=== PATIENT | female | born 1950 | race Caucasian/White ===

== ENCOUNTER → 2017-04-16 | Outpatient (REF) | payer MEDICARE, BC ==
[~2017-04-16] MED LIST: /GLYB5TA; /INSULEV; /INSULEV SC; /ONDA4TA PO; ACET-654 PO; ACET65TA OR; ALBU17IN2 INH; ALPH0.156; AMLO10TA; AMLO5TAB2 PO; ASPI1TAB PO; ASPI325T; ASPI81TA45 PO; ATOR1TAB18 PO; CALC0.5C PO; CALCPOW2 PO; CARV12.5 PO; CATA0.2T PO; CATA0.3D; CELE10TA; CELE10TA OR; CETI10TA PO; CINA30TA PO; CITA20TA4 PO; CLEO150C PO; CLON-412 PO; CLOP75TA2 PO; COLA100C2; COLA100C3 PO; CORE25TA PO; COSOPT OU; DEXILANT PO; DIOV160T5 OR; DIOV320T; DORZOLAMIDE-TIMOLOL; ERGO500014 PO; FERR325T PO; FLON0.054; FLON1SPR; GLYB5TA PO; HYDR-4267 PO; HYDR50TA7 PO; IRON28TA; KION15SU PO; LASI80TA; LEVE1INJ5 SC; LEVO175T19 PO; LEVO200T6; LEVO200T6 PO; LEVO300T OR; LIPI80TA; LOPR50TA; LORTAB PO; LOSA100T36 PO; LOSA25TA8 PO; METO5TAB2; MIRA3350 PO; NIFE20CA PO; NITR4TASL SL; OMEP40CA2 PO; PREDFORTE OU; PREDNISOLINE; PRIL20CA; PROCRIT3000 MG/ML IJ; PROCRIT3000 MG/ML SQ; PROT1TAB2 PO; RENA800T; RENATAB5 PO; RENV2TAB PO; SENSIPAR; TRAVATAN Z EYE GTTS; TUMS500C OR; VITAMIN D50000 UNT; ZEMPLAR; ZETI10TA
== END ==
LOC: M SFHCPLAZ 16:45
PROVIDERS: ATTEND Dermatology
DX: L02.91 Cutaneous abscess, unspecified (principal)

== ENCOUNTER 2017-06-06 13:03 | Emergency (ER) | payer MEDICARE, BC ==
[~2017-06-06] VITALS: Ht 165.1 cm; Wt 97.7 kg
[~2017-06-06 13:03] MED LIST changes: -ACET-654 PO; +ACET1TAB17 PO; -ATOR1TAB18 PO; +ATOR80TA59 PO; -COLA100C3 PO; +COLA100C5 PO; +HYDR-3911 PO; -HYDR-4267 PO
[2017-06-06 13:14] VITALS: BP 163/69
[2017-06-06] MEDS ORDERED: HYDR-3910 PO (13:21)
[2017-06-06] MEDS ORDERED: ADACEL/BOOSTRIX VACCINE (DIPHTH/PERTUSS/ACELL/TETANUS)0.5ML SYR (90715) IM ONE (13:45)
--- NOTE | 2017-06-06 14:06 | REP ---
LEFT FOOT, FOUR VIEWS: HISTORY: Lateral pain. There is no acute fracture or dislocation. The joint spaces are normal in appearance. Vascular calcification is present. IMPRESSION: There is no acute fracture or dislocation. Signed by Rusty Reardon MD 06/06/2017 02:11 P
== END 2017-06-06 14:10 | disposition home or self-care (01) ==
LOC: M ED 13:03
DX: S93.602A Unspecified sprain of left foot, initial encounter (principal); E11.9 Type 2 diabetes mellitus without complications; I10 Essential (primary) hypertension; I25.2 Old myocardial infarction; Z99.81 Dependence on supplemental oxygen; Z79.02 Long term (current) use of antithrombotics/antiplatelets; W19.XXXA Unspecified fall, initial encounter; Y92.89 Other specified places as the place of occurrence of the external cause; Y93.89 Activity, other specified; Y99.9 Unspecified external cause status

== ENCOUNTER → 2017-09-01 | Outpatient (REF) | payer MEDICARE, BC ==
[~2017-09-01] MED LIST changes: +HYDR-3910 PO
== END ==
LOC: M SFHCPLAZ 16:44
PROVIDERS: ATTEND Dermatology
DX: L02.93 Carbuncle, unspecified (principal); L30.8 Other specified dermatitis
CPT/HCPCS: 87070; 87077; 87186; G0463

== ENCOUNTER → 2017-11-03 | Outpatient (CLI) | payer MEDICARE, BC ==
--- NOTE | 2017-11-03 14:21 | REPMRS ---
Patient History The patient states she has not had a clinical breast exam in over a year. Patient is postmenopausal and is nulliparous. No known family history of cancer. Digital Mammo Screening Bilat: November 03, 2017 - Exam #: [id number] Bilateral CC and MLO view(s) were taken. Technologist: Judy Rosales, Technologist Prior study comparison: October 14, 2014, bilateral digital mammo screening bilat performed at [facility]. February 14, 2014, left breast digital mammo diagnostic unilateral performed at [facility]. FINDINGS: There are scattered fibroglandular densities. There has been no change in the appearance of the mammogram from the prior studies. There is a mild amount of residual fibroglandular tissue which is fairly symmetric. There is no interval development of dominant mass, architectural distortion, or clustered microcalcification suggestive of malignancy. ASSESSMENT: BI-RADS/ACR category 1 mammogram. Negative. Recommendation Routine screening mammogram in 1 year (for women over age 40). This mammogram was interpreted with the aid of an FDA-approved computer-aided dectection system. Electronically Signed By: Berlin Ornelas MD 11/03/17 [id number]
== END ==
LOC: M RAD 13:12
PROVIDERS: ATTEND Internal Medicine Nephrology
DX: Z12.31 Encounter for screening mammogram for malignant neoplasm of breast (principal); Z78.0 Asymptomatic menopausal state

== ENCOUNTER 2017-12-22 08:12 | Day surgery (SDC) | payer MEDICARE, BC ==
[2017-12-22 09:30] LABS: BEDSIDE GLUCOSE 167 MG/DL (80-115)
[2017-12-22] MEDS ORDERED: PROPOFOL 500 MG/50 ML VIAL As Ordered (09:48)
[2017-12-22] MEDS ORDERED: LIDOCAINE 2% INJ 100 MG/5 ML SDV (FOR ANES.) As Ordered (09:48)
[2017-12-22] MEDS ORDERED: hydrALAZINE INJ 20 MG/ML VIAL As Ordered (09:48)
[2017-12-22] MEDS: NS 1,000 ML IV (10:00)
== END 2017-12-22 10:45 | disposition home or self-care (01) ==
LOC: M OPP 08:12
DX: Z12.11 Encounter for screening for malignant neoplasm of colon (principal); D12.3 Benign neoplasm of transverse colon; K57.30 Diverticulosis of large intestine without perforation or abscess without bleeding; I25.10 Atherosclerotic heart disease of native coronary artery without angina pectoris; I10 Essential (primary) hypertension; E78.5 Hyperlipidemia, unspecified; I25.2 Old myocardial infarction; Z95.1 Presence of aortocoronary bypass graft; E10.9 Type 1 diabetes mellitus without complications; E03.9 Hypothyroidism, unspecified; R12 Heartburn; K21.9 Gastro-esophageal reflux disease without esophagitis; F32.9 Major depressive disorder, single episode, unspecified; I63.9 Cerebral infarction, unspecified; Z78.0 Asymptomatic menopausal state; R06.02 Shortness of breath; Z99.2 Dependence on renal dialysis; Z79.82 Long term (current) use of aspirin; Z79.899 Other long term (current) drug therapy; Z88.8 Allergy status to other drugs, medicaments and biological substances
CPT/HCPCS: 45385

== ENCOUNTER 2018-01-08 15:39 | Inpatient (IN) | payer MEDICARE, BC ==
[2018-01-08] MEDS: [UNRECOGNIZED DRUG - REMARK] XX (16:00)
[2018-01-08 16:29] LABS: BASO % 0.6 % (0.0-1.0); EOS % 0.6 % (0.0-3.0); HEMATOCRIT 32.5 % (36.0-47.0); HEMOGLOBIN 10.3 g/dl (12.0-16.0); IMMATURE GRANULOCYTE % 0.6 % (0-3.0); LYMPH % 4.6 % (24.0-44.0); MEAN CORPUSCULAR HEMOGLOBIN 31.2 pg (27.0-33.0); MEAN CORPUSCULAR HGB CONC 31.7 g/dl (32.0-36.5); MEAN CORPUSCULAR VOLUME 98.5 fl (80.0-96.0); MONO # 0.7 10^3/uL (0.0-0.8); MONO % 10.1 % (0.0-5.0); NEUTROPHILS # 5.8 10^3/uL (1.8-7.7); NEUTROPHILS % 83.5 % (36.0-66.0); PLATELET COUNT, AUTOMATED 171 10^3/uL (150-450); RED CELL DISTRIBUTION WIDTH 17.1 % (11.5-14.5)
[2018-01-08 16:38] LABS: LACTIC ACID SEPSIS PROTOCOL 1.4 MMOL/L (0.4-2.0)
[2018-01-08 16:41] LABS: ALBUMIN 3.6 GM/DL (3.2-5.2); ALBUMIN/GLOBULIN RATIO 0.77 (1.00-1.93); ALKALINE PHOSPHATASE 167 U/L (45-117); ALT/SGPT 17 U/L (12-78); ANION GAP 11 MEQ/L (8-16); AST/SGOT 21 U/L (7-37); BILIRUBIN,DIRECT < 0.1 MG/DL (0.0-0.2); BILIRUBIN,TOTAL 0.4 MG/DL (0.2-1.0); BLOOD UREA NITROGEN 56 MG/DL (7-18); CALCIUM LEVEL 8.8 MG/DL (8.8-10.2); CARBON DIOXIDE LEVEL 30 MEQ/L (21-32); CHLORIDE LEVEL 93 MEQ/L (98-107); CPK CREATINE PHOSPHOKINASE 285 U/L (26-192); GLOMERULAR FILTRATION RATE 4.3 (>45); GLUCOSE, FASTING 197 MG/DL (70-100); POTASSIUM SERUM 4.1 MEQ/L (3.5-5.1); SODIUM LEVEL 134 MEQ/L (136-145); TOTAL PROTEIN 8.3 GM/DL (6.4-8.2); TROPONIN I 0.06 NG/ML (< 0.10)
[2018-01-08 16:43] LABS: PROTHROMBIN TIME 14.4 SECONDS (12.4-14.5)
[2018-01-08 16:44] LABS: LYMPH # 0.3 10^3/uL (1.5-4.5)
[2018-01-08 16:46] LABS: NT-PRO BNP 5000 PG/ML (<125); THYROID STIMULATING HORMONE 0.107 uIU/ML (0.358-3.740)
[2018-01-08 16:47] LABS: CREATININE FOR GFR 9.68 MG/DL (0.55-1.30)
[2018-01-08 16:55] LABS: VENOUS HCO3 23.7 MEQ/L (23.0-27.0); VENOUS O2 SATURATION 92.3 % (60.0-80.0); VENOUS PARTIAL PRESSURE CO2 44.5 mmHg (38.0-50.0); VENOUS PARTIAL PRESSURE O2 67.2 mmHg (30.0-50.0); VENOUS PH 7.344 UNITS (7.330-7.430); VENOUS STANDARD HCO3 22.7 MEQ/L; VENOUS TOTAL CO2 25.1 MEQ/L (24.0-28.0)
[2018-01-08] MEDS ORDERED: GLUCAGON FOR INJ 1 MG VIAL (J1610) SC (19:15)
[2018-01-08] MEDS ORDERED: DEXTROSE 50% 50 ML SYRINGE IV (19:15)
[2018-01-08] MEDS ORDERED: GLUCOSE 4 GM CHEW TABLET PO (19:15)
[2018-01-08] MEDS ORDERED: hydrALAZINE INJ 20 MG/ML VIAL IV (19:15)
[2018-01-08] MEDS ORDERED: IPRATROPIUM 0.5MG/ALBUTEROL 2.5MG INH SOL UD 3ML (DUONEB)(J7620) NEB (19:15)
[2018-01-08] MEDS ORDERED: ACETAMINOPHEN TAB 650MG DOSE (2X325MG) PO (19:45)
[2018-01-08] MEDS: OSELTAMIVIR PHOSPHATE 30MG CAPSULE PO (20:00)
[2018-01-08 20:04] LABS: FREE THYROXINE INDEX 4.4 % (1.3-4.8); T UPTAKE 32 % (30-39); THYROXINE (T4) 13.6 UG/DL (4.5-12.0)
[2018-01-08] MEDS: hydrALAZINE INJ 20 MG/ML VIAL IV (20:21)
[2018-01-08] MEDS: NITROGLYCERIN 2% OINT 1 GM *U/D* PKT TOP (20:21)
[2018-01-08] MEDS: IPRATROPIUM 0.5MG/ALBUTEROL 2.5MG INH SOL UD 3ML (DUONEB)(J7620) NEB (20:49)
[2018-01-08] MEDS: CALCIUM CARBONATE 500 MG CHEW U/D PO (21:00)
[2018-01-08] MEDS: HumaLOG INSULIN (NovoLOG) PER UNIT SC (22:00)
[2018-01-08] MEDS: **hydrALAZINE HCL** 25 MG TAB PO (22:18)
[2018-01-08] MEDS: CitaloPRAM (CeleXA) 20 MG TAB PO (22:18)
[2018-01-08] MEDS: DOCUSATE SODIUM 100 MG CAP PO (22:19)
[2018-01-08] MEDS: LOSARTAN 50 MG TAB PO (22:20)
[2018-01-08] MEDS: SENOKOT S TAB PO (22:20)
[2018-01-08] MEDS: ATORVASTATIN 20 MG TAB PO (22:20)
[2018-01-08] MEDS: cloNIDine 0.2 MG TAB PO (22:21)
[2018-01-08] MEDS: guaiFENesin ER 600 MG TAB PO (22:21)
[2018-01-08 22:56] LABS: CK-MB VALUE MASS 1.6 NG/ML (0.0-3.6); CPK CREATINE PHOSPHOKINASE 336 U/L (26-192); MB/CK RELATIVE INDEX 0.47 (< OR =4); TROPONIN I 0.08 NG/ML (< 0.10)
[2018-01-08] MEDS: CETIRIZINE (ZyrTEC) 10 MG TAB PO (23:00)
[2018-01-08] MEDS: MIRALAX *UNIT DOSE* 17GM PACKET PO (23:00)
[2018-01-08] MEDS: BENZONATATE 100 MG CAP PO (23:00)
[2018-01-08] MEDS: CARVedilol 12.5 MG TAB PO (23:21)
[2018-01-08] MEDS: HEPARIN SOD (PORCINE) 5000 UNITS/ML VIAL SC (23:23)
[2018-01-09] MEDS: IPRATROPIUM 0.5MG/ALBUTEROL 2.5MG INH SOL UD 3ML (DUONEB)(J7620) NEB ×4 (02:00→19:38)
[2018-01-09] MEDS: LEVOTHYROXINE 100MCG TABLET (0.1MG) PO (06:00)
[2018-01-09] MEDS: HEPARIN SOD (PORCINE) 5000 UNITS/ML VIAL SC ×3 (06:00→21:35)
[2018-01-09] MEDS: LEVOTHYROXINE 75MCG TABLET (0.075MG) PO (06:00)
[2018-01-09] MEDS: HumaLOG INSULIN (NovoLOG) PER UNIT SC ×4 (07:30→21:00)
[2018-01-09 07:45] LABS: HEMATOCRIT 30.1 % (36.0-47.0); HEMOGLOBIN 9.6 g/dl (12.0-16.0); MEAN CORPUSCULAR HEMOGLOBIN 30.9 pg (27.0-33.0); MEAN CORPUSCULAR HGB CONC 31.9 g/dl (32.0-36.5); MEAN CORPUSCULAR VOLUME 96.8 fl (80.0-96.0); PLATELET COUNT, AUTOMATED 145 10^3/uL (150-450); RED BLOOD COUNT 3.11 10^6/uL (4.00-5.40); RED CELL DISTRIBUTION WIDTH 16.9 % (11.5-14.5); WHITE BLOOD COUNT 5.9 10^3/uL (4.0-10.0)
[2018-01-09 07:59] LABS: ALBUMIN 3.2 GM/DL (3.2-5.2); ALBUMIN/GLOBULIN RATIO 0.94 (1.00-1.93); ALKALINE PHOSPHATASE 137 U/L (45-117); ALT/SGPT 15 U/L (12-78); ANION GAP 12 MEQ/L (8-16); AST/SGOT 25 U/L (7-37); BILIRUBIN,TOTAL 0.4 MG/DL (0.2-1.0); BLOOD UREA NITROGEN 70 MG/DL (7-18); CALCIUM LEVEL 8.5 MG/DL (8.8-10.2); CARBON DIOXIDE LEVEL 28 MEQ/L (21-32); CHLORIDE LEVEL 95 MEQ/L (98-107); GLOMERULAR FILTRATION RATE 3.6 (>45); GLUCOSE, FASTING 154 MG/DL (70-100); MAGNESIUM LEVEL 2.2 MG/DL (1.8-2.4); POTASSIUM SERUM 4.4 MEQ/L (3.5-5.1); SODIUM LEVEL 135 MEQ/L (136-145); TOTAL PROTEIN 6.6 GM/DL (6.4-8.2)
[2018-01-09] MEDS: CALCIUM ACETATE 667 MG GELCAP PO ×3 (08:00→17:59)
[2018-01-09 08:12] LABS: BEDSIDE GLUCOSE 156 MG/DL (80-115)
[2018-01-09] MEDS: CARVedilol 12.5 MG TAB PO ×2 (09:00→20:51)
[2018-01-09] MEDS: HEPARIN 1,000 UNITS/ML 10ML VIAL (FOR RADIOLOGY& DIALYSIS ONLY) IV (14:44)
[2018-01-09] MEDS: guaiFENesin ER 600 MG TAB PO ×2 (14:45→20:50)
[2018-01-09] MEDS: DOCUSATE SODIUM 100 MG CAP PO ×2 (14:46→20:50)
[2018-01-09] MEDS: BENZONATATE 100 MG CAP PO ×3 (14:47→20:50)
[2018-01-09] MEDS: SENOKOT S TAB PO ×2 (14:47→20:50)
[2018-01-09] MEDS: CALCIUM CARBONATE 500 MG CHEW U/D PO ×3 (14:48→20:50)
[2018-01-09] MEDS: CLOPIDOGREL 75 MG TAB PO (15:13)
[2018-01-09] MEDS: ASPIRIN 81 MG ENTERIC TAB PO (15:13)
[2018-01-09] MEDS: PANTOPRAZOLE 40MG TAB (PROTONIX) PO (15:13)
[2018-01-09] MEDS: CINACALCET 30 MG TAB (SENSIPAR) PO (15:13)
[2018-01-09] MEDS: cloNIDine 0.2 MG TAB PO ×2 (15:14→20:52)
[2018-01-09] MEDS: **hydrALAZINE HCL** 25 MG TAB PO ×2 (15:14→20:52)
[2018-01-09] MEDS: [UNRECOGNIZED DRUG - REMARK] XX (16:00)
[2018-01-09] MEDS: OSELTAMIVIR PHOSPHATE 30MG CAPSULE PO (17:59)
[2018-01-09] MEDS: LEVEMIR (INSULIN DETEMIR) 1 UNITS/0.01ML SQ (17:59)
[2018-01-09] MEDS: CETIRIZINE (ZyrTEC) 10 MG TAB PO (20:50)
[2018-01-09] MEDS: CitaloPRAM (CeleXA) 20 MG TAB PO (20:50)
[2018-01-09] MEDS: ATORVASTATIN 20 MG TAB PO (20:50)
[2018-01-09] MEDS: LOSARTAN 50 MG TAB PO (20:51)
[2018-01-09] MEDS: MIRALAX *UNIT DOSE* 17GM PACKET PO (20:57)
[2018-01-09 22:20] LABS: BEDSIDE GLUCOSE 121 MG/DL (80-115)
[2018-01-10] MEDS: IPRATROPIUM 0.5MG/ALBUTEROL 2.5MG INH SOL UD 3ML (DUONEB)(J7620) NEB ×4 (01:31→20:00)
[2018-01-10] MEDS: ASPIRIN 81 MG ENTERIC TAB PO (06:28)
[2018-01-10] MEDS: LEVOTHYROXINE 100MCG TABLET (0.1MG) PO (06:28)
[2018-01-10] MEDS: LEVOTHYROXINE 75MCG TABLET (0.075MG) PO (06:28)
[2018-01-10] MEDS: HEPARIN SOD (PORCINE) 5000 UNITS/ML VIAL SC ×3 (06:28→22:01)
[2018-01-10] MEDS: CALCIUM ACETATE 667 MG GELCAP PO ×3 (06:29→17:56)
[2018-01-10] MEDS: PANTOPRAZOLE 40MG TAB (PROTONIX) PO (06:29)
[2018-01-10] MEDS: CLOPIDOGREL 75 MG TAB PO (06:29)
[2018-01-10] MEDS: guaiFENesin ER 600 MG TAB PO ×2 (06:29→21:59)
[2018-01-10] MEDS: SENOKOT S TAB PO ×2 (06:29→21:59)
[2018-01-10] MEDS: CALCIUM CARBONATE 500 MG CHEW U/D PO ×3 (06:29→21:59)
[2018-01-10] MEDS: BENZONATATE 100 MG CAP PO ×3 (06:29→21:59)
[2018-01-10] MEDS: DOCUSATE SODIUM 100 MG CAP PO ×2 (06:29→21:59)
[2018-01-10 06:30] LABS: HEMATOCRIT 31.9 % (36.0-47.0); HEMOGLOBIN 9.9 g/dl (12.0-16.0); MEAN CORPUSCULAR HEMOGLOBIN 30.7 pg (27.0-33.0); MEAN CORPUSCULAR VOLUME 98.8 fl (80.0-96.0); PLATELET COUNT, AUTOMATED 127 10^3/uL (150-450); RED BLOOD COUNT 3.23 10^6/uL (4.00-5.40); RED CELL DISTRIBUTION WIDTH 16.7 % (11.5-14.5); WHITE BLOOD COUNT 5.3 10^3/uL (4.0-10.0)
[2018-01-10] MEDS: CARVedilol 12.5 MG TAB PO ×2 (06:30→22:00)
[2018-01-10] MEDS: **hydrALAZINE HCL** 25 MG TAB PO ×4 (06:30→22:06)
[2018-01-10] MEDS: cloNIDine 0.2 MG TAB PO ×3 (06:37→22:00)
[2018-01-10 06:49] LABS: ALKALINE PHOSPHATASE 120 U/L (45-117); ALT/SGPT 22 U/L (12-78); ANION GAP 10 MEQ/L (8-16); AST/SGOT 45 U/L (7-37); BILIRUBIN,TOTAL 0.3 MG/DL (0.2-1.0); BLOOD UREA NITROGEN 41 MG/DL (7-18); CARBON DIOXIDE LEVEL 31 MEQ/L (21-32); CHLORIDE LEVEL 97 MEQ/L (98-107); CREATININE FOR GFR 7.25 MG/DL (0.55-1.30); GLUCOSE, FASTING 65 MG/DL (70-100); MAGNESIUM LEVEL 2.4 MG/DL (1.8-2.4); POTASSIUM SERUM 4.6 MEQ/L (3.5-5.1); SODIUM LEVEL 138 MEQ/L (136-145); TOTAL PROTEIN 7.3 GM/DL (6.4-8.2)
[2018-01-10 06:57] LABS: BEDSIDE GLUCOSE 65 MG/DL (80-115)
[2018-01-10] MEDS: HumaLOG INSULIN (NovoLOG) PER UNIT SC ×4 (07:11→21:00)
[2018-01-10] MEDS: LEVEMIR (INSULIN DETEMIR) 1 UNITS/0.01ML SQ (08:57)
[2018-01-10] MEDS: HEPARIN 1,000 UNITS/ML 10ML VIAL (FOR RADIOLOGY& DIALYSIS ONLY) IV (13:00)
[2018-01-10 13:20] LABS: BEDSIDE GLUCOSE 103 MG/DL (80-115)
[2018-01-10 15:35] LABS: BEDSIDE GLUCOSE 176 MG/DL (80-115)
[2018-01-10] MEDS: [UNRECOGNIZED DRUG - REMARK] XX (16:00)
[2018-01-10] MEDS: OSELTAMIVIR PHOSPHATE 30MG CAPSULE PO (17:56)
[2018-01-10] MEDS: MIRALAX *UNIT DOSE* 17GM PACKET PO (21:00)
[2018-01-10] MEDS: CETIRIZINE (ZyrTEC) 10 MG TAB PO (21:59)
[2018-01-10] MEDS: ATORVASTATIN 20 MG TAB PO (21:59)
[2018-01-10] MEDS: CitaloPRAM (CeleXA) 20 MG TAB PO (21:59)
[2018-01-10] MEDS: LOSARTAN 50 MG TAB PO (22:01)
[2018-01-11] MEDS: IPRATROPIUM 0.5MG/ALBUTEROL 2.5MG INH SOL UD 3ML (DUONEB)(J7620) NEB ×4 (01:57→20:13)
[2018-01-11] MEDS: LEVOTHYROXINE 100MCG TABLET (0.1MG) PO (05:34)
[2018-01-11] MEDS: LEVOTHYROXINE 75MCG TABLET (0.075MG) PO (05:34)
[2018-01-11] MEDS: HEPARIN SOD (PORCINE) 5000 UNITS/ML VIAL SC ×3 (05:36→21:02)
[2018-01-11] MEDS: FLUTICASONE PROP 0.05% NASAL SPRAY 16 GM (FLONASE) (05:37)
[2018-01-11 06:38] LABS: HEMATOCRIT 35.9 % (36.0-47.0); HEMOGLOBIN 11.3 g/dl (12.0-16.0); MEAN CORPUSCULAR HEMOGLOBIN 30.5 pg (27.0-33.0); MEAN CORPUSCULAR HGB CONC 31.5 g/dl (32.0-36.5); PLATELET COUNT, AUTOMATED 164 10^3/uL (150-450); RED CELL DISTRIBUTION WIDTH 16.8 % (11.5-14.5); WHITE BLOOD COUNT 5.1 10^3/uL (4.0-10.0)
[2018-01-11 06:58] LABS: ALBUMIN 3.3 GM/DL (3.2-5.2); ALBUMIN/GLOBULIN RATIO 0.69 (1.00-1.93); ALKALINE PHOSPHATASE 115 U/L (45-117); ALT/SGPT 26 U/L (12-78); ANION GAP 9 MEQ/L (8-16); AST/SGOT 44 U/L (7-37); BILIRUBIN,TOTAL 0.5 MG/DL (0.2-1.0); BLOOD UREA NITROGEN 29 MG/DL (7-18); CALCIUM LEVEL 8.8 MG/DL (8.8-10.2); CARBON DIOXIDE LEVEL 33 MEQ/L (21-32); CHLORIDE LEVEL 97 MEQ/L (98-107); CREATININE FOR GFR 5.47 MG/DL (0.55-1.30); GLOMERULAR FILTRATION RATE 8.3 (>45); GLUCOSE, FASTING 115 MG/DL (70-100); MAGNESIUM LEVEL 2.2 MG/DL (1.8-2.4); POTASSIUM SERUM 3.6 MEQ/L (3.5-5.1); SODIUM LEVEL 139 MEQ/L (136-145); TOTAL PROTEIN 8.1 GM/DL (6.4-8.2)
[2018-01-11] MEDS: HumaLOG INSULIN (NovoLOG) PER UNIT SC ×4 (07:30→20:20)
[2018-01-11] MEDS: cloNIDine 0.2 MG TAB PO ×3 (09:00→20:20)
[2018-01-11] MEDS: **hydrALAZINE HCL** 25 MG TAB PO ×3 (09:00→20:20)
[2018-01-11] MEDS: CLOPIDOGREL 75 MG TAB PO (09:18)
[2018-01-11] MEDS: CALCIUM CARBONATE 500 MG CHEW U/D PO ×3 (09:19→20:45)
[2018-01-11] MEDS: PANTOPRAZOLE 40MG TAB (PROTONIX) PO (09:19)
[2018-01-11] MEDS: CALCIUM ACETATE 667 MG GELCAP PO ×3 (09:20→17:06)
[2018-01-11] MEDS: CARVedilol 12.5 MG TAB PO ×2 (09:20→20:46)
[2018-01-11] MEDS: guaiFENesin ER 600 MG TAB PO ×2 (09:20→20:45)
[2018-01-11] MEDS: BENZONATATE 100 MG CAP PO ×3 (09:20→20:45)
[2018-01-11] MEDS: SENOKOT S TAB PO ×2 (09:20→20:22)
[2018-01-11] MEDS: ASPIRIN 81 MG ENTERIC TAB PO (09:20)
[2018-01-11] MEDS: DOCUSATE SODIUM 100 MG CAP PO ×2 (09:20→20:21)
[2018-01-11] MEDS: LEVEMIR (INSULIN DETEMIR) 1 UNITS/0.01ML SQ (09:21)
[2018-01-11] MEDS: [UNRECOGNIZED DRUG - REMARK] XX (13:58)
[2018-01-11] MEDS: MIRALAX *UNIT DOSE* 17GM PACKET PO (20:21)
[2018-01-11] MEDS: ATORVASTATIN 20 MG TAB PO (20:45)
[2018-01-11] MEDS: CETIRIZINE (ZyrTEC) 10 MG TAB PO (20:45)
[2018-01-11] MEDS: CitaloPRAM (CeleXA) 20 MG TAB PO (20:45)
[2018-01-11] MEDS: LOSARTAN 50 MG TAB PO (20:46)
[2018-01-12] MEDS: IPRATROPIUM 0.5MG/ALBUTEROL 2.5MG INH SOL UD 3ML (DUONEB)(J7620) NEB ×4 (02:09→19:57)
[2018-01-12] MEDS: LEVOTHYROXINE 100MCG TABLET (0.1MG) PO (05:30)
[2018-01-12] MEDS: HEPARIN SOD (PORCINE) 5000 UNITS/ML VIAL SC ×3 (05:30→21:57)
[2018-01-12] MEDS: LEVOTHYROXINE 75MCG TABLET (0.075MG) PO (05:30)
[2018-01-12 06:31] LABS: HEMATOCRIT 33.4 % (36.0-47.0); HEMOGLOBIN 10.5 g/dl (12.0-16.0); MEAN CORPUSCULAR HEMOGLOBIN 30.5 pg (27.0-33.0); MEAN CORPUSCULAR HGB CONC 31.4 g/dl (32.0-36.5); MEAN CORPUSCULAR VOLUME 97.1 fl (80.0-96.0); PLATELET COUNT, AUTOMATED 168 10^3/uL (150-450); RED BLOOD COUNT 3.44 10^6/uL (4.00-5.40); RED CELL DISTRIBUTION WIDTH 16.7 % (11.5-14.5); WHITE BLOOD COUNT 6.3 10^3/uL (4.0-10.0)
[2018-01-12 07:00] LABS: ALBUMIN 3.1 GM/DL (3.2-5.2); ALKALINE PHOSPHATASE 110 U/L (45-117); ALT/SGPT 23 U/L (12-78); ANION GAP 7 MEQ/L (8-16); AST/SGOT 38 U/L (7-37); BILIRUBIN,TOTAL 0.7 MG/DL (0.2-1.0); BLOOD UREA NITROGEN 51 MG/DL (7-18); CALCIUM LEVEL 8.7 MG/DL (8.8-10.2); CARBON DIOXIDE LEVEL 32 MEQ/L (21-32); CHLORIDE LEVEL 97 MEQ/L (98-107); GLOMERULAR FILTRATION RATE 5.4 (>45); GLUCOSE, FASTING 158 MG/DL (70-100); MAGNESIUM LEVEL 2.2 MG/DL (1.8-2.4); SODIUM LEVEL 136 MEQ/L (136-145); TOTAL PROTEIN 7.5 GM/DL (6.4-8.2)
[2018-01-12 07:01] LABS: CREATININE FOR GFR 8.02 MG/DL (0.55-1.30)
[2018-01-12] MEDS: HumaLOG INSULIN (NovoLOG) PER UNIT SC ×4 (08:42→21:00)
[2018-01-12] MEDS: PANTOPRAZOLE 40MG TAB (PROTONIX) PO (08:43)
[2018-01-12] MEDS: ASPIRIN 81 MG ENTERIC TAB PO (08:43)
[2018-01-12] MEDS: guaiFENesin ER 600 MG TAB PO (08:43)
[2018-01-12] MEDS: CALCIUM CARBONATE 500 MG CHEW U/D PO ×3 (08:43→21:55)
[2018-01-12] MEDS: cloNIDine 0.2 MG TAB PO ×3 (08:43→21:00)
[2018-01-12] MEDS: LEVEMIR (INSULIN DETEMIR) 1 UNITS/0.01ML SQ (08:43)
[2018-01-12] MEDS: CINACALCET 30 MG TAB (SENSIPAR) PO (08:43)
[2018-01-12] MEDS: **hydrALAZINE HCL** 25 MG TAB PO ×3 (08:44→21:56)
[2018-01-12] MEDS: CARVedilol 12.5 MG TAB PO ×2 (08:44→21:54)
[2018-01-12] MEDS: CALCIUM ACETATE 667 MG GELCAP PO ×3 (08:44→17:27)
[2018-01-12] MEDS: DOCUSATE SODIUM 100 MG CAP PO ×2 (08:45→21:54)
[2018-01-12] MEDS: CLOPIDOGREL 75 MG TAB PO (08:45)
[2018-01-12] MEDS: BENZONATATE 100 MG CAP PO ×3 (08:45→21:55)
[2018-01-12] MEDS: SENOKOT S TAB PO ×2 (08:45→21:54)
[2018-01-12] MEDS ORDERED: DEXTROMETHORPHAN 60MG/10ML SUSP 90ML BTL(DELSYM) PO (12:15)
[2018-01-12 14:28] LABS: BEDSIDE GLUCOSE 188 MG/DL (80-115)
[2018-01-12 14:28] LABS: BEDSIDE GLUCOSE 156 MG/DL (80-115)
[2018-01-12 15:55] LABS: BEDSIDE GLUCOSE 156 MG/DL (80-115)
[2018-01-12 15:55] LABS: BEDSIDE GLUCOSE 173 MG/DL (80-115)
[2018-01-12 15:55] LABS: BEDSIDE GLUCOSE 265 MG/DL (80-115)
[2018-01-12 15:55] LABS: BEDSIDE GLUCOSE 196 MG/DL (80-115)
[2018-01-12 15:56] LABS: BEDSIDE GLUCOSE 81 MG/DL (80-115)
[2018-01-12] MEDS: [UNRECOGNIZED DRUG - REMARK] XX (16:00)
[2018-01-12] MEDS: MIRALAX *UNIT DOSE* 17GM PACKET PO (21:00)
[2018-01-12] MEDS: ATORVASTATIN 20 MG TAB PO (21:55)
[2018-01-12] MEDS: CETIRIZINE (ZyrTEC) 10 MG TAB PO (21:55)
[2018-01-12] MEDS: LOSARTAN 50 MG TAB PO (21:55)
[2018-01-12] MEDS: CitaloPRAM (CeleXA) 20 MG TAB PO (21:58)
[2018-01-13] MEDS: IPRATROPIUM 0.5MG/ALBUTEROL 2.5MG INH SOL UD 3ML (DUONEB)(J7620) NEB ×4 (02:04→20:00)
[2018-01-13] MEDS: LEVOTHYROXINE 100MCG TABLET (0.1MG) PO (06:07)
[2018-01-13] MEDS: LEVOTHYROXINE 75MCG TABLET (0.075MG) PO (06:07)
[2018-01-13] MEDS: **hydrALAZINE** 50 MG TAB PO ×3 (06:08→18:03)
[2018-01-13] MEDS: HEPARIN SOD (PORCINE) 5000 UNITS/ML VIAL SC ×3 (06:08→21:13)
[2018-01-13] MEDS: cloNIDine 0.2 MG TAB PO ×3 (06:09→18:02)
[2018-01-13] MEDS: BENZONATATE 100 MG CAP PO ×3 (06:44→21:13)
[2018-01-13] MEDS: CALCIUM CARBONATE 500 MG CHEW U/D PO ×3 (06:44→21:12)
[2018-01-13] MEDS: PANTOPRAZOLE 40MG TAB (PROTONIX) PO (06:44)
[2018-01-13] MEDS: CALCIUM ACETATE 667 MG GELCAP PO ×3 (06:44→18:03)
[2018-01-13] MEDS: DOCUSATE SODIUM 100 MG CAP PO ×2 (06:44→21:13)
[2018-01-13] MEDS: SENOKOT S TAB PO ×2 (06:45→21:13)
[2018-01-13] MEDS: CLOPIDOGREL 75 MG TAB PO (06:45)
[2018-01-13] MEDS: ASPIRIN 81 MG ENTERIC TAB PO (06:45)
[2018-01-13 06:47] LABS: HEMATOCRIT 31.7 % (36.0-47.0); HEMOGLOBIN 10.2 g/dl (12.0-16.0); MEAN CORPUSCULAR HEMOGLOBIN 30.9 pg (27.0-33.0); MEAN CORPUSCULAR HGB CONC 32.2 g/dl (32.0-36.5); MEAN CORPUSCULAR VOLUME 96.1 fl (80.0-96.0); PLATELET COUNT, AUTOMATED 179 10^3/uL (150-450); RED CELL DISTRIBUTION WIDTH 16.5 % (11.5-14.5); WHITE BLOOD COUNT 5.9 10^3/uL (4.0-10.0)
[2018-01-13 07:03] LABS: ALBUMIN 3.3 GM/DL (3.2-5.2); ALBUMIN/GLOBULIN RATIO 0.72 (1.00-1.93); ALKALINE PHOSPHATASE 103 U/L (45-117); ALT/SGPT 21 U/L (12-78); ANION GAP 11 MEQ/L (8-16); AST/SGOT 32 U/L (7-37); BILIRUBIN,TOTAL 0.8 MG/DL (0.2-1.0); BLOOD UREA NITROGEN 68 MG/DL (7-18); CALCIUM LEVEL 8.6 MG/DL (8.8-10.2); CARBON DIOXIDE LEVEL 30 MEQ/L (21-32); CHLORIDE LEVEL 93 MEQ/L (98-107); GLOMERULAR FILTRATION RATE 4.2 (>45); GLUCOSE, FASTING 159 MG/DL (70-100); MAGNESIUM LEVEL 2.2 MG/DL (1.8-2.4); POTASSIUM SERUM 4.1 MEQ/L (3.5-5.1); SODIUM LEVEL 134 MEQ/L (136-145); TOTAL PROTEIN 7.9 GM/DL (6.4-8.2)
[2018-01-13 07:07] LABS: CREATININE FOR GFR 9.82 MG/DL (0.55-1.30)
[2018-01-13] MEDS: CARVedilol 12.5 MG TAB PO ×2 (07:46→21:20)
[2018-01-13] MEDS: LEVEMIR (INSULIN DETEMIR) 1 UNITS/0.01ML SQ (07:47)
[2018-01-13] MEDS: HumaLOG INSULIN (NovoLOG) PER UNIT SC ×4 (07:47→20:40)
[2018-01-13 09:13] LABS: BEDSIDE GLUCOSE 110 MG/DL (80-115)
[2018-01-13 09:40] LABS: BEDSIDE GLUCOSE 206 MG/DL (80-115)
[2018-01-13] MEDS: HEPARIN 1,000 UNITS/ML 10ML VIAL (FOR RADIOLOGY& DIALYSIS ONLY) IV (13:07)
[2018-01-13 18:02] LABS: BEDSIDE GLUCOSE 169 MG/DL (80-115)
[2018-01-13] MEDS: MIRALAX *UNIT DOSE* 17GM PACKET PO (21:00)
[2018-01-13] MEDS: ATORVASTATIN 20 MG TAB PO (21:12)
[2018-01-13] MEDS: CETIRIZINE (ZyrTEC) 10 MG TAB PO (21:13)
[2018-01-13] MEDS: CitaloPRAM (CeleXA) 20 MG TAB PO (21:13)
[2018-01-13] MEDS: LOSARTAN 50 MG TAB PO (21:20)
[2018-01-14] MEDS: **hydrALAZINE** 50 MG TAB PO ×3 (00:22→12:25)
[2018-01-14] MEDS: cloNIDine 0.2 MG TAB PO ×3 (00:22→12:25)
[2018-01-14] MEDS: IPRATROPIUM 0.5MG/ALBUTEROL 2.5MG INH SOL UD 3ML (DUONEB)(J7620) NEB ×2 (00:36→08:00)
[2018-01-14] MEDS: HEPARIN SOD (PORCINE) 5000 UNITS/ML VIAL SC (06:05)
[2018-01-14] MEDS: LEVOTHYROXINE 100MCG TABLET (0.1MG) PO (06:05)
[2018-01-14] MEDS: LEVOTHYROXINE 75MCG TABLET (0.075MG) PO (06:05)
[2018-01-14 06:40] LABS: HEMATOCRIT 28.9 % (36.0-47.0); HEMOGLOBIN 9.1 g/dl (12.0-16.0); MEAN CORPUSCULAR HEMOGLOBIN 30.6 pg (27.0-33.0); MEAN CORPUSCULAR HGB CONC 31.5 g/dl (32.0-36.5); MEAN CORPUSCULAR VOLUME 97.3 fl (80.0-96.0); PLATELET COUNT, AUTOMATED 168 10^3/uL (150-450); RED BLOOD COUNT 2.97 10^6/uL (4.00-5.40); RED CELL DISTRIBUTION WIDTH 16.8 % (11.5-14.5)
[2018-01-14 06:57] LABS: ALBUMIN 2.8 GM/DL (3.2-5.2); ALBUMIN/GLOBULIN RATIO 0.72 (1.00-1.93); ALKALINE PHOSPHATASE 94 U/L (45-117); ALT/SGPT 22 U/L (12-78); ANION GAP 7 MEQ/L (8-16); AST/SGOT 29 U/L (7-37); BILIRUBIN,TOTAL 0.5 MG/DL (0.2-1.0); BLOOD UREA NITROGEN 44 MG/DL (7-18); CALCIUM LEVEL 8.8 MG/DL (8.8-10.2); CARBON DIOXIDE LEVEL 33 MEQ/L (21-32); CHLORIDE LEVEL 97 MEQ/L (98-107); CREATININE FOR GFR 7.27 MG/DL (0.55-1.30); GLUCOSE, FASTING 203 MG/DL (70-100); MAGNESIUM LEVEL 2.1 MG/DL (1.8-2.4); POTASSIUM SERUM 4.3 MEQ/L (3.5-5.1); SODIUM LEVEL 137 MEQ/L (136-145); TOTAL PROTEIN 6.7 GM/DL (6.4-8.2)
[2018-01-14] MEDS: CALCIUM ACETATE 667 MG GELCAP PO ×2 (08:09→12:14)
[2018-01-14] MEDS: DOCUSATE SODIUM 100 MG CAP PO (08:09)
[2018-01-14] MEDS: CALCIUM CARBONATE 500 MG CHEW U/D PO (08:09)
[2018-01-14] MEDS: SENOKOT S TAB PO (08:09)
[2018-01-14] MEDS: BENZONATATE 100 MG CAP PO (08:09)
[2018-01-14] MEDS: PANTOPRAZOLE 40MG TAB (PROTONIX) PO (08:09)
[2018-01-14] MEDS: ASPIRIN 81 MG ENTERIC TAB PO (08:09)
[2018-01-14] MEDS: LEVEMIR (INSULIN DETEMIR) 1 UNITS/0.01ML SQ (08:10)
[2018-01-14] MEDS: CINACALCET 30 MG TAB (SENSIPAR) PO (08:10)
[2018-01-14] MEDS: CLOPIDOGREL 75 MG TAB PO (08:10)
[2018-01-14] MEDS: HumaLOG INSULIN (NovoLOG) PER UNIT SC ×2 (08:11→12:13)
[2018-01-14] MEDS: CARVedilol 12.5 MG TAB PO (08:38)
[2018-01-14 09:38] LABS: BEDSIDE GLUCOSE 231 MG/DL (80-115)
[2018-01-14 09:38] LABS: BEDSIDE GLUCOSE 188 MG/DL (80-115)
[2018-01-14 12:04] LABS: BEDSIDE GLUCOSE 233 MG/DL (80-115)
== END 2018-01-14 12:40 | disposition home or self-care (01) | DRG 193 ==
LOC: M MSPAV 01-09 16:50 → M ED 15:39 → M ED INP 19:13
PROC: 5A1D70Z Performance of Urinary Filtration, Intermittent, Less than 6 Hours Per Day (ICD-10-PCS; principal; 2018-01-09)
DX: J10.1 Influenza due to other identified influenza virus with other respiratory manifestations (principal); N18.6 End stage renal disease; J96.11 Chronic respiratory failure with hypoxia; I69.351 Hemiplegia and hemiparesis following cerebral infarction affecting right dominant side; N25.81 Secondary hyperparathyroidism of renal origin; I12.0 Hypertensive chronic kidney disease with stage 5 chronic kidney disease or end stage renal disease; E87.1 Hypo-osmolality and hyponatremia; I25.2 Old myocardial infarction; I25.10 Atherosclerotic heart disease of native coronary artery without angina pectoris; E03.9 Hypothyroidism, unspecified; I16.0 Hypertensive urgency; E11.9 Type 2 diabetes mellitus without complications; Z99.81 Dependence on supplemental oxygen; Z95.5 Presence of coronary angioplasty implant and graft; Z98.41 Cataract extraction status, right eye; Z98.42 Cataract extraction status, left eye; Z95.828 Presence of other vascular implants and grafts; Z79.82 Long term (current) use of aspirin; Z79.4 Long term (current) use of insulin; Z79.02 Long term (current) use of antithrombotics/antiplatelets; Z79.899 Other long term (current) drug therapy; Z99.2 Dependence on renal dialysis

== ENCOUNTER 2018-05-29 00:53 | Emergency (ER) | payer MEDICARE, BC ==
[2018-05-29] MEDS: ASPIRIN 81 MG CHEW TABLET PO (02:58)
[2018-05-29] MEDS: NS 500 ML IV (02:58)
[2018-05-29 03:08] LABS: BASO # 0.1 10^3/uL (0.0-0.2); BASO % 0.6 % (0.0-1.0); EOS # 0.2 10^3/uL (0.0-0.50); HEMOGLOBIN 12.1 g/dl (12.0-15.5); IMMATURE GRANULOCYTE % 0.4 % (0-3.0); LYMPH # 0.9 10^3/uL (1.5-4.5); LYMPH % 11.1 % (24.0-44.0); MEAN CORPUSCULAR HGB CONC 31.8 g/dl (32.0-36.5); MEAN CORPUSCULAR VOLUME 94.1 fl (80.0-96.0); MONO % 11.3 % (0.0-5.0); NEUTROPHILS # 6.4 10^3/uL (1.8-7.7); NEUTROPHILS % 74.6 % (36.0-66.0); PLATELET COUNT, AUTOMATED 172 10^3/uL (150-450); RED BLOOD COUNT 4.04 10^6/uL (4.00-5.40); RED CELL DISTRIBUTION WIDTH 18.4 % (11.5-14.5); WHITE BLOOD COUNT 8.5 10^3/uL (4.0-10.0)
[2018-05-29 03:35] LABS: ANION GAP 11 MEQ/L (8-16); BLOOD UREA NITROGEN 37 MG/DL (7-18); CALCIUM LEVEL 8.9 MG/DL (8.8-10.2); CARBON DIOXIDE LEVEL 31 MEQ/L (21-32); CHLORIDE LEVEL 94 MEQ/L (98-107); CPK CREATINE PHOSPHOKINASE 83 U/L (26-192); CREATININE FOR GFR 5.24 MG/DL (0.55-1.30); GLOMERULAR FILTRATION RATE 8.8 (>45); GLUCOSE, FASTING 164 MG/DL (70-100); MAGNESIUM LEVEL 1.9 MG/DL (1.8-2.4); POTASSIUM SERUM 3.8 MEQ/L (3.5-5.1); SODIUM LEVEL 136 MEQ/L (136-145); TROPONIN I 0.02 NG/ML (< 0.10)
== END 2018-05-29 06:57 | disposition home or self-care (01) ==
LOC: M ED 00:53
DX: R00.2 Palpitations (principal); I45.10 Unspecified right bundle-branch block; R00.1 Bradycardia, unspecified; Z79.899 Other long term (current) drug therapy; Z79.02 Long term (current) use of antithrombotics/antiplatelets; Z79.82 Long term (current) use of aspirin
CPT/HCPCS: 93005

== ENCOUNTER → 2018-10-02 | Outpatient (CLI) | payer MEDICARE, BC, OTHER | LOC: M WUC 14:22 | DX: M16.11 Unilateral primary osteoarthritis, right hip (principal); M25.551 Pain in right hip | CPT/HCPCS: 72170 ==

== ENCOUNTER → 2018-11-02 | Outpatient (CLI) | payer MEDICARE, BC, OTHER | LOC: M WUC 12:12 | DX: J98.11 Atelectasis (principal); R05 Cough; Z95.828 Presence of other vascular implants and grafts | CPT/HCPCS: 71046 ==

== ENCOUNTER 2019-03-16 01:35 | Emergency (ER) | payer MEDICARE, BC ==
[~2019-03-16] VITALS: Ht 165.1 cm; Wt 101.2 kg
[~2019-03-16 01:35] MED LIST changes: -/GLYB5TA; -/INSULEV; -/INSULEV SC; -/ONDA4TA PO; -ACET1TAB17 PO; +ACET1TAB55 PO; -AMLO5TAB2 PO; +AMLO5TAB6 PO; -ASPI1TAB PO; +ASPI81TA26 PO; +BENZ-18 PO; -CALC0.5C PO; +CALC0.5C14 PO; +CALC1CAP PO; -CINA30TA PO; +CINA30TA4 PO; -CITA20TA4 PO; +CITA20TA6 PO; -ERGO500014 PO; +GLIM4TAB PO; +GLYB-147 PO; +GLYB1TAB29; +HYDR25TA PO; +LANTINJ4 SQ; +LEVE0.01; +LEVE0.01 SC; -LOSA100T36 PO; +LOSA100T50 PO; +LOSA25TA14 PO; -LOSA25TA8 PO; +MUCI600T37 PO; +ONDA-1 PO; +OSEL30CA PO; +TUMS500C PO; +VITA500045 PO
[2019-03-16 02:30] LABS: BASO # 0.1 10^3/uL (0.0-0.2); BASO % 0.9 % (0.0-1.0); EOS # 0.2 10^3/uL (0.0-0.50); EOS % 3.8 % (0.0-3.0); HEMATOCRIT 34.9 % (36.0-47.0); HEMOGLOBIN 10.9 g/dl (12.0-15.5); LYMPH # 1.7 10^3/uL (1.5-4.5); LYMPH % 28.4 % (24.0-44.0); MEAN CORPUSCULAR HEMOGLOBIN 32.3 pg (27.0-33.0); MEAN CORPUSCULAR HGB CONC 31.2 g/dl (32.0-36.5); MEAN CORPUSCULAR VOLUME 103.6 fl (80.0-96.0); MONO # 0.8 10^3/uL (0.0-0.8); MONO % 12.8 % (0.0-5.0); NEUTROPHILS # 3.1 10^3/uL (1.8-7.7); NEUTROPHILS % 53.8 % (36.0-66.0); PLATELET COUNT, AUTOMATED 172 10^3/uL (150-450); RED BLOOD COUNT 3.37 10^6/uL (4.00-5.40); WHITE BLOOD COUNT 5.8 10^3/uL (4.0-10.0)
[2019-03-16 02:48] LABS: CALCIUM LEVEL 8.6 MG/DL (8.8-10.2); CREATININE FOR GFR 8.58 MG/DL (0.55-1.30); GLOMERULAR FILTRATION RATE 4.9 (>45); MB/CK RELATIVE INDEX 2.72 (< OR =4); POTASSIUM SERUM 4.9 MEQ/L (3.5-5.1); TROPONIN I 0.03 NG/ML (< 0.10)
[2019-03-16 06:08] LABS: MB/CK RELATIVE INDEX 3.22 (< OR =4); TROPONIN I 0.02 NG/ML (< 0.10)
[2019-03-16 06:30] VITALS: BP 174/78
--- NOTE | 2019-03-16 08:15 | REP ---
PORTABLE CHEST X-RAY: SINGLE VIEW. HISTORY: Dyspnea and cough. COMPARISON CHEST X-RAY: November 02, 2018 FINDINGS: There is linear fibrosis versus atelectasis right base above the elevated right hemidiaphragm, unchanged. Prior sternotomy wires are seen. There is a vascular stent in the distribution of the right subclavian vein or artery. This is unchanged. EKG electrodes are seen. Cardiac enlargement is observed. Pulmonary vascular cephalization is seen. No new infiltrate. IMPRESSION: Cardiomegaly, prior sternotomy. Right subclavian vascular stent. Linear fibrosis versus platelike atelectasis right base. Vascular cephalization. Electronically Signed by uDncan Phan MD 03/16/2019 09:00 A
--- NOTE | 2019-03-16 23:11 | ECGEPIP ---
Stationary ECG Study [facility] - ED Test Date: 2019-03-16 Pat Name: JERARDO CORONA Department: Room: - Gender: F Vault Keeper: fide : 1950 Requested By: Landon Rain Order Number: [id number] Reading MD: Landon Hung Measurements Intervals [place] Rate: 53 P: 21 TX: 238 QRS: -50 QRSD: 138 T: 18 QT: 464 QTc: 436 Interpretive Statements SINUS BRADYCARDIA WITH FIRST DEGREE AV BLOCK LEFT AXIS DEVIATION RIGHT BUNDLE BRANCH BLOCK LEFT ANTERIOR FASCICULAR BLOCK MINIMAL VOLTAGE CRITERIA FOR LVH, CONSIDER NORMAL VARIANT INFERIOR MYOCARDIAL INFARCTION, PROBABLY OLD SIMILAR TO 05/29/18 Electronically Signed On 03-16-2019 23:10:52 EDT by Landon Hung
--- NOTE | 2019-03-16 23:13 | ECGEPIP ---
Stationary ECG Study [facility] - ED Test Date: 2019-03-16 Pat Name: JERARDO CORONA Department: Room: - Gender: F Visitor Use Assistant: luly : 1950 Requested By: Landon Rain Order Number: [id number] Reading MD: Landon Hung Measurements Intervals [place] Rate: 52 P: 18 NE: 260 QRS: -49 QRSD: 129 T: 7 QT: 459 QTc: 427 Interpretive Statements SINUS BRADYCARDIA WITH FIRST DEGREE AV BLOCK LEFT AXIS DEVIATION RIGHT BUNDLE BRANCH BLOCK MINIMAL VOLTAGE CRITERIA FOR LVH, CONSIDER NORMAL VARIANT INFERIOR MYOCARDIAL INFARCTION, PROBABLY OLD SIMILAR TO PRIOR ON SAME DATE Electronically Signed On 03-16-2019 23:13:10 EDT by Landon Hung
== END 2019-03-16 07:20 | disposition home or self-care (01) ==
LOC: M ED 01:35
DX: J18.9 Pneumonia, unspecified organism (principal); N18.6 End stage renal disease; Z99.2 Dependence on renal dialysis; E11.9 Type 2 diabetes mellitus without complications; I12.0 Hypertensive chronic kidney disease with stage 5 chronic kidney disease or end stage renal disease; H40.9 Unspecified glaucoma; I25.2 Old myocardial infarction; I69.351 Hemiplegia and hemiparesis following cerebral infarction affecting right dominant side; Z79.899 Other long term (current) drug therapy; Z79.82 Long term (current) use of aspirin

== ENCOUNTER → 2019-04-14 | Outpatient (CLI) | payer MEDICARE, BC ==
--- NOTE | 2019-04-14 13:57 | REPMRS ---
Patient History The patient states she has not had a clinical breast exam in over a year. Patient is postmenopausal and is nulliparous. Family history of unknown cancer at age 89 in mother. Taking unspecified hormones for 10 years. Patient had a benign left breast lumpectomy 6 years ago 3D TOMOSYNTHESIS WAS PERFORMED. Digital Mammo Screening Bilat: April 14, 2019 - Exam #: [id number] Bilateral CC and MLO view(s) were taken. Technologist: Gladys Florence Technologist Prior study comparison: November 03, 2017, bilateral digital mammo screening bilat performed at [facility]. October 14, 2014, bilateral digital mammo screening bilat performed at [facility]. FINDINGS: The breast tissue is heterogeneously dense. This may lower the sensitivity of mammography. There has been no change in the appearance of the mammogram from the prior studies. There is a moderate amount of residual fibroglandular tissue which is fairly symmetric. There is no interval development of dominant mass, areas of architectural distortion, or clustered microcalcification typical of malignancy. Assessment: BI-RADS/ACR category 1 mammogram. Negative Mammogram. Recommendation Routine screening mammogram in 1 year (for women over age 40). This mammogram was interpreted with the aid of an FDA-approved computer-aided dectection system. Electronically Signed By: Berlin Ornelas MD 04/14/19 [id number]
== END ==
LOC: M RAD 12:44
PROVIDERS: ATTEND Internal Medicine Nephrology
DX: Z12.31 Encounter for screening mammogram for malignant neoplasm of breast (principal); Z78.0 Asymptomatic menopausal state; Z80.9 Family history of malignant neoplasm, unspecified; Z79.3 Long term (current) use of hormonal contraceptives; Z86.018 Personal history of other benign neoplasm

== ENCOUNTER 2020-07-04 00:08 | Emergency (ER) | payer MEDICARE, BC ==
[~2020-07-04 00:08] MED LIST changes: +AMLO1TAB24 PO; -AMLO5TAB6 PO; -GLIM4TAB PO; +GLIM4TAB5 PO; +LANTINJ4 SC; -LANTINJ4 SQ; -OMEP40CA2 PO; +OMEP40CA97 PO
== END 2020-07-04 01:23 | disposition left against medical advice (07) ==
LOC: M ED 00:08
DX: Z53.21 Procedure and treatment not carried out due to patient leaving prior to being seen by health care provider (principal)

== ENCOUNTER 2020-09-15 09:17 | Inpatient (IN) | payer MEDICARE, BC ==
[~2020-09-15] VITALS: Ht 165.1 cm; Wt 101.5 kg
--- NOTE | 2020-09-15 10:21 | REP ---
INDICATION: diarrhea COMPARISON: None TECHNIQUE: Axial noncontrast images from the lung bases to the pubic symphysis with coronal and sagittal reformations. This CT examination was performed using the following dose reduction techniques: Automated exposure control, adjustment of mA and/or kv according to the patient's size, and use of iterative reconstruction technique. FINDINGS: Lung bases are essentially clear. Liver, spleen, pancreas, gallbladder, bilateral adrenal glands are normal. Kidneys demonstrate atrophic changes with bilateral rounded hypo and isodense lesions suggesting simple and complex cysts. No associated perinephric stranding or hydronephrosis. Incidental bilateral renal vascular calcifications are also appreciated. Mucosal thickening involving the descending colon with pericolonic inflammatory stranding and few scattered diverticula noted. Findings suggest infectious/inflammatory colitis versus diverticulitis. No associated bowel obstruction, ascites/drainable collection/abscess, or free air to suggest perforation. Remainder of the small and large bowel is grossly unremarkable. Pelvis demonstrates collapsed bladder and age-appropriate uterus/adnexa. No pelvic fluid or ascites. No free air. No adenopathy. Extensive atherosclerotic changes to the aorta and vasculature noted without aneurysm. Musculoskeletal structures demonstrate age-related degenerative changes. IMPRESSION: 1. Mucosal thickening of the descending colon with pericolonic stranding. Few scattered diverticula are also identified throughout the colon and findings likely represent infectious/inflammatory colitis versus diverticulitis. No associated bowel obstruction, perforation, or drainable collection/abscess. 2. Chronic nonacute findings as described above. <Electronically signed by Theron Vargas > 09/15/20 1707
[2020-09-15 10:38] LABS: BASO # 0.1 10^3/uL (0.0-0.2); BASO % 0.7 % (0.0-1.0); EOS # 0.1 10^3/uL (0.0-0.5); EOS % 1.3 % (0.0-3.0); HEMATOCRIT 31.9 % (36.0-47.0); HEMOGLOBIN 9.5 g/dl (12.0-15.5); LYMPH # 1.7 10^3/uL (1.5-5.0); LYMPH % 18.1 % (24.0-44.0); MEAN CORPUSCULAR HEMOGLOBIN 30.7 pg (27.0-33.0); MEAN CORPUSCULAR HGB CONC 29.8 g/dl (32.0-36.5); MEAN CORPUSCULAR VOLUME 103.2 fl (80.0-96.0); MONO # 1.2 10^3/uL (0.0-0.8); MONO % 12.4 % (0.0-5.0); NEUTROPHILS # 6.4 10^3/uL (1.5-8.5); NEUTROPHILS % 67.2 % (36.0-66.0); PLATELET COUNT, AUTOMATED 214 10^3/uL (150-450); RED BLOOD COUNT 3.09 10^6/uL (4.00-5.40); WHITE BLOOD COUNT 9.6 10^3/uL (4.0-10.0)
[2020-09-15 10:56] LABS: INR 1.02; PROTHROMBIN TIME 13.6 SECONDS (12.5-14.3)
[2020-09-15 10:57] LABS: PARTIAL THROMBOPLASTIN TIME 27.8 SECONDS (24.2-38.5)
[2020-09-15 11:06] LABS: CREATININE FOR GFR 5.44 MG/DL (0.55-1.30); GLOMERULAR FILTRATION RATE 8.3 (>45)
[2020-09-15 11:07] LABS: ALBUMIN 3.2 GM/DL (3.2-5.2); BILIRUBIN,DIRECT 0.1 MG/DL (0.0-0.2); BILIRUBIN,TOTAL 0.3 MG/DL (0.2-1.0); CALCIUM LEVEL 8.2 MG/DL (8.8-10.2); TOTAL PROTEIN 6.9 GM/DL (6.4-8.2)
[2020-09-15] MEDS ORDERED: PANTOPRAZOLE 40MG VIAL (C9113 PER 1) IV ONE (11:45)
[2020-09-15] MEDS ORDERED: VELP5CHW PO (12:27)
[2020-09-15] MEDS ORDERED: HYDR50TA PO (12:27)
[2020-09-15] MEDS ORDERED: VITA50005 PO (12:27)
--- NOTE | 2020-09-15 12:32 | HPEPDOC ---
[facility] Medical History & Physical Date of Admission Sep 15, 2020 Date of Service: Sep 15, 2020 Attending Physician: Delphine Zamorano MD History and Physical CHIEF COMPLAINT: Rectal bleeding HISTORY OF PRESENT ILLNESS: Patient is a 69-year-old female with past medical history of end-stage renal disease on HD TThSat, coronary artery disease status post CABG, hypertension, diabetes mellitus type 2, history of depression, history of CVA with right-sided weakness who presented to [facility] emergency room with the chief complaint of having increased rectal bleeding over the evening. The patient is blind and relied on her home health aide to piece together her story. According to the patient she normally struggles with constipation. She took her normal MiraLAX dose in the evening several nights ago but this did not help immediately. By Friday she began having bowel movements and last evening at a proximally 10:30 the patient began experiencing increased nausea and up to 8 bowel movements. She is blind and was unable to view her stools. Her district home economics agent came in this morning and stated that her toilet was "full of blood". She complained of associated nausea with occasional shortness of breath with exertion. She states she has shortness of breath with exertion at baseline. She denied chest pain, vomiting, abdominal pain, history of GI bleed, lightheadedness, dizziness, fevers or chills. She takes daily Plavix and aspirin for her other chronic comorbidities. She denies changing her medication regimen or doubling up on her antiplatelet medication. The patient was taken to the emergency room for further evaluation [facility] ER H&H was 9.5/31.9. Baseline hemoglobin 1012. The patient was hemodynamically stable. Creatinine was 5.44 last hemodialysis session was on . Patient lives alone with home health aides there [address] abd/pelvis: Mucosal thickening of the descending colon with pericolonic stranding, few scattered diverticula are also identified throughout the colon and findings likely represent infectious/inflammatory colitis versus diverticulitis. The patient was admitted for further close monitoring and if needed treatment of GI bleed. Surgery and nephrology were consult to see while inpatient. She was admitted as acute inpatient for GI bleed, r/o diverticulitis vs. colitis as cause. ROS: Neg except mentioned above PAST MEDICAL HISTORY: End-stage renal disease, CVA in 2010 with right-sided weakness, [place] in 2003 with CABG, hypertension, diabetes type 2, chronic constipation, history of depression. PAST SURGICAL HISTORY: Bilateral cataracts, peritoneal dialysis catheter placement in 2006, [id number]-[id number]-Byzs in 2006, CABG in 2003, parathyroid gland removal in 2009, right arm dialysis fistula in 2008, revision in 2010, also breast lumpectomy, benign, left side, and basal cell skin cancer removal. SOCIAL HISTORY: Eyes smoking, alcohol use or illicit drug use. She lives alone at home. Home health aides are present throughout the day. She follows with Dr. Rubin for nephrology and primary care. Dr. Rockwell is her marking stitcher, she follows with vascular surgery in [facility]. Dr. Garza is her neurologist FAMILY HISTORY: Mother- HTN, HLD, DM type II, melanoma. at 89 y/o Father- CAD. at 85 y/o ALLERGIES: Please see below. HOME MEDICATIONS: Please see below. PHYSICAL EXAMINATION: VS: Please see below CONSTITUTIONAL: No acute distress, resting comfortably, AAO x 3 EYES: PERRLA, EOM intact, growth of left eye. Legally blind in both eyes. HENT, MOUTH: Normocephalic, atraumatic, moist mucous membranes NECK: SUPPLE, no JVD, no lymphadenopathy, no carotid bruit CV: Regular rate and rhythm, S1S2 normal, no murmurs/rubs/gallops RESPIRATORY: Clear to auscultation bilaterally, no rales/rhonchi/wheezes GI: obese abd, BS positive in 4 quadrants, soft, nontender, nondistended, no rebound or guarding, no organomegaly : Deferred MUSCULOSKELETAL: right upper ext fistula, Normal ROM. No cyanosis, clubbing, swelling, joint deformity, extremity edema, brace on left lower ext INTEGUMENTARY: Intact, no rashes, no lesions, no erythema NEUROLOGIC: Cranial Nerves II-XII are intact, no focal deficits PSYCHIATRIC: Mood and affect are normal LABORATORY DATA: Please see below IMAGING: CT abd/pelvis: IMPRESSION: 1. Mucosal thickening of the descending colon with pericolonic stranding. Few scattered diverticula are also identified throughout the colon and findings likely represent infectious/inflammatory colitis versus diverticulitis. No associated bowel obstruction, perforation, or drainable collection/abscess. ASSESSMENT: 69-year-old female with past medical history of end-stage renal disease on HD TThSat, coronary artery disease status post CABG, hypertension, diabetes mellitus type 2, history of depression, history of CVA with right-sided weakness admitted as acute inpatient for GI bleed, r/o diverticulitis vs. colitis as cause. PLAN: 1. GI bleed, r/o diverticulitis vs. colitis as cause. Also has been on ASA, plavix (held currently) -H/H 9.5/31.9, baseline Hgb 10-12 -VS stable -Type and screen -CBC Q8hrs, tele, surgery consulted. Goal >8 Hgb -Diet: CLD -Ciprofloxacin, flagyl IV 2. ESRD on HD TuesThSat -C/w current schedule -Dr. Acosta 3. CAD s/p [place], CABG 2013 -Denies incr chest pain, sob, n/v -Holding ASA, plavix. Holding parameters on BB 4. HTN. -Stable. -Holding parameters on many meds 5. DM type II -BS 288. -Decreased levemir to 10 U QAM, ISS Q6hrs, FS Q6hrs -On CLD, watch for hypoglycemic episodes. 6. 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 7. GI px -PPI BID 8. DVT px. -Teds, SCDs DISPOSITION: Admitted to acute inpatient status. Nephrology, general surgery con sulted. Vital Signs Vital Signs Date Time Temp Pulse Resp B/P (MAP) Pulse Ox O2 Delivery O2 Flow Rate FiO2 09/15/20 12:15 73 18 124/60 (81) 100 Nasal Cannula 2.0 09/15/20 09:24 98.2 Laboratory Data Labs 24H Laboratory Tests 2 09/15/20 10:24: Immature Granulocyte % (Auto) 0.3, Neutrophils (%) (Auto) 67.2H, Lymphocytes (%) (Auto) 18.1L, Monocytes (%) (Auto) 12.4H, Eosinophils (%) (Auto) 1.3, Basophils (%) (Auto) 0.7, Neutrophils # (Auto) 6.4, Lymphocytes # (Auto) 1.7, Monocytes # (Auto) 1.2H, Eosinophils # (Auto) 0.1, Basophils # (Auto) 0.1, Nucleated Red Blood Cells % (auto) 0.0, Prothrombin Time 13.6, Prothromb Time International Ratio 1.02, Activated Partial Thromboplast Time 27.8, Anion Gap 11, Glomerular Filtration Rate 8.3L, Calcium Level 8.2L, Total Bilirubin 0.3, Direct Bilirubin 0.1, Aspartate Amino Transf (AST/SGOT) 18, Alanine Aminotransferase (ALT/SGPT) 13, Alkaline Phosphatase 326H, Total Protein 6.9, Albumin 3.2, Albumin/Globulin Ratio 0.9L, Lipase 149 CBC/BMP Laboratory Tests 09/15/20 10:24 Home Medications Scheduled Aspirin (Aspirin EC) 81 Mg Tab, 81 MG PO DAILY Atorvastatin Calcium (Atorvastatin Calcium) 80 Mg Tab, 80 MG PO QHS Carvedilol (Carvedilol) 12.5 Mg Tab, 12.5 MG PO DAILY Cetirizine HCl (Cetirizine HCl) 10 Mg Tab, 10 MG PO QHS Cinacalcet (Sensipar) 30 Mg Tab, 30 MG PO 3XW TUE/TH/SAT Citalopram Hydrobromide (Citalopram HBr) 20 Mg Tab, 20 MG PO QHS Clonidine HCl (Catapres) 0.2 Mg Tab, 0.2 MG PO BID Clopidogrel Bisulfate (Clopidogrel) 75 Mg Tab, 75 MG PO DAILY Docusate Sodium (Colace) 100 Mg Cap, 100 MG PO BID Ergocalciferol (Vitamin D2) (Vitamin D2) 50,000 Units Cap, 50,000 UNITS PO QMONTH TAKES 1ST OF EACH MONTH Glimepiride (Glimepiride) 4 Mg Tab, 4 MG PO DAILY Hydralazine HCl (Hydralazine HCl) 50 Mg Tablet, 50 MG PO TID Insulin Glargine,Hum.rec.anlog (Lantus Solostar) 100 Unit/Ml Inj, 18 UNITS SC DAILY Levothyroxine Sodium (Levoxyl) 175 Mcg Tab, 175 MCG PO QAM Pantoprazole Sodium (Protonix) 40 Mg Tab, 40 MG PO DAILY Polyethylene Glycol 3350 (Miralax) 1 Pow Pow, 17 GM PO QPM Sucroferric Oxyhydroxide (Velphoro) 500 Mg Tab.chew, 1,000 MG PO WM Scheduled PRN Acetaminophen (Acetaminophen) 325 Mg Tab, 650 MG PO QID PRN for PAIN Fluticasone Propionate (Flonase Allergy Relief) 50 Mcg/Act Spr, 1 SPRAY NA BID PRN for CONGESTION Nitroglycerin (Nitrostat) 0.4 Mg Subl, 0.4 MG SL NITRO PRN for CHEST PAIN Allergies Coded Allergies: No Known Drug Allergies (Verified Allergy, Unknown, 09/15/20) A-FIB/CHADSVASC A-FIB History Current/History of A-Fib/PAF?: No Current PO Anticoag Therapy: No Age/Risk Factor Scoring CHADSVASC: CHADSVASC Response (Comments) Value Age Risk Factor Age 65-74 years old 1 Gender Risk Factor Female 1 Hx of CHF No 0 Hx of HTN Yes 1 Hx of Stroke/TIA/or VTE Yes 2 Hx of Diabetes Yes 1 Hx of Vascular Disease Yes 1 Total 7 Treatment Treatment ordered: Other Other anticoagulant ordered: Delphine Chavez MD Sep 15, 2020 12:32
[2020-09-15] MEDS ORDERED: DEXTROSE 50% 50 ML SYRINGE IV PRN (13:30)
[2020-09-15] MEDS ORDERED: GLUCAGON INJ 1MG VIAL SC PRN (13:30)
[2020-09-15] MEDS ORDERED: ACETAMINOPHEN TAB 650MG DOSE (2X325MG) PO PRN (13:30)
[2020-09-15] MEDS ORDERED: FLUTICASONE PROP 0.05% NASAL SPRAY 16 GM (FLONASE) PRN (13:30)
[2020-09-15] MEDS ORDERED: GLUCOSE 4GM CHEW TABLET PO PRN (13:30)
[2020-09-15 13:37] LABS: HEMATOCRIT 31.9 % (36.0-47.0); HEMOGLOBIN 9.6 g/dl (12.0-15.5); MEAN CORPUSCULAR HEMOGLOBIN 30.7 pg (27.0-33.0); MEAN CORPUSCULAR HGB CONC 30.1 g/dl (32.0-36.5); MEAN CORPUSCULAR VOLUME 101.9 fl (80.0-96.0); PLATELET COUNT, AUTOMATED 182 10^3/uL (150-450); RED BLOOD COUNT 3.13 10^6/uL (4.00-5.40)
[2020-09-15 14:55] VITALS: BP 122/65
[2020-09-15] MEDS: DOCUSATE SODIUM 100 MG CAP PO SCH ×2 (14:57→21:00)
[2020-09-15] MEDS: cloNIDine 0.2 MG TAB PO SCH ×2 (15:00→22:05)
[2020-09-15] MEDS: LEVEMIR (INSULIN DETEMIR) 1 UNITS/0.01ML SC SCH (15:06)
[2020-09-15] MEDS: LEVOTHYROXINE 25MCG TABLET (0.025MG) PO SCH (15:43)
[2020-09-15] MEDS: LEVOTHYROXINE 150MCG TABLET (0.15MG) PO SCH (15:43)
[2020-09-15] MEDS: **hydrALAZINE** 50 MG TAB PO SCH ×2 (15:44→22:04)
[2020-09-15] MEDS: metroNIDAZOLE 500 MG in IV 1 EA IV SCH ×2 (15:44→22:08)
[2020-09-15] MEDS: CARVedilol 12.5 MG TAB PO SCH (15:55)
[2020-09-15 16:00] VITALS: BP 115/78
[2020-09-15] MEDS ORDERED: SLF 3 ML SYR IV PRN (17:00)
[2020-09-15] MEDS: CIPROFLOXACIN 400 MG in IV 1 EA IV SCH (17:33)
[2020-09-15] MEDS: HumaLOG INSULIN (NovoLOG) PER UNIT SC SCH (17:37)
[2020-09-15 20:00] VITALS: BP 121/53
[2020-09-15 20:35] LABS: MEAN CORPUSCULAR HEMOGLOBIN 30.4 pg (27.0-33.0); MEAN CORPUSCULAR VOLUME 101.3 fl (80.0-96.0); PLATELET COUNT, AUTOMATED 160 10^3/uL (150-450); RED BLOOD COUNT 2.37 10^6/uL (4.00-5.40); WHITE BLOOD COUNT 6.4 10^3/uL (4.0-10.0)
[2020-09-15 20:41] LABS: HEMOGLOBIN 7.2 g/dl (12.0-15.5)
[2020-09-15] MEDS ORDERED: DOCUSATE SODIUM 100 MG CAP PO SCH (21:00)
[2020-09-15] MEDS ORDERED: cloNIDine 0.2 MG TAB PO SCH (21:00)
[2020-09-15] MEDS: ATORVASTATIN 20 MG TAB PO SCH (22:03)
[2020-09-15] MEDS: CETIRIZINE (ZyrTEC) 10 MG TAB PO SCH (22:03)
[2020-09-15] MEDS: CitaloPRAM (CeleXA) 20 MG TAB PO SCH (22:04)
[2020-09-15] MEDS: PANTOPRAZOLE 40MG TAB (PROTONIX) PO SCH (22:09)
[2020-09-15] MEDS: SLF 3 ML SYR IV SCH (22:09)
[2020-09-16] VITALS (13 sets, daily range): BP systolic 100–172; BP diastolic 53–74
[2020-09-16 05:15] LABS: HEMATOCRIT 23.3 % (36.0-47.0); HEMOGLOBIN 7.2 g/dl (12.0-15.5); MEAN CORPUSCULAR HEMOGLOBIN 31.2 pg (27.0-33.0); MEAN CORPUSCULAR HGB CONC 30.9 g/dl (32.0-36.5); MEAN CORPUSCULAR VOLUME 100.9 fl (80.0-96.0); PLATELET COUNT, AUTOMATED 157 10^3/uL (150-450); RED BLOOD COUNT 2.31 10^6/uL (4.00-5.40)
[2020-09-16 05:43] LABS: ALBUMIN 2.5 GM/DL (3.2-5.2); BILIRUBIN,TOTAL 0.3 MG/DL (0.2-1.0); CALCIUM LEVEL 7.6 MG/DL (8.8-10.2); CREATININE FOR GFR 6.75 MG/DL (0.55-1.30); GLOMERULAR FILTRATION RATE 6.5 (>45); POTASSIUM SERUM 4.3 MEQ/L (3.5-5.1); TOTAL PROTEIN 5.8 GM/DL (6.4-8.2)
[2020-09-16] MEDS: HumaLOG INSULIN (NovoLOG) PER UNIT SC SCH ×5 (06:00→20:39)
[2020-09-16] MEDS: LEVOTHYROXINE 25MCG TABLET (0.025MG) PO SCH (06:35)
[2020-09-16] MEDS: metroNIDAZOLE 500 MG in IV 1 EA IV SCH ×3 (06:35→20:48)
[2020-09-16] MEDS: LEVOTHYROXINE 150MCG TABLET (0.15MG) PO SCH (06:35)
[2020-09-16] MEDS: SLF 3 ML SYR IV SCH ×3 (06:38→20:51)
[2020-09-16] MEDS: LEVEMIR (INSULIN DETEMIR) 1 UNITS/0.01ML SC SCH (07:57)
[2020-09-16] MEDS: DOCUSATE SODIUM 100 MG CAP PO SCH ×3 (07:58→20:50)
[2020-09-16] MEDS: PANTOPRAZOLE 40MG TAB (PROTONIX) PO SCH ×2 (07:58→20:49)
[2020-09-16] MEDS: **hydrALAZINE** 50 MG TAB PO SCH ×3 (07:59→20:50)
[2020-09-16] MEDS: CARVedilol 12.5 MG TAB PO SCH (07:59)
[2020-09-16] MEDS: cloNIDine 0.2 MG TAB PO SCH ×2 (09:00→20:49)
[2020-09-16 14:23] LABS: HEMATOCRIT 32.9 % (36.0-47.0); MEAN CORPUSCULAR HEMOGLOBIN 29.2 pg (27.0-33.0); MEAN CORPUSCULAR HGB CONC 30.7 g/dl (32.0-36.5); MEAN CORPUSCULAR VOLUME 95.1 fl (80.0-96.0); PLATELET COUNT, AUTOMATED 165 10^3/uL (150-450); RED BLOOD COUNT 3.46 10^6/uL (4.00-5.40)
[2020-09-16 14:25] LABS: HEMOGLOBIN 10.1 g/dl (12.0-15.5)
[2020-09-16] MEDS ORDERED: MIRALAX *UNIT DOSE* 17GM PACKET PO PRN (16:45)
--- NOTE | 2020-09-16 16:58 | IPNPDOC ---
Date Seen The patient was seen on 09/16/20. Progress Note SUBJECTIVE: No bloody BM overnight. 2 units PRBC transfused for Hgb 7, f/u CBC showed Hgb 10.1. Asymptomatic. Advancing diet today. Denies chest pain,n/v/d, fevers or chills. OBJECTIVE: PHYSICAL EXAMINATION: VS: Please see below CONSTITUTIONAL: No acute distress, resting comfortably, AAO x 3 EYES: PERRLA, EOM intact, growth of left eye. Legally blind in both eyes. HENT, MOUTH: Normocephalic, atraumatic, moist mucous membranes NECK: SUPPLE, no JVD, no lymphadenopathy, no carotid bruit CV: Regular rate and rhythm, S1S2 normal, no murmurs/rubs/gallops RESPIRATORY: Clear to auscultation bilaterally, no rales/rhonchi/wheezes GI: obese abd, BS positive in 4 quadrants, soft, nontender, nondistended, no rebound or guarding, no organomegaly : Deferred MUSCULOSKELETAL: right upper ext fistula, Normal ROM. No cyanosis, clubbing, swelling, joint deformity, extremity edema, brace on left lower ext INTEGUMENTARY: Intact, no rashes, no lesions, no erythema NEUROLOGIC: Cranial Nerves II-XII are intact, no focal deficits PSYCHIATRIC: Mood and affect are normal LABORATORY DATA: Please see below IMAGING: CT abd/pelvis: IMPRESSION: 1. Mucosal thickening of the descending colon with pericolonic stranding. Few scattered diverticula are also identified throughout the colon and findings likely represent infectious/inflammatory colitis versus diverticulitis. No associated bowel obstruction, perforation, or drainable collection/abscess. ASSESSMENT: 69-year-old female with past medical history of end-stage renal disease on HD TThSat, coronary artery disease status post CABG, hypertension, diabetes mellitus type 2, history of depression, history of CVA with right-sided weakness admitted as acute inpatient for GI bleed, r/o diverticulitis vs. colitis as cause. PLAN: 1. GI bleed, r/o diverticulitis vs. colitis vs. internal hemorrhoids as cause. Also has been on ASA, plavix (held currently) -Transfused 2 U PRBC today, improved Hgb to 10 from 7 -VS stable -Per surgery, would not scope if suspecting diverticulitis or colitis as risk of perforation high. -C/w CBC Q8hrs, tele. Goal >8 Hgb, Ciprofloxacin, flagyl IV -Diet: renal, consistent carb 2. ESRD on HD -HD done today -Dr. Acosta 3. CAD s/p [place], CABG 2013 -Denies incr chest pain, sob, n/v -Holding ASA, plavix. Holding parameters on BB 4. HTN. -Slightly elevated s/p 2 units PRBC -Holding parameters on many meds 5. DM type II -Changing to consistent carb diet -levemir QAM, ISS AC/HS 6. 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 7. GI px -PPI BID 8. DVT px. -Teds, SCDs DISPOSITION: Admitted to acute inpatient status. if no bloody bowel movements overnight and tolerating diet well, will consider d/c tomorrow with f/u with both PCP and Dr. Barron for repeat colonoscopy in 4-6 weeks. VS, I&O, 24H, Fishbone Vital Signs/I&O Vital Signs Date Time Temp Pulse Resp B/P (MAP) Pulse Ox O2 Delivery O2 Flow Rate FiO2 09/16/20 16:00 97.3 69 20 172/74 (106) 100 Nasal Cannula 2.0 I&O- Last 24 Hours up to 6 AM 09/16/20 06:00 Intake Total 240 ml Output Total 0 ml Balance 240 ml Laboratory Data 24H LABS Laboratory Tests 2 09/15/20 20:11: Nucleated Red Blood Cells % (auto) 0.0 09/16/20 00:38: Bedside Glucose (Misc Panel) 123H 09/16/20 04:49: Nucleated Red Blood Cells % (auto) 0.0, Anion Gap 6L, Glomerular Filtration Rate 6.5L, Calcium Level 7.6L, Total Bilirubin 0.3, Aspartate Amino Transf (AST/SGOT) 11, Alanine Aminotransferase (ALT/SGPT) 9L, Alkaline Phosphatase 243H, Total Protein 5.8L, Albumin 2.5#L, Albumin/Globulin Ratio 0.8L 09/16/20 06:45: Bedside Glucose (Misc Panel) 107 09/16/20 14:06: Nucleated Red Blood Cells % (auto) 0.0 09/16/20 14:08: Bedside Glucose ([facility] Panel) 157H CBC/BMP Laboratory Tests 09/15/20 20:11 09/15/20 23:50 09/16/20 04:49 09/16/20 14:06 Current Medications Current Medications Medications (Trade) Dose Ordered Sig/Emile Route PRN Reason Start Time Stop Time Status Last Admin Dose Admin Acetaminophen (Tylenol Tab) 650 mg QID PRN PO PAIN 09/15/20 13:30 09/16/20 01:02 Atorvastatin Calcium (Lipitor) 80 mg QHS PO 09/15/20 21:00 09/15/20 22:03 Carvedilol (COReg) 12.5 mg DAILY PO 09/15/20 09:00 09/16/20 07:59 Cetirizine HCl (ZyrTEC) 10 mg QHS PO 09/15/20 21:00 09/15/20 22:03 Ciprofloxacin 400 mg/IV Miscellaneous Supplies 200 ml @ 200 mls/hr Q24H IV 09/15/20 17:00 09/15/20 17:33 Citalopram Hydrobromide (CeleXA) 20 mg QHS PO 09/15/20 21:00 09/15/20 22:04 Clonidine HCl (Catapres) 0.2 mg BID PO 09/15/20 09:00 09/15/20 22:05 Clonidine HCl (Catapres) 0.2 mg BID PO 09/15/20 21:00 09/15/20 13:46 DC Dextrose (Dextrose 50%) 25 ml ASDIRECTED PRN IV SEE LABEL COMMENTS 09/15/20 13:30 Docusate Sodium (Colace) 100 mg BID PO 09/15/20 09:00 Docusate Sodium (Colace) 100 mg BID PO 09/15/20 21:00 09/15/20 13:46 DC Fluticasone Propionate (Flonase 0.05% Nasal [place]) 1 spray BID PRN NA CONGESTION 09/15/20 13:30 Glucagon (Glucagon) 1 mg ASDIRECTED PRN SC SEE LABEL COMMENTS 09/15/20 13:30 Glucose (Glucose) 16 GM ASDIRECTED PRN PO SEE LABEL COMMENTS 09/15/20 13:30 Home Med (Med Rec Complete!) ASDIRECTED XX 09/15/20 12:30 09/15/20 12:29 DC Hydralazine HCl (Apresoline) 50 mg TID PO 09/15/20 16:00 09/16/20 15:26 Insulin Detemir (Levemir Insulin) 10 units DAILY SC 09/15/20 09:00 09/16/20 07:57 Insulin Human Lispro (HumaLOG INSULIN) SEE PROTOCOL TABLE Q6H SC 09/15/20 18:00 09/16/20 14:15 Levothyroxine Sodium (Synthroid) 25 mcg DAILY@06 PO 09/15/20 06:00 09/16/20 06:35 Levothyroxine Sodium (Synthroid) 150 mcg DAILY@06 PO 09/15/20 06:00 09/16/20 06:35 Metronidazole 500 mg/IV Miscellaneous Supplies 100 ml @ 100 mls/hr Q8H IV 09/15/20 14:00 09/16/20 14:14 Pantoprazole Sodium (Protonix) 40 mg BID PO 09/15/20 21:00 09/16/20 07:58 Sodium Chloride (Saline Lock Flush) 2 ml ASDIRECTED PRN IV SEE LABEL COMMENTS 09/15/20 17:00 Sodium Chloride (Saline Lock Flush) 2 ml SLF IV 09/15/20 22:00 09/16/20 14:01 Allergies Coded Allergies: No Known Drug Allergies (Verified Allergy, Unknown, 09/15/20) Delphine Zamorano MD Sep 16, 2020 16:58
[2020-09-16] MEDS: CIPROFLOXACIN 400 MG in IV 1 EA IV SCH (17:28)
[2020-09-16 20:40] LABS: HEMATOCRIT 32.6 % (36.0-47.0); HEMOGLOBIN 10.3 g/dl (12.0-15.5); MEAN CORPUSCULAR HEMOGLOBIN 29.9 pg (27.0-33.0); MEAN CORPUSCULAR HGB CONC 31.6 g/dl (32.0-36.5); MEAN CORPUSCULAR VOLUME 94.5 fl (80.0-96.0); PLATELET COUNT, AUTOMATED 174 10^3/uL (150-450); RED BLOOD COUNT 3.45 10^6/uL (4.00-5.40)
[2020-09-16] MEDS: CitaloPRAM (CeleXA) 20 MG TAB PO SCH (20:49)
[2020-09-16] MEDS: ATORVASTATIN 20 MG TAB PO SCH (20:49)
[2020-09-16] MEDS: CETIRIZINE (ZyrTEC) 10 MG TAB PO SCH (20:50)
[2020-09-17] VITALS: BP 138/74
[2020-09-17 04:00] VITALS: BP 162/78
[2020-09-17 04:56] LABS: HEMATOCRIT 30.7 % (36.0-47.0); HEMOGLOBIN 9.4 g/dl (12.0-15.5); MEAN CORPUSCULAR HEMOGLOBIN 29.2 pg (27.0-33.0); MEAN CORPUSCULAR HGB CONC 30.6 g/dl (32.0-36.5); MEAN CORPUSCULAR VOLUME 95.3 fl (80.0-96.0); PLATELET COUNT, AUTOMATED 156 10^3/uL (150-450); RED BLOOD COUNT 3.22 10^6/uL (4.00-5.40); WHITE BLOOD COUNT 5.7 10^3/uL (4.0-10.0)
[2020-09-17 05:19] LABS: ALBUMIN 2.7 GM/DL (3.2-5.2); BILIRUBIN,TOTAL 0.4 MG/DL (0.2-1.0); CALCIUM LEVEL 7.9 MG/DL (8.8-10.2); CREATININE FOR GFR 4.93 MG/DL (0.55-1.30); GLOMERULAR FILTRATION RATE 9.3 (>45); MAGNESIUM LEVEL 1.9 MG/DL (1.8-2.4); POTASSIUM SERUM 5.2 MEQ/L (3.5-5.1); TOTAL PROTEIN 6.3 GM/DL (6.4-8.2)
[2020-09-17] MEDS: metroNIDAZOLE 500 MG in IV 1 EA IV SCH ×3 (06:13→21:22)
[2020-09-17] MEDS: SLF 3 ML SYR IV SCH ×3 (06:13→22:00)
[2020-09-17] MEDS: LEVOTHYROXINE 25MCG TABLET (0.025MG) PO SCH (06:13)
[2020-09-17] MEDS: LEVOTHYROXINE 150MCG TABLET (0.15MG) PO SCH (06:13)
[2020-09-17 08:00] VITALS: BP 171/76
[2020-09-17] MEDS: HumaLOG INSULIN (NovoLOG) PER UNIT SC SCH ×4 (08:02→21:00)
[2020-09-17] MEDS: LEVEMIR (INSULIN DETEMIR) 1 UNITS/0.01ML SC SCH (08:03)
[2020-09-17] MEDS: PANTOPRAZOLE 40MG TAB (PROTONIX) PO SCH ×2 (08:03→21:03)
[2020-09-17] MEDS: CARVedilol 12.5 MG TAB PO SCH (08:04)
[2020-09-17] MEDS: cloNIDine 0.2 MG TAB PO SCH ×2 (08:04→21:04)
[2020-09-17] MEDS: **hydrALAZINE** 50 MG TAB PO SCH ×3 (08:05→21:11)
[2020-09-17] MEDS: DOCUSATE SODIUM 100 MG CAP PO SCH ×2 (08:05→21:03)
[2020-09-17 12:00] VITALS: BP 148/65
--- NOTE | 2020-09-17 12:44 | IPNPDOC ---
Date Seen The patient was seen on 09/17/20. Progress Note SUBJECTIVE: Large bloody BM later in evening on 09/16/20, Hgb dropped from 10.3 --> 9.4. HD stable. Tolerating diet well. Asymptomatic. Advancing diet today. Denies chest pain,n/v/d, fevers or chills. OBJECTIVE: PHYSICAL EXAMINATION: VS: Please see below CONSTITUTIONAL: No acute distress, resting comfortably, AAO x 3 EYES: PERRLA, EOM intact, growth of left eye. Legally blind in both eyes. HENT, MOUTH: Normocephalic, atraumatic, moist mucous membranes NECK: SUPPLE, no JVD, no lymphadenopathy, no carotid bruit CV: Regular rate and rhythm, S1S2 normal, no murmurs/rubs/gallops RESPIRATORY: Clear to auscultation bilaterally, no rales/rhonchi/wheezes GI: obese abd, BS positive in 4 quadrants, soft, nontender, nondistended, no rebound or guarding, no organomegaly : Deferred MUSCULOSKELETAL: right upper ext fistula, Normal ROM. No cyanosis, clubbing, swelling, joint deformity, extremity edema, brace on left lower ext INTEGUMENTARY: Intact, no rashes, no lesions, no erythema NEUROLOGIC: Cranial Nerves II-XII are intact, no focal deficits PSYCHIATRIC: Mood and affect are normal LABORATORY DATA: Please see below IMAGING: CT abd/pelvis: 1. Mucosal thickening of the descending colon with pericolonic stranding. Few scattered diverticula are also identified throughout the colon and findings likely represent infectious/inflammatory colitis versus diverticulitis. No associated bowel obstruction, perforation, or drainable collection/abscess. ASSESSMENT: 69-year-old female with past medical history of end-stage renal disease on HD TThSat, coronary artery disease status post CABG, hypertension, diabetes mellitus type 2, history of depression, history of CVA with right-sided weakness admitted as acute inpatient for GI bleed, r/o diverticulitis vs. colitis as cause. PLAN: 1. GI bleed, r/o diverticulitis vs. colitis vs. internal hemorrhoids as cause. Also has been on ASA, plavix (held currently) -Transfused 2 U PRBC today, large bloody BM late 09/16/20, Hgb 10.3--> 9.4 -Per surgery, would not scope if suspecting diverticulitis or colitis as risk of perforation high. -C/w CBC Q8hrs, tele. Goal >8 Hgb, Ciprofloxacin, flagyl IV -Diet: renal, consistent carb 2. ESRD on HD -HD done today -Dr. Acosta 3. CAD s/p [place], CABG 2013 -Denies incr chest pain, sob, n/v -Holding ASA, plavix. Holding parameters on BB 4. HTN -Slightly elevated s/p 2 units PRBC -Holding parameters on many meds 5. DM type II -Consistent carb diet -levemir QAM, ISS AC/HS 6. 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 7. GI px -PPI BID 8. DVT px. -Teds, SCDs DISPOSITION: Admitted to acute inpatient status. If no bloody bowel movements overnight and tolerating diet well, will consider d/c tomorrow with f/u with both PCP and Dr. Barron for repeat colonoscopy in 4-6 weeks. Cleared to return previous living situation at discharge by PT. VS, I&O, 24H, [facility] Vital Signs/I&O Vital Signs Date Time Temp Pulse Resp B/P (MAP) Pulse Ox O2 Delivery O2 Flow Rate FiO2 09/17/20 12:00 97.7 62 18 148/65 (92) 100 Nasal Cannula 2.0 I&O- Last 24 Hours up to 6 AM 09/17/20 06:00 Intake Total 2000 ml Output Total 2500 ml Balance -500 ml Laboratory Data 24H LABS Laboratory Tests 2 09/16/20 14:06: Nucleated Red Blood Cells % (auto) 0.0 09/16/20 14:08: Bedside Glucose (Misc Panel) 157H 09/16/20 17:26: Bedside Glucose (Misc Panel) 130H 09/16/20 20:26: Nucleated Red Blood Cells % (auto) 0.0 09/16/20 20:35: Bedside Glucose (Misc Panel) 161H 09/17/20 04:38: Nucleated Red Blood Cells % (auto) 0.0, Anion Gap 5L, Glomerular Filtration Rate 9.3L, Calcium Level 7.9L, Magnesium Level 1.9, Total Bilirubin 0.4, Aspartate Amino Transf (AST/SGOT) 23, Alanine Aminotransferase (ALT/SGPT) 13, Alkaline Phosphatase 271H, Total Protein 6.3L, Albumin 2.7L, Albumin/Globulin Ratio 0.8L 09/17/20 07:51: Bedside Glucose (Misc Panel) 126H 09/17/20 12:11: Bedside Glucose (Misc Panel) 249H CBC/BMP Laboratory Tests 09/16/20 14:06 09/16/20 20:26 09/17/20 04:38 Current Medications Current Medications Medications (Trade) Dose Ordered Sig/Emile Route PRN Reason Start Time Stop Time Status Last Admin Dose Admin Acetaminophen (Tylenol Tab) 650 mg QID PRN PO PAIN 09/15/20 13:30 09/16/20 01:02 Atorvastatin Calcium (Lipitor) 80 mg QHS PO 09/15/20 21:00 09/16/20 20:49 Carvedilol (COReg) 12.5 mg DAILY PO 09/15/20 09:00 09/17/20 08:04 Cetirizine HCl (ZyrTEC) 10 mg QHS PO 09/15/20 21:00 09/16/20 20:50 Ciprofloxacin 400 mg/IV Miscellaneous Supplies 200 ml @ 200 mls/hr Q24H IV 09/15/20 17:00 09/16/20 17:28 Citalopram Hydrobromide (CeleXA) 20 mg QHS PO 09/15/20 21:00 09/16/20 20:49 Clonidine HCl (Catapres) 0.2 mg BID PO 09/15/20 09:00 09/17/20 08:04 Clonidine HCl (Catapres) 0.2 mg BID PO 09/15/20 21:00 09/15/20 13:46 DC Dextrose (Dextrose 50%) 25 ml ASDIRECTED PRN IV SEE LABEL COMMENTS 09/15/20 13:30 Docusate Sodium (Colace) 100 mg BID PO 09/15/20 09:00 09/16/20 20:50 Docusate Sodium (Colace) 100 mg BID PO 09/15/20 21:00 09/15/20 13:46 DC Fluticasone Propionate (Flonase 0.05% Nasal [place]) 1 spray BID PRN NA CONGESTION 09/15/20 13:30 Glucagon (Glucagon) 1 mg ASDIRECTED PRN SC SEE LABEL COMMENTS 09/15/20 13:30 Glucose (Glucose) 16 GM ASDIRECTED PRN PO SEE LABEL COMMENTS 09/15/20 13:30 Home Med (Med Rec Complete!) ASDIRECTED XX 09/15/20 12:30 09/15/20 12:29 DC Hydralazine HCl (Apresoline) 50 mg TID PO 09/15/20 16:00 09/17/20 08:05 Insulin Detemir (Levemir Insulin) 10 units DAILY SC 09/15/20 09:00 09/17/20 08:03 Insulin Human Lispro (HumaLOG INSULIN) SEE PROTOCOL TABLE AC SC 09/16/20 17:30 09/17/20 12:16 Insulin Human Lispro (HumaLOG INSULIN) SEE PROTOCOL TABLE Q6H SC 09/15/20 18:00 09/16/20 16:53 DC 09/16/20 14:15 Insulin Human Lispro (HumaLOG INSULIN) SEE PROTOCOL TABLE QHS SC 09/16/20 21:00 Levothyroxine Sodium (Synthroid) 25 mcg DAILY@06 PO 09/15/20 06:00 09/17/20 06:13 Levothyroxine Sodium (Synthroid) 150 mcg DAILY@06 PO 09/15/20 06:00 09/17/20 06:13 Metronidazole 500 mg/IV Miscellaneous Supplies 100 ml @ 100 mls/hr Q8H IV 09/15/20 14:00 09/17/20 06:13 Pantoprazole Sodium (Protonix) 40 mg BID PO 09/15/20 21:00 09/17/20 08:03 Polyethylene Glycol (Miralax) 1 pkt DAILYPRN PRN PO CONSTIPATION 09/16/20 16:45 Sodium Chloride (Saline Lock Flush) 2 ml ASDIRECTED PRN IV SEE LABEL COMMENTS 09/15/20 17:00 Sodium Chloride (Saline Lock Flush) 2 ml SLF IV 09/15/20 22:00 09/17/20 06:13 Allergies Coded Allergies: No Known Drug Allergies (Verified Allergy, Unknown, 09/15/20) Delphine Zamorano MD Sep 17, 2020 12:44
[2020-09-17 16:00] VITALS: BP 170/74
[2020-09-17 16:10] LABS: HEMOGLOBIN 9.3 g/dl (12.0-15.5); MEAN CORPUSCULAR HEMOGLOBIN 28.8 pg (27.0-33.0); PLATELET COUNT, AUTOMATED 173 10^3/uL (150-450); RED BLOOD COUNT 3.23 10^6/uL (4.00-5.40); WHITE BLOOD COUNT 5.5 10^3/uL (4.0-10.0)
[2020-09-17] MEDS: CIPROFLOXACIN 400 MG in IV 1 EA IV SCH (17:01)
[2020-09-17 20:00] VITALS: BP_SYST 183; BP_DIAS 70; BP_DIAS 77
[2020-09-17 20:42] LABS: HEMATOCRIT 29.2 % (36.0-47.0); HEMOGLOBIN 8.9 g/dl (12.0-15.5); MEAN CORPUSCULAR HEMOGLOBIN 29.2 pg (27.0-33.0); MEAN CORPUSCULAR HGB CONC 30.5 g/dl (32.0-36.5); MEAN CORPUSCULAR VOLUME 95.7 fl (80.0-96.0); PLATELET COUNT, AUTOMATED 175 10^3/uL (150-450); RED BLOOD COUNT 3.05 10^6/uL (4.00-5.40); WHITE BLOOD COUNT 5.8 10^3/uL (4.0-10.0)
[2020-09-17] MEDS: ATORVASTATIN 20 MG TAB PO SCH (21:03)
[2020-09-17] MEDS: CETIRIZINE (ZyrTEC) 10 MG TAB PO SCH (21:03)
[2020-09-17] MEDS: CitaloPRAM (CeleXA) 20 MG TAB PO SCH (21:09)
[2020-09-18] VITALS: BP 184/79
[2020-09-18 04:00] VITALS: BP 139/67
[2020-09-18] MEDS: LEVOTHYROXINE 25MCG TABLET (0.025MG) PO SCH (06:10)
[2020-09-18] MEDS: LEVOTHYROXINE 150MCG TABLET (0.15MG) PO SCH (06:10)
[2020-09-18] MEDS: SLF 3 ML SYR IV SCH ×3 (06:10→21:41)
[2020-09-18] MEDS: metroNIDAZOLE 500 MG in IV 1 EA IV SCH ×3 (06:10→21:40)
[2020-09-18 06:16] LABS: ALBUMIN 2.9 GM/DL (3.2-5.2); BILIRUBIN,TOTAL 0.3 MG/DL (0.2-1.0); CALCIUM LEVEL 7.7 MG/DL (8.8-10.2); CREATININE FOR GFR 6.84 MG/DL (0.55-1.30); GLOMERULAR FILTRATION RATE 6.4 (>45); POTASSIUM SERUM 5.2 MEQ/L (3.5-5.1)
--- NOTE | 2020-09-18 07:50 | CR ---
REQUESTING PHYSICIAN: REASON FOR CONSULTATION: Management of end-stage renal disease and hemodialysis. CHIEF COMPLAINT: Patient presented to the hospital yesterday with blood per rectum. HISTORY OF PRESENT ILLNESS: Jamilah Copeland is a 69-year-old female with a past medical history of end-stage renal disease on hemodialysis every Friday, , Friday, history of coronary artery disease; status post CABG, history of CVA in the past on anti-platelets including aspirin and Plavix, and multiple other comorbidities as mentioned below. Patient reports that initially she was constipated and after a few days of constipation, she started having diarrhea. She is blind in her left eye and she has a home health aid, who helps her. She did not realize that there was blood in the stool, but when the home health aid arrived, she saw that there was a lot of blood in her stools. She also had nausea, some shortness of breath, so she was brought into the Emergency Room. In the Emergency Room, she was found to have a hemoglobin of 9.5. She was admitted under the hospitalist service with lower GI bleed. Anti-platelets were held. Nephrology service was called for further help in the management of this patient. I saw and evaluated the patient today morning at the bedside during hemodialysis. I had already arranged her hemodialysis to be done. She was also getting blood transfusion with dialysis and she was tolerating the hemodialysis procedure. PAST MEDICAL HISTORY: End-stage renal disease on hemodialysis every Friday, , Friday, history of CVA in the past in 2010 with right-sided weakness, history of SC in 2003; status post coronary artery bypass grafting, hypertension, diabetes mellitus type 2, chronic constipation, history of depression, and history of left eye blindness. PAST SURGICAL HISTORY: Status post cataract surgery, history of PD catheter placement in 2006, CABG in 2003, parathyroidectomy in 2009, right arm AV fistula for dialysis in 2008 and revision in 2010, basal cell skin cancer removal in the past. ALLERGIES: No known drug allergies. FAMILY HISTORY: Her mother had diabetes and hypertension. Her father had coronary artery disease. SOCIAL HISTORY: She denies any smoking, alcohol abuse or illicit drug abuse. She lives at home and she has a home health aid who helps her. REVIEW OF SYSTEMS: CONSTITUTIONAL: She denies any fevers or chills. EYES: She reports left eye blindness. ENT: She denies any dysphagia or odynophagia. CARDIOVASCULAR: She denies any chest pain or palpitations. RESPIRATORY: She denies any shortness of breath. GASTROINTESTINAL: She reports blood per rectum. GENITOURINARY: She reports decreased urine output. MUSCULOSKELETAL: She denies any muscle aches and pain. SKIN: She denies any rashes or ulcers. PSYCHIATRIC: She reports history of depression. CENTRAL NERVOUS SYSTEM: She reports left eye blindness. HEMATOLOGY/ONCOLOGY: She reports bright red blood per rectum. All other review of systems is negative. OBJECTIVE: VITAL SIGNS: Temperature 97.8 degrees Fahrenheit, blood pressure 160/71, pulse 60, respiratory rate 16, saturating 100% on nasal cannula at 2 liters. INTAKE AND OUTPUT: There is no urine output recorded. Weight in the bed scale is 98.4 kg. PHYSICAL EXAMINATION: GENERAL: Patient is awake, alert, oriented x3, lying in bed getting hemodialysis done. HEAD/NECK: She has blindness in the left eye. Mucous membranes are moist. Neck supple. There is no JVD. CARDIOVASCULAR: S1, S2, regular rate. No edema of the bilateral lower extremities. RESPIRATORY: Chest is clear to auscultation bilaterally. Bilateral equal air entry. No rales or rhonchi. ABDOMEN: Soft, obese. Positive bowel sounds. Nontender. No organomegaly. MUSCULOSKELETAL: No clubbing or cyanosis. She has a right arm AV fistula, which is being used for dialysis. CENTRAL NERVOUS SYSTEM: She has left eye blindness. Otherwise no significant deficit. LABORATORY REVIEW: CBC before transfusion showed WBC 6, hemoglobin 7.2, platelets 157,000. CBC after transfusion has hemoglobin 10.3. BMP done today morning showed sodium 135, potassium 4.3, chloride 100, bicarb 29, BUN 45, creatinine 6.7. Albumin 2.5. IMAGING DATA: A CAT scan of the abdomen and pelvis was done on arrival yesterday, which showed multifocal thickening of the descending colon with pericolonic stranding, a few scattered diverticula through the colon, finding likely represents infection or inflammatory colitis versus diverticulitis. No bowel obstruction or perforation was noted. CURRENT INPATIENT MEDICATIONS: Patient's medications were all reviewed by myself. She is on Cipro and Flagyl at this time. Tylenol, Lipitor 80 mg q.h.s., Coreg 12.5 mg p.o. twice a day, Zyrtec, Citalopram 20 mg q.h.s., Clonidine 0.2 mg p.o. twice a day, Colace 100 mg p.o. twice a day, Hydralazine 50 mg p.o. three times a day, Levemir 10 units subcutaneously daily, Insulin Lispro, Levothyroxine 150 mcg p.o. daily along with 25 mcg, Protonix 40 mg b.i.d., MiraLax daily p.r.n. constipation. ASSESSMENT AND PLAN: 1. Acute lower GI bleed: Patient is getting 2 units of PRBCs with transfusion. She is getting Cipro and Flagyl for acute colitis versus diverticulitis. Anti-platelets are on hold. 2. End-stage renal disease on hemodialysis: Patient is being dialyzed according to her regular schedule today. Ultrafiltration goal is 2.5 liters as tolerated by blood pressure. 3. History of coronary artery disease; status post CABG: Because of GI bleed, aspirin and Plavix is on hold. Continue the beta-rosana and statins. 4. Hypertension: Blood pressure is controlled with current dose of Carvedilol, Clonidine and Hydralazine. 5. Diabetes mellitus type 2: Continue current dose of insulin Levemir and sliding scale. 6. Hypothyroidism: Continue current dose of Levothyroxine 175 mcg p.o. daily. Thank you for involving me in the care of this patient. I shall be happy to follow the patient along with you tomorrow morning. [facility]
[2020-09-18] MEDS ORDERED: CIPR500T3 PO (07:51)
[2020-09-18] MEDS ORDERED: FLAG500T PO (07:52)
[2020-09-18 07:58] LABS: HEMATOCRIT 27.7 % (36.0-47.0); HEMOGLOBIN 8.6 g/dl (12.0-15.5); MEAN CORPUSCULAR HEMOGLOBIN 29.8 pg (27.0-33.0); MEAN CORPUSCULAR VOLUME 95.8 fl (80.0-96.0); PLATELET COUNT, AUTOMATED 201 10^3/uL (150-450); RED BLOOD COUNT 2.89 10^6/uL (4.00-5.40)
[2020-09-18 08:00] VITALS: BP 160/71
[2020-09-18] MEDS ORDERED: MIRALAX *UNIT DOSE* 17GM PACKET PO ONE (09:00)
[2020-09-18] MEDS: CARVedilol 12.5 MG TAB PO SCH (09:04)
[2020-09-18] MEDS: DOCUSATE SODIUM 100 MG CAP PO SCH ×2 (09:04→21:41)
[2020-09-18] MEDS: PANTOPRAZOLE 40MG TAB (PROTONIX) PO SCH ×2 (09:04→21:41)
[2020-09-18] MEDS: cloNIDine 0.2 MG TAB PO SCH ×2 (09:05→21:41)
[2020-09-18] MEDS: **hydrALAZINE** 50 MG TAB PO SCH ×3 (09:05→21:40)
[2020-09-18] MEDS: HumaLOG INSULIN (NovoLOG) PER UNIT SC SCH ×4 (09:06→21:00)
[2020-09-18] MEDS: LEVEMIR (INSULIN DETEMIR) 1 UNITS/0.01ML SC SCH (09:06)
--- NOTE | 2020-09-18 11:20 | IPNPDOC ---
Date Seen The patient was seen on 09/18/20. Progress Note SUBJECTIVE: Large dark BM today but no porfirio blood. H/H dropped further to 8.6/27.7. HD stable. Tolerating diet well. Asymptomatic. Discussed with Dr. Tan Rubin today, would like patient to stay today, get HD tomorrow and be transfused 1 unit PRBC during that time. Denies chest pain,n/v/d, fevers or chills. OBJECTIVE: PHYSICAL EXAMINATION: VS: Please see below CONSTITUTIONAL: No acute distress, resting comfortably, AAO x 3 EYES: PERRLA, EOM intact, growth of left eye. Legally blind in both eyes. HENT, MOUTH: Normocephalic, atraumatic, moist mucous membranes NECK: SUPPLE, no JVD, no lymphadenopathy, no carotid bruit CV: Regular rate and rhythm, S1S2 normal, no murmurs/rubs/gallops RESPIRATORY: Clear to auscultation bilaterally, no rales/rhonchi/wheezes GI: obese abd, BS positive in 4 quadrants, soft, nontender, nondistended, no rebound or guarding, no organomegaly : Deferred MUSCULOSKELETAL: right upper ext fistula, Normal ROM. No cyanosis, clubbing, swelling, joint deformity, extremity edema, brace on left lower ext INTEGUMENTARY: Intact, no rashes, no lesions, no erythema NEUROLOGIC: Cranial Nerves II-XII are intact, no focal deficits PSYCHIATRIC: Mood and affect are normal LABORATORY DATA: Please see below IMAGING: CT abd/pelvis: 1. Mucosal thickening of the descending colon with pericolonic stranding. Few scattered diverticula are also identified throughout the colon and findings likely represent infectious/inflammatory colitis versus diverticulitis. No associated bowel obstruction, perforation, or drainable collection/abscess. ASSESSMENT: 69-year-old female with past medical history of end-stage renal disease on HD TThSat, coronary artery disease status post CABG, hypertension, diabetes mellitus type 2, history of depression, history of CVA with right-sided weakness admitted as acute inpatient for GI bleed, r/o diverticulitis vs. coli tis as cause. PLAN: 1. GI bleed, r/o diverticulitis vs. colitis vs. internal hemorrhoids as cause. Also has been on ASA, plavix (held currently) -Transfused 2 U PRBC since admission, dark BM today with decreasing H/H. -Per surgery, would not scope if suspecting diverticulitis or colitis as risk of perforation high. -Per nephrology (patient's PCP), transfuse 1 unit PRBC with hemodialysis. -Will touch base with Dr. Barron to (patient's GI) to see if they would like me to set up appointment with them prior to discharge if she is not going to be scoped this admission. -C/w CBC Qdaily, tele. Goal >8 Hgb, Ciprofloxacin, flagyl IV -Diet: renal, consistent carb 2. ESRD on HD -HD tomorrow -Dr. Tan Rubin 3. CAD s/p [place], CABG 2013 -Denies incr chest pain, sob, n/v -Holding ASA, plavix. Holding parameters on BB 4. HTN -Slightly elevated -Holding parameters on many meds 5. DM type II -Consistent carb diet -levemir QAM, ISS AC/HS 6. 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 7. GI px -PPI BID 8. DVT px. -Teds, SCDs DISPOSITION: Admitted to acute inpatient status. TB with Dr. Barron's office to see when patient should be back to see them with current issues. Nephrology following. Possible d/c tomorrow after HD. Cleared to return previous living situation at discharge by PT. VS, I&O, 24H, [facility] Vital Signs/I&O Vital Signs Date Time Temp Pulse Resp B/P (MAP) Pulse Ox O2 Delivery O2 Flow Rate FiO2 09/18/20 09:05 160/71 09/18/20 09:04 80 09/18/20 08:00 97.6 20 100 Nasal Cannula 2.0 I&O- Last 24 Hours up to 6 AM 09/18/20 06:00 Intake Total 660 ml Output Total 0 ml Balance 660 ml Laboratory Data 24H LABS Laboratory Tests 2 09/17/20 12:11: Bedside Glucose (Misc Panel) 249H 09/17/20 12:45: Nucleated Red Blood Cells % (auto) 0.0 09/17/20 17:38: Bedside Glucose (Misc Panel) 293H 09/17/20 20:37: Nucleated Red Blood Cells % (auto) 0.0 09/17/20 20:56: Bedside Glucose (Misc Panel) 124H 09/18/20 04:46: Nucleated Red Blood Cells % (auto) 0.0, Anion Gap 8, Glomerular Filtration Rate 6.4L, Calcium Level 7.7L, Total Bilirubin 0.3, Aspartate Amino Transf (AST/SGOT) 18, Alanine Aminotransferase (ALT/SGPT) 12, Alkaline Phosphatase 278H, Total Protein 6.0L, Albumin 2.9L, Albumin/Globulin Ratio 0.9L CBC/BMP Laboratory Tests 09/17/20 12:45 09/17/20 20:37 09/18/20 04:46 Microbiology Microbiology 09/18/20 Stool Occult Blood (CARMITA), Received Pending Current Medications Current Medications Medications (Trade) Dose Ordered Sig/Emile Route PRN Reason Start Time Stop Time Status Last Admin Dose Admin Acetaminophen (Tylenol Tab) 650 mg QID PRN PO PAIN 09/15/20 13:30 09/16/20 01:02 Atorvastatin Calcium (Lipitor) 80 mg QHS PO 09/15/20 21:00 09/17/20 21:03 Carvedilol (COReg) 12.5 mg DAILY PO 09/15/20 09:00 09/18/20 09:04 Cetirizine HCl (ZyrTEC) 10 mg QHS PO 09/15/20 21:00 09/17/20 21:03 Ciprofloxacin 400 mg/IV Miscellaneous Supplies 200 ml @ 200 mls/hr Q24H IV 09/15/20 17:00 09/17/20 17:01 Citalopram Hydrobromide (CeleXA) 20 mg QHS PO 09/15/20 21:00 09/17/20 21:09 Clonidine HCl (Catapres) 0.2 mg BID PO 09/15/20 09:00 09/18/20 09:05 Clonidine HCl (Catapres) 0.2 mg BID PO 09/15/20 21:00 09/15/20 13:46 DC Dextrose (Dextrose 50%) 25 ml ASDIRECTED PRN IV SEE LABEL COMMENTS 09/15/20 13:30 Docusate Sodium (Colace) 100 mg BID PO 09/15/20 09:00 09/18/20 09:04 Docusate Sodium (Colace) 100 mg BID PO 09/15/20 21:00 09/15/20 13:46 DC Fluticasone Propionate (Flonase 0.05% Nasal [place]) 1 spray BID PRN NA CONGESTION 09/15/20 13:30 Glucagon (Glucagon) 1 mg ASDIRECTED PRN SC SEE LABEL COMMENTS 09/15/20 13:30 Glucose (Glucose) 16 GM ASDIRECTED PRN PO SEE LABEL COMMENTS 09/15/20 13:30 Home Med (Med Rec Complete!) ASDIRECTED XX 09/15/20 12:30 09/15/20 12:29 DC Hydralazine HCl (Apresoline) 50 mg TID PO 09/15/20 16:00 09/18/20 09:05 Insulin Detemir (Levemir Insulin) 10 units DAILY SC 09/15/20 09:00 09/18/20 09:06 Insulin Human Lispro (HumaLOG INSULIN) SEE PROTOCOL TABLE AC SC 09/16/20 17:30 09/18/20 09:06 Insulin Human Lispro (HumaLOG INSULIN) SEE PROTOCOL TABLE Q6H SC 09/15/20 18:00 09/16/20 16:53 DC 09/16/20 14:15 Insulin Human Lispro (HumaLOG INSULIN) SEE PROTOCOL TABLE QHS SC 09/16/20 21:00 Levothyroxine Sodium (Synthroid) 25 mcg DAILY@06 PO 09/15/20 06:00 09/18/20 06:10 Levothyroxine Sodium (Synthroid) 150 mcg DAILY@06 PO 09/15/20 06:00 09/18/20 06:10 Metronidazole 500 mg/IV Miscellaneous Supplies 100 ml @ 100 mls/hr Q8H IV 09/15/20 14:00 09/18/20 06:10 Pantoprazole Sodium (Protonix) 40 mg BID PO 09/15/20 21:00 09/18/20 09:04 Polyethylene Glycol (Miralax) 1 pkt DAILYPRN PRN PO CONSTIPATION 09/16/20 16:45 09/18/20 01:10 Sodium Chloride (Saline Lock Flush) 2 ml ASDIRECTED PRN IV SEE LABEL COMMENTS 09/15/20 17:00 Sodium Chloride (Saline Lock Flush) 2 ml SLF IV 09/15/20 22:00 09/18/20 06:10 Allergies Coded Allergies: No Known Drug Allergies (Verified Allergy, Unknown, 09/15/20) Delphine Zamorano MD Sep 18, 2020 11:20
--- NOTE | 2020-09-18 11:33 | IPN ---
DATE: 09/17/2020 SUBJECTIVE: The patient was seen and examined at the bed today morning. She is afebrile, hemodynamically stable. She denies any active complaints. She reports that her blood per rectum is improving now. She was dialyzed yesterday and she tolerated the hemodialysis procedure well. Hemoglobin level is staying stable now. OBJECTIVE: VITAL SIGNS: Temperature is 97.7 degrees Fahrenheit, blood pressure 148/65, pulse is 62, respiratory rate of 18, saturating 100% on nasal cannula at 2 liters. Intake and Output there is no urine output recorded. Ultrafiltration with dialysis was 2.5 liters yesterday. Weight on the bed scale is 97.1 kg. PHYSICAL EXAMINATION: GENERAL APPEARANCE: The patient is awake, alert, oriented x3, laying in bed in no apparent distress. HEAD AND NECK: Extraocular muscles intact. Pupils are equally round and reactive to light. Mucous membranes are moist. Neck is supple. There is no jugular venous distention. She has left eye blindness. CARDIOVASCULAR: S1, S2, regular rate. EXTREMITIES: No edema of the bilateral lower extremities. RESPIRATORY: Chest is clear to auscultation bilaterally. Bilaterally currently no rales or rhonchi. ABDOMEN: Soft, obese, positive bowel sounds, nontender, no organomegaly. MUSCULOSKELETAL: She has a brace on the right foot. Otherwise no clubbing, no cyanosis. C&S: The patient has a right foot brace and slight weakness in the right arm as compared with the left. Left eye blindness. LAB REVIEW: CBC showed a WBC of 5.7, hemoglobin 9.4, platelets of 156. BMP showed sodium 135, potassium 5.2, chloride 101, bicarbonate 29, BUN 25, creatinine is 4.9, albumin 2.7. CURRENT INPATIENT MEDICATIONS: The patient's medications were all reviewed by myself. She continues to be on IV Cipro and Flagyl. No other significant change in the medications today as compared with yesterday. ASSESSMENT AND PLAN: 1. End-stage renal disease - The patient was dialyzed yesterday. She tolerated the hemodialysis procedure well. Volume status is optimal. No urgent need of hemodialysis at this time. 2. Acute blood loss anemia - The patient is status post 2 units of PRBC transfusion. Hemoglobin level is serially being monitored. Transfuse p.r.n. for hemoglobin less than 8. 3. Acute lower GI bleed with colitis versus diverticulitis - The patient is on Cipro and Flagyl. She reports that her symptoms are getting better. 4. Hypertension - continue current dose of Coreg and Clonidine along with Hydralazine. MTDD
[2020-09-18 12:00] VITALS: BP 139/67
--- NOTE | 2020-09-18 13:38 | CR ---
REASON FOR CONSULTATION: Rectal bleeding. HISTORY OF PRESENT ILLNESS: The patient is a 69-year-old female who presents to the hospital with end-stage renal disease. She is blind and she was found to have a couple large bloody bowel movements from her home health aide. Therefore she was brought into the Emergency Room on the due to the significant bleeding. She was admitted by the Hospitalist. I was called to be on board just in case she did require some sort of urgent colonoscopy. Her CT on admission was concerning for diverticulitis versus colitis as the cause of her bleeding. She does also have a history of end-stage renal disease, on dialysis, CABG, hypertension, diabetes and CVA. She takes aspirin and Plavix at home for those. SUBJECTIVE: This morning she denies any abdominal pains. No nausea, vomiting, no fevers or chills. She has not had a bowel movement in over 12 hours and has no complaints of any lightheadedness or dizziness. PAST MEDICAL HISTORY: The patient's past medical history is significant, again for * End-stage renal disease. * CVA with right sided weakness. * M.I. with a CABG. * Hypertension. * Diabetes. * Chronic constipation. * Depression. PASR SURGICAL HISTORY: The patient's past surgical history is significant for: * Bilateral cataracts. * Peritoneal dialysis catheter placement. * Infusaport. * CABG. * Parathyroid gland removal. * Right arm fistula and revision. * Breast lumpectomy. SOCIAL HISTORY: Denies drug, alcohol or tobacco abuse. FAMILY HISTORY: Noncontributory. ALLERGIES: Please see Med Rec. MEDICATIONS: Please see Med Rec. REVIEW OF SYSTEMS: Pertinent positives and negatives as stated in the HPI. PHYSICAL EXAMINATION: GENERAL APPEARANCE: The patient is awake, alert and oriented x3. VITAL SIGNS: Temperature 97.7, pulse 62, respirations 18, blood pressure 148/65, pulse ox 100% on 2 liters nasal cannula. HEENT: Pupils are equal, round and reactive to light and accommodation. HEART: S1, S2, regular rate and rhythm. LUNGS: Clear to auscultation bilaterally. ABDOMEN: Soft, tender to palpation mildly. No rebound, guarding or rigidity. No ventral hernias. EXTREMITIES: Bilateral lower extremity pitting edema. LABORATORY DATA: White count 5.8, hemoglobin 8.9, platelets 175. Sodium 135, potassium 5.2, creatinine 4.93. IMAGING DATA: CT abdomen and pelvis show mucosal thickening of the descending colon with pericolonic stranding, few scattered diverticula identified throughout the colon. This is likely representing infectious versus inflammatory colitis versus diverticulitis. No signs of any bowel obstruction, perforation or drainable collections. ASSESSMENT AND PLAN: The patient is a 69-year-old female with lower GI bleed, likely secondary to colitis, infectious versus inflammatory. * My recommendation at this time is to postpone any type of colonoscopy due to high risk of perforation. * Recommending continue with IV fluids, antibiotics. * She can continue with a regular diet for now and monitor her labs. * As long as this colitis improves, and the bleeding resolves on its own, she will not require any endoscopy. * If she continues to have signs of bleeding then we will consider colonoscopy in the next 24-48 hours. GEOVANI
[2020-09-18 16:00] VITALS: BP 159/68
[2020-09-18] MEDS: CIPROFLOXACIN 400 MG in IV 1 EA IV SCH (17:26)
[2020-09-18 20:00] VITALS: BP 150/82
[2020-09-18] MEDS: ATORVASTATIN 20 MG TAB PO SCH (21:40)
[2020-09-18] MEDS: CitaloPRAM (CeleXA) 20 MG TAB PO SCH (21:40)
[2020-09-18] MEDS: CETIRIZINE (ZyrTEC) 10 MG TAB PO SCH (21:41)
[2020-09-19] VITALS (9 sets, daily range): BP systolic 132–176; BP diastolic 68–98
[2020-09-19] MEDS: SLF 3 ML SYR IV SCH ×2 (05:09→13:41)
[2020-09-19] MEDS: LEVOTHYROXINE 25MCG TABLET (0.025MG) PO SCH (05:09)
[2020-09-19] MEDS: metroNIDAZOLE 500 MG in IV 1 EA IV SCH ×2 (05:09→13:41)
[2020-09-19] MEDS: LEVOTHYROXINE 150MCG TABLET (0.15MG) PO SCH (05:09)
[2020-09-19 06:17] LABS: HEMATOCRIT 27.1 % (36.0-47.0); HEMOGLOBIN 8.2 g/dl (12.0-15.5); MEAN CORPUSCULAR HEMOGLOBIN 29.2 pg (27.0-33.0); MEAN CORPUSCULAR HGB CONC 30.3 g/dl (32.0-36.5); MEAN CORPUSCULAR VOLUME 96.4 fl (80.0-96.0); PLATELET COUNT, AUTOMATED 216 10^3/uL (150-450); RED BLOOD COUNT 2.81 10^6/uL (4.00-5.40); WHITE BLOOD COUNT 7.2 10^3/uL (4.0-10.0)
[2020-09-19 06:46] LABS: ALBUMIN 3.1 GM/DL (3.2-5.2); BILIRUBIN,TOTAL 0.4 MG/DL (0.2-1.0); CALCIUM LEVEL 7.9 MG/DL (8.8-10.2); CREATININE FOR GFR 8.03 MG/DL (0.55-1.30); GLOMERULAR FILTRATION RATE 5.3 (>45); POTASSIUM SERUM 5.8 MEQ/L (3.5-5.1); TOTAL PROTEIN 5.9 GM/DL (6.4-8.2)
--- NOTE | 2020-09-19 07:45 | IPN ---
DATE: 09/18/2020 SUBJECTIVE: Jamilah is seen and examined this morning at the bedside, sitting out of bed to the chair. We discussed her discharge planning. She is amenable to stay overnight with the plan for dialysis tomorrow with one unit packed red blood cell transfusion and she is pending repeat fecal occult blood testing. Hemoglobin has slowly downtrended. PHYSICAL EXAMINATION: VITAL SIGNS: Temperature 97.6, pulse 67, respiratory rate 20, blood pressure 160/71, saturating 100% on 2 liters nasal cannula. Intake yesterday was 540. Weight on the bed scale today is 99.4 kg. GENERAL APPEARANCE: The patient is seen sitting out of bed to the chair, elderly female in no apparent distress, legally blind. HEENT: Tongue is moist. NECK: Supple. Jugular veins are not elevated. HEART: Regular, S1, S2. EXTREMITIES: Negative for edema in the left lower extremity. The right lower extremity is in a brace. LUNGS: Clear to auscultation. No crackles or rales. ABDOMEN: Soft, obese and nontender. MUSCULOSKELETAL: There is no edema in the left lower extremity. There is a brace on the right foot. There is no cyanosis. SKIN: There is some pallor. There is normal temperature and turgor. PSYCHIATRIC: Appropriate mood and affect. Fistula is patent LABORATORY STUDIES: Sodium 134, potassium 5.2, albumin 2.9, hemoglobin 8.6 from 8.9 yesterday and 9.3 the day before. Fecal occult blood from September 18 remains positive. INPATIENT MEDICATIONS: The patient's medications were reviewed by myself and I note no change as compared to prior. She continues on IV Ciprofloxacin and Flagyl with the remainder of medications unchanged. PROBLEMS: 1. End-stage renal disease on hemodialysis on a Friday, , Friday schedule. She is minimally hyperkalemic. Potassium of 5.2. That is acceptable and she will be dialyzed on Friday as per her usual schedule, and I plan to give her one unit of packed red blood cells with her treatment, possibly more depending on her hemoglobin tomorrow morning. Her volume status is acceptable. Her fistula is in good use. 2. Acute blood loss anemia secondary to GI bleed she received 2 units of packed red blood cells over this admission. Her fecal occult blood test is positive. She will need to f/u with GI as outpatient for endoscopy. She is on PPI. H&H checked weekly through HD unit. I will transfuse 1 unit prbc w/ HD tomorrow. She is on cipro / flagyl per primary team for diverticulitis. 3. HTN - no change made to current regimen. MTDD
[2020-09-19] MEDS: HumaLOG INSULIN (NovoLOG) PER UNIT SC SCH ×3 (07:54→13:52)
[2020-09-19] MEDS: LEVEMIR (INSULIN DETEMIR) 1 UNITS/0.01ML SC SCH (08:02)
[2020-09-19] MEDS: cloNIDine 0.2 MG TAB PO SCH (13:40)
[2020-09-19] MEDS: CARVedilol 12.5 MG TAB PO SCH (13:40)
[2020-09-19] MEDS: PANTOPRAZOLE 40MG TAB (PROTONIX) PO SCH (13:41)
[2020-09-19] MEDS: DOCUSATE SODIUM 100 MG CAP PO SCH (13:41)
[2020-09-19] MEDS: **hydrALAZINE** 50 MG TAB PO SCH (13:41)
--- NOTE | 2020-09-19 15:18 | IPN ---
DATE: 09/19/2020 SUBJECTIVE: Jamilah is seen and examined this morning at the bedside in the hemodialysis unit, receiving 1 unit packed red blood cells with her dialysis treatment. I discussed with her that the hospitalist has spoken with her relief manager regarding the colonoscopy setup as an outpatient and that we will continue to check her hemoglobin once weekly in the outpatient dialysis unit. She offers no complaints, and her dialysis treatment is uneventful. Temperature 96.8, pulse 60, respiratory rate 16, blood pressure 161/70, saturating 98% on room air. Intake yesterday was 840. Weight in the bed scale today is 101.5 kg. GENERAL: Patient is seen in the hemodialysis unit receiving her treatment, awake, alert, oriented, comfortable in no apparent distress. Legally blind. Facial mask in place. Seen on room air. Jugular veins are not elevated. HEART: Sounds are regular, S1, S2. There is no edema in the left lower extremity. She has a brace on the right foot. Fistula is in use and is patent. SKIN: Normal temperature and turgor. PSYCHIATRIC: Appropriate mood and affect. NEUROLOGIC: Legally blind. At baseline mentation. Interactive and conversational. LABORATORY DATA: White count 7.2, hemoglobin 8.2, platelets 216. Sodium 133, potassium 5.8, BUN 60. INPATIENT MEDICATIONS: She continues on intravenous (IV) ciprofloxacin and IV Flagyl. Remainder of medications is unchanged from prior. PROBLEMS: 1. End-stage renal disease, on hemodialysis on Friday, , Friday schedule. Potassium is high today, 5.8. She was dialyzed with a 2.0 and 1.0 mEq potassium bath. Volume status is acceptable. Fistula is in good use. Potassium will improve with dialysis treatment. 2. Acute blood loss anemia secondary to gastrointestinal (GI) bleed. She received another unit packed red blood cells with dialysis today. Her focal occult blood test is positive. She is on Protonix. She is going to need colonoscopy in the outpatient setting and will followup with Dr. Barron. She will have a hemoglobin checked once weekly in the dialysis unit as an outpatient, which is protocol. She is being treated with ciprofloxacin and Flagyl for diverticulitis, and her aspirin has been held. Managed as per primary service. 3. Hypertension. Blood pressures are acceptable on the current regimen of carvedilol, clonidine, hydralazine, and no change is being made. 4. Hyperkalemia. Potassium of 5.8 today, and it will improve with dialysis. We are using 1.0 mEq potassium bath for the last hour of her treatment. IFEOMAD
--- NOTE | 2020-09-19 16:16 | DS.PDOC ---
Discharge Summary General Date of Admission Sep 15, 2020 at 12:33 Date of Discharge 09/19/20 Discharge Summary PROCEDURES PERFORMED DURING STAY: [None]. 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 HISTORY OF PRESENT ILLNESS: 69-year-old female with past medical history of end- stage renal disease on HD TThSat, coronary artery disease status post CABG, hypertension, diabetes mellitus type 2, history of depression, history of CVA with right-sided weakness admitted as acute inpatient for GI bleed, r/o diverticulitis vs. colitis as cause. HOSPITAL COURSE: During hospital stay following issue addressed 1. GI bleed, r/o diverticulitis vs. colitis vs. internal hemorrhoids as cause. Also has been on ASA, plavix (held currently) -Transfused 2 U PRBC since admission -Per surgery, would not scope if suspecting diverticulitis or colitis as risk of perforation high. -W Dr. Barron to (patient's GI) will do colonoscopy in 2 weeks 2. ESRD on HD TuesThSat 3. CAD s/p [place], CABG 2013 -Denies incr chest pain, sob, n/v -Holding ASA, plavix. Holding parameters on BB 4. HTN -Slightly elevated -Holding parameters on many meds 5. DM type II -Consistent carb diet -levemir QAM, ISS AC/HS 6. 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 7. GI px -PPI BID DISCHARGE MEDICATIONS: Please see below. ALLERGIES: Please see below. PHYSICAL EXAMINATION ON DISCHARGE: VITAL SIGNS: Please see below. CONSTITUTIONAL: No acute distress, resting comfortably, AAO x 3 EYES: PERRLA, EOM intact, growth of left eye. Legally blind in both eyes. HENT, MOUTH: Normocephalic, atraumatic, moist mucous membranes NECK: SUPPLE, no JVD, no lymphadenopathy, no carotid bruit CV: Regular rate and rhythm, S1S2 normal, no murmurs/rubs/gallops RESPIRATORY: Clear to auscultation bilaterally, no rales/rhonchi/wheezes GI: obese abd, BS positive in 4 quadrants, soft, nontender, nondistended, no rebound or guarding, no organomegaly : Deferred MUSCULOSKELETAL: right upper ext fistula, Normal ROM. No cyanosis, clubbing, swelling, joint deformity, extremity edema, brace on left lower ext INTEGUMENTARY: Intact, no rashes, no lesions, no erythema NEUROLOGIC: Cranial Nerves II-XII are intact, no focal deficits LABORATORY DATA: Please see below. IMAGING: CT abd/pelvis: 1. Mucosal thickening of the descending colon with pericolonic stranding. Few scattered diverticula are also identified throughout the colon and findings likely represent infectious/inflammatory colitis versus diverticulitis. No associated bowel obstruction, perforation, or drainable collection/abscess. PROGNOSIS: Fair ACTIVITY: [As tolerated]. DIET: Cardiac DISPOSITION: 01 Home, Self-Care. ITEMS TO FOLLOWUP ON ON OUTPATIENT: Follow-up with GI team in 2 weeks DISCHARGE CONDITION: [Stable]. TIME SPENT ON DISCHARGE: Greater than 30 minutes. Vital Signs/I&Os Vital Signs Date Time Temp Pulse Resp B/P (MAP) Pulse Ox O2 Delivery O2 Flow Rate FiO2 09/19/20 13:41 141/98 09/19/20 13:40 88 09/19/20 13:29 97.7 20 99 Nasal Cannula 2.0 I&O- Last 24 Hours up to 6 AM 09/19/20 06:00 Intake Total 720 ml Output Total 0 ml Balance 720 ml Laboratory Data Labs 24H Laboratory Tests 2 09/18/20 17:22: Bedside Glucose (Misc Panel) 153H 09/18/20 20:57: Bedside Glucose (Misc Panel) 194H 09/19/20 05:30: Nucleated Red Blood Cells % (auto) 0.0, Anion Gap 8, Glomerular Filtration Rate 5.3L, Calcium Level 7.9L, Total Bilirubin 0.4, Aspartate Amino Transf (AST/SGOT) 18, Alanine Aminotransferase (ALT/SGPT) 11L, Alkaline Phosphatase 300H, Total Protein 5.9L, Albumin 3.1L, Albumin/Globulin Ratio 1.1L 09/19/20 13:46: Bedside Glucose (Misc Panel) 112 CBC/BMP Laboratory Tests 09/19/20 05:30 FSBS Laboratory Tests Test 09/18/20 17:22 09/18/20 20:57 09/19/20 13:46 Range/Units Bedside Glucose (Misc Panel) 153 194 112 80-115 MG/DL Microbiology Microbiology 09/18/20 Stool Occult Blood (CARMITA) - Final, Complete Discharge Medications Scheduled Atorvastatin Calcium (Atorvastatin Calcium) 80 Mg Tab, 80 MG PO QHS, (Reported) Carvedilol (Carvedilol) 12.5 Mg Tab, 12.5 MG PO DAILY, (Reported) Cetirizine HCl (Cetirizine HCl) 10 Mg Tab, 10 MG PO QHS, (Reported) Cinacalcet (Sensipar) 30 Mg Tab, 30 MG PO 3XW, (Reported) TUE/URS/SAT Ciprofloxacin HCl (Ciprofloxacin HCl) 500 Mg Tablet, 500 MG PO BID Citalopram Hydrobromide (Citalopram HBr) 20 Mg Tab, 20 MG PO QHS, (Reported) Clonidine HCl (Catapres) 0.2 Mg Tab, 0.2 MG PO BID, (Reported) Docusate Sodium (Colace) 100 Mg Cap, 100 MG PO BID, (Reported) Ergocalciferol (Vitamin D2) (Vitamin D2) 50,000 Units Cap, 50,000 UNITS PO QMONTH, (Reported) TAKES 1ST OF EACH MONTH Glimepiride (Glimepiride) 4 Mg Tab, 4 MG PO DAILY, (Reported) Hydralazine HCl (Hydralazine HCl) 50 Mg Tablet, 50 MG PO TID, (Reported) Insulin Glargine,Hum.rec.anlog (Lantus Solostar) 100 Unit/Ml Inj, 18 UNITS SC DAILY, (Reported) Levothyroxine Sodium (Levoxyl) 175 Mcg Tab, 175 MCG PO QAM, (Reported) Metronidazole (Flagyl) 500 Mg Tablet, 500 MG PO BID Pantoprazole Sodium (Protonix) 40 Mg Tab, 40 MG PO DAILY, (Reported) Polyethylene Glycol 3350 (Miralax) 1 Pow Pow, 17 GM PO QPM, (Reported) Sucroferric Oxyhydroxide (Velphoro) 500 Mg Tab.chew, 1,000 MG PO WM, (Reported) Scheduled PRN Acetaminophen (Acetaminophen) 325 Mg Tab, 650 MG PO QID PRN for PAIN, (Reported) Fluticasone Propionate (Flonase Allergy Relief) 50 Mcg/Act Spr, 1 SPRAY NA BID P RN for CONGESTION, (Reported) Nitroglycerin (Nitrostat) 0.4 Mg Subl, 0.4 MG SL NITRO PRN for CHEST PAIN, (Reported) Allergies Coded Allergies: No Known Drug Allergies (Verified Allergy, Unknown, 09/15/20) LINDA REYES DO Sep 19, 2020 16:16
== END 2020-09-19 15:58 | disposition home health service (06) | DRG 377 ==
LOC: EDBD 09:17 → M ED 09:17 → M ED INP 12:33 → ENRESERV 13:35 → M PCU 15:32
PROVIDERS: ADMIT Internal Medicine; ATTEND Internal Medicine
PROC: 30233N1 Transfusion of Nonautologous Red Blood Cells into Peripheral Vein, Percutaneous Approach (ICD-10-PCS; 2020-09-15)
PROC: 5A1D70Z Performance of Urinary Filtration, Intermittent, Less than 6 Hours Per Day (ICD-10-PCS; principal; 2020-09-19)
DX: K57.33 Diverticulitis of large intestine without perforation or abscess with bleeding (principal); N18.6 End stage renal disease; I12.0 Hypertensive chronic kidney disease with stage 5 chronic kidney disease or end stage renal disease; I69.351 Hemiplegia and hemiparesis following cerebral infarction affecting right dominant side; D62 Acute posthemorrhagic anemia; I25.10 Atherosclerotic heart disease of native coronary artery without angina pectoris; E11.22 Type 2 diabetes mellitus with diabetic chronic kidney disease; F32.9 Major depressive disorder, single episode, unspecified; K52.9 Noninfective gastroenteritis and colitis, unspecified; K64.8 Other hemorrhoids; H54.8 Legal blindness, as defined in USA; I25.2 Old myocardial infarction; K59.09 Other constipation; Z98.41 Cataract extraction status, right eye; Z98.42 Cataract extraction status, left eye; Z99.2 Dependence on renal dialysis; Z85.828 Personal history of other malignant neoplasm of skin; M21.371 Foot drop, right foot; Z79.82 Long term (current) use of aspirin; Z79.4 Long term (current) use of insulin; Z79.899 Other long term (current) drug therapy; Z79.02 Long term (current) use of antithrombotics/antiplatelets

== ENCOUNTER → 2020-12-13 | Outpatient (CLI) | payer MEDICARE, BC ==
[~2020-12-13] MED LIST changes: +CIPR500T3 PO; +FLAG500T PO; -GLYB5TA PO; +GLYB5TAB6 PO; +HYDR50TA PO; +VELP5CHW PO; +VITA50005 PO
== END ==
LOC: M LABSMTC 10:04
PROVIDERS: ATTEND Anesthesiology
DX: Z01.812 Encounter for preprocedural laboratory examination (principal); Z20.822 Contact with and (suspected) exposure to COVID-19

== ENCOUNTER 2021-03-07 09:53 | Inpatient (IN) | payer MEDICARE, BC ==
[~2021-03-07] VITALS: Ht 165.1 cm; Wt 99.2 kg
[~2021-03-07 09:53] MED LIST changes: +CINACALCET 30 MG TAB (SENSIPAR) PO SCH; +PATIROMER SORBITEX CALCIUM 8.4 GM POWDER PACKET (VELTASSA) PO SCH
[2021-03-07 10:39] LABS: BASO # 0.1 10^3/uL (0.0-0.2); BASO % 0.7 % (0.0-1.0); EOS # 0.4 10^3/uL (0.0-0.5); EOS % 4.2 % (0.0-3.0); HEMATOCRIT 39.2 % (36.0-47.0); LYMPH # 1.2 10^3/uL (1.5-5.0); LYMPH % 14.9 % (24.0-44.0); MEAN CORPUSCULAR HEMOGLOBIN 30.9 pg (27.0-33.0); MEAN CORPUSCULAR HGB CONC 30.6 g/dl (32.0-36.5); MONO # 0.9 10^3/uL (0.0-0.8); MONO % 10.8 % (2.0-8.0); NEUTROPHILS # 5.7 10^3/uL (1.5-8.5); NEUTROPHILS % 68.9 % (36.0-66.0); PLATELET COUNT, AUTOMATED 232 10^3/uL (150-450); RED BLOOD COUNT 3.88 10^6/uL (4.00-5.40); VENOUS BASE EXCESS 0.5 (-2.0-2.0); VENOUS HCO3 27.2 MEQ/L (23.0-27.0); VENOUS O2 SATURATION 65.1 % (60.0-80.0); VENOUS PARTIAL PRESSURE CO2 52.5 mmHg (38.0-50.0); VENOUS PARTIAL PRESSURE O2 34.7 mmHg (30.0-50.0); VENOUS PH 7.332 UNITS (7.330-7.430); VENOUS STANDARD HCO3 24.3 MEQ/L; VENOUS TOTAL CO2 28.8 MEQ/L (24.0-28.0); WHITE BLOOD COUNT 8.3 10^3/uL (4.0-10.0)
[2021-03-07 10:49] LABS: INR 0.99; PROTHROMBIN TIME 13.3 SECONDS (12.5-14.3)
--- NOTE | 2021-03-07 10:57 | REP ---
INDICATION: DYSPNEA/COUGH. COMPARISON: 07/07/2020. TECHNIQUE: SINGLE PORTABLE AP VIEW OF THE CHEST WAS PERFORMED. FINDINGS: Subsegmental atelectasis is seen in the both lung bases. Cardiac silhouette is mildly prominent. There is calcification of the thoracic aorta. Multiple sternal wires are present. There is mild elevation of the right hemidiaphragm which is chronic. Right subclavian stent is again noted. IMPRESSION: Subsegmental atelectasis in both lung bases. <Electronically signed by Berlin Ornelas > 03/07/21 [id number]
[2021-03-07 11:10] LABS: ALBUMIN 3.5 GM/DL (3.2-5.2); BILIRUBIN,DIRECT 0.2 MG/DL (0.0-0.2); BILIRUBIN,TOTAL 0.5 MG/DL (0.2-1.0); MB/CK RELATIVE INDEX 3.37 (< OR =4); THYROID STIMULATING HORMONE 1.94 uIU/ML (0.358-3.740); TOTAL PROTEIN 7.9 GM/DL (6.4-8.2); TROPONIN I 0.06 NG/ML (< 0.10)
[2021-03-07] MEDS ORDERED: **hydrALAZINE** 50 MG TAB PO ONE (11:40)
[2021-03-07] MEDS ORDERED: cloNIDine 0.2 MG TAB PO ONE (11:40)
[2021-03-07] MEDS ORDERED: VELP5CHW PO (11:50)
[2021-03-07] MEDS ORDERED: SODI15SS PO (11:50)
[2021-03-07] MEDS ORDERED: COLA100C5 PO (11:50)
[2021-03-07] MEDS ORDERED: ASPI81TA26 PO (11:50)
[2021-03-07] MEDS ORDERED: CLOP75TA2 PO (11:50)
[2021-03-07] MEDS ORDERED: TESS100C PO (11:50)
[2021-03-07] MEDS ORDERED: VELT1POW PO (11:50)
[2021-03-07] MEDS ORDERED: CLON0.2T PO (11:50)
[2021-03-07] MEDS ORDERED: ACET650T15 PO (11:50)
[2021-03-07] MEDS ORDERED: ISOVUE-370 76% 100ML VIAL As Ordered ONE (12:18)
--- NOTE | 2021-03-07 13:07 | REP ---
INDICATION: sob. COMPARISON: 08/02/2015 the latest prior TECHNIQUE: A CT angiography after the intravenous administration of 100 cc Isovue 370. FINDINGS: There is excellent visualization of the pulmonary arterial vasculature. No focal filling defects are present that would be considered consistent with acute pulmonary emboli. There is no mediastinal or hilar adenopathy. There are no pleural or pericardial effusions. There is no change in appearance of the thoracic aorta. There is no significant change in appearance of the imaged osseous structures or imaged upper abdomen. Evaluation of the lung banuelos shows scattered asymmetric, curvilinear, and patchy opacities seen in conjunction with scattered bibasilar ground-glass opacities. These for the most part represent a change compared to the prior exam. IMPRESSION: 1. There is no evidence of a pulmonary embolus. 2. Scattered lung field opacities as described above and likely secondary to subsegmental atelectatic changes. Since they represent a change compared to the prior examination of 08/02/2015 a follow-up CT examination of the chest should be considered to ensure improvement if not complete resolution of the opacities. <Electronically signed by Americo Beasley > 03/07/21 [id number]
--- NOTE | 2021-03-07 15:49 | HPEPDOC ---
[facility] Medical History & Physical Date of Admission Mar 07, 2021 Date of Service: Mar 07, 2021 History and Physical CHIEF COMPLAINT: shortness of breath HISTORY OF PRESENT ILLNESS: 70 yo F with a PMHx of ESRD on HD (TThSat), CVA (w/ residual R sided deficitis), DM2, CAD s/p CABG and stenting, HTN, GI bleeding, diabetic retinopathy, depression, presented to the ER complaining of shortness of breath since her last HD session on 03/06/21. Dyspnea is worse with exertion, and is associated with orthopnea and PND. She follows with Dr. Rockwell's cardiology group, was last seen 2-3 weeks ago, and is currently undergoing damir p for occasional palpitations. She is planned for a holter monitor in the near future. At this time, she does not believe that the dyspnea is related to brief episodes of palpitations. She does not complain of chest pain, headache, nausea, vomiting, fevers or chills, and she denies worsening swelling of her legs. She denies recent falls. PAST MEDICAL HISTORY: End-stage renal disease, CVA in 2010 with right-sided weakness, UT in 2003 with CABG, hypertension, diabetes type 2, chronic constipation, history of depression. PAST SURGICAL HISTORY: Bilateral cataracts, peritoneal dialysis catheter placement in 2006, [id number] in 2006, CABG in 2003, parathyroid gland removal in 2009, right arm dialysis fistula in 2008, revision in 2010, also breast lumpectomy, benign, left side, and basal cell skin cancer removal. SOCIAL HISTORY: Eyes smoking, alcohol use or illicit drug use. She lives alone at home. Home health aides are present throughout the day. She follows with Dr. Rubin for nephrology and primary care. Dr. Rockwell is her qa auditor, she follows with vascular surgery in [facility]. Dr. Garza is her neurologist FAMILY HISTORY: Mother- HTN, HLD, DM type II, melanoma. at 89 y/o Father- CAD. at 85 y/o ALLERGIES: Please see below. REVIEW OF SYSTEMS: 10 point ROS completed, relevant findings are noted in the HPI HOME MEDICATIONS: Please see below. PHYSICAL EXAMINATION: VITAL SIGNS: please see below General: NAD, comfortable HEENT: PERRLA, EOMI, sclerae clear Neck: supple, normal ROM, no JVD Respiratory: lungs CTAB, no wheeze, no rales, no crackles CVS: RRR, normal S1, S2, no murmurs Abdo: soft, no masses, no hepatosplenomegaly, BS+, no rebound tenderness Extremities: no edema, pulses 2+ MSK: no joint deformities, normal ROM Neuro: no focal neuro deficits, moving all 4 extremities, CN2-12 intact. Strength 5/5 in all 4 extremities. No nystagmus. Psych: calm, cooperative, AAO x 3 LABORATORY DATA: See below. IMAGIN03/07/21: IMPRESSION: 1. There is no evidence of a pulmonary embolus. 2. Scattered lung field opacities as described above and likely secondary to subsegmental atelectatic changes. Since they represent a change compared to the prior examination of 08/02/2015 a follow-up CT examination of the chest should be considered to ensure improvement if not complete resolution of the opacities. CXR (03/07/21): FINDINGS: Subsegmental atelectasis is seen in the both lung bases. Cardiac silhouette is mildly prominent. There is calcification of the thoracic aorta. Multiple sternal wires are present. There is mild elevation of the right hemidiaphragm which is chronic. Right subclavian stent is again noted. IMPRESSION: Subsegmental atelectasis in both lung bases MICROBIOLOGY: Please see below. ASSESSMENT: 10 yo F with a PMHx of ESRD on HD (TThSat), CVA (w/ residual R sided deficitis), DM2, CAD s/p CABG and stenting, HTN, GI bleeding, diabetic ret inopathy, depression, presented to the ER complaining of shortness of breath since her last HD session on 03/06/21. Patient is admitted for workup of dyspnea. . PLAN: 1. Shortness of breath possible 2/2 fluid overload vs arrhythmia vs CHF - associated with orthopnea, PND - CXR and CT chest do not indicate extensive pulmonary edema, nor meaningful pleural effusions. No evidence for pulmonary embolism on CT angiogram chest. - resume HD on 03/07/21 - 48 hr telemetry - repeat CXR in am - continues pulse ox 2. ESRD on HD Tu -C/w current schedule -Dr. Layla Rubin consulted from ER - plan for HD on 03/07/21 3. CAD s/p UT, CABG 2013 - Denies chest pain - continue withASA, plavix. - continue with BB 4. HTN. -BP elevated in ER -resume home meds - s/p IV hydralazine in ER, appropriate response. 5. DM type II -FSBS AC and HS - CC diet - hypoglycemic precautions 6. 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 - brace on R leg. - PT/OT 7. GI px -PPI 8. DVT px. -Teds, SCDs - heparin 5000 units q8h SC Dispo: admission expect to last > 2 midnights Vital Signs Vital Signs Date Time Temp Pulse Resp B/P (MAP) Pulse Ox O2 Delivery O2 Flow Rate FiO2 03/07/21 15:35 222/78 (126) 03/07/21 15:32 63 20 97 Room Air 03/07/21 12:49 2.0 03/07/21 10:23 99.1 Laboratory Data Labs 24H Laboratory Tests 2 03/07/21 10:15: Immature Granulocyte % (Auto) 0.5, Neutrophils (%) (Auto) 68.9H, Lymphocytes (%) (Auto) 14.9L, Monocytes (%) (Auto) 10.8H, Eosinophils (%) (Auto) 4.2H, Basophils (%) (Auto) 0.7, Neutrophils # (Auto) 5.7, Lymphocytes # (Auto) 1.2L, Monocytes # (Auto) 0.9H, Eosinophils # (Auto) 0.4, Basophils # (Auto) 0.1, Nucleated Red Blood Cells % (auto) 0.0, Prothrombin Time 13.3, Prothromb Time International Ratio 0.99, Blood Gas Bicarbonate Standard 24.3, Venous Blood pH 7.332, Venous Blood Partial Pressure CO2 52.5H, Venous Blood Partial Pressure O2 34.7, Venous Blood Total Carbon Dioxide 28.8H, Venous Blood HCO3 27.2H, Venous Blood Oxygen Saturation 65.1, Venous Blood Base Excess 0.5, Lactic Acid Level 1.4, Total Bilirubin 0.5, Direct Bilirubin 0.2, Aspartate Amino Transf (AST/SGOT) 18, Alanine Aminotransferase (ALT/SGPT) 13, Alkaline Phosphatase 225H, Total Creatine Kinase 89, Creatine Kinase MB 3.0, Creatine Kinase MB Relative Index 3.37, Troponin I 0.06, [id number] Natriuretic Peptide 34313R, Total Protein 7.9, Albumin 3.5, Albumin/Globulin Ratio 0.8L, Thyroid Stimulating Hormone (TSH) 1.940 03/07/21 10:16: POC Glucose (Misc Panel) 168H, POC Sodium (Misc Panel) 139, POC Potassium (Misc Panel) 4.2, POC Chloride (Misc Panel) 95L, POC Total CO2 (Misc Panel) 34.0H, POC Blood Urea Nitrogen (Misc Panel 37H, POC Ionized Calcium (Misc Panel) 4.4L, POC Creatinine (Misc Panel) 5.5H, POC Hematocrit (Misc Panel) 39.0 03/07/21 10:20: POC Troponin I (Misc) 0.06 CBC/BMP Laboratory Tests 03/07/21 10:15 Microbiology Microbiology 03/07/21 Blood Culture, Received Pending 03/07/21 Blood Culture, Received Pending 03/07/21 Respiratory Virus Panel (PCR) (CARMITA) - Final, Complete Home Medications Scheduled Aspirin (Aspirin EC) 81 Mg Tablet.dr, 81 MG PO DAILY Atorvastatin Calcium (Atorvastatin Calcium) 80 Mg Tab, 80 MG PO QHS Carvedilol (Carvedilol) 12.5 Mg Tab, 12.5 MG PO DAILY Cetirizine HCl (Cetirizine HCl) 10 Mg Tab, 10 MG PO QHS Cinacalcet (Sensipar) 30 Mg Tab, 30 MG PO 3XW .,SAT ON DIALYSIS DAYS Citalopram Hydrobromide (Citalopram HBr) 20 Mg Tab, 20 MG PO QHS Clonidine HCl (Clonidine HCl) 0.2 Mg Tablet, 0.2 MG PO TID Clopidogrel Bisulfate (Clopidogrel) 75 Mg Tablet, 75 MG PO DAILY Docusate Sodium (Colace) 100 Mg Capsule, 100 MG PO BID Ergocalciferol (Vitamin D2) (Vitamin D2) 50,000 Units Cap, 50,000 UNITS PO QMONTH TAKES 1ST OF EACH MONTH Glimepiride (Glimepiride) 4 Mg Tab, 4 MG PO DAILY Hydralazine HCl (Hydralazine HCl) 50 Mg Tablet, 50 MG PO TID Insulin Glargine,Hum.rec.anlog (Lantus Solostar) 100 Unit/Ml Inj, 18 UNITS SC D AILY Levothyroxine Sodium (Levoxyl) 175 Mcg Tab, 175 MCG PO QAM Pantoprazole Sodium (Protonix) 40 Mg Tab, 40 MG PO DAILY Patiromer Calcium Sorbitex (Veltassa) 8.4 Gm Powd.pack, 8.4 GM PO 2XW FRIDAY/FRIDAY Sucroferric Oxyhydroxide (Velphoro) 500 Mg Tab.chew, 1,000 MG PO WM Scheduled PRN Acetaminophen (Acetaminophen ER) 650 Mg Tablet.er, 1,300 MG PO BID PRN for PAIN Benzonatate (Tessalon Perle) 100 Mg Capsule, 100 MG PO Q12H PRN for COUGH Nitroglycerin (Nitrostat) 0.4 Mg Subl, 0.4 MG SL NITRO PRN for CHEST PAIN Polyethylene Glycol 3350 (Miralax) 1 Pow Pow, 17 GM PO DAILY PRN for CONSTIPATION Sodium Polystyrene Sulfonate (Sps 15 gm/60 ml Suspension) 15 Gm/60 Ml Oral.susp, 15 GM PO ASDIRECTED PRN for BY DIALYSIS Allergies Coded Allergies: No Known Drug Allergies (Verified Allergy, Unknown, 12/11/20) PRISCA DEL VALLE MD Mar 07, 2021 15:49
[2021-03-07] MEDS ORDERED: MOM 30ML SUSPENSION UDC PO PRN (15:50)
[2021-03-07] MEDS ORDERED: MAALOX 30 ML SUSP *UDC PO PRN (15:50)
[2021-03-07] MEDS ORDERED: ACETAMINOPHEN TAB 650MG DOSE (2X325MG) PO PRN (15:50)
[2021-03-07] MEDS ORDERED: NITROGLYCERIN 0.4 MG SUBL TABLET SL PRN (15:50)
[2021-03-07] MEDS ORDERED: BENZONATATE 100 MG CAP PO PRN (15:50)
[2021-03-07] MEDS ORDERED: hydrALAZINE 20MG/ML 1ML VIAL (J0360 PER 20MG) IV STA (16:00)
[2021-03-07] MEDS: cloNIDine 0.2 MG TAB PO SCH ×2 (17:02→22:13)
[2021-03-07] MEDS: ASPIRIN 81MG ENTERIC TABLET PO SCH (17:02)
[2021-03-07] MEDS: CLOPIDOGREL 75 MG TAB PO SCH (17:03)
[2021-03-07] MEDS: **hydrALAZINE** 50 MG TAB PO SCH ×2 (17:03→22:13)
[2021-03-07] MEDS: PANTOPRAZOLE 40MG TAB (PROTONIX) PO SCH (17:03)
[2021-03-07] MEDS: CARVedilol 12.5 MG TAB PO SCH (17:04)
[2021-03-07 20:50] VITALS: BP 178/63
[2021-03-07] MEDS: SUCROFERRIC OXYHYDROXIDE 500MG CHEW TAB (VELPHORO) PO SCH (21:29)
[2021-03-07] MEDS: CETIRIZINE (ZyrTEC) 10 MG TAB PO SCH (22:08)
[2021-03-07] MEDS: HEPARIN SOD (PORCINE) 5000UNITS/ML 1ML VIAL/SYRINGE SC SCH (22:08)
[2021-03-07] MEDS: CitaloPRAM (CeleXA) 20 MG TAB PO SCH (22:09)
[2021-03-07] MEDS: DOCUSATE SODIUM 100MG CAPSULE PO SCH (22:09)
[2021-03-07] MEDS: ATORVASTATIN 20 MG TAB PO SCH (22:09)
[2021-03-08 06:00] VITALS: BP 168/74
[2021-03-08 06:22] LABS: BASO # 0.1 10^3/uL (0.0-0.2); EOS # 0.4 10^3/uL (0.0-0.5); EOS % 4.6 % (0.0-3.0); HEMATOCRIT 35.4 % (36.0-47.0); HEMOGLOBIN 10.7 g/dl (12.0-15.5); LYMPH # 1.6 10^3/uL (1.5-5.0); LYMPH % 20.2 % (24.0-44.0); MEAN CORPUSCULAR HEMOGLOBIN 30.8 pg (27.0-33.0); MEAN CORPUSCULAR HGB CONC 30.2 g/dl (32.0-36.5); MONO % 13.1 % (2.0-8.0); NEUTROPHILS # 4.8 10^3/uL (1.5-8.5); NEUTROPHILS % 60.7 % (36.0-66.0); PLATELET COUNT, AUTOMATED 206 10^3/uL (150-450); RED BLOOD COUNT 3.47 10^6/uL (4.00-5.40); WHITE BLOOD COUNT 7.9 10^3/uL (4.0-10.0)
[2021-03-08] MEDS: LEVOTHYROXINE 75MCG TABLET (0.075MG) PO SCH (06:27)
[2021-03-08] MEDS: LEVOTHYROXINE 100MCG TABLET (0.1MG) PO SCH (06:27)
[2021-03-08] MEDS: PANTOPRAZOLE 40MG TAB (PROTONIX) PO SCH (06:28)
[2021-03-08] MEDS: HEPARIN SOD (PORCINE) 5000UNITS/ML 1ML VIAL/SYRINGE SC SCH ×3 (06:28→21:21)
[2021-03-08] MEDS: DOCUSATE SODIUM 100MG CAPSULE PO SCH ×2 (06:29→21:19)
[2021-03-08] MEDS: cloNIDine 0.2 MG TAB PO SCH ×3 (06:29→21:20)
[2021-03-08] MEDS: **hydrALAZINE** 50 MG TAB PO SCH ×3 (06:29→21:20)
[2021-03-08] MEDS: CARVedilol 12.5 MG TAB PO SCH (06:29)
[2021-03-08] MEDS: CLOPIDOGREL 75 MG TAB PO SCH (06:30)
[2021-03-08] MEDS: ASPIRIN 81MG ENTERIC TABLET PO SCH (06:30)
[2021-03-08 07:00] LABS: ALBUMIN 3.2 GM/DL (3.2-5.2); BILIRUBIN,TOTAL 0.4 MG/DL (0.2-1.0); CALCIUM LEVEL 9.8 MG/DL (8.8-10.2); CREATININE FOR GFR 6.78 MG/DL (0.55-1.30); GLOMERULAR FILTRATION RATE 6.4 (>45); MAGNESIUM LEVEL 2.2 MG/DL (1.8-2.4); POTASSIUM SERUM 4.3 MEQ/L (3.5-5.1); TOTAL PROTEIN 7.6 GM/DL (6.4-8.2)
--- NOTE | 2021-03-08 07:50 | CR ---
CONSULTATION DATE: 03/07/2021 REQUESTING PHYSICIAN: Indiana Vasques MD CONSULTING PHYSICIAN: Leonard Rubin DO REASON FOR CONSULTATION: Management of end-stage renal disease on hemodialysis. HISTORY OF PRESENT ILLNESS: Ms. Jamilah Copeland is well known to me. She is a 70-year-old female with a past medical history of end-stage renal disease on hemodialysis on Friday, , Friday schedule, cerebrovascular accident (CVA) with right-sided weakness, legally blind, type 2 diabetes mellitus, coronary artery disease (CAD), status post coronary artery bypass grafting (CABG) and stenting, hypertension, history of gastrointestinal bleed and other comorbid conditions mentioned below. The patient presented to the emergency room with the chief complaint of shortness of breath that has been present for the past few days. She states that her shortness of breath did not improve with dialysis and fluid removal. She denies any worsening swelling of her legs. She has been reaching her dry weight on her outpatient hemodialysis treatments and is a compliant patient. In the emergency room, she was found to be severely hypertensive and the patient admitted to missing all of her antihypertensive agents today. CT angiogram was done in the emergency room for concern of possible pulmonary embolus (PE) and it was negative. The patient was subsequently admitted for further workup of her shortness of breath and nephrology evaluation was requested for hemodialysis management. PAST MEDICAL HISTORY: 1. End-stage renal disease on hemodialysis Friday, , Friday. 2. History of cerebrovascular accident (CVA) in 2010 with right-sided weakness. 3. History of myocardial infarction in 2003, status post coronary artery bypass grafting. 4. Chronic hypertension. 5. Type 2 diabetes mellitus. 6. History of chronic constipation. 7. Depression. 8. History of left eye blindness. 9. Secondary hyperparathyroidism of renal origin. 10.History of calciphylaxis. 11.Anemia of chronic renal failure. PAST SURGICAL HISTORY: Cataract surgeries, PD catheter placement and removal, coronary artery bypass grafting, parathyroidectomy, AV fistula, AV fistula revision, basal cell skin cancer removal, [id number], breast lumpectomy. SOCIAL HISTORY: Denies drug, alcohol or tobacco. She lives at home and has a home health aide who assist her. FAMILY HISTORY: Her mother had diabetes and hypertension. Father had coronary artery disease. HOME MEDICATIONS: Reviewed. REVIEW OF SYSTEMS: Constitutional: Denies fevers or chills. Eyes: Reports left eye blindness and overall weak vision. ENT: Denies any dysphagia or odynophagia. Cardiovascular: Denies any chest pains or palpitations. Has a history of coronary artery bypass grafting. Respiratory: Reports shortness of breath. Denies sputum production. Gastrointestinal: Has a history of gastrointestinal bleed. Denies nausea or vomiting. Genitourinary: Reports oliguria. Endocrine: Reports diabetes and secondary hyperparathyroidism of renal origin. Musculoskeletal: She denies any leg swelling or acute arthralgias or myalgias. Psychiatric: She reports history of depression. Skin: She reports history of basal cell skin cancer. Neurologic: She reports left eye blindness. She denies seizures or syncope. Hematologic: She reports anemia of chronic renal failure. All other review of systems is negative or as per history of present illness. PHYSICAL EXAMINATION: Vital signs: Temperature 99.1, pulse 64, respiratory rate 18, blood pressure 178/63, saturating 96% on 2 liters nasal cannula. General: The patient is seen in the emergency room, awake, alert, oriented and in no apparent distress. She is legally blind in the left eye. Tongue is moist. Neck is supple. Jugular veins are not elevated. Heart sounds are regular rate, S1, S2. There is no leg edema. Respiratory: Chest is clear to auscultation bilaterally and I do not appreciate crackles nor rales. Abdomen is soft and obese and nontender. Extremities show no leg edema. There is a fistula in the right arm which is patent and has dilated veins associated with it. Skin: There is a rash on the right arm. Neurologic: She is awake, alert and oriented times 3, cooperative with physical examination, legally blind in one eye. Psychiatric: Calm and cooperative. LABORATORY DATA: Today's laboratory study shows white count 8.3, hemoglobin 12, platelets 232. Lactic acid 1.4. BNP 12,000. INR 0.9. Blood culture pending. Respiratory viral panel negative INPATIENT MEDICATIONS: Tylenol as needed, Mylanta as needed, aspirin 81 mg by mouth daily, atorvastatin 80 mg by mouth every night at bedtime, carvedilol 12.5 mg by mouth daily, Zyrtec by mouth every night at bedtime, cinacalcet 30 mg by mouth Friday, , Friday, citalopram 20 mg by mouth every night at bedtime, clonidine 0.2 mg by mouth times 1, clonidine 0.2 mg three times a day, Plavix 75 mg by mouth daily, docusate 100 mg by mouth twice a day, heparin 5000 units subcutaneous q 8 hours, hydralazine 50 mg by mouth three times a day, insulin, levothyroxine 75 mcg by mouth daily, Protonix 40 mg by mouth daily, Veltassa 8.4 gm by mouth Friday and Friday, Velphoro 1000 mg by mouth with meals. PROBLEMS: 1. End-stage renal disease on hemodialysis on a Friday, , Friday schedule. I would dialyze the patient tomorrow and would plan to remove around 3 liters as tolerated by hemodynamics. CT of the chest is reviewed and there are no signs of pulmonary vascular congestion nor pleural effusions and the patient clinically appears fairly compensated from a volume point of view. 2. Hypertension. Blood pressures were significantly elevated in the emergency room. The patient had missed all of her morning medications. She is now given a dose of clonidine along with IV hydralazine and restarted on her home medications and blood pressure is improving. 3. Shortness of breath. The patient had a CT angiogram that was negative for pulmonary embolus. There was no significant fluid overload seen on her CT chest. She reports her dyspnea did not improve with dialysis and fluid removal. She also reports she is getting workup for arrhythmia with cardiology. Continue supplemental oxygen. 4. Diastolic congestive heart failure, most recent echocardiogram in 2016 noted left ventricular ejection fraction of 75% and impairment of left ventricular diastolic function. The patient's volume status appears fairly compensated at present. She has not missed dialysis. She will be next dialyzed on March 08 with goal of around 3 kg as tolerated by her hemodynamics and she continues on oral fluid restriction 1.8 liters.
[2021-03-08] MEDS: SUCROFERRIC OXYHYDROXIDE 500MG CHEW TAB (VELPHORO) PO SCH ×3 (08:00→18:25)
[2021-03-08] MEDS: CINACALCET 30 MG TAB (SENSIPAR) PO SCH (08:26)
[2021-03-08] MEDS: LEVEMIR (INSULIN DETEMIR) 1 UNITS/0.01ML SC SCH (08:29)
[2021-03-08] MEDS ORDERED: LIDOCAINE 1% SDV 5ML VIAL SC PRN (08:35)
[2021-03-08] MEDS ORDERED: SODIUM CHLORIDE 0.9% 1000ML IV PRN (08:35)
--- NOTE | 2021-03-08 10:08 | ECGEPIP ---
[facility] - ED Test Date: 2021-03-07 Pat Name: JERARDO CORONA Department: Room: - Gender: Female Stationary Steam Engineer: jane : 1950 Requested By: Indiana Cordon Order Number: [id number] Reading MD: Indiana Cordon Measurements Intervals [place] Rate: 64 P: 30 TX: 230 QRS: -53 QRSD: 128 T: 70 QT: 440 QTc: 453 Interpretive Statements Sinus rhythm with 1st degree AV block with premature supraventricular complexes Left axis deviation Right bundle branch block Minimal voltage criteria for LVH, may be normal variant ( R in aVL ) Inferior infarct , age undetermined Anterior infarct , age undetermined increased rate 03/16/19 Electronically Signed on 03-08-2021 10:08:20 EDT by Indiana Cordon
[2021-03-08 14:00] VITALS: BP 180/70
--- NOTE | 2021-03-08 17:43 | IPN ---
PROGRESS NOTE DATE: 03/08/2021 SUBJECTIVE: Jamilah is seen and examined this morning in the hemodialysis unit receiving her treatment. She tells me her shortness of breath is feeling much better. She denies any complaints except for swelling of the right hand, which is associated with her AV fistula. OBJECTIVE: VITAL SIGNS: Temperature 98.3, pulse 54, respiratory rate 16, blood pressure 168/74, saturating 98% on 2 liters nasal cannula. Dialysis today removed 2 liters. GENERAL: The patient is seen awake, alert, and comfortable receiving her treatment in no distress. HEENT: The left eye is legally blind. The tongue is moist. Neck is supple. Jugular veins are not elevated. HEART: Sounds are regular. S1, S2. There is no peripheral edema. RESPIRATORY: Chest is clear to auscultation bilaterally. She is comfortable on 2 liters nasal cannula. I do not appreciate crackle nor rale. ABDOMEN: Soft, nontender, and obese. EXTREMITIES: Show no leg edema. The right leg is in a brace that comes up to the knee and there is a fistula in the right arm, which is patent and has dilated veins associated with it, and the right hand is somewhat swollen. SKIN: There is a rash on the right arm. NEUROLOGIC: She is awake, alert, oriented x3, and cooperative with physical exam and legally blind in the left eye. LABORATORY DATA: Today's studies show white count 7.9, hemoglobin 10.7, platelets 206,000. Sodium 135, potassium 4.3, bicarbonate 30, BUN 51, glucose 117, magnesium 2.2, albumin 3.2. Blood cultures no growth for 24 hours x2 sets. IMAGING DATA: CT angiogram done yesterday shows no evidence of pulmonary embolus and there are scattered lung field opacities. INPATIENT MEDICATIONS: Reviewed by myself. Insulin was adjusted by the primary service. Remainder of medications are unchanged. PROBLEMS: 1. End-stage renal disease on hemodialysis on a Friday, , Friday schedule. The patient is dialyzed per her maintenance schedule. Two liters of fluid was removed. Her electrolytes and volume status are acceptable. Her fistula is in good use. 2. Mild swelling of the right arm. It is likely related to her fistula. I see she has some dilated veins and she reports she already has a follow-up appointment with her vascular surgeon in [place] and she likely needs a fistulogram and fistuloplasty. 3. Hypertension. Blood pressures still remain above goal and she is back on her home antihypertensive regimen, 2 liters of fluid were removed today, and we will see if blood pressure improves further with that. 4. Diastolic congestive heart failure. The patient appears compensated on exam. She is compliant with fluid restriction and she is also compliant with her outpatient treatments. Next dialysis will be on Friday.
[2021-03-08] MEDS: ATORVASTATIN 20 MG TAB PO SCH (21:19)
[2021-03-08] MEDS: CitaloPRAM (CeleXA) 20 MG TAB PO SCH (21:20)
[2021-03-08] MEDS: CETIRIZINE (ZyrTEC) 10 MG TAB PO SCH (21:20)
[2021-03-08 22:00] VITALS: BP 186/69
--- NOTE | 2021-03-08 22:01 | IPNPDOC ---
Date Seen The patient was seen on 03/08/21. Progress Note SUBJECTIVE: patient seen and examined at bedside after her HD session. Doing well. No acute events overnight. States that her shortness of breath is much improved. Tele specialist noted 2 sec pause on monitor, with 1st deg block. Asymptomatic, denies palpitaitons, lightheadednes, dizziness. OBJECTIVE PHYSICAL EXAMINATION: VITAL SIGNS: Please see below. General: NAD, comfortable HEENT: PERRLA, EOMI, sclerae clear Neck: supple, normal ROM, no JVD Respiratory: lungs CTAB, no wheeze, no rales, no crackles CVS: RRR, normal S1, S2, no murmurs Abdo: soft, no masses, no hepatosplenomegaly, BS+, no rebound tenderness Extremities: no edema, pulses 2+ MSK: no joint deformities, normal ROM Neuro: no focal neuro deficits, moving all 4 extremities, CN2-12 intact. Strength 5/5 in all 4 extremities. No nystagmus. Psych: calm, cooperative, AAO x 3 LABORATORY DATA, IMAGING STUDIES, MICROBIOLOGY: Please see below. DVT prophylaxis ordered?: ASSESSMENT AND PLAN: 70 yo F with a PMHx of ESRD on HD (TThSat), CVA (w/ residual R sided deficitis), DM2, CAD s/p CABG and stenting, HTN, GI bleeding, diabetic retinopathy, depression, presented to the ER complaining of shortness of breath since her last HD session on 03/06/21. Patient is admitted for workup of dyspnea. . PLAN: 1. Shortness of breath possible 2/2 fluid overload vs arrhythmia vs CHF - associated with orthopnea, PND - CXR and CT chest do not indicate extensive pulmonary edema, nor meaningful pleural effusions. No evidence for pulmonary embolism on CT angiogram chest. - resume HD on 03/07/21 - 48 hr telemetry - repeat CXR in am - continues pulse ox 2. ESRD on HD LeighFri -C/w current schedule -Dr. Layla Rubin consulted from ER - s/p HD on 03/07/21, 2L fluid removed - next session on 03/10/21 Swelling of R arm - dilated veins - likely 2/2 AV fistula - will check venous duplex - follows with her vascular surgery in [place] - need fistulogram and fistuloplasty per nephrology 1st degree AV block - 2 sec pause noted on tele - will hold carvedilol 3. CAD s/p [place], CABG 2013 - Denies chest pain - continue withASA, plavix. - continue with BB 4. HTN. -BP elevated in ER -resume home meds - s/p IV hydralazine in ER, appropriate response. 5. DM type II -FSBS AC and HS - CC diet - hypoglycemic precautions 6. 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 - brace on R leg. - PT/OT 7. GI px -PPI 8. DVT px. -Teds, SCDs - heparin 5000 units q8h SC Dispo: admission expect to last > 2 midnights VS, I&O, 24H, [facility] Vital Signs/I&O Vital Signs Date Time Temp Pulse Resp B/P (MAP) Pulse Ox O2 Delivery O2 Flow Rate FiO2 03/08/21 21:20 186/69 03/08/21 14:00 98.3 54 16 98 Nasal Cannula 2.0 I&O- Last 24 Hours up to 6 AM 03/08/21 06:00 Intake Total 200 ml Output Total 0 ml Balance 200 ml Laboratory Data 24H LABS Laboratory Tests 2 03/08/21 05:46: Immature Granulocyte % (Auto) 0.4, Neutrophils (%) (Auto) 60.7, Lymphocytes (%) (Auto) 20.2L, Monocytes (%) (Auto) 13.1H, Eosinophils (%) (Auto) 4.6H, Basophils (%) (Auto) 1.0, Neutrophils # (Auto) 4.8, Lymphocytes # (Auto) 1.6, Monocytes # (Auto) 1.0H, Eosinophils # (Auto) 0.4, Basophils # (Auto) 0.1, Nucleated Red Blood Cells % (auto) 0.0, Anion Gap 6L, Glomerular Filtration Rate 6.4L, Calcium Level 9.8, Magnesium Level 2.2, Total Bilirubin 0.4, Aspartate Amino Transf (AST/SGOT) 12, Alanine Aminotransferase (ALT/SGPT) 9L, Alkaline Phosphatase 194H, Total Protein 7.6, Albumin 3.2, Albumin/Globulin Ratio 0.7L CBC/BMP Laboratory Tests 03/08/21 05:46 Microbiology Microbiology 03/07/21 Blood Culture - Preliminary, Resulted No growth after 24 hours . All specim... 03/07/21 Blood Culture - Preliminary, Resulted No growth after 24 hours . All specim... 03/07/21 Respiratory Virus Panel (PCR) (CARMITA) - Final, Complete PRISCA DEL VALLE MD Mar 08, 2021 22:00
[2021-03-09] MEDS: LEVOTHYROXINE 75MCG TABLET (0.075MG) PO SCH (05:46)
[2021-03-09] MEDS: LEVOTHYROXINE 100MCG TABLET (0.1MG) PO SCH (05:46)
[2021-03-09] MEDS: HEPARIN SOD (PORCINE) 5000UNITS/ML 1ML VIAL/SYRINGE SC SCH ×3 (05:47→21:53)
[2021-03-09 06:00] VITALS: BP 166/70
--- NOTE | 2021-03-09 08:05 | REP ---
INDICATION: r/o DVT. COMPARISON: None. TECHNIQUE: Right upper extremity duplex venous sonography. FINDINGS: The internal jugular, axillary, brachial, basilic, and cephalic veins are anechoic and compressible in the right upper extremity. Color flow imaging is homogeneous. Spectral Doppler interrogation is unremarkable. There is no evidence of upper extremity venous thrombosis. The right upper extremity veins are somewhat dilated with irregular Doppler waveforms related to the patient's fistula. IMPRESSION: Negative right upper extremity duplex venous ultrasound. No evidence of venous thrombosis. <Electronically signed by Flaco Phan > 03/09/21 0836
[2021-03-09] MEDS: SUCROFERRIC OXYHYDROXIDE 500MG CHEW TAB (VELPHORO) PO SCH ×3 (08:56→18:44)
[2021-03-09] MEDS: DOCUSATE SODIUM 100MG CAPSULE PO SCH ×2 (08:56→21:52)
[2021-03-09] MEDS: PANTOPRAZOLE 40MG TAB (PROTONIX) PO SCH (08:57)
[2021-03-09] MEDS: ASPIRIN 81MG ENTERIC TABLET PO SCH (08:57)
[2021-03-09] MEDS: CLOPIDOGREL 75 MG TAB PO SCH (08:57)
[2021-03-09] MEDS: LEVEMIR (INSULIN DETEMIR) 1 UNITS/0.01ML SC SCH (09:00)
[2021-03-09] MEDS: cloNIDine 0.2 MG TAB PO SCH ×3 (09:37→21:53)
[2021-03-09] MEDS: **hydrALAZINE** 50 MG TAB PO SCH ×3 (09:37→21:53)
[2021-03-09 10:10] LABS: ALBUMIN 3.4 GM/DL (3.2-5.2); BILIRUBIN,TOTAL 0.4 MG/DL (0.2-1.0); CALCIUM LEVEL 9.2 MG/DL (8.8-10.2); CREATININE FOR GFR 4.76 MG/DL (0.55-1.30); GLOMERULAR FILTRATION RATE 9.7 (>45); MAGNESIUM LEVEL 2.1 MG/DL (1.8-2.4); POTASSIUM SERUM 4.9 MEQ/L (3.5-5.1); TOTAL PROTEIN 7.7 GM/DL (6.4-8.2)
[2021-03-09 11:05] LABS: BASO # 0.1 10^3/uL (0.0-0.2); BASO % 0.9 % (0.0-1.0); EOS # 0.4 10^3/uL (0.0-0.5); EOS % 5.2 % (0.0-3.0); HEMATOCRIT 37.9 % (36.0-47.0); HEMOGLOBIN 11.6 g/dl (12.0-15.5); LYMPH # 1.4 10^3/uL (1.5-5.0); LYMPH % 17.8 % (24.0-44.0); MEAN CORPUSCULAR HEMOGLOBIN 30.8 pg (27.0-33.0); MEAN CORPUSCULAR HGB CONC 30.6 g/dl (32.0-36.5); MEAN CORPUSCULAR VOLUME 100.5 fl (80.0-96.0); MONO # 0.8 10^3/uL (0.0-0.8); MONO % 10.9 % (2.0-8.0); NEUTROPHILS # 4.9 10^3/uL (1.5-8.5); NEUTROPHILS % 64.7 % (36.0-66.0); PLATELET COUNT, AUTOMATED 211 10^3/uL (150-450); RED BLOOD COUNT 3.77 10^6/uL (4.00-5.40); WHITE BLOOD COUNT 7.6 10^3/uL (4.0-10.0)
[2021-03-09] MEDS ORDERED: amLODIPine 5 MG TAB PO ONE (11:25)
[2021-03-09] MEDS ORDERED: COZA50TA PO (11:42)
--- NOTE | 2021-03-09 12:06 | DS.PDOC ---
Discharge Summary General Date of Admission Mar 07, 2021 at 15:49 Date of Discharge 03/09/21 Discharge Summary PROCEDURES PERFORMED DURING STAY: [None]. ADMITTING DIAGNOSES: shortness of breath 2/2 fluid overload ESRD on HD CAD HTN DM2 Hx of CVA s/p R sided weakness 1st degree AV block legally blind DISCHARGE DIAGNOSES: shortness of breath 2/2 fluid overload ESRD on HD CAD HTN DM2 Hx of CVA s/p R sided weakness 1st degree AV block legally blind COMPLICATIONS/CHIEF COMPLAINT: Shortness Of Breath. HISTORY OF PRESENT ILLNESS: : 70 yo F with a PMHx of ESRD on HD (TThSat), CVA (w/ residual R sided deficitis), DM2, CAD s/p CABG and stenting, HTN, GI bleeding, diabetic retinopathy, depression, presented to the ER complaining of shortness of breath since her last HD session on 03/06/21. Dyspnea is worse with exertion, and is associated with orthopnea and PND. She follows with Dr. Rockwell's cardiology group, was last seen 2-3 weeks ago, and is currently undergoing workup for occasional palpitations. She is planned for a holter monitor in the near future. At this time, she does not believe that the dyspnea is related to brief episodes of palpitations. She does not complain of chest pain, headache, nausea, vomiting, fevers or chills, and she denies worsening swelling of her legs. She denies recent falls. Found to be in hypertensive urgency, and admits to missing her blood pressure medications the day of admission. HOSPITAL COURSE: # Shortness of breath possible 2/2 fluid overload vs arrhythmia vs CHF - associated with orthopnea, [place] [address] - mild crackles hear at lung bases - CXR and CT chest do not indicate extensive pulmonary edema, nor meaningful pleural effusions. No evidence for pulmonary embolism on CT angiogram chest. - fluid status was managed with hemodialyses # ESRD on HD [facility] - [facility]/w current schedule - Dr. Layla Rubin consulted from ER - s/p HD on 03/07/21, 2L fluid removed - SOB improved after HD - resume regular HD schedule on 03/10/21 # Swelling of R arm - dilated veins - likely 2/2 AV fistula - will check venous duplex - negative for DVT on 03/09/21 study - follows with her vascular surgery in [place] - need fistulogram and fistuloplasty per nephrology # 1st degree AV block - 2 sec pause noted on tele. WV interval 230 ms - will hold carvedilol - d/w Dr. Lees, 1st deg AV block and pause likely a result of drug effect from carvedilol and clonidine - he agrees with holding carvedilol and continuing clonidine - no indication for cardiac intervention ie pacemaker at this time - to follow up with Dr. Rockwell in clinic in 1-2 weeks # CAD s/p ID, CABG 2013 - Denies chest pain - continue withASA, plavix. - continue with BB # HTN. -BP elevated in ER -resume home meds - s/p IV hydralazine in ER, appropriate response. - stopped carvedilol - losartan added by Dr. 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 - brace on R leg. - PT/OT # GI px -PPI # DVT px. -Teds, SCDs - heparin 5000 units q8h SC DISCHARGE MEDICATIONS: Please see below. ALLERGIES: Please see below. PHYSICAL EXAMINATION ON DISCHARGE: VITAL SIGNS: Please see below. General: NAD, comfortable HEENT: PERRLA, EOMI, sclerae clear Neck: supple, normal ROM, no JVD Respiratory: lungs CTAB, no wheeze, no rales, no crackles CVS: RRR, normal S1, S2, no murmurs Abdo: soft, no masses, no hepatosplenomegaly, BS+, no rebound tenderness Extremities: no edema, pulses 2+ MSK: no joint deformities, normal ROM Neuro: RLE weakness s/p CVA, leg brace in place 4+/5 strength. Moving all 4 extremities Psych: calm, cooperative, AAO x 3 LABORATORY DATA: Please see below. IMAGING: R arm venous duplex (03/09/21): Negative right upper extremity duplex venous ultrasound. No evidence of venous thrombosis. CT Angiogram chest (03/07/21): IMPRESSION: 1. There is no evidence of a pulmonary embolus. 2. Scattered lung field opacities as described above and likely secondary to subsegmental atelectatic changes. Since they represent a change compared to the prior examination of 08/02/2015 a follow-up CT examination of the chest should be considered to ensure improvement if not complete resolution of the opacities. CXR (03/07/21): FINDINGS: Subsegmental atelectasis is seen in the both lung bases. Cardiac silhouette is mildly prominent. There is calcification of the thoracic aorta. Multiple sternal wires are present. There is mild elevation of the right hemidiaphragm which is chronic. Right subclavian stent is again noted. PROGNOSIS: fair ACTIVITY: [As tolerated]. DIET: renal diet DISCHARGE PLAN: DC home with services. PCP, cardiology and nephrology follow up as below. Resume regular hemodialysis schedule on 03/10/21 DISPOSITION: . DISCHARGE INSTRUCTIONS: . Please follow-up with your primary care doctor within 3-5 days . Please follow-up with cardiology Dr. Rockwell within 1-2 weeks . Please follow-up with nephrology within 1-2 weeks . Please taking medications as prescribed. . If you develop bleeding, chest pain, shortness of breath, seizures, nausea, fevers, or otherwise worsening of your symptoms, please call 911 or return to the nearest emergency room ITEMS TO FOLLOWUP ON ON OUTPATIENT: Follow up CT to evaluate scattered lung filed opacities. DISCHARGE CONDITION: [Stable]. TIME SPENT ON DISCHARGE: Greater than minutes. Vital Signs/I&Os Vital Signs Date Time Temp Pulse Resp B/P (MAP) Pulse Ox O2 Delivery O2 Flow Rate FiO2 03/09/21 09:37 205/72 03/09/21 06:00 97.0 60 16 100 Nasal Cannula 2.0 I&O- Last 24 Hours up to 6 AM 03/09/21 06:00 Intake Total 860 ml Output Total 2000 ml Balance -1140 ml Laboratory Data Labs 24H Laboratory Tests 2 03/09/21 08:59: Bedside Glucose (Misc Panel) 151H 03/09/21 09:09: Anion Gap 10, Glomerular Filtration Rate 9.7L, Calcium Level 9.2, Magnesium Level 2.1, Total Bilirubin 0.4, Aspartate Amino Transf (AST/SGOT) 23, Alanine Aminotransferase (ALT/SGPT) 13, Alkaline Phosphatase 214H, Total Protein 7.7, Albumin 3.4, Albumin/Globulin Ratio 0.8L 03/09/21 10:20: Immature Granulocyte % (Auto) 0.5, Neutrophils (%) (Auto) 64.7, Lymphocytes (%) (Auto) 17.8L, Monocytes (%) (Auto) 10.9H, Eosinophils (%) (Auto) 5.2H, Basophils (%) (Auto) 0.9, Neutrophils # (Auto) 4.9, Lymphocytes # (Auto) 1.4L, Monocytes # (Auto) 0.8, Eosinophils # (Auto) 0.4, Basophils # (Auto) 0.1, Nucleated Red Blood Cells % (auto) 0.0 CBC/BMP Laboratory Tests 03/09/21 09:09 03/09/21 10:20 FSBS Laboratory Tests Test 03/09/21 08:59 Range/Units Bedside Glucose (Misc Panel) 151 80-115 MG/DL Microbiology Microbiology 03/07/21 Blood Culture - Preliminary, Resulted No Growth after 48 hours. All Specime... 03/07/21 Blood Culture - Preliminary, Resulted No Growth after 48 hours. All Specime... 03/07/21 Respiratory Virus Panel (PCR) ([facility]) - Final, Complete Discharge Medications Scheduled Aspirin (Aspirin EC) 81 Mg Tablet.dr, 81 MG PO DAILY, (Reported) Atorvastatin Calcium (Atorvastatin Calcium) 80 Mg Tab, 80 MG PO QHS, (Reported) Cetirizine HCl (Cetirizine HCl) 10 Mg Tab, 10 MG PO QHS, (Reported) Cinacalcet (Sensipar) 30 Mg Tab, 30 MG PO 3XW, (Reported) ,SAT ON DIALYSIS DAYS Citalopram Hydrobromide (Citalopram HBr) 20 Mg Tab, 20 MG PO QHS, (Reported) Clonidine HCl (Clonidine HCl) 0.2 Mg Tablet, 0.2 MG PO TID, (Reported) Clopidogrel Bisulfate (Clopidogrel) 75 Mg Tablet, 75 MG PO DAILY, (Reported) Docusate Sodium (Colace) 100 Mg Capsule, 100 MG PO BID, (Reported) Ergocalciferol (Vitamin D2) (Vitamin D2) 50,000 Units Cap, 50,000 UNITS PO QMONTH, (Reported) TAKES 1ST OF EACH MONTH Glimepiride (Glimepiride) 4 Mg Tab, 4 MG PO DAILY, (Reported) Hydralazine HCl (Hydralazine HCl) 50 Mg Tablet, 50 MG PO TID, (Reported) Insulin Glargine,Hum.rec.anlog (Lantus Solostar) 100 Unit/Ml Inj, 18 UNITS SC DAILY, (Reported) Levothyroxine Sodium (Levoxyl) 175 Mcg Tab, 175 MCG PO QAM, (Reported) Losartan Potassium (Cozaar) 50 Mg Tablet, 50 MG PO DAILY Pantoprazole Sodium (Protonix) 40 Mg Tab, 40 MG PO DAILY, (Reported) Patiromer Calcium Sorbitex (Veltassa) 8.4 Gm Powd.pack, 8.4 GM PO 2XW, (Reported) FRIDAY/FRIDAY Sucroferric Oxyhydroxide (Velphoro) 500 Mg Tab.chew, 1,000 MG PO WM, (Reported) Scheduled PRN Acetaminophen (Acetaminophen ER) 650 Mg Tablet.er, 1,300 MG PO BID PRN for PAIN, (Reported) Benzonatate (Tessalon Perle) 100 Mg Capsule, 100 MG PO Q12H PRN for COUGH, (Reported) Nitroglycerin (Nitrostat) 0.4 Mg Subl, 0.4 MG SL NITRO PRN for CHEST PAIN, (Reported) Polyethylene Glycol 3350 (Miralax) 1 Pow Pow, 17 GM PO DAILY PRN for CONSTIPATION, (Reported) Sodium Polystyrene Sulfonate (Sps 15 gm/60 ml Suspension) 15 Gm/60 Ml Oral.susp, 15 GM PO ASDIRECTED PRN for BY DIALYSIS, (Reported) Allergies Coded Allergies: No Known Drug Allergies (Verified Allergy, Unknown, 12/11/20) PRISCA DEL VALLE MD Mar 09, 2021 12:06
[2021-03-09] MEDS: LOSARTAN 50MG TABLET PO SCH (12:46)
[2021-03-09 14:00] VITALS: BP 200/72
[2021-03-09 14:20] LABS: TROPONIN I 0.03 NG/ML (< 0.10)
--- NOTE | 2021-03-09 15:38 | IPN ---
PROGRESS NOTE DATE: 03/09/2021 SUBJECTIVE: Patient seen and examined this morning at the bedside. She is tearful. She is anxious. She is very concerned and agitated about her high blood pressure, which is probably not helping the matter. She denies any issues with her dialysis yesterday. Reports that she walked around with physical therapy and had no drop in her oxygen saturation with activity but reports she still feels unsettled and that "my stomach is going up and down." Temperature 97.0, pulse 60, respiratory rate 16, blood pressure 166/70, saturating 100% on 2 liters nasal cannula. Dialysis yesterday removed 2 liters. Weight in the bed scale today is not recorded. GENERAL: Patient is seen awake, alert, sitting out of bed to the chair, highly anxious appearing but in no distress. Left eye is equally blind. Tongue is moist. NECK: Supple. Jugular veins were not elevated while she was sitting upright. HEART: Sounds are irregular and bradycardia, S1, S2. There is no peripheral edema. The right lower extremity is in a brace. The right fistula in the arm is patent and has dilated veins associated with it, and the right hand is somewhat swollen. RESPIRATORY: Shows chest is clear to auscultation. She is comfortable on 2 liters nasal cannula. There is no accessory muscles use, no tachypnea, no crackle, no rale. ABDOMEN: Soft, obese, and nontender. EXTREMITIES: Right leg is in a brace, and the right arm fistula is described previously, and the left leg has no edema. NEUROLOGIC: She is oriented times three at baseline mentation and legally blind in the left eye. Today's laboratory studies show sodium 133, potassium 4.9, bicarbonate 24, BUN 31. Hemoglobin 11.6. Vascular duplex of the right arm was negative for deep venous thrombosis (DVT). INPATIENT MEDICATIONS: I started her on losartan 50 mg by mouth daily. Primary team also gave a dose of amlodipine 5 mg. Remainder of medications is unchanged as compared to yesterday. PROBLEMS: 1. End-stage renal disease, on hemodialysis on a Friday, , Friday schedule. The patient is dialyzed per her maintenance schedule. Her electrolytes and volume status are acceptable. She is saturating 100% on her usual 2 liters of nasal cannula, and her next dialysis treatment will be on Friday. 2. Complaint of shortness of breath. Patient had a negative CT angiogram. There was also no significant sign of pulmonary vascular congestion nor pleural effusion. She is saturating very well on her usual 2 liters nasal cannula and reports her oxygen saturations stayed adequate with ambulation while working with physical therapy. Her blood pressures are, however, markedly uncontrolled, and I wonder if that may be causing some shortness of breath. 3. Uncontrolled blood pressures. Systolic is above 200s today. I have added losartan 50 mg, and primary team has added amlodipine 5 mg. She also is on clonidine and hydralazine. Her beta rosana was recently stopped, but I am not sure why. 4. Mild swelling of the right arm. It is related to her fistula. She has some dilated veins as well, and she reports she already has a scheduled followup appointment with her vascular surgeon in [place], and she likely needs fistulogram and fistuloplasty. She did have a venous duplex of the right arm that was negative for deep venous thrombosis (DVT).
[2021-03-09] MEDS: CitaloPRAM (CeleXA) 20 MG TAB PO SCH (21:52)
[2021-03-09] MEDS: ATORVASTATIN 20 MG TAB PO SCH (21:53)
[2021-03-09] MEDS: CETIRIZINE (ZyrTEC) 10 MG TAB PO SCH (21:53)
[2021-03-09 22:00] VITALS: BP 178/68
[2021-03-10] MEDS: HEPARIN SOD (PORCINE) 5000UNITS/ML 1ML VIAL/SYRINGE SC SCH ×2 (05:43→15:59)
[2021-03-10] MEDS: ASPIRIN 81MG ENTERIC TABLET PO SCH (05:43)
[2021-03-10] MEDS: LEVOTHYROXINE 100MCG TABLET (0.1MG) PO SCH (05:44)
[2021-03-10] MEDS: DOCUSATE SODIUM 100MG CAPSULE PO SCH (05:44)
[2021-03-10] MEDS: CLOPIDOGREL 75 MG TAB PO SCH (05:44)
[2021-03-10] MEDS: cloNIDine 0.2 MG TAB PO SCH ×2 (05:44→16:58)
[2021-03-10] MEDS: LOSARTAN 50MG TABLET PO SCH (05:45)
[2021-03-10] MEDS: PANTOPRAZOLE 40MG TAB (PROTONIX) PO SCH (05:45)
[2021-03-10] MEDS: **hydrALAZINE** 50 MG TAB PO SCH ×2 (05:48→16:58)
[2021-03-10] MEDS: LEVOTHYROXINE 75MCG TABLET (0.075MG) PO SCH (05:48)
[2021-03-10] MEDS: CINACALCET 30 MG TAB (SENSIPAR) PO SCH (05:57)
[2021-03-10 06:00] VITALS: BP 178/66
[2021-03-10 07:28] LABS: BASO # 0.1 10^3/uL (0.0-0.2); BASO % 0.6 % (0.0-1.0); EOS # 0.4 10^3/uL (0.0-0.5); EOS % 4.7 % (0.0-3.0); HEMATOCRIT 36.2 % (36.0-47.0); HEMOGLOBIN 11.2 g/dl (12.0-15.5); LYMPH # 1.7 10^3/uL (1.5-5.0); LYMPH % 21.5 % (24.0-44.0); MEAN CORPUSCULAR HEMOGLOBIN 30.9 pg (27.0-33.0); MEAN CORPUSCULAR HGB CONC 30.9 g/dl (32.0-36.5); MEAN CORPUSCULAR VOLUME 99.7 fl (80.0-96.0); MONO # 0.9 10^3/uL (0.0-0.8); MONO % 10.9 % (2.0-8.0); NEUTROPHILS # 4.9 10^3/uL (1.5-8.5); NEUTROPHILS % 61.8 % (36.0-66.0); PLATELET COUNT, AUTOMATED 194 10^3/uL (150-450); RED BLOOD COUNT 3.63 10^6/uL (4.00-5.40); WHITE BLOOD COUNT 7.9 10^3/uL (4.0-10.0)
[2021-03-10 07:40] LABS: ALBUMIN 3.1 GM/DL (3.2-5.2); BILIRUBIN,TOTAL 0.3 MG/DL (0.2-1.0); CALCIUM LEVEL 9.1 MG/DL (8.8-10.2); CREATININE FOR GFR 6.14 MG/DL (0.55-1.30); GLOMERULAR FILTRATION RATE 7.2 (>45); MAGNESIUM LEVEL 2.1 MG/DL (1.8-2.4); POTASSIUM SERUM 4.5 MEQ/L (3.5-5.1); TOTAL PROTEIN 7.1 GM/DL (6.4-8.2)
[2021-03-10] MEDS: SUCROFERRIC OXYHYDROXIDE 500MG CHEW TAB (VELPHORO) PO SCH ×2 (08:41→15:58)
[2021-03-10] MEDS: LEVEMIR (INSULIN DETEMIR) 1 UNITS/0.01ML SC SCH (08:42)
[2021-03-10] MEDS ORDERED: COZA50TA PO (16:21)
--- NOTE | 2021-03-10 16:23 | IPNPDOC ---
Date Seen The patient was seen on 03/10/21. Progress Note SUBJECTIVE: Patient is a -year-old [RACE] [GENDER] with OBJECTIVE PHYSICAL EXAMINATION: VITAL SIGNS: Please see below. GENERAL: HEENT: CARDIOVASCULAR: . RESPIRATORY: . ABDOMINAL: EXTREMITIES: NEUROLOGICAL: PSYCHOLOGICAL: LABORATORY DATA, IMAGING STUDIES, MICROBIOLOGY: Please see below. Echocardiogram: . DVT prophylaxis ordered?: ASSESSMENT AND PLAN: This is a -year-old [RACE] [GENDER] with . PROBLEMS: 1. : . 2. : . 3. : . DISPOSITION: . VS, I&O, 24H, [facility] Vital Signs/I&O Vital Signs Date Time Temp Pulse Resp B/P (MAP) Pulse Ox O2 Delivery O2 Flow Rate FiO2 03/10/21 09:45 2.0 03/10/21 06:00 98.5 53 20 178/66 (103) 99 Nasal Cannula I&O- Last 24 Hours up to 6 AM 03/10/21 06:00 Intake Total 1980 ml Output Total 2 ml Balance 1978 ml Laboratory Data 24H LABS Laboratory Tests 2 03/10/21 06:31: Immature Granulocyte % (Auto) 0.5, Neutrophils (%) (Auto) 61.8, Lymphocytes (%) (Auto) 21.5L, Monocytes (%) (Auto) 10.9H, Eosinophils (%) (Auto) 4.7H, Basophils (%) (Auto) 0.6, Neutrophils # (Auto) 4.9, Lymphocytes # (Auto) 1.7, Monocytes # (Auto) 0.9H, Eosinophils # (Auto) 0.4, Basophils # (Auto) 0.1, Nucleated Red Blood Cells % (auto) 0.0, Anion Gap 9, Glomerular Filtration Rate 7.2L, Calcium Level 9.1, Magnesium Level 2.1, Total Bilirubin 0.3, Gamma Glutamyl Transferase 16, Aspartate Amino Transf (AST/SGOT) 15, Alanine Aminotransferase (ALT/SGPT) 12, Alkaline Phosphatase 190H, Total Protein 7.1, Albumin 3.1L, Albumin/Globulin Ratio 0.8L CBC/BMP Laboratory Tests 03/10/21 06:31 Microbiology Microbiology 03/07/21 Blood Culture - Preliminary, Resulted No Growth after 72 hours. All specime... 03/07/21 Blood Culture - Preliminary, Resulted No Growth after 72 hours. All specime... 03/07/21 Respiratory Virus Panel (PCR) ([facility]) - Final, Complete PRISCA DEL VALLE MD Mar 10, 2021 16:23
[2021-03-10 16:58] VITALS: BP 148/70
--- NOTE | 2021-03-10 17:31 | IPN ---
PROGRESS NOTE DATE: 03/10/2021 SUBJECTIVE: Mrs. Copeland was seen this morning on her bedside. Her blood pressure remains elevated, however, her dyspnea has improved. She denies any headache, fever or chills. She did not want to go home due to uncontrolled hypertension and not feeling well yesterday. She is due for hemodialysis today and initially we had planned to discharge her for outpatient dialysis, however, patient declined as she did not feel well. PHYSICAL EXAMINATION: VITALS: Temperature 98.5 degrees Fahrenheit, heart rate 53 per minute, respiratory rate 20 per minute, blood pressure 178/66 mmHg, oxygen saturation 99% on 2 liters oxygen. HEENT: He has mild facial edema. Neck veins are difficult to be assessed sitting upright in the chair. LUNGS: Slightly diminished breath sounds at bases. HEART: Sounds are regular. ABDOMEN: Soft and nontender. Bowel sounds are normal. EXTREMITIES: Without any cyanosis or clubbing. She has significant swelling of her right hand. Her right upper arm AV fistula is patent. She is wearing ankle braces and no edema on lower extremities noticed. LAB DATA: Today's labs show WBC 7.9, hemoglobin 11.2, hematocrit 36. Sodium 134, potassium 4.5, CO2 28, BUN 48, creatinine 6.14, glucose 122 and calcium 9.1. PROBLEMS: 1. Uncontrolled hypertension: Blood pressure control improved since admission, however, still high. I feel this is partly related to hypervolemia and will try to remove 2.5 liters of fluid dialysis today and see how she does. I anticipate improvement in blood pressure with fluid removal. 2. End-stage renal disease: Patient is due for dialysis today. She did not feel comfortable going home and going for outpatient dialysis due to uncontrolled hypertension. She will be dialyzed here this afternoon and then probably she can be discharged if her blood pressure improves. 3. Anemia: Her anemia has been stable and does not need any urgent intervention. DISPOSITION: Patient is likely to improve with fluid removal after dialysis today and then she can be discharged to home and follow-up in the outpatient clinic.
--- NOTE | 2021-03-10 20:38 | ECGEPIP ---
[facility] Test Date: 2021-03-08 Pat Name: JERARDO CORONA Department: Room: [place] [address] Gender: Female Cadd Technician: harinder : [id number] Requested By: PRISCA DEL VALLE Order Number: [id number] Reading MD: Jaswinder Zelaya Measurements Intervals [place] Rate: 57 P: 26 VA: 252 QRS: -64 QRSD: 130 T: 112 QT: 460 QTc: 447 Interpretive Statements Sinus bradycardia with 1st degree AV block Left axis deviation Right bundle branch block Left ventricular hypertrophy with repolarization abnormality ( R in aVL ) Inferior infarct , age undetermined Compared to prior tracings in the system, no remarkable changes Electronically Signed on 03-10-2021 20:38:33 EDT by Jaswinder Zelaya
[2021-03-10] MEDS ORDERED: LOSARTAN 50MG TABLET PO SCH (21:00)
[2021-03-11] MEDS ORDERED: LOSA50TA88 PO (17:56)
== END 2021-03-10 17:11 | disposition home health service (06) | DRG 640 ==
LOC: M ED 09:53 → EDBD 09:53 → M ED INP 15:49 → ENRESERV 17:59 → M MSPAV 21:00
PROVIDERS: ADMIT Family Medicine; ATTEND Family Medicine
PROC: 5A1D70Z Performance of Urinary Filtration, Intermittent, Less than 6 Hours Per Day (ICD-10-PCS; principal; 2021-03-08)
DX: E87.70 Fluid overload, unspecified (principal); N18.6 End stage renal disease; I69.351 Hemiplegia and hemiparesis following cerebral infarction affecting right dominant side; N25.81 Secondary hyperparathyroidism of renal origin; I50.32 Chronic diastolic (congestive) heart failure; I13.2 Hypertensive heart and chronic kidney disease with heart failure and with stage 5 chronic kidney disease, or end stage renal disease; E11.22 Type 2 diabetes mellitus with diabetic chronic kidney disease; I25.10 Atherosclerotic heart disease of native coronary artery without angina pectoris; F32.9 Major depressive disorder, single episode, unspecified; E11.319 Type 2 diabetes mellitus with unspecified diabetic retinopathy without macular edema; I25.2 Old myocardial infarction; M21.371 Foot drop, right foot; D63.1 Anemia in chronic kidney disease; R00.2 Palpitations; I44.0 Atrioventricular block, first degree; M79.89 Other specified soft tissue disorders; H54.8 Legal blindness, as defined in USA; K59.09 Other constipation; Z99.2 Dependence on renal dialysis; Z98.41 Cataract extraction status, right eye; Z98.42 Cataract extraction status, left eye; Z85.828 Personal history of other malignant neoplasm of skin; Z95.5 Presence of coronary angioplasty implant and graft; Z79.82 Long term (current) use of aspirin; Z79.4 Long term (current) use of insulin; Z79.02 Long term (current) use of antithrombotics/antiplatelets; Z79.899 Other long term (current) drug therapy

== ENCOUNTER 2021-03-11 10:37 | Inpatient (IN) | payer MEDICARE, BC ==
[~2021-03-11] VITALS: Ht 165.1 cm; Wt 95.8 kg
[~2021-03-11 10:37] MED LIST changes: +ACET650T15 PO; -CINACALCET 30 MG TAB (SENSIPAR) PO SCH; +CLON0.2T PO; +COZA50TA PO; -PATIROMER SORBITEX CALCIUM 8.4 GM POWDER PACKET (VELTASSA) PO SCH; +SODI15SS PO; +TESS100C PO; +VELT1POW PO
[2021-03-11 11:18] LABS: BASO # 0.1 10^3/uL (0.0-0.2); BASO % 0.5 % (0.0-1.0); EOS # 0.2 10^3/uL (0.0-0.5); EOS % 1.4 % (0.0-3.0); HEMATOCRIT 36.9 % (36.0-47.0); HEMOGLOBIN 11.4 g/dl (12.0-15.5); LYMPH # 0.6 10^3/uL (1.5-5.0); MEAN CORPUSCULAR HGB CONC 30.9 g/dl (32.0-36.5); MEAN CORPUSCULAR VOLUME 100.3 fl (80.0-96.0); MONO # 0.9 10^3/uL (0.0-0.8); MONO % 6.2 % (2.0-8.0); NEUTROPHILS # 12.8 10^3/uL (1.5-8.5); NEUTROPHILS % 87.5 % (36.0-66.0); PLATELET COUNT, AUTOMATED 205 10^3/uL (150-450); RED BLOOD COUNT 3.68 10^6/uL (4.00-5.40); WHITE BLOOD COUNT 14.6 10^3/uL (4.0-10.0)
[2021-03-11 11:39] LABS: CREATININE FOR GFR 4.95 MG/DL (0.55-1.30); GLOMERULAR FILTRATION RATE 9.3 (>45); POTASSIUM SERUM 4.3 MEQ/L (3.5-5.1)
--- NOTE | 2021-03-11 11:41 | REP ---
INDICATION: Dyspnea/Cough. COMPARISON: Comparison chest x-ray March 07, 2021. TECHNIQUE: Two views.. FINDINGS: Patient is status post median sternotomy. Oxygen delivery tubing and EKG electrodes are seen. Exam quality is inhibited by patient body habitus. There is a vascular stent along the course of the subclavian artery or vein on the right unchanged. There is linear fibrosis in the right perihilar region. There is increased density in the left lung base and I cannot exclude a small amount of left pleural fluid. IMPRESSION: Cardiomegaly. Exam quality inhibited by patient body habitus. Right perihilar platelike atelectasis. Increased density left base, question small amount of left pleural fluid.. <Electronically signed by Flaco Phan > 03/11/21 [id number]
[2021-03-11] MEDS ORDERED: **hydrALAZINE** 50 MG TAB PO ONE (13:30)
[2021-03-11] MEDS ORDERED: LOSARTAN 50MG TABLET PO ONE (13:30)
[2021-03-11] MEDS ORDERED: cloNIDine 0.2 MG TAB PO ONE (13:30)
--- NOTE | 2021-03-11 15:59 | REP ---
INDICATION: SOB; further evaluate for pneumonia. COMPARISON: Comparison study March 07, 2021.. TECHNIQUE: Helical scanning is acquired. 3 mm axial images are generated. Coronal and sagittal MPR and coronal MIP images are generated. FINDINGS: Preliminary digital human resources recruiter radiograph demonstrates that the patient is apparently unable to raise the right arm out of the scanned field. Median sternotomy wires are seen. There is a vascular stent in the right subclavian vein. There is multifocal coarse bilateral linear platelike atelectasis. Ground-glass opacities associated with this seen on the prior study from 03/07/2021 have improved. There is still coarse platelike atelectasis bilaterally in the lower lobes and right middle lobe and lingula. No new infiltrate is seen. There is no evidence of pleural effusion. No hilar or mediastinal mass or adenopathy is seen. Left coronary artery vascular calcification is seen. There are granulomatous calcifications in the spleen. Opaque material is layering in the dependent portion the gallbladder possible small stones. There is marked diffuse cortical atrophy of the kidneys. IMPRESSION: Previously noted infiltrates have improved. Coarse multifocal by lateral platelike atelectatic changes persist. Possible gallstones. Marked renal cortical atrophy. Vascular calcification. Right subclavian vein stent. <Electronically signed by Flaco Phan > 03/11/21 [id number]
[2021-03-11] MEDS ORDERED: hydrALAZINE 20MG/ML 1ML VIAL (J0360 PER 20MG) IV STA (16:15)
[2021-03-11] MEDS ORDERED: LOSA50TA88 PO (17:56)
--- NOTE | 2021-03-11 18:16 | HPEPDOC ---
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 Left eye enucleation. Legally blind, presents to emergency room complaining of shortness of breath that lasted about 1 hour. This morning patient had a lot of postnasal drip felt weak and short of breath and was coughing for about 45 minutes to an hour causing shortness of breath. At that time she checked her blood pressure at home and it was 237/71. She has not taken any medication. She felt a little nauseous but denied any headache, changes in vision, chest pain. She complained of difficulty taking a deep breath and presented to the ER for further evaluation. Patient says that she has at her normal dry weight of 96 kg and has been compliant with 2 g salt diet,and does not eat any frozen or processed foods. Patient is compliant with fluid restriction. . She denies any paroxysmal nocturnal dyspnea, orthopnea, dyspnea on exertion or lower extremity edema. She also denies increasing abdominal girth, dizziness or lightheadedness. In the emergency room, patient's blood pressure was 222/78, heart rate of 63. She was given hydralazine and clonidine. CT chest showed Previously noted infiltrates have improved. Coarse multifocal by lateral platelike atelectatic changes persist. Possible gallstones. Marked renal cortical atrophy.Vascular calcification. Right subclavian vein stent. Hospitalist was called to admit the patient for hypertensive urgency. PAST MEDICAL HISTORY: End-stage renal disease on maintenance dialysis Friday, , Friday, CAD, [place] 2004, CABG, diabetes, hypertension, CVA 2010. Chronic constipation, depression. 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 History of calciphylaxis. Anemia of chronic renal failure, left ventricular diastolic dysfunction with pulmonary artery pressure in the upper limits of normal and echo read by Dr. Rockwell August 2016 PAST SURGICAL HISTORY: [id number] breast lumpectomy perching of dialysis catheter placement and removal, bilateral cataract surgery, CABG parathyroidectomy if he fistula, AV fistula revision. Basal cell skin cancer resection [id number] 2006. Basal cell skin cancer resection , right subclavian stent SOCIAL HISTORY: lives alone, has home care. Patient is a full code. Denies drug alcohol tobacco use FAMILY HISTORY: Mother age 89, diabetes, melanoma, hypertension, hyperlipidemia. Father age 85. CAD ALLERGIES: Please see below. REVIEW OF SYSTEMS: 10 point review of system negative effect from positive findings in HPI HOME MEDICATIONS: Please see below. PHYSICAL EXAMINATION: VITAL SIGNS: See below GENERAL APPEARANCE: No distress HEENT: Left eye enucleated. Legally blind. , No JVD, no thyromegaly. Moist mucous membranes. Extraocular muscles intact CARDIOVASCULAR: S1, S2. No S3. Regular rate and rhythm. No carotid bruit. Nondisplaced point of maximal impulse LUNGS: Clear to auscultation. No wheezing, rales or rhonchi. Air entry is equal ABDOMEN: Positive bowel sounds. Obese, soft, nontender, nondistended EXTREMITIES: No pitting edema, cyanosis or clubbing EKG: Sinus rhythm, ventricular rate of 70 AV block, left axis deviation, right bundle branch block, LVH, CT interval 236, QRS 142, QT 426, QTC 460 LABORATORY DATA: See below. IMAGING: CT chest:reviously noted infiltrates have improved. Coarse multifocal by lateral platelike atelectatic changes persist. Possible gallstones. Marked renal cortical atrophy.Vascular calcification. Right subclavian vein stent. MICROBIOLOGY: Please see below. 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 Left eye enucleation. Legally blind, presents to emergency room complaining of shortness of breath that lasted about 1 hour. This morning patient had a lot of postnasal drip felt weak and short of breath and was coughing for about 45 minutes to an hour causing shortness of breath. At that time she checked her blood pressure at home and it was 237/71. She has not taken any medication. She felt a little nauseous but denied any headache, changes in vision, chest pain. She complained of difficulty taking a deep breath and presented to the ER for further evaluation. Patient says that she has at her normal dry weight of 96 kg and has been com pliant with 2 g salt diet,and does not eat any frozen or processed foods. Patient is compliant with fluid restriction. . She denies any paroxysmal nocturnal dyspnea, orthopnea, dyspnea on exertion or lower extremity edema. She also denies increasing abdominal girth, dizziness or lightheadedness. In the emergency room, patient's blood pressure was 222/78, heart rate of 63. She was given hydralazine and clonidine. CT chest showed Previously noted infiltrates have improved. Coarse multifocal by lateral platelike atelectatic changes persist. Possible gallstones. Marked renal cortical atrophy.Vascular calcification. Right subclavian vein stent. Hospitalist was called to admit the patient for observation for hypertensive urgency. Hypertensive urgency End-stage renal disease on maintenance dialysis History of CAD, [place], CABG Type 2 diabetes CVA with chronic right-sided weakness Legally blind left eye Chronic constipation depression secondary hyperparathyroidism of renal origin. History of calciphylaxis. Anemia of chronic renal failure left ventricular diastolic dysfunction with pulmonary artery pressure in the upper limits of normal and echo read by Dr. Rockwell August 2016 Allergic rhinitis with postnasal drip Plan: patient may be resumed back to her normal home dose of losartan and clonidine 3 times a day for more immediate control. Nitroglycerin Q4 hourly and titrate Losartan for better hypertensive control. If needed, may give vasodilators such as hydralazine and minoxidil. Resume on all other home medications. Monitor renal function . Strict I's and O's, daily weights. Home safety eval in the morning Vital Signs Vital Signs Date Time Temp Pulse Resp B/P (MAP) Pulse Ox O2 Delivery O2 Flow Rate FiO2 03/11/21 17:16 70 189/95 (126) 99 Nasal Cannula 03/11/21 14:45 2.0 03/11/21 10:56 99.0 23 Laboratory Data Labs 24H Laboratory Tests 2 03/11/21 10:50: Immature Granulocyte % (Auto) 0.4, Neutrophils (%) (Auto) 87.5H, Lymphocytes (%) (Auto) 4.0L, Monocytes (%) (Auto) 6.2, Eosinophils (%) (Auto) 1.4, Basophils (%) (Auto) 0.5, Neutrophils # (Auto) 12.8H, Lymphocytes # (Auto) 0.6L, Monocytes # (Auto) 0.9H, Eosinophils # (Auto) 0.2, Basophils # (Auto) 0.1, Nucleated Red Blood Cells % (auto) 0.0, Anion Gap 10, Glomerular Filtration Rate 9.3L, Calcium Level 9.0 03/11/21 17:46: CBC/BMP Laboratory Tests 03/11/21 10:50 Microbiology Microbiology 03/11/21 Respiratory Virus Panel (PCR) (CARMITA) - Final, Complete 03/11/21 Blood Culture, Received Pending Home Medications Scheduled Aspirin (Aspirin EC) 81 Mg Tablet.dr, 81 MG PO DAILY Atorvastatin Calcium (Atorvastatin Calcium) 80 Mg Tab, 80 MG PO QHS Cetirizine HCl (Cetirizine HCl) 10 Mg Tab, 10 MG PO QHS Cinacalcet (Sensipar) 30 Mg Tab, 30 MG PO 3XW .,SAT ON DIALYSIS DAYS Citalopram Hydrobromide (Citalopram HBr) 20 Mg Tab, 20 MG PO QHS Clonidine HCl (Clonidine HCl) 0.2 Mg Tablet, 0.2 MG PO TID Clopidogrel Bisulfate (Clopidogrel) 75 Mg Tablet, 75 MG PO DAILY Docusate Sodium (Colace) 100 Mg Capsule, 100 MG PO BID Ergocalciferol (Vitamin D2) (Vitamin D2) 50,000 Units Cap, 50,000 UNITS PO QMONTH TAKES 1ST OF EACH MONTH Glimepiride (Glimepiride) 4 Mg Tab, 4 MG PO DAILY Hydralazine HCl (Hydralazine HCl) 50 Mg Tablet, 50 MG PO TID Insulin Glargine,Hum.rec.anlog (Lantus Solostar) 100 Unit/Ml Inj, 18 UNITS SC D AILY Levothyroxine Sodium (Levoxyl) 175 Mcg Tab, 175 MCG PO QAM Losartan Potassium (Losartan Potassium) 50 Mg Tablet, 50 MG PO BID Pantoprazole Sodium (Protonix) 40 Mg Tab, 40 MG PO DAILY Patiromer Calcium Sorbitex (Veltassa) 8.4 Gm Powd.pack, 8.4 GM PO 2XW FRIDAY/FRIDAY Sucroferric Oxyhydroxide (Velphoro) 500 Mg Tab.chew, 1,000 MG PO WM Scheduled PRN Acetaminophen (Acetaminophen ER) 650 Mg Tablet.er, 1,300 MG PO BID PRN for PAIN Benzonatate (Tessalon Perle) 100 Mg Capsule, 100 MG PO Q12H PRN for COUGH Nitroglycerin (Nitrostat) 0.4 Mg Subl, 0.4 MG SL NITRO PRN for CHEST PAIN Polyethylene Glycol 3350 (Miralax) 1 Pow Pow, 17 GM PO DAILY PRN for CONSTIPATION Sodium Polystyrene Sulfonate (Sps 15 gm/60 ml Suspension) 15 Gm/60 Ml Oral.susp, 15 GM PO ASDIRECTED PRN for BY DIALYSIS Allergies Coded Allergies: No Known Drug Allergies (Verified Allergy, Unknown, 12/11/20) A-FIB/CHADSVASC A-FIB History Current/History of A-Fib/PAF?: No Current PO Anticoag Therapy: No Age/Risk Factor Scoring CHADSVASC: CHADSVASC Response (Comments) Value Age Risk Factor Age 65-74 years old 1 Gender Risk Factor Female 1 Hx of CHF No 0 Hx of HTN Yes 1 Hx of Stroke/TIA/or VTE Yes 2 Hx of Diabetes Yes 1 Hx of Vascular Disease Yes 1 Total 7 Treatment Treatment ordered: NONE RASHEL FONTANEZ MD Mar 11, 2021 18:16
[2021-03-11 18:24] LABS: HEMOGLOBIN A1c 6.4 %
[2021-03-11 18:28] LABS: CK-MB VALUE MASS 2.5 NG/ML (<3.6); MB/CK RELATIVE INDEX 3.38 (< OR =4); TROPONIN I 0.07 NG/ML (< 0.10)
[2021-03-11] MEDS: NITROGLYCERIN 2% OINT 1 GM *U/D* PKT TOP SCH ×2 (18:31→20:42)
[2021-03-11] MEDS: cloNIDine 0.1MG TABLET PO SCH ×2 (18:31→20:10)
[2021-03-11 19:07] VITALS: BP 162/68
[2021-03-11 20:00] VITALS: BP 159/69
[2021-03-11 20:15] VITALS: BP 174/68
[2021-03-11] MEDS: **hydrALAZINE** 10 MG TAB PO SCH (20:40)
[2021-03-11] MEDS ORDERED: cloNIDine 0.2 MG TAB PO SCH (21:00)
[2021-03-12] VITALS (8 sets, daily range): BP systolic 134–191; BP diastolic 58–70
[2021-03-12 00:40] LABS: CK-MB VALUE MASS 2.2 NG/ML (<3.6); MB/CK RELATIVE INDEX 3.49 (< OR =4); TROPONIN I 0.08 NG/ML (< 0.10)
[2021-03-12] MEDS: **hydrALAZINE** 10 MG TAB PO SCH (01:14)
[2021-03-12] MEDS: NITROGLYCERIN 2% OINT 1 GM *U/D* PKT TOP SCH ×2 (01:15→05:00)
[2021-03-12 05:58] LABS: BASO # 0.1 10^3/uL (0.0-0.2); BASO % 1.1 % (0.0-1.0); EOS # 0.3 10^3/uL (0.0-0.5); EOS % 3.1 % (0.0-3.0); HEMATOCRIT 34.6 % (36.0-47.0); HEMOGLOBIN 10.6 g/dl (12.0-15.5); LYMPH # 1.4 10^3/uL (1.5-5.0); LYMPH % 16.9 % (24.0-44.0); MEAN CORPUSCULAR HEMOGLOBIN 30.7 pg (27.0-33.0); MEAN CORPUSCULAR HGB CONC 30.6 g/dl (32.0-36.5); MEAN CORPUSCULAR VOLUME 100.3 fl (80.0-96.0); MONO # 0.9 10^3/uL (0.0-0.8); NEUTROPHILS # 5.7 10^3/uL (1.5-8.5); NEUTROPHILS % 67.3 % (36.0-66.0); PLATELET COUNT, AUTOMATED 207 10^3/uL (150-450); RED BLOOD COUNT 3.45 10^6/uL (4.00-5.40); WHITE BLOOD COUNT 8.4 10^3/uL (4.0-10.0)
[2021-03-12] MEDS ORDERED: NITROGLYCERIN 0.4 MG SUBL TABLET SL PRN (06:15)
[2021-03-12] MEDS ORDERED: SOD POLYSTYRENE SULFONATE SUSP 15 GM/60 ML UD PO PRN (06:15)
[2021-03-12] MEDS ORDERED: MIRALAX *UNIT DOSE* 17GM PACKET PO PRN (06:15)
[2021-03-12] MEDS ORDERED: BENZONATATE 100 MG CAP PO PRN (06:15)
[2021-03-12] MEDS ORDERED: ACETAMINOPHEN 650MG ER TAB (TYLENOL ARTHRITIS) PO PRN (06:15)
[2021-03-12] MEDS ORDERED: COZA50TA PO (06:18)
[2021-03-12] MEDS ORDERED: AMLO1TAB25 PO (06:18)
[2021-03-12] MEDS ORDERED: HYDR50TA PO (06:18)
[2021-03-12] MEDS ORDERED: CLON0.2T PO (06:18)
[2021-03-12 06:27] LABS: BILIRUBIN,TOTAL 0.7 MG/DL (0.2-1.0); CALCIUM LEVEL 9.4 MG/DL (8.8-10.2); CHOLESTEROL RISK RATIO 2.615 (<5); CREATININE FOR GFR 6.66 MG/DL (0.55-1.30); GLOMERULAR FILTRATION RATE 6.6 (>45); POTASSIUM SERUM 4.8 MEQ/L (3.5-5.1); THYROID STIMULATING HORMONE 3.32 uIU/ML (0.358-3.740)
[2021-03-12] MEDS ORDERED: **hydrALAZINE** 10 MG TAB PO SCH (09:00)
[2021-03-12] MEDS ORDERED: CINACALCET 30 MG TAB (SENSIPAR) PO SCH (09:00)
[2021-03-12] MEDS ORDERED: LOSARTAN 50MG TABLET PO SCH (09:00)
--- NOTE | 2021-03-12 09:24 | ECGEPIP ---
[facility] - ED Test Date: 2021-03-11 Pat Name: JERARDO CORONA Department: Room: [facility] Gender: Female Quantitative Developer: DMITRY : 1950 Requested By: JASSON MARION Order Number: [id number] Reading MD: Jasson Rae Measurements Intervals [place] Rate: 70 P: 2 SD: 236 QRS: -60 QRSD: 142 T: 68 QT: 426 QTc: 460 Interpretive Statements Sinus rhythm with 1st degree AV block Left axis deviation Right bundle branch block Left ventricular hypertrophy with repolarization abnormality ( R in aVL ) Inferior infarct , age undetermined Rate increased from tracing done 03-08-21 Electronically Signed on 03-12-2021 9:24:52 EDT by Jasson Rae
[2021-03-12] MEDS: CLOPIDOGREL 75 MG TAB PO SCH (09:34)
[2021-03-12] MEDS: SUCROFERRIC OXYHYDROXIDE 500MG CHEW TAB (VELPHORO) PO SCH ×3 (09:34→17:12)
[2021-03-12] MEDS: **hydrALAZINE** 50 MG TAB PO SCH ×4 (09:35→20:40)
[2021-03-12] MEDS: cloNIDine 0.2 MG TAB PO SCH ×3 (09:35→20:40)
[2021-03-12] MEDS: PANTOPRAZOLE 40MG TAB (PROTONIX) PO SCH (09:36)
[2021-03-12] MEDS: DOCUSATE SODIUM 100MG CAPSULE PO SCH ×2 (09:36→20:40)
[2021-03-12] MEDS: LOSARTAN 50MG TABLET PO SCH (09:37)
[2021-03-12] MEDS: ASPIRIN 81MG ENTERIC TABLET PO SCH (09:37)
[2021-03-12] MEDS: GLIMEPIRIDE 2 MG TAB PO SCH (09:37)
[2021-03-12] MEDS: LEVEMIR (INSULIN DETEMIR) 1 UNITS/0.01ML SC SCH (09:38)
--- NOTE | 2021-03-12 09:49 | IPNPDOC ---
Date Seen The patient was seen on 03/12/21. Progress Note S: denies cp, pressure, tightness, sob. sbp 237 improved overnight to 134mmhg this am after losartan, nitro q4h clonidine and hydralazine O: PHYSICAL EXAMINATION: VITAL SIGNS: See below GENERAL APPEARANCE: No distress. No pallor, awake, alert, oriented, no conversational dyspnea HEENT: Left eye enucleated. Legally blind. , No JVD, no thyromegaly. Moist mucous membranes. Extraocular muscles intact CARDIOVASCULAR: S1, S2. No S3. Regular rate and rhythm. No carotid bruit. Nondisplaced point of maximal impulse LUNGS: Clear to auscultation. No wheezing, rales or rhonchi. Air entry is equal ABDOMEN: Positive bowel sounds. Obese, soft, nontender, nondistended EXTREMITIES: No pitting edema, cyanosis or clubbing EKG: Sinus rhythm, ventricular rate of 70 AV block, left axis deviation, right b undle branch block, LVH, RI interval 236, QRS 142, QT 426, QTC 460 LABORATORY DATA: See below. IMAGING: CT chest:reviously noted infiltrates have improved. Coarse multifocal by lateral platelike atelectatic changes persist. Possible gallstones. Marked renal cortical atrophy.Vascular calcification. Right subclavian vein stent. MICROBIOLOGY: Please see below. 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 Left eye enucleation. Legally blind, presents to emergency room complaining of shortness of breath t hat lasted about 1 hour. This morning patient had a lot of postnasal drip felt weak and short of breath and was coughing for about 45 minutes to an hour causing shortness of breath. At that time she checked her blood pressure at home and it was 237/71. She has not taken any medication. She felt a little nauseous but denied any headache, changes in vision, chest pain. She complained of difficulty taking a deep breath and presented to the ER for further evaluation. Patient says that she has at her normal dry weight of 96 kg and has been compliant with 2 g salt diet,and does not eat any frozen or processed foods. Patient is compliant with fluid restriction. . She denies any paroxysmal nocturnal dyspnea, orthopnea, dyspnea on exertion or lower extremity edema. She also denies increasing abdominal girth, dizziness or lightheadedness. In the emergency room, patient's blood pressure was 222/78, heart rate of 63. She was given hydralazine and clonidine. CT chest showed Previously noted infil trates have improved. Coarse multifocal by lateral platelike atelectatic changes persist. Possible gallstones. Marked renal cortical atrophy.Vascular calcification. Right subclavian vein stent. Hospitalist was called to admit the patient for observation for hypertensive urgency. Hypertensive urgency, resolved -Patient's losartan was increased to 100 mg daily, hydralazine changed to 4 times a day, clonidine0.2mg times a day, Norvasc daily at bedtime -Patient was instructed to check her blood pressure prior to taking her medications at home. Homecare referral at discharge. -Cardiac markers unremarkable. End-stage renal disease on maintenance dialysis -On Friday, , Friday. -Has not cleared physical therapy today and therefore will need to consult nephrology for dialysis tomorrow History of CAD, [place], CABG -No ischemic symptoms. Cardiac markers unremarkable Type 2 diabetes -Resumed on consistent carbohydrate diet, sliding scale, fingersticks before every meal [facility] with [facility] insulin coverage CVA with chronic right-sided weakness -PT, OT. Resumed on home medications Legally blind left eye -Contributing to gait instability Chronic constipation -Bowel regimen depression -Chronic. . No active suicidal or homicidal ideation secondary hyperparathyroidism of renal origin. -Chronic History of calciphylaxis. left ventricular diastolic dysfunction with pulmonary artery pressure in the upper limits of normal and echo read by Dr. Rockwell August 2016 -No acute decompensation -Appears to be euvolemic Allergic rhinitis with postnasal drip -Antihistamine as needed Disposition discharge in a.m. once cleared by physical therapy VS, I&O, 24H, Dontaebonduran Vital Signs/I&O Vital Signs Date Time Temp Pulse Resp B/P (MAP) Pulse Ox O2 Delivery O2 Flow Rate FiO2 03/12/21 07:44 98.1 60 18 152/67 (95) 96 Nasal Cannula 2.0 I&O- Last 24 Hours up to 6 AM 03/12/21 05:59 Intake Total 0 ml Balance 0 ml Laboratory Data 24H LABS Laboratory Tests 2 03/11/21 10:50: Immature Granulocyte % (Auto) 0.4, Neutrophils (%) (Auto) 87.5H, Lymphocytes (%) (Auto) 4.0L, Monocytes (%) (Auto) 6.2, Eosinophils (%) (Auto) 1.4, Basophils (%) (Auto) 0.5, Neutrophils # (Auto) 12.8H, Lymphocytes # (Auto) 0.6L, Monocytes # (Auto) 0.9H, Eosinophils # (Auto) 0.2, Basophils # (Auto) 0.1, Nucleated Red Blood Cells % (auto) 0.0, Anion Gap 10, Glomerular Filtration Rate 9.3L, Calcium Level 9.0 03/11/21 17:46: Estimated Mean Plasma Glucose 137H, Hemoglobin A1c 6.4, Total Creatine Kinase 74, Creatine Kinase MB 2.5, Creatine Kinase MB Relative Index 3.38, Troponin I 0.07 03/11/21 23:52: Total Creatine Kinase 63, Creatine Kinase MB 2.2, Creatine Kinase MB Relative Index 3.49, Troponin I 0.08 03/12/21 05:05: Immature Granulocyte % (Auto) 0.6, Neutrophils (%) (Auto) 67.3H, Lymphocytes (%) (Auto) 16.9L, Monocytes (%) (Auto) 11.0H, Eosinophils (%) (Auto) 3.1H, Basophils (%) (Auto) 1.1H, Neutrophils # (Auto) 5.7, Lymphocytes # (Auto) 1.4L, Monocytes # (Auto) 0.9H, Eosinophils # (Auto) 0.3, Basophils # (Auto) 0.1, Nucleated Red Blood Cells % (auto) 0.0, Anion Gap 9, Glomerular Filtration Rate 6.6L, Calcium Level 9.4, Total Bilirubin 0.7#, Aspartate Amino Transf (AST/SGOT) 27, Alanine Aminotransferase (ALT/SGPT) 18, Alkaline Phosphatase 178H, Total Protein 7.0, Albumin 3.0L, Albumin/Globulin Ratio 0.8L, Triglycerides Level 132, Total Cholesterol 136, LDL Cholesterol 58, Non-HDL Cholesterol (LDL + VLDL) 84, Total HDL Cholesterol 52, Cholesterol/HDL Ratio 2.615, Thyroid Stimulating Hormone (TSH) 3.320 CBC/BMP Laboratory Tests 03/11/21 10:50 4/19/21 05:05 Microbiology Microbiology 03/11/21 Respiratory Virus Panel (PCR) ([facility]) - Final, Complete 03/11/21 Blood Culture, Received Pending RASHEL FONTANEZ MD Mar 12, 2021 09:27
[2021-03-12] MEDS ORDERED: ATORVASTATIN 20 MG TAB PO SCH (21:00)
[2021-03-12] MEDS ORDERED: CitaloPRAM (CeleXA) 20 MG TAB PO SCH (21:00)
[2021-03-12] MEDS ORDERED: CETIRIZINE (ZyrTEC) 10 MG TAB PO SCH (21:00)
[2021-03-13 06:00] VITALS: BP 148/64
[2021-03-13] MEDS: cloNIDine 0.2 MG TAB PO SCH ×2 (07:16→17:10)
[2021-03-13] MEDS: CLOPIDOGREL 75 MG TAB PO SCH (07:16)
[2021-03-13] MEDS: GLIMEPIRIDE 2 MG TAB PO SCH (07:16)
[2021-03-13] MEDS: LOSARTAN 50MG TABLET PO SCH (07:17)
[2021-03-13] MEDS: **hydrALAZINE** 50 MG TAB PO SCH ×3 (07:17→17:10)
[2021-03-13] MEDS: PANTOPRAZOLE 40MG TAB (PROTONIX) PO SCH (07:17)
[2021-03-13] MEDS: DOCUSATE SODIUM 100MG CAPSULE PO SCH (07:17)
[2021-03-13] MEDS: ASPIRIN 81MG ENTERIC TABLET PO SCH (07:17)
[2021-03-13] MEDS ORDERED: GLUCOSE 4GM CHEW TABLET PO PRN (07:45)
[2021-03-13] MEDS ORDERED: GLUCAGON INJ 1MG VIAL SC PRN (07:45)
[2021-03-13] MEDS ORDERED: DEXTROSE 50% 50 ML SYRINGE IV PRN (07:45)
[2021-03-13] MEDS: SUCROFERRIC OXYHYDROXIDE 500MG CHEW TAB (VELPHORO) PO SCH ×3 (08:08→17:07)
[2021-03-13] MEDS: HumaLOG INSULIN (NovoLOG) PER UNIT SC SCH ×3 (08:10→17:09)
[2021-03-13] MEDS: LEVEMIR (INSULIN DETEMIR) 1 UNITS/0.01ML SC SCH (08:10)
[2021-03-13] MEDS ORDERED: CINACALCET 30 MG TAB (SENSIPAR) PO SCH (09:00)
--- NOTE | 2021-03-13 12:35 | CR ---
NEPHROLOGY CONSULTATION DATE: 03/13/2021 REQUESTING CLINICIAN: Marychuy Hare MD. REASONS FOR CONSULTATION: Assist in the management of end-stage renal disease. HISTORY OF PRESENT ILLNESS: Ms. Copeland is a 70-year-old female with known history of diabetes complicated with diabetic retinopathy, end-stage renal disease and neuropathy. She is legally blind from both eyes. She has a recent admission with hypertensive urgency and was discharged from the hospital a day prior to this admission. Her blood pressure had improved in the hospital; however, she had some issues with her breathing and persistent cough at home and her blood pressure was quite high once again due to which she came back to the Emergency Room and got admitted. A nephrology consultation was requested last evening and patient is seen this morning. She is due for dialysis today. PAST MEDICAL HISTORY: Significant for: 1. Long standing insulin requiring diabetes. 2. Hypertension. 3. Prior stroke in 2010. 4. Diabetic retinopathy/legally blind. 5. History of end-stage renal disease requiring hemodialysis. 6. Depression. 7. History of anemia of chronic kidney disease. 8. History of diastolic congestive heart failure. 9. History of pulmonary hypertension. 10. History of glaucoma. PAST SURGICAL HISTORY: Significant for: 1. Breast lumpectomy. 2. Permacath placement and removal. 3. Peritoneal dialysis catheter placement and removal. 4. Bilateral cataract surgery. 5. Coronary artery bypass surgery. 6. Parathyroidectomy. 7. AV fistula revision. 8. Basal cell skin cancer resection. FAMILY HISTORY: Mother at age 89 with diabetes and melanoma. Father at age 85 with coronary artery disease. PERSONAL AND SOCIAL HISTORY: Patient lives alone with home care. She does not smoke or drink. ALLERGIES: She has no known drug allergies. MEDICATIONS: Home medications include: 1. Aspirin 81 mg daily. 2. Atorvastatin 80 mg daily. 3. Cetirizine 10 mg at bedtime. 4. Sensipar 30 mg 3 times a week. 5. Citalopram 20 mg daily. 6. Clonidine 0.2 mg three times a day. 7. Plavix 75 mg daily. 8. Colace 100 mg twice a day. 9. Vitamin D 50,000 units once a month. 10. Glimepiride 4 mg daily. 11. Hydralazine 50 mg three times a day. 12. Lantus insulin 80 units daily. 13. Levothyroxine 175 mcg daily. 14. Losartan 50 mg twice a day. 15. Pantoprazole 40 mg daily. 16. Veltassa 8.4 grams twice a week. 17. Velphoro 500 mg, 2 tablets with meals. She also takes: 18. Tylenol as needed. 19. Nitroglycerin as needed. REVIEW OF SYSTEMS: Patient denies any fever or chills. She has no headache. Eyes: She is blind in both eyes, completely from the left eye which is sunken and legally blind from the right eye with minimal ability to see. Nose and throat: Unremarkable. Cardiovascular system: Significant for recent admission for hypertensive urgency and diastolic congestive heart failure. GI system: Negative for vomiting or diarrhea. system: Negative for dysuria or hematuria. Musculoskeletal system: Significant for a foot drop on her left lower extremity and chronic degenerative arthritis. Hematological system: Significant for anemia of chronic kidney disease. She denies any excessive bleeding. Neurological system: Significant for prior stroke in 2010 with minimal residual weakness, but she does have a foot drop. Skin: Negative for rash or ulcers. Psychosocial system: Significant for depression. PHYSICAL EXAMINATION: Temperature 98 degrees Fahrenheit, heart rate 56 per minute and respiratory rate 18 per minute. Blood pressure 148/64 mmHg and oxygen saturation 96% on 2 liters oxygen. Head: Atraumatic. Her left eye is sunken. She is blind in the right eye also. Neck: Supple and JVD not abnormally elevated while sitting upright. Heart: Sounds are regular. Lungs: Sounds are clear to auscultation. Abdomen: Obese, soft and nontender, bowel sounds are normal. Extremities: Without any cyanosis or clubbing. AV fistula in her right upper extremity is patent. Neurologically: She is at her baseline mentation without any focal deficit. LABORATORY DATA: On admission her WBC count was 14.6 and hemoglobin 11.4; today WBC count 8.4, hemoglobin 10.6, hematocrit 34.6. Sodium 134, potassium 4.8, CO2 25, BUN 48 and creatinine 6.66. Glucose 192 and calcium 9.4. Total protein 7 and albumin 3. PROBLEMS AND PLAN: 1. End-stage renal disease: Patient is due for hemodialysis today and we will go ahead and arrange for dialysis this morning. 2. Hypertension: She did have uncontrolled hypertension on admission; however, blood pressure seems to be much better today. We will try to remove about 2.5 liters of fluid today with dialysis which is likely to help with her blood pressure control also. I would recommend to continue with chronic home medications as her meds were just recently adjusted prior to discharge from the hospital. 3. Anemia: Her anemia is chronic and stable, related to end-stage renal disease. No intervention is needed at present. 4. Generalized weakness: Patient did fail home safety evaluation and will probably require some more physical therapy. 5. Hypothyroidism: Her home medications should be continue at this point. Thank you for involving me in the care of Ms. Copeland. We will follow her along with you.
[2021-03-13 14:00] VITALS: BP 136/58
--- NOTE | 2021-03-13 15:27 | DS.PDOC ---
Discharge Summary General Date of Admission Mar 11, 2021 at 09:45 Date of Discharge 03/13/21 Discharge Summary ADMITTING/DISCHARGE DIAGNOSES: COMPLICATIONS/CHIEF COMPLAINT: Hypertensive Urgency. 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 Left eye enucleation. Legally blind, presents to emergency room complaining of shortness of breath that lasted about 1 hour. This morning patient had a lot of postnasal drip felt weak and short of breath and was coughing for about 45 minutes to an hour causing shortness of breath. At that time she checked her blood pressure at home and it was 237/71. She has not taken any medication. She felt a little nauseous but denied any headache, changes in vision, chest pain. She complained of difficulty taking a deep breath and presented to the ER for further evaluation. Patient says that she has at her normal dry weight of 96 kg and has been compliant with 2 g salt diet,and does not eat any frozen or processed foods. Patient is compliant with fluid restriction. She denies any paroxysmal nocturnal dyspnea, orthopnea, dyspnea on exertion or lower extremity edema. She also denies increasing abdominal girth, dizziness or lightheadedness. She was admitted for hypertensive urgency. Hypertensive urgency resolved with addition of losartan 100 daily, hydralazine 4 times a day. And clonidine 0.2 mg. Norvasc daily at bedtime. Patient was instructed to check her blood pressure prior to taking her medications at home. Homecare referral at discharge. Patient's presenting symptoms resolved with improvement of her blood pressure. DISCHARGE MEDICATIONS: Please see below. ALLERGIES: Please see below. PHYSICAL EXAMINATION ON DISCHARGE: VITAL SIGNS: Please see below. Constitutional: Awake and alert, in no apparent distress, obese ENT: Left eye enucleated. Legally blind. Respiratory: Lungs CTA bilaterally. No respiratory distress. Cardiovascular: RRR S1 and S2 are normal, faint systolic murmur Gastrointestinal: Abdomen is soft, non distended, non tender, BS present. Musculoskeletal: No edema. Mental Status: A&O x3, normal affect LABORATORY DATA: Please see below. IMAGING: See chart PROGNOSIS: Fair ACTIVITY: [As tolerated]. DIET: Carbohydrate consistent diet DISPOSITION: Home with home health services DISCHARGE INSTRUCTIONS: Please follow up with your primary care physician within 1 week from discharge. If you do not have one, please follow up with us to schedule an appointment. Please keep all of your follow up appointments. Please call central to book your appointments with hospital specialists. Please take all your medications as prescribed. Please call/come to Clinic or go to the Emergency Department if - Temp >101, intractable Nausea/Vomiting, Diarrhea, Mouth sores, Headaches, Altered mental status, Seizures, sudden onset of swelling, bleeding, shortness of breath or chest pain. ITEMS TO FOLLOWUP ON ON OUTPATIENT: Follow-up with primary care physician within 5 days of discharge DISCHARGE CONDITION: [Stable]. TIME SPENT ON DISCHARGE: 35 minutes. Vital Signs/I&Os Vital Signs Date Time Temp Pulse Resp B/P (MAP) Pulse Ox O2 Delivery O2 Flow Rate FiO2 03/13/21 14:00 97.4 54 18 136/58 (84) 97 Nasal Cannula 2.0 I&O- Last 24 Hours up to 6 AM 03/13/21 06:00 Intake Total 700 ml Output Total 0 ml Balance 700 ml Laboratory Data Labs 24H Laboratory Tests 2 03/13/21 07:39: Bedside Glucose (Misc Panel) 129H 03/13/21 12:50: Bedside Glucose (Misc Panel) 82 FSBS Laboratory Tests Test 03/13/21 07:39 03/13/21 12:50 Range/Units Bedside Glucose (Misc Panel) 129 82 80-115 MG/DL Microbiology Microbiology 03/11/21 Respiratory Virus Panel (PCR) ([facility]) - Final, Complete 03/11/21 Blood Culture - Preliminary, Resulted No Growth after 48 hours. All Specime... Discharge Medications Scheduled Amlodipine Besylate (Amlodipine Besylate) 10 Mg Tablet, 10 MG PO QHS Aspirin (Aspirin EC) 81 Mg Tablet.dr, 81 MG PO DAILY, (Reported) Atorvastatin Calcium (Atorvastatin Calcium) 80 Mg Tab, 80 MG PO QHS, (Reported) Cetirizine HCl (Cetirizine HCl) 10 Mg Tab, 10 MG PO QHS, (Reported) Cinacalcet (Sensipar) 30 Mg Tab, 30 MG PO 3XW, (Reported) TU.,SAT ON DIALYSIS DAYS Citalopram Hydrobromide (Citalopram HBr) 20 Mg Tab, 20 MG PO QHS, (Reported) Clonidine HCl (Clonidine HCl) 0.2 Mg Tablet, 0.2 MG PO TID, (Reported) Clonidine HCl (Clonidine HCl) 0.2 Mg Tablet, 0.2 MG PO TID Clopidogrel Bisulfate (Clopidogrel) 75 Mg Tablet, 75 MG PO DAILY, (Reported) Docusate Sodium (Colace) 100 Mg Capsule, 100 MG PO BID, (Reported) Ergocalciferol (Vitamin D2) (Vitamin D2) 50,000 Units Cap, 50,000 UNITS PO QMONTH, (Reported) TAKES 1ST OF EACH MONTH Glimepiride (Glimepiride) 4 Mg Tab, 4 MG PO DAILY, (Reported) Hydralazine HCl (Hydralazine HCl) 50 Mg Tablet, 50 MG PO QID Insulin Glargine,Hum.rec.anlog (Lantus Solostar) 100 Unit/Ml Inj, 18 UNITS SC DAILY, (Reported) Levothyroxine Sodium (Levoxyl) 175 Mcg Tab, 175 MCG PO QAM, (Reported) Losartan Potassium (Cozaar) 50 Mg Tablet, 100 MG PO DAILY Pantoprazole Sodium (Protonix) 40 Mg Tab, 40 MG PO DAILY, (Reported) Patiromer Calcium Sorbitex (Veltassa) 8.4 Gm Powd.pack, 8.4 GM PO 2XW, (Reported) FRIDAY/FRIDAY Sucroferric Oxyhydroxide (Velphoro) 500 Mg Tab.chew, 1,000 MG PO WM, (Reported) Scheduled PRN Acetaminophen (Acetaminophen ER) 650 Mg Tablet.er, 1,300 MG PO BID PRN for PAIN, (Reported) Benzonatate (Tessalon Perle) 100 Mg Capsule, 100 MG PO Q12H PRN for COUGH, (Reported) Nitroglycerin (Nitrostat) 0.4 Mg Subl, 0.4 MG SL NITRO PRN for CHEST PAIN, (Reported) Polyethylene Glycol 3350 (Miralax) 1 Pow Pow, 17 GM PO DAILY PRN for CONSTIPATION, (Reported) Sodium Polystyrene Sulfonate (Sps 15 gm/60 ml Suspension) 15 Gm/60 Ml Oral.susp, 15 GM PO ASDIRECTED PRN for BY DIALYSIS, (Reported) Allergies Coded Allergies: No Known Drug Allergies (Verified Allergy, Unknown, 12/11/20) JACQUELINE CALLE MD Mar 13, 2021 15:27
[2021-03-13 17:10] VITALS: BP 141/63
[2021-03-13] MEDS ORDERED: HumaLOG INSULIN (NovoLOG) PER UNIT SC SCH (21:00)
[2021-03-14] MEDS ORDERED: PATIROMER SORBITEX CALCIUM 8.4 GM POWDER PACKET (VELTASSA) PO SCH (09:00)
[2021-03-24] MEDS ORDERED: VITAMIN D 50,000 UNITS CAPSULE (ERGOCALCIFEROL 1.25MG) PO SCH (09:00)
== END 2021-03-13 18:01 | disposition home health service (06) | DRG 304 ==
LOC: M ED 10:37 → EDBD 10:37 → M ED INP 10:38 → ENRESERV 18:18 → M PCU 18:56 → OBSVTOIN 03-12 09:45 → M MSPAV 03-12 12:10
PROVIDERS: ADMIT General Practice; ATTEND Family Medicine
DX: I16.0 Hypertensive urgency (principal); N18.6 End stage renal disease; I69.351 Hemiplegia and hemiparesis following cerebral infarction affecting right dominant side; N25.81 Secondary hyperparathyroidism of renal origin; I50.32 Chronic diastolic (congestive) heart failure; Z99.2 Dependence on renal dialysis; I25.10 Atherosclerotic heart disease of native coronary artery without angina pectoris; I25.2 Old myocardial infarction; J30.9 Allergic rhinitis, unspecified; I13.2 Hypertensive heart and chronic kidney disease with heart failure and with stage 5 chronic kidney disease, or end stage renal disease; E11.22 Type 2 diabetes mellitus with diabetic chronic kidney disease; H54.8 Legal blindness, as defined in USA; E11.319 Type 2 diabetes mellitus with unspecified diabetic retinopathy without macular edema; E11.40 Type 2 diabetes mellitus with diabetic neuropathy, unspecified; K59.09 Other constipation; D63.1 Anemia in chronic kidney disease; F32.9 Major depressive disorder, single episode, unspecified; Z95.1 Presence of aortocoronary bypass graft; Z79.82 Long term (current) use of aspirin; Z98.41 Cataract extraction status, right eye; Z98.42 Cataract extraction status, left eye; Z85.828 Personal history of other malignant neoplasm of skin; Z79.02 Long term (current) use of antithrombotics/antiplatelets; Z79.4 Long term (current) use of insulin; Z79.899 Other long term (current) drug therapy

== ENCOUNTER 2022-02-12 10:41 | Inpatient (IN) | payer MEDICARE, BC ==
[~2022-02-12] VITALS: Ht 165.1 cm; Wt 97.2 kg
[~2022-02-12 10:41] MED LIST changes: +AMLO1TAB25 PO; +ERGO500029 PO; +LOSA100T45 PO; -LOSA100T50 PO; +LOSA25TA13 PO; -LOSA25TA14 PO; +LOSA50TA28 PO; +OMEP40CA4 PO; -OMEP40CA97 PO; -VITA50005 PO
[2022-02-12 11:22] LABS: BASO # 0.1 10^3/uL (0.0-0.2); BASO % 0.6 % (0.0-1.0); EOS # 0.2 10^3/uL (0.0-0.5); EOS % 2.2 % (0.0-3.0); HEMATOCRIT 33.6 % (36.0-47.0); HEMOGLOBIN 10.7 g/dl (12.0-15.5); LYMPH # 1.1 10^3/uL (1.5-5.0); LYMPH % 12.4 % (24.0-44.0); MEAN CORPUSCULAR HEMOGLOBIN 31.9 pg (27.0-33.0); MEAN CORPUSCULAR HGB CONC 31.8 g/dl (32.0-36.5); MEAN CORPUSCULAR VOLUME 100.3 fl (80.0-96.0); MONO # 0.8 10^3/uL (0.0-0.8); MONO % 9.1 % (2.0-8.0); NEUTROPHILS # 6.8 10^3/uL (1.5-8.5); NEUTROPHILS % 75.3 % (36.0-66.0); PLATELET COUNT, AUTOMATED 175 10^3/uL (150-450); RED BLOOD COUNT 3.35 10^6/uL (4.00-5.40); WHITE BLOOD COUNT 9.1 10^3/uL (4.0-10.0)
[2022-02-12 12:00] LABS: CREATININE FOR GFR 8.24 MG/DL (0.55-1.30)
[2022-02-12 12:01] LABS: CALCIUM LEVEL 8.9 MG/DL (8.8-10.2); GLOMERULAR FILTRATION RATE 5.1 (>45); POTASSIUM SERUM 4.9 MEQ/L (3.5-5.1)
[2022-02-12 12:02] LABS: CK-MB VALUE MASS 2.8 NG/ML (<3.6); MB/CK RELATIVE INDEX 3.59 (< OR =4)
[2022-02-12 13:00] LABS: CK-MB VALUE MASS 2.9 NG/ML (<3.6); MB/CK RELATIVE INDEX 4.03 (< OR =4)
[2022-02-12] MEDS ORDERED: MORPHINE 2 MG/ML 1ML VIAL (J2270) IV PRN (13:20)
[2022-02-12] MEDS ORDERED: ISOVUE-370 76% 100ML VIAL As Ordered ONE ×2 (13:26→17:21)
[2022-02-12] MEDS ORDERED: cefTRIAXone SOD 2 GM in D5W MINI-BAG PLUS 50 ML IV ONE (14:50)
[2022-02-12] MEDS ORDERED: SODIUM CHLORIDE 0.9% 1000ML IV PRN (15:00)
[2022-02-12] MEDS ORDERED: LIDOCAINE 1% SDV 5ML VIAL SC PRN (15:00)
[2022-02-12] MEDS ORDERED: GLUCAGON INJ 1MG VIAL SC PRN (17:35)
[2022-02-12] MEDS ORDERED: DEXTROSE 50% 50 ML SYRINGE IV PRN (17:35)
[2022-02-12] MEDS ORDERED: GLUCOSE 4GM CHEW TABLET PO PRN (17:35)
[2022-02-12] MEDS: HumaLOG INSULIN (NovoLOG) PER UNIT SC SCH ×2 (20:08→21:00)
[2022-02-12] MEDS ORDERED: AMLO1TAB25 PO (20:35)
[2022-02-12] MEDS ORDERED: HYDR-3911 PO (20:35)
[2022-02-12] MEDS ORDERED: FLON1SPR NARES (20:35)
[2022-02-12] MEDS ORDERED: LOSA100T45 PO (20:35)
[2022-02-12] MEDS ORDERED: MELA5TAB47 PO (20:35)
[2022-02-12] MEDS ORDERED: LANTINJ4 SC (20:35)
[2022-02-12] MEDS ORDERED: CLON0.2T PO ×2 (20:35)
[2022-02-12] MEDS ORDERED: MUPI2OI TOP (20:35)
[2022-02-12] MEDS ORDERED: HYDR25TA PO (20:35)
[2022-02-12] MEDS ORDERED: HOME MED LIST COMPLETE! XX SCH (20:40)
[2022-02-12 20:46] LABS: RSV AMPLIFICATION NEGATIVE (NEGATIVE)
[2022-02-12] MEDS ORDERED: NITROGLYCERIN 0.4 MG SUBL TABLET SL PRN (21:35)
[2022-02-12] MEDS: cloNIDine 0.2 MG TAB PO SCH (22:10)
[2022-02-12] MEDS: ATORVASTATIN 20 MG TAB PO SCH (22:11)
[2022-02-12] MEDS: CitaloPRAM (CeleXA) 20 MG TAB PO SCH (22:11)
[2022-02-12] MEDS: **hydrALAZINE HCL** 25 MG TAB PO SCH (22:51)
[2022-02-12 22:52] VITALS: BP 170/74
[2022-02-13 04:00] VITALS: BP 165/67
[2022-02-13] MEDS: **hydrALAZINE HCL** 25 MG TAB PO SCH ×3 (05:43→21:02)
[2022-02-13 05:53] LABS: BASO # 0.1 10^3/uL (0.0-0.2); BASO % 0.7 % (0.0-1.0); EOS # 0.2 10^3/uL (0.0-0.5); EOS % 2.1 % (0.0-3.0); HEMOGLOBIN 10.4 g/dl (12.0-15.5); LYMPH # 1.2 10^3/uL (1.5-5.0); LYMPH % 17.5 % (24.0-44.0); MEAN CORPUSCULAR HEMOGLOBIN 31.4 pg (27.0-33.0); MEAN CORPUSCULAR HGB CONC 31.5 g/dl (32.0-36.5); MEAN CORPUSCULAR VOLUME 99.7 fl (80.0-96.0); MONO # 0.9 10^3/uL (0.0-0.8); MONO % 13.3 % (2.0-8.0); NEUTROPHILS # 4.7 10^3/uL (1.5-8.5); PLATELET COUNT, AUTOMATED 183 10^3/uL (150-450); RED BLOOD COUNT 3.31 10^6/uL (4.00-5.40); WHITE BLOOD COUNT 7.1 10^3/uL (4.0-10.0)
[2022-02-13 06:11] LABS: CALCIUM LEVEL 8.8 MG/DL (8.8-10.2); CREATININE FOR GFR 5.43 MG/DL (0.55-1.30); GLOMERULAR FILTRATION RATE 8.3 (>45); PHOSPHORUS LEVEL 3.8 MG/DL (2.5-4.9); POTASSIUM SERUM 4.6 MEQ/L (3.5-5.1)
[2022-02-13 08:01] VITALS: BP 170/72
[2022-02-13] MEDS: SUCROFERRIC OXYHYDROXIDE 500MG CHEW TAB (VELPHORO) PO SCH ×3 (08:03→17:16)
[2022-02-13] MEDS: HumaLOG INSULIN (NovoLOG) PER UNIT SC SCH ×4 (08:03→20:04)
[2022-02-13] MEDS: cloNIDine 0.2 MG TAB PO SCH ×2 (08:04→20:04)
[2022-02-13] MEDS: CLOPIDOGREL 75 MG TAB PO SCH (08:06)
[2022-02-13] MEDS: LOSARTAN 50MG TABLET PO SCH (08:06)
[2022-02-13] MEDS: LEVEMIR (INSULIN DETEMIR) 1 UNITS/0.01ML SC SCH (08:07)
[2022-02-13] MEDS: PANTOPRAZOLE 40MG TAB (PROTONIX) PO SCH (08:07)
[2022-02-13] MEDS ORDERED: ONDANSETRON 4MG/2ML VIAL IV PRN (08:20)
[2022-02-13] MEDS ORDERED: ONDANSETRON 4MG/2ML VIAL IV ONE (08:40)
[2022-02-13] MEDS ORDERED: PATIROMER SORBITEX CALCIUM 8.4 GM POWDER PACKET (VELTASSA) PO SCH (09:00)
[2022-02-13] MEDS ORDERED: LEVEMIR (INSULIN DETEMIR) 1 UNITS/0.01ML SC SCH (09:00)
[2022-02-13] MEDS: LEVOTHYROXINE 150MCG TABLET (0.15MG) PO SCH (09:06)
[2022-02-13] MEDS: LEVOTHYROXINE 25MCG TABLET (0.025MG) PO SCH (09:06)
[2022-02-13] MEDS: ALBUTEROL SULFATE 2.5 MG/0.5 ML INH NEB SOLN NEB SCH ×3 (10:55→19:48)
[2022-02-13 12:10] VITALS: BP 142/65
[2022-02-13] MEDS: HEPARIN SOD (PORCINE) 5000UNITS/ML 1ML VIAL/SYRINGE SQ SCH ×2 (14:43→21:01)
[2022-02-13 16:42] VITALS: BP 151/65
[2022-02-13] MEDS: ATORVASTATIN 20 MG TAB PO SCH (20:04)
[2022-02-13] MEDS: CitaloPRAM (CeleXA) 20 MG TAB PO SCH (20:04)
[2022-02-13 21:00] VITALS: BP 140/63
[2022-02-14] VITALS (7 sets, daily range): BP systolic 133–144; BP diastolic 60–68
[2022-02-14] MEDS: ALBUTEROL SULFATE 2.5 MG/0.5 ML INH NEB SOLN NEB SCH ×3 (02:00→13:29)
[2022-02-14] MEDS: LEVOTHYROXINE 25MCG TABLET (0.025MG) PO SCH (05:14)
[2022-02-14] MEDS: LEVOTHYROXINE 150MCG TABLET (0.15MG) PO SCH (05:14)
[2022-02-14] MEDS: HEPARIN SOD (PORCINE) 5000UNITS/ML 1ML VIAL/SYRINGE SQ SCH ×3 (05:15→21:19)
[2022-02-14] MEDS: **hydrALAZINE HCL** 25 MG TAB PO SCH ×3 (05:15→21:19)
[2022-02-14] MEDS ORDERED: SODIUM CHLORIDE 0.9% 1000ML IV PRN (06:00)
[2022-02-14 06:32] LABS: HEMATOCRIT 31.6 % (36.0-47.0); MEAN CORPUSCULAR HEMOGLOBIN 32.1 pg (27.0-33.0); MEAN CORPUSCULAR HGB CONC 31.6 g/dl (32.0-36.5); MEAN CORPUSCULAR VOLUME 101.3 fl (80.0-96.0); PLATELET COUNT, AUTOMATED 185 10^3/uL (150-450); RED BLOOD COUNT 3.12 10^6/uL (4.00-5.40); WHITE BLOOD COUNT 6.5 10^3/uL (4.0-10.0)
[2022-02-14 07:02] LABS: CALCIUM LEVEL 8.6 MG/DL (8.8-10.2); CREATININE FOR GFR 7.49 MG/DL (0.55-1.30); GLOMERULAR FILTRATION RATE 5.7 (>45); PHOSPHORUS LEVEL 4.6 MG/DL (2.5-4.9); POTASSIUM SERUM 4.9 MEQ/L (3.5-5.1)
[2022-02-14] MEDS: HumaLOG INSULIN (NovoLOG) PER UNIT SC SCH ×4 (07:44→19:54)
[2022-02-14] MEDS: SUCROFERRIC OXYHYDROXIDE 500MG CHEW TAB (VELPHORO) PO SCH ×3 (08:00→18:18)
[2022-02-14] MEDS: cloNIDine 0.2 MG TAB PO SCH ×2 (08:32→19:48)
[2022-02-14] MEDS: LOSARTAN 50MG TABLET PO SCH (08:32)
[2022-02-14] MEDS: PANTOPRAZOLE 40MG TAB (PROTONIX) PO SCH (08:33)
[2022-02-14] MEDS: CLOPIDOGREL 75 MG TAB PO SCH (08:33)
[2022-02-14] MEDS ORDERED: oxyCODONE 5MG TAB PO ONE (11:30)
[2022-02-14] MEDS: predniSONE 20 MG TAB PO SCH (12:19)
[2022-02-14] MEDS: LEVEMIR (INSULIN DETEMIR) 1 UNITS/0.01ML SC SCH (12:20)
[2022-02-14] MEDS: AZITHROMYCIN 250MG TABLET PO SCH (12:20)
[2022-02-14] MEDS: SYMBICORT 160/4.5MCG INHALER 6GM INH SCH ×2 (14:18→20:59)
[2022-02-14] MEDS: IPRATROPIUM 0.02% SOLN 0.5MG 2.5ML NEB INH SCH ×3 (15:22→23:14)
[2022-02-14] MEDS: CitaloPRAM (CeleXA) 20 MG TAB PO SCH (19:48)
[2022-02-14] MEDS: ATORVASTATIN 20 MG TAB PO SCH (19:49)
[2022-02-15] VITALS: BP 139/66
[2022-02-15] MEDS: IPRATROPIUM 0.02% SOLN 0.5MG 2.5ML NEB INH SCH ×4 (03:35→15:13)
[2022-02-15 04:00] VITALS: BP 169/76
[2022-02-15] MEDS: LEVOTHYROXINE 150MCG TABLET (0.15MG) PO SCH (06:01)
[2022-02-15] MEDS: LEVOTHYROXINE 25MCG TABLET (0.025MG) PO SCH (06:01)
[2022-02-15] MEDS: **hydrALAZINE HCL** 25 MG TAB PO SCH ×2 (06:01→14:29)
[2022-02-15] MEDS: HEPARIN SOD (PORCINE) 5000UNITS/ML 1ML VIAL/SYRINGE SQ SCH ×2 (06:02→14:29)
[2022-02-15] MEDS: SYMBICORT 160/4.5MCG INHALER 6GM INH SCH (07:29)
[2022-02-15 07:51] LABS: HEMATOCRIT 33.8 % (36.0-47.0); HEMOGLOBIN 10.7 g/dl (12.0-15.5); MEAN CORPUSCULAR HEMOGLOBIN 31.7 pg (27.0-33.0); MEAN CORPUSCULAR HGB CONC 31.7 g/dl (32.0-36.5); PLATELET COUNT, AUTOMATED 192 10^3/uL (150-450); RED BLOOD COUNT 3.38 10^6/uL (4.00-5.40)
[2022-02-15 08:18] LABS: CALCIUM LEVEL 9.4 MG/DL (8.8-10.2); CREATININE FOR GFR 6.26 MG/DL (0.55-1.30); MAGNESIUM LEVEL 1.9 MG/DL (1.8-2.4); PHOSPHORUS LEVEL 3.1 MG/DL (2.5-4.9); POTASSIUM SERUM 4.8 MEQ/L (3.5-5.1)
[2022-02-15] MEDS: LOSARTAN 50MG TABLET PO SCH (08:19)
[2022-02-15] MEDS: AZITHROMYCIN 250MG TABLET PO SCH (08:20)
[2022-02-15] MEDS: PANTOPRAZOLE 40MG TAB (PROTONIX) PO SCH (08:20)
[2022-02-15] MEDS: CLOPIDOGREL 75 MG TAB PO SCH (08:20)
[2022-02-15] MEDS: predniSONE 20 MG TAB PO SCH (08:20)
[2022-02-15] MEDS: cloNIDine 0.2 MG TAB PO SCH (08:20)
[2022-02-15] MEDS: SUCROFERRIC OXYHYDROXIDE 500MG CHEW TAB (VELPHORO) PO SCH ×2 (08:28→12:45)
[2022-02-15] MEDS: HumaLOG INSULIN (NovoLOG) PER UNIT SC SCH ×2 (08:29→12:46)
[2022-02-15] MEDS: LEVEMIR (INSULIN DETEMIR) 1 UNITS/0.01ML SC SCH (08:29)
[2022-02-15 09:31] VITALS: BP 159/70
[2022-02-15] MEDS ORDERED: SYMB16INH INH (10:29)
[2022-02-15] MEDS ORDERED: VENTAER INH (10:29)
[2022-02-15] MEDS ORDERED: PRED20TA PO (10:29)
[2022-02-15 12:05] VITALS: BP 130/61
[2022-02-15 14:29] VITALS: BP 158/70
== END 2022-02-15 17:00 | disposition home health service (06) | DRG 291 ==
LOC: M ED 10:41 → EDBD 10:41 → M ED INP 17:25 → ENRESERV 21:13 → M PCU 22:36
PROVIDERS: ADMIT Internal Medicine; ATTEND Internal Medicine
PROC: 5A1D70Z Performance of Urinary Filtration, Intermittent, Less than 6 Hours Per Day (ICD-10-PCS; principal; 2022-02-12)
DX: I13.2 Hypertensive heart and chronic kidney disease with heart failure and with stage 5 chronic kidney disease, or end stage renal disease (principal); N18.6 End stage renal disease; I50.33 Acute on chronic diastolic (congestive) heart failure; I69.351 Hemiplegia and hemiparesis following cerebral infarction affecting right dominant side; J96.10 Chronic respiratory failure, unspecified whether with hypoxia or hypercapnia; R07.89 Other chest pain; E11.22 Type 2 diabetes mellitus with diabetic chronic kidney disease; I25.10 Atherosclerotic heart disease of native coronary artery without angina pectoris; I25.2 Old myocardial infarction; F32.A Depression, unspecified; I16.0 Hypertensive urgency; E11.319 Type 2 diabetes mellitus with unspecified diabetic retinopathy without macular edema; D63.1 Anemia in chronic kidney disease; H54.8 Legal blindness, as defined in USA; I27.20 Pulmonary hypertension, unspecified; Z98.41 Cataract extraction status, right eye; Z98.42 Cataract extraction status, left eye; Z85.828 Personal history of other malignant neoplasm of skin; Z99.2 Dependence on renal dialysis; Z79.82 Long term (current) use of aspirin; Z79.02 Long term (current) use of antithrombotics/antiplatelets; Z79.4 Long term (current) use of insulin; Z79.899 Other long term (current) drug therapy

== ENCOUNTER 2022-02-17 09:22 | Inpatient (IN) | payer MEDICARE, BC ==
[~2022-02-17] VITALS: Ht 165.1 cm; Wt 95.3 kg
[~2022-02-17 09:22] MED LIST changes: +FLON1SPR NARES; +MELA5TAB47 PO; +MUPI2OI TOP; +PRED20TA PO; +SYMB16INH INH; +VENTAER INH
[2022-02-17 10:03] LABS: BASO # 0.1 10^3/uL (0.0-0.2); BASO % 0.5 % (0.0-1.0); EOS # 0.2 10^3/uL (0.0-0.5); HEMATOCRIT 38.8 % (36.0-47.0); HEMOGLOBIN 12.1 g/dl (12.0-15.5); LYMPH # 1.1 10^3/uL (1.5-5.0); LYMPH % 10.4 % (24.0-44.0); MEAN CORPUSCULAR HEMOGLOBIN 31.4 pg (27.0-33.0); MEAN CORPUSCULAR HGB CONC 31.2 g/dl (32.0-36.5); MEAN CORPUSCULAR VOLUME 100.8 fl (80.0-96.0); MONO # 1.1 10^3/uL (0.0-0.8); MONO % 9.8 % (2.0-8.0); NEUTROPHILS # 8.2 10^3/uL (1.5-8.5); NEUTROPHILS % 76.2 % (36.0-66.0); PLATELET COUNT, AUTOMATED 257 10^3/uL (150-450); RED BLOOD COUNT 3.85 10^6/uL (4.00-5.40); WHITE BLOOD COUNT 10.7 10^3/uL (4.0-10.0)
[2022-02-17 10:15] LABS: INR 0.92; PROTHROMBIN TIME 12.8 SECONDS (12.7-14.5)
[2022-02-17 10:16] LABS: PARTIAL THROMBOPLASTIN TIME 24.4 SECONDS (25.9-37.0)
[2022-02-17 10:30] LABS: CK-MB VALUE MASS 2.4 NG/ML (<3.6)
[2022-02-17 10:34] LABS: ALBUMIN 4.3 GM/DL (3.2-5.2); BILIRUBIN,DIRECT 0.1 MG/DL (0.0-0.2); BILIRUBIN,TOTAL 0.4 MG/DL (0.2-1.0); CALCIUM LEVEL 9.2 MG/DL (8.8-10.2); CREATININE FOR GFR 5.3 MG/DL (0.55-1.30); FREE T4 1.2 NG/DL (0.76-1.46); GLOMERULAR FILTRATION RATE 8.5 (>45); MAGNESIUM LEVEL 2.1 MG/DL (1.8-2.4); POTASSIUM SERUM 3.9 MEQ/L (3.5-5.1); THYROID STIMULATING HORMONE 1.74 uIU/ML (0.358-3.740); TOTAL PROTEIN 8.5 GM/DL (6.4-8.2)
[2022-02-17] MEDS ORDERED: PRED20TA PO (11:28)
[2022-02-17] MEDS ORDERED: SYMB16INH INH (11:28)
[2022-02-17] MEDS ORDERED: VENTAER INH (11:28)
[2022-02-17] MEDS ORDERED: HOME MED LIST COMPLETE! XX SCH (11:30)
[2022-02-17] MEDS ORDERED: GLUCAGON INJ 1MG VIAL SC PRN (13:50)
[2022-02-17] MEDS ORDERED: DEXTROSE 50% 50 ML SYRINGE IV PRN (13:50)
[2022-02-17] MEDS ORDERED: GLUCOSE 4GM CHEW TABLET PO PRN (13:50)
[2022-02-17 13:58] LABS: CK-MB VALUE MASS 2.3 NG/ML (<3.6); MB/CK RELATIVE INDEX 2.15 (< OR =4)
[2022-02-17 15:45] VITALS: BP 166/64
[2022-02-17] MEDS ORDERED: **hydrALAZINE** 50 MG TAB PO SCH (16:00)
[2022-02-17] MEDS: **hydrALAZINE HCL** 25 MG TAB PO SCH ×2 (16:13→20:50)
[2022-02-17] MEDS: HumaLOG INSULIN (NovoLOG) PER UNIT SC SCH ×2 (17:19→20:56)
[2022-02-17] MEDS: SUCROFERRIC OXYHYDROXIDE 500MG CHEW TAB (VELPHORO) PO SCH (17:19)
[2022-02-17] MEDS: SYMBICORT 160/4.5MCG INHALER 6GM INH SCH (20:05)
[2022-02-17 20:40] VITALS: BP 177/69
[2022-02-17] MEDS: CitaloPRAM (CeleXA) 20 MG TAB PO SCH (20:50)
[2022-02-17] MEDS: cloNIDine 0.2 MG TAB PO SCH (20:50)
[2022-02-17] MEDS: ATORVASTATIN 20 MG TAB PO SCH (20:50)
[2022-02-17] MEDS: HEPARIN SOD (PORCINE) 5000UNITS/ML 1ML VIAL/SYRINGE SQ SCH (20:51)
[2022-02-17] MEDS ORDERED: ACETAMINOPHEN TAB 650MG DOSE (2X325MG) PO PRN (21:25)
[2022-02-17] MEDS: cefTRIAXone SOD 1 GM in D5W MINI-BAG PLUS 50 ML IV SCH (22:20)
[2022-02-17] MEDS: AZITHROMYCIN INJ 500 MG, VIAL MATE ADAPTER 1 EACH in NS 250 ML IV SCH (23:07)
[2022-02-18 06:14] VITALS: BP_SYST 162; BP_SYST 187; BP_SYST 193; BP_DIAS 68; BP_DIAS 70; BP_DIAS 72
[2022-02-18 06:15] VITALS: BP 187/68
[2022-02-18] MEDS: SYMBICORT 160/4.5MCG INHALER 6GM INH SCH ×2 (07:25→18:18)
[2022-02-18 08:45] LABS: BASO % 0.4 % (0.0-1.0); EOS # 0.2 10^3/uL (0.0-0.5); EOS % 1.8 % (0.0-3.0); HEMATOCRIT 35.8 % (36.0-47.0); HEMOGLOBIN 11.3 g/dl (12.0-15.5); LYMPH # 2.1 10^3/uL (1.5-5.0); LYMPH % 22.1 % (24.0-44.0); MEAN CORPUSCULAR HEMOGLOBIN 31.8 pg (27.0-33.0); MEAN CORPUSCULAR HGB CONC 31.6 g/dl (32.0-36.5); MEAN CORPUSCULAR VOLUME 100.8 fl (80.0-96.0); MONO # 1.1 10^3/uL (0.0-0.8); MONO % 11.7 % (2.0-8.0); NEUTROPHILS # 5.9 10^3/uL (1.5-8.5); NEUTROPHILS % 62.8 % (36.0-66.0); PLATELET COUNT, AUTOMATED 219 10^3/uL (150-450); RED BLOOD COUNT 3.55 10^6/uL (4.00-5.40); WHITE BLOOD COUNT 9.4 10^3/uL (4.0-10.0)
[2022-02-18] MEDS: HEPARIN SOD (PORCINE) 5000UNITS/ML 1ML VIAL/SYRINGE SQ SCH ×2 (08:45→21:05)
[2022-02-18] MEDS: SUCROFERRIC OXYHYDROXIDE 500MG CHEW TAB (VELPHORO) PO SCH ×3 (08:45→17:23)
[2022-02-18] MEDS: cloNIDine 0.2 MG TAB PO SCH ×2 (08:46→21:04)
[2022-02-18] MEDS: GLIMEPIRIDE 2 MG TAB PO SCH (08:46)
[2022-02-18] MEDS: **hydrALAZINE HCL** 25 MG TAB PO SCH ×3 (08:46→21:03)
[2022-02-18] MEDS: CLOPIDOGREL 75 MG TAB PO SCH (08:46)
[2022-02-18] MEDS: LACTOBACILLUS ACIDOPHILUS CAP (BACID) PO SCH (08:46)
[2022-02-18] MEDS: HumaLOG INSULIN (NovoLOG) PER UNIT SC SCH ×4 (08:47→21:00)
[2022-02-18] MEDS: LOSARTAN 50MG TABLET PO SCH (08:47)
[2022-02-18 09:10] LABS: CALCIUM LEVEL 9.3 MG/DL (8.8-10.2); CREATININE FOR GFR 7.44 MG/DL (0.55-1.30); GLOMERULAR FILTRATION RATE 5.8 (>45); POTASSIUM SERUM 3.9 MEQ/L (3.5-5.1)
[2022-02-18] MEDS: NYSTATIN 100,000 UNITS/GM TOPICAL PWD 15 GM TOP SCH ×2 (12:29→21:05)
[2022-02-18 14:00] VITALS: BP 184/77
[2022-02-18 14:15] VITALS: BP 176/88
[2022-02-18 17:14] VITALS: BP_SYST 178; BP_SYST 186; BP_SYST 189; BP_DIAS 63; BP_DIAS 65; BP_DIAS 66
[2022-02-18] MEDS: ATORVASTATIN 20 MG TAB PO SCH (21:03)
[2022-02-18] MEDS: CitaloPRAM (CeleXA) 20 MG TAB PO SCH (21:04)
[2022-02-18] MEDS: cefTRIAXone SOD 1 GM in D5W MINI-BAG PLUS 50 ML IV SCH (21:56)
[2022-02-18 22:00] VITALS: BP 178/68
[2022-02-18] MEDS: AZITHROMYCIN INJ 500 MG, VIAL MATE ADAPTER 1 EACH in NS 250 ML IV SCH (23:18)
[2022-02-19] MEDS: SYMBICORT 160/4.5MCG INHALER 6GM INH SCH ×2 (05:06→20:34)
[2022-02-19 05:48] LABS: BASO # 0.1 10^3/uL (0.0-0.2); BASO % 0.8 % (0.0-1.0); EOS # 0.3 10^3/uL (0.0-0.5); HEMATOCRIT 33.2 % (36.0-47.0); HEMOGLOBIN 10.3 g/dl (12.0-15.5); LYMPH % 23.3 % (24.0-44.0); MEAN CORPUSCULAR HEMOGLOBIN 32.2 pg (27.0-33.0); MEAN CORPUSCULAR VOLUME 103.8 fl (80.0-96.0); MONO # 0.9 10^3/uL (0.0-0.8); MONO % 10.9 % (2.0-8.0); NEUTROPHILS # 5.2 10^3/uL (1.5-8.5); NEUTROPHILS % 60.8 % (36.0-66.0); PLATELET COUNT, AUTOMATED 205 10^3/uL (150-450); WHITE BLOOD COUNT 8.6 10^3/uL (4.0-10.0)
[2022-02-19] MEDS: CLOPIDOGREL 75 MG TAB PO SCH (05:56)
[2022-02-19] MEDS: HEPARIN SOD (PORCINE) 5000UNITS/ML 1ML VIAL/SYRINGE SQ SCH ×2 (05:56→22:06)
[2022-02-19] MEDS: LACTOBACILLUS ACIDOPHILUS CAP (BACID) PO SCH (05:57)
[2022-02-19] MEDS: cloNIDine 0.2 MG TAB PO SCH ×3 (05:57→22:05)
[2022-02-19] MEDS: LOSARTAN 50MG TABLET PO SCH (05:57)
[2022-02-19] MEDS: **hydrALAZINE HCL** 25 MG TAB PO SCH ×3 (05:57→22:05)
[2022-02-19] MEDS: NYSTATIN 100,000 UNITS/GM TOPICAL PWD 15 GM TOP SCH ×2 (05:58→22:06)
[2022-02-19 06:00] VITALS: BP 174/68
[2022-02-19 06:21] LABS: CALCIUM LEVEL 8.9 MG/DL (8.8-10.2); CREATININE FOR GFR 8.86 MG/DL (0.55-1.30); GLOMERULAR FILTRATION RATE 4.7 (>45)
[2022-02-19] MEDS: SUCROFERRIC OXYHYDROXIDE 500MG CHEW TAB (VELPHORO) PO SCH ×3 (07:35→17:25)
[2022-02-19] MEDS: HumaLOG INSULIN (NovoLOG) PER UNIT SC SCH ×4 (07:37→21:00)
[2022-02-19] MEDS ORDERED: LIDOCAINE 1% SDV 5ML VIAL SC PRN (07:40)
[2022-02-19] MEDS ORDERED: SODIUM CHLORIDE 0.9% 1000ML IV PRN (07:40)
[2022-02-19] MEDS: GLIMEPIRIDE 2 MG TAB PO SCH (08:58)
[2022-02-19 17:34] VITALS: BP_SYST 174; BP_SYST 180; BP_SYST 182; BP_DIAS 62; BP_DIAS 68; BP_DIAS 74
[2022-02-19 22:00] VITALS: BP 168/69
[2022-02-19] MEDS: ATORVASTATIN 20 MG TAB PO SCH (22:05)
[2022-02-19] MEDS: CitaloPRAM (CeleXA) 20 MG TAB PO SCH (22:06)
[2022-02-19] MEDS: AZITHROMYCIN INJ 500 MG, VIAL MATE ADAPTER 1 EACH in NS 250 ML IV SCH (23:31)
[2022-02-19] MEDS: cefTRIAXone SOD 1 GM in D5W MINI-BAG PLUS 50 ML IV SCH (23:31)
[2022-02-20 05:23] VITALS: BP 164/70
[2022-02-20 07:42] LABS: BASO % 0.5 % (0.0-1.0); EOS # 0.3 10^3/uL (0.0-0.5); EOS % 3.6 % (0.0-3.0); HEMATOCRIT 33.3 % (36.0-47.0); HEMOGLOBIN 10.4 g/dl (12.0-15.5); LYMPH # 1.6 10^3/uL (1.5-5.0); LYMPH % 20.7 % (24.0-44.0); MEAN CORPUSCULAR HEMOGLOBIN 31.8 pg (27.0-33.0); MEAN CORPUSCULAR HGB CONC 31.2 g/dl (32.0-36.5); MEAN CORPUSCULAR VOLUME 101.8 fl (80.0-96.0); MONO # 0.8 10^3/uL (0.0-0.8); MONO % 10.3 % (2.0-8.0); NEUTROPHILS # 4.8 10^3/uL (1.5-8.5); PLATELET COUNT, AUTOMATED 181 10^3/uL (150-450); RED BLOOD COUNT 3.27 10^6/uL (4.00-5.40); WHITE BLOOD COUNT 7.5 10^3/uL (4.0-10.0)
[2022-02-20] MEDS: SYMBICORT 160/4.5MCG INHALER 6GM INH SCH (07:47)
[2022-02-20 08:04] LABS: CALCIUM LEVEL 8.7 MG/DL (8.8-10.2); CREATININE FOR GFR 5.6 MG/DL (0.55-1.30); POTASSIUM SERUM 4.7 MEQ/L (3.5-5.1)
[2022-02-20] MEDS: HumaLOG INSULIN (NovoLOG) PER UNIT SC SCH ×2 (08:37→13:07)
[2022-02-20 08:38] VITALS: BP 164/69
[2022-02-20] MEDS: **hydrALAZINE HCL** 25 MG TAB PO SCH (08:38)
[2022-02-20] MEDS: LOSARTAN 50MG TABLET PO SCH (08:38)
[2022-02-20] MEDS: SUCROFERRIC OXYHYDROXIDE 500MG CHEW TAB (VELPHORO) PO SCH ×2 (08:38→13:06)
[2022-02-20] MEDS: CLOPIDOGREL 75 MG TAB PO SCH (08:39)
[2022-02-20] MEDS: GLIMEPIRIDE 2 MG TAB PO SCH (08:39)
[2022-02-20] MEDS: HEPARIN SOD (PORCINE) 5000UNITS/ML 1ML VIAL/SYRINGE SQ SCH (08:39)
[2022-02-20] MEDS: LACTOBACILLUS ACIDOPHILUS CAP (BACID) PO SCH (08:39)
[2022-02-20] MEDS: NYSTATIN 100,000 UNITS/GM TOPICAL PWD 15 GM TOP SCH (08:40)
[2022-02-20] MEDS: cloNIDine 0.2 MG TAB PO SCH (08:40)
[2022-02-20 12:04] VITALS: BP_SYST 143; BP_SYST 152; BP_SYST 153; BP_DIAS 61; BP_DIAS 62; BP_DIAS 67
[2022-02-20] MEDS ORDERED: LevoFLOXacin 750 MG TABLET PO ONE (15:00)
[2022-02-20] MEDS ORDERED: CLON0.2T PO (15:11)
[2022-02-20] MEDS ORDERED: LEVO250T3 PO (15:17)
[2022-02-20] MEDS ORDERED: RISATAB3 PO (15:18)
[2022-02-20] MEDS ORDERED: CEPH250T PO (15:23)
== END 2022-02-20 16:10 | disposition home health service (06) | DRG 193 ==
LOC: M ED 09:22 → M ED INP 13:48 → M MS5PR 15:31
PROVIDERS: ADMIT Internal Medicine Nephrology; ATTEND Family Medicine
PROC: 5A1D70Z Performance of Urinary Filtration, Intermittent, Less than 6 Hours Per Day (ICD-10-PCS; principal; 2022-02-19)
DX: J18.9 Pneumonia, unspecified organism (principal); N18.6 End stage renal disease; I13.2 Hypertensive heart and chronic kidney disease with heart failure and with stage 5 chronic kidney disease, or end stage renal disease; I50.32 Chronic diastolic (congestive) heart failure; I69.351 Hemiplegia and hemiparesis following cerebral infarction affecting right dominant side; J96.11 Chronic respiratory failure with hypoxia; J98.11 Atelectasis; J44.0 Chronic obstructive pulmonary disease with (acute) lower respiratory infection; E87.1 Hypo-osmolality and hyponatremia; N39.0 Urinary tract infection, site not specified; E21.2 Other hyperparathyroidism; R53.1 Weakness; I25.10 Atherosclerotic heart disease of native coronary artery without angina pectoris; I25.2 Old myocardial infarction; E11.22 Type 2 diabetes mellitus with diabetic chronic kidney disease; F32.A Depression, unspecified; D63.1 Anemia in chronic kidney disease; E66.9 Obesity, unspecified; E11.319 Type 2 diabetes mellitus with unspecified diabetic retinopathy without macular edema; H40.9 Unspecified glaucoma; E11.42 Type 2 diabetes mellitus with diabetic polyneuropathy; M51.26 Other intervertebral disc displacement, lumbar region; H54.3 Unqualified visual loss, both eyes; Z99.81 Dependence on supplemental oxygen; Z99.2 Dependence on renal dialysis; Z79.02 Long term (current) use of antithrombotics/antiplatelets; Z79.4 Long term (current) use of insulin; Z79.899 Other long term (current) drug therapy; Z79.52 Long term (current) use of systemic steroids; Z88.8 Allergy status to other drugs, medicaments and biological substances; Z95.1 Presence of aortocoronary bypass graft; Z98.41 Cataract extraction status, right eye; Z98.42 Cataract extraction status, left eye; Z85.828 Personal history of other malignant neoplasm of skin; Z68.35 Body mass index [BMI] 35.0-35.9, adult

== ENCOUNTER 2022-04-16 09:16 | Inpatient (IN) | payer MEDICARE, BC ==
[~2022-04-16] VITALS: Ht 165.1 cm; Wt 102.5 kg
[~2022-04-16 09:16] MED LIST changes: +CEPH250T PO; +LEVO250T3 PO; +RISATAB3 PO
[2022-04-16] MEDS ORDERED: IPRATROPIUM 0.5MG/ALBUTEROL 2.5MG INH SOL UD 3ML (DUONEB) NEB ONE (09:50)
[2022-04-16 10:27] LABS: VENOUS BASE EXCESS -0.5 (-2.0-2.0); VENOUS HCO3 27.4 MEQ/L (23.0-27.0); VENOUS O2 SATURATION 59.2 % (60.0-80.0); VENOUS PARTIAL PRESSURE O2 32.1 mmHg (30.0-50.0); VENOUS PH 7.263 UNITS (7.330-7.430); VENOUS STANDARD HCO3 23.4 MEQ/L; VENOUS TOTAL CO2 29.3 MEQ/L (24.0-28.0)
[2022-04-16 10:30] LABS: BASO % 0.7 % (0.0-1.0); EOS # 0.1 10^3/uL (0.0-0.5); EOS % 1.3 % (0.0-3.0); HEMATOCRIT 31.2 % (36.0-47.0); HEMOGLOBIN 9.8 g/dl (12.0-15.5); LYMPH # 0.2 10^3/uL (1.5-5.0); LYMPH % 3.1 % (24.0-44.0); MEAN CORPUSCULAR HEMOGLOBIN 32.9 pg (27.0-33.0); MEAN CORPUSCULAR HGB CONC 31.4 g/dl (32.0-36.5); MEAN CORPUSCULAR VOLUME 104.7 fl (80.0-96.0); MONO # 0.5 10^3/uL (0.0-0.8); NEUTROPHILS # 5.3 10^3/uL (1.5-8.5); NEUTROPHILS % 86.6 % (36.0-66.0); PLATELET COUNT, AUTOMATED 175 10^3/uL (150-450); RED BLOOD COUNT 2.98 10^6/uL (4.00-5.40); WHITE BLOOD COUNT 6.1 10^3/uL (4.0-10.0)
[2022-04-16 10:55] LABS: CK-MB VALUE MASS 3.8 NG/ML (<3.6); MB/CK RELATIVE INDEX 2.52 (< OR =4)
[2022-04-16 10:58] LABS: ALBUMIN 3.7 GM/DL (3.2-5.2); ALT/SGPT 36 U/L (12-78); BILIRUBIN,DIRECT < 0.1 MG/DL (0.0-0.2); BILIRUBIN,TOTAL 0.3 MG/DL (0.2-1.0); BLOOD UREA NITROGEN 69 MG/DL (7-18); CALCIUM LEVEL 8.7 MG/DL (8.8-10.2); CARBON DIOXIDE LEVEL 28 MEQ/L (21-32); CHLORIDE LEVEL 99 MEQ/L (98-107); CREATININE FOR GFR 8.13 MG/DL (0.55-1.30); GLOMERULAR FILTRATION RATE 5.2 (>45); GLUCOSE, FASTING 115 MG/DL (70-100); NT-PRO BNP 4078 PG/ML (<125); POTASSIUM SERUM 5.3 MEQ/L (3.5-5.1); SODIUM LEVEL 133 MEQ/L (136-145); TOTAL PROTEIN 7.5 GM/DL (6.4-8.2)
[2022-04-16 11:57] LABS: CK-MB VALUE MASS 3.8 NG/ML (<3.6); MB/CK RELATIVE INDEX 2.48 (< OR =4)
[2022-04-16 12:46] LABS: ABG BASE EXCESS -2.5 (-2.0-2.0); ABG HCO3 23.3 MEQ/L (22.0-26.0); ABG O2 SATURATION 96.2 % (95.0-99.0); ABG PARTIAL PRESSURE CO2 44.7 mmHg (35.0-45.0); ABG PARTIAL PRESSURE O2 85.8 mmHg (75.0-100.0); ABG STANDARD HCO3 22.3 MEQ/L (22.0-26.0); ABG TOTAL CO2 24.7 MEQ/L (23.0-31.0); ABG pH (ARTERIAL) 7.335 UNITS (7.350-7.450)
[2022-04-16] MEDS ORDERED: NS 500 ML IV ONE (13:40)
[2022-04-16] MEDS ORDERED: MOM 30ML SUSPENSION UDC PO PRN (14:30)
[2022-04-16] MEDS ORDERED: MAALOX 30 ML SUSP *UDC PO PRN (14:30)
[2022-04-16] MEDS ORDERED: ALBUTEROL 90 MCG/ACT 8GM HFA INHALER INH PRN (14:30)
[2022-04-16] MEDS ORDERED: diphenhydrAMINE 50MG/ML VIAL (J1200) IV PRN (14:30)
[2022-04-16] MEDS ORDERED: ALBUTEROL SULFATE 2.5 MG/0.5 ML INH NEB SOLN INH PRN (14:30)
[2022-04-16] MEDS ORDERED: EPINEPHrine INJ 1 MG/ML 1ML AMP IM PRN (14:30)
[2022-04-16] MEDS ORDERED: methylPREDNISolone 125MG 2ML VIAL IV PRN (14:30)
[2022-04-16] MEDS ORDERED: LIDOCAINE 1% SDV 5ML VIAL SC PRN (14:55)
[2022-04-16] MEDS ORDERED: SODIUM CHLORIDE 0.9% 1000ML IV PRN (14:55)
[2022-04-16] MEDS ORDERED: BREO1INH INH (16:03)
[2022-04-16] MEDS ORDERED: PRIM50TA6 PO (16:03)
[2022-04-16] MEDS ORDERED: HOME MED LIST COMPLETE! XX SCH (16:05)
[2022-04-16 16:30] VITALS: BP 148/102
[2022-04-16] MEDS ORDERED: BEBTELOVIMAB 175MG 2ML VIAL (EUA) IV ONE (20:00)
[2022-04-16 22:20] VITALS: BP 117/52
[2022-04-16] MEDS: HEPARIN SOD (PORCINE) 5000UNITS/ML 1ML VIAL/SYRINGE SC SCH (23:23)
[2022-04-16 23:40] VITALS: BP 180/76
[2022-04-17 00:15] VITALS: BP 147/74
[2022-04-17] MEDS ORDERED: MIRALAX *UNIT DOSE* 17GM PACKET PO PRN (00:15)
[2022-04-17] MEDS ORDERED: ALBUTEROL 90 MCG/ACT 8GM HFA INHALER INH PRN (00:15)
[2022-04-17] MEDS ORDERED: NITROGLYCERIN 0.4 MG SUBL TABLET SL PRN (00:15)
[2022-04-17 01:00] VITALS: BP 150/84
[2022-04-17] MEDS: CitaloPRAM (CeleXA) 20 MG TAB PO SCH ×2 (01:27→21:46)
[2022-04-17] MEDS: ACETAMINOPHEN TAB 650MG DOSE (2X325MG) PO PRN (01:27)
[2022-04-17] MEDS: PRIMIDONE 50MG TAB PO SCH ×3 (01:28→21:46)
[2022-04-17] MEDS: ATORVASTATIN 20 MG TAB PO SCH ×2 (01:28→21:45)
[2022-04-17] MEDS: FLUTICASONE PROP 0.05% NASAL SPRAY 16 GM (FLONASE) NARES SCH ×2 (01:33→21:47)
[2022-04-17 04:38] VITALS: BP 148/68
[2022-04-17] MEDS: LEVOTHYROXINE 25MCG TABLET (0.025MG) PO SCH (06:24)
[2022-04-17] MEDS: LEVOTHYROXINE 150MCG TABLET (0.15MG) PO SCH (06:24)
[2022-04-17] MEDS: HEPARIN SOD (PORCINE) 5000UNITS/ML 1ML VIAL/SYRINGE SC SCH ×3 (06:24→21:47)
[2022-04-17 07:25] LABS: HEMATOCRIT 29.7 % (36.0-47.0); HEMOGLOBIN 9.3 g/dl (12.0-15.5); MEAN CORPUSCULAR HEMOGLOBIN 33.2 pg (27.0-33.0); MEAN CORPUSCULAR HGB CONC 31.3 g/dl (32.0-36.5); MEAN CORPUSCULAR VOLUME 106.1 fl (80.0-96.0); PLATELET COUNT, AUTOMATED 188 10^3/uL (150-450); WHITE BLOOD COUNT 5.5 10^3/uL (4.0-10.0)
[2022-04-17] MEDS: ADVAIR HFA 115/21MCG INHALER INH SCH ×2 (07:48→19:46)
[2022-04-17 07:58] LABS: CALCIUM LEVEL 8.8 MG/DL (8.8-10.2); CREATININE FOR GFR 5.44 MG/DL (0.55-1.30); GLOMERULAR FILTRATION RATE 8.3 (>45); POTASSIUM SERUM 3.7 MEQ/L (3.5-5.1)
[2022-04-17] MEDS: PANTOPRAZOLE 40MG TAB (PROTONIX) PO SCH (08:23)
[2022-04-17] MEDS: GLIMEPIRIDE 2 MG TAB PO SCH (08:24)
[2022-04-17] MEDS: LOSARTAN 50MG TABLET PO SCH (08:25)
[2022-04-17] MEDS: **hydrALAZINE** 50 MG TAB PO SCH ×3 (08:26→21:46)
[2022-04-17] MEDS: LACTOBACILLUS ACIDOPHILUS CAP (BACID) PO SCH (08:26)
[2022-04-17] MEDS: CLOPIDOGREL 75 MG TAB PO SCH (08:26)
[2022-04-17] MEDS: DOCUSATE SODIUM 100MG CAPSULE PO SCH ×2 (08:26→21:46)
[2022-04-17] MEDS: **hydrALAZINE HCL** 25 MG TAB PO SCH ×3 (08:27→21:45)
[2022-04-17] MEDS: cloNIDine 0.2 MG TAB PO SCH ×3 (08:27→21:47)
[2022-04-17] MEDS: LEVEMIR (INSULIN DETEMIR) 1 UNITS/0.01ML SC SCH ×2 (08:28→21:48)
[2022-04-17] MEDS: SUCROFERRIC OXYHYDROXIDE 500MG CHEW TAB (VELPHORO) PO SCH ×3 (08:40→17:50)
[2022-04-17] MEDS ORDERED: LIDOCAINE 1% SDV 5ML VIAL SC PRN (11:35)
[2022-04-17] MEDS ORDERED: SODIUM CHLORIDE 0.9% 1000ML IV PRN (11:35)
[2022-04-17 18:00] VITALS: BP 171/77
[2022-04-17 20:00] VITALS: BP 173/75
[2022-04-18 04:00] VITALS: BP 140/65
[2022-04-18] MEDS: GLIMEPIRIDE 2 MG TAB PO SCH (05:56)
[2022-04-18] MEDS: LEVOTHYROXINE 25MCG TABLET (0.025MG) PO SCH (05:56)
[2022-04-18] MEDS: HEPARIN SOD (PORCINE) 5000UNITS/ML 1ML VIAL/SYRINGE SC SCH ×3 (05:56→21:35)
[2022-04-18] MEDS: LEVOTHYROXINE 150MCG TABLET (0.15MG) PO SCH (05:56)
[2022-04-18 06:20] LABS: HEMATOCRIT 28.3 % (36.0-47.0); HEMOGLOBIN 8.8 g/dl (12.0-15.5); MEAN CORPUSCULAR HGB CONC 31.1 g/dl (32.0-36.5); PLATELET COUNT, AUTOMATED 168 10^3/uL (150-450); RED BLOOD COUNT 2.67 10^6/uL (4.00-5.40); WHITE BLOOD COUNT 4.7 10^3/uL (4.0-10.0)
[2022-04-18 06:52] LABS: CALCIUM LEVEL 8.7 MG/DL (8.8-10.2); CREATININE FOR GFR 4.84 MG/DL (0.55-1.30); GLOMERULAR FILTRATION RATE 9.5 (>45); POTASSIUM SERUM 4.7 MEQ/L (3.5-5.1)
[2022-04-18] MEDS: SUCROFERRIC OXYHYDROXIDE 500MG CHEW TAB (VELPHORO) PO SCH ×3 (07:59→17:02)
[2022-04-18] MEDS: **hydrALAZINE HCL** 25 MG TAB PO SCH ×3 (08:00→21:34)
[2022-04-18] MEDS: **hydrALAZINE** 50 MG TAB PO SCH ×3 (08:00→21:33)
[2022-04-18] MEDS: cloNIDine 0.2 MG TAB PO SCH ×3 (08:01→21:32)
[2022-04-18] MEDS: LACTOBACILLUS ACIDOPHILUS CAP (BACID) PO SCH (08:01)
[2022-04-18] MEDS: PRIMIDONE 50MG TAB PO SCH ×2 (08:02→21:34)
[2022-04-18] MEDS: DOCUSATE SODIUM 100MG CAPSULE PO SCH ×2 (08:02→21:32)
[2022-04-18] MEDS: LOSARTAN 50MG TABLET PO SCH (08:02)
[2022-04-18] MEDS: CLOPIDOGREL 75 MG TAB PO SCH (08:03)
[2022-04-18] MEDS: PANTOPRAZOLE 40MG TAB (PROTONIX) PO SCH (08:03)
[2022-04-18] MEDS: LEVEMIR (INSULIN DETEMIR) 1 UNITS/0.01ML SC SCH ×2 (08:04→21:34)
[2022-04-18] MEDS: ADVAIR HFA 115/21MCG INHALER INH SCH ×2 (08:08→22:02)
[2022-04-18] MEDS ORDERED: PREVNAR 13 VACCINE SYRINGE IM ONE (09:00)
[2022-04-18] MEDS ORDERED: SODIUM CHLORIDE 0.9% 1000ML IV PRN (11:40)
[2022-04-18] MEDS ORDERED: LIDOCAINE 1% SDV 5ML VIAL SC PRN (11:40)
[2022-04-18] MEDS ORDERED: DARBEPOETIN 100 MCG/0.5 ML *DIALYSIS* SYRINGE (J0882) IV SCH (11:40)
[2022-04-18 14:15] VITALS: BP 171/71
[2022-04-18 20:00] VITALS: BP 151/66
[2022-04-18] MEDS: CitaloPRAM (CeleXA) 20 MG TAB PO SCH (21:32)
[2022-04-18] MEDS: ATORVASTATIN 20 MG TAB PO SCH (21:32)
[2022-04-18] MEDS: FLUTICASONE PROP 0.05% NASAL SPRAY 16 GM (FLONASE) NARES SCH (21:34)
[2022-04-19 04:00] VITALS: BP 146/61
[2022-04-19] MEDS: LEVOTHYROXINE 25MCG TABLET (0.025MG) PO SCH (05:20)
[2022-04-19] MEDS: LEVOTHYROXINE 150MCG TABLET (0.15MG) PO SCH (05:20)
[2022-04-19] MEDS: HEPARIN SOD (PORCINE) 5000UNITS/ML 1ML VIAL/SYRINGE SC SCH ×3 (05:20→20:35)
[2022-04-19 07:32] LABS: HEMATOCRIT 29.4 % (36.0-47.0); HEMOGLOBIN 9.1 g/dl (12.0-15.5); MEAN CORPUSCULAR HEMOGLOBIN 32.5 pg (27.0-33.0); PLATELET COUNT, AUTOMATED 167 10^3/uL (150-450)
[2022-04-19] MEDS: ADVAIR HFA 115/21MCG INHALER INH SCH ×2 (07:40→20:25)
[2022-04-19 07:53] LABS: CALCIUM LEVEL 8.6 MG/DL (8.8-10.2); CREATININE FOR GFR 4.97 MG/DL (0.55-1.30); GLOMERULAR FILTRATION RATE 9.2 (>45); MAGNESIUM LEVEL 1.9 MG/DL (1.8-2.4); POTASSIUM SERUM 4.5 MEQ/L (3.5-5.1)
[2022-04-19] MEDS: LACTOBACILLUS ACIDOPHILUS CAP (BACID) PO SCH (09:26)
[2022-04-19] MEDS: cloNIDine 0.2 MG TAB PO SCH ×4 (09:26→20:39)
[2022-04-19] MEDS: CLOPIDOGREL 75 MG TAB PO SCH (09:26)
[2022-04-19] MEDS: PANTOPRAZOLE 40MG TAB (PROTONIX) PO SCH (09:26)
[2022-04-19] MEDS: PRIMIDONE 50MG TAB PO SCH ×2 (09:27→20:33)
[2022-04-19] MEDS: LOSARTAN 50MG TABLET PO SCH (09:27)
[2022-04-19] MEDS: DOCUSATE SODIUM 100MG CAPSULE PO SCH ×2 (09:28→20:33)
[2022-04-19] MEDS: GLIMEPIRIDE 2 MG TAB PO SCH (09:28)
[2022-04-19] MEDS: **hydrALAZINE** 50 MG TAB PO SCH ×3 (09:29→20:33)
[2022-04-19] MEDS: **hydrALAZINE HCL** 25 MG TAB PO SCH ×3 (09:29→20:34)
[2022-04-19] MEDS: SUCROFERRIC OXYHYDROXIDE 500MG CHEW TAB (VELPHORO) PO SCH ×3 (09:29→17:04)
[2022-04-19] MEDS: LEVEMIR (INSULIN DETEMIR) 1 UNITS/0.01ML SC SCH ×2 (09:33→20:29)
[2022-04-19] MEDS: ACETAMINOPHEN TAB 650MG DOSE (2X325MG) PO PRN (09:38)
[2022-04-19] MEDS: CitaloPRAM (CeleXA) 20 MG TAB PO SCH (20:34)
[2022-04-19] MEDS: ATORVASTATIN 20 MG TAB PO SCH (20:34)
[2022-04-19] MEDS: FLUTICASONE PROP 0.05% NASAL SPRAY 16 GM (FLONASE) NARES SCH (20:35)
[2022-04-20 06:00] VITALS: BP 172/74
[2022-04-20] MEDS: LEVOTHYROXINE 150MCG TABLET (0.15MG) PO SCH (06:06)
[2022-04-20] MEDS: LEVOTHYROXINE 25MCG TABLET (0.025MG) PO SCH (06:06)
[2022-04-20] MEDS: HEPARIN SOD (PORCINE) 5000UNITS/ML 1ML VIAL/SYRINGE SC SCH ×3 (06:06→21:08)
[2022-04-20] MEDS: ADVAIR HFA 115/21MCG INHALER INH SCH ×2 (07:30→20:41)
[2022-04-20 07:32] LABS: HEMATOCRIT 29.3 % (36.0-47.0); HEMOGLOBIN 9.2 g/dl (12.0-15.5); MEAN CORPUSCULAR HEMOGLOBIN 32.9 pg (27.0-33.0); MEAN CORPUSCULAR HGB CONC 31.4 g/dl (32.0-36.5); MEAN CORPUSCULAR VOLUME 104.6 fl (80.0-96.0); PLATELET COUNT, AUTOMATED 175 10^3/uL (150-450); WHITE BLOOD COUNT 4.5 10^3/uL (4.0-10.0)
[2022-04-20 07:50] LABS: CALCIUM LEVEL 9.2 MG/DL (8.8-10.2); CREATININE FOR GFR 6.62 MG/DL (0.55-1.30); GLOMERULAR FILTRATION RATE 6.6 (>45); MAGNESIUM LEVEL 2.1 MG/DL (1.8-2.4); POTASSIUM SERUM 4.4 MEQ/L (3.5-5.1)
[2022-04-20] MEDS: SUCROFERRIC OXYHYDROXIDE 500MG CHEW TAB (VELPHORO) PO SCH ×3 (08:32→17:15)
[2022-04-20] MEDS: PANTOPRAZOLE 40MG TAB (PROTONIX) PO SCH (08:33)
[2022-04-20] MEDS: DOCUSATE SODIUM 100MG CAPSULE PO SCH ×2 (08:33→21:08)
[2022-04-20] MEDS: PRIMIDONE 50MG TAB PO SCH ×2 (08:33→21:06)
[2022-04-20] MEDS: LACTOBACILLUS ACIDOPHILUS CAP (BACID) PO SCH (08:33)
[2022-04-20] MEDS: CLOPIDOGREL 75 MG TAB PO SCH (08:33)
[2022-04-20] MEDS: GLIMEPIRIDE 2 MG TAB PO SCH (08:33)
[2022-04-20] MEDS: cloNIDine 0.2 MG TAB PO SCH ×3 (08:34→21:06)
[2022-04-20] MEDS: **hydrALAZINE HCL** 25 MG TAB PO SCH ×3 (08:34→21:07)
[2022-04-20] MEDS: LEVEMIR (INSULIN DETEMIR) 1 UNITS/0.01ML SC SCH ×2 (08:35→21:08)
[2022-04-20] MEDS: **hydrALAZINE** 50 MG TAB PO SCH ×3 (08:35→21:08)
[2022-04-20] MEDS: LOSARTAN 50MG TABLET PO SCH (08:35)
[2022-04-20] MEDS ORDERED: SODIUM CHLORIDE 0.9% 1000ML IV PRN (09:55)
[2022-04-20] MEDS ORDERED: LIDOCAINE 1% SDV 5ML VIAL SC PRN (09:55)
[2022-04-20] MEDS: CitaloPRAM (CeleXA) 20 MG TAB PO SCH (21:06)
[2022-04-20] MEDS: ATORVASTATIN 20 MG TAB PO SCH (21:07)
[2022-04-20] MEDS: FLUTICASONE PROP 0.05% NASAL SPRAY 16 GM (FLONASE) NARES SCH (21:09)
[2022-04-21] MEDS: ACETAMINOPHEN TAB 650MG DOSE (2X325MG) PO PRN (00:17)
[2022-04-21 06:00] VITALS: BP 142/65
[2022-04-21] MEDS: LEVOTHYROXINE 25MCG TABLET (0.025MG) PO SCH (06:35)
[2022-04-21] MEDS: LEVOTHYROXINE 150MCG TABLET (0.15MG) PO SCH (06:35)
[2022-04-21] MEDS: HEPARIN SOD (PORCINE) 5000UNITS/ML 1ML VIAL/SYRINGE SC SCH (06:35)
[2022-04-21] MEDS: ADVAIR HFA 115/21MCG INHALER INH SCH (07:27)
[2022-04-21 07:53] LABS: HEMATOCRIT 30.7 % (36.0-47.0); HEMOGLOBIN 9.7 g/dl (12.0-15.5); MEAN CORPUSCULAR HGB CONC 31.6 g/dl (32.0-36.5); MEAN CORPUSCULAR VOLUME 104.4 fl (80.0-96.0); PLATELET COUNT, AUTOMATED 207 10^3/uL (150-450); RED BLOOD COUNT 2.94 10^6/uL (4.00-5.40)
[2022-04-21 08:34] LABS: CALCIUM LEVEL 9.3 MG/DL (8.8-10.2); CREATININE FOR GFR 4.89 MG/DL (0.55-1.30); GLOMERULAR FILTRATION RATE 9.4 (>45)
[2022-04-21] MEDS: DOCUSATE SODIUM 100MG CAPSULE PO SCH (08:36)
[2022-04-21] MEDS: CLOPIDOGREL 75 MG TAB PO SCH (08:36)
[2022-04-21] MEDS: SUCROFERRIC OXYHYDROXIDE 500MG CHEW TAB (VELPHORO) PO SCH (08:36)
[2022-04-21] MEDS: PRIMIDONE 50MG TAB PO SCH (08:36)
[2022-04-21] MEDS: PANTOPRAZOLE 40MG TAB (PROTONIX) PO SCH (08:36)
[2022-04-21] MEDS: LACTOBACILLUS ACIDOPHILUS CAP (BACID) PO SCH (08:36)
[2022-04-21] MEDS: GLIMEPIRIDE 2 MG TAB PO SCH (08:37)
[2022-04-21 08:38] VITALS: BP 171/70
[2022-04-21] MEDS: LOSARTAN 50MG TABLET PO SCH (08:38)
[2022-04-21] MEDS: **hydrALAZINE** 50 MG TAB PO SCH (08:39)
[2022-04-21] MEDS: **hydrALAZINE HCL** 25 MG TAB PO SCH (08:39)
[2022-04-21] MEDS: cloNIDine 0.2 MG TAB PO SCH (08:39)
[2022-04-21] MEDS: LEVEMIR (INSULIN DETEMIR) 1 UNITS/0.01ML SC SCH (08:39)
[2022-04-21 09:36] LABS: POTASSIUM SERUM 3.7 MEQ/L (3.5-5.1)
== END 2022-04-21 10:44 | disposition home or self-care (01) | DRG 177 ==
LOC: M ED 09:16 → EDBD 09:16 → M ED INP 14:37 → ENRESERV 15:15 → M 4MAIN 16:33
PROVIDERS: ADMIT Family Medicine; ATTEND Family Medicine
PROC: 5A1D70Z Performance of Urinary Filtration, Intermittent, Less than 6 Hours Per Day (ICD-10-PCS; principal; 2022-04-16)
DX: U07.1 COVID-19 (principal); N18.6 End stage renal disease; E87.1 Hypo-osmolality and hyponatremia; I13.2 Hypertensive heart and chronic kidney disease with heart failure and with stage 5 chronic kidney disease, or end stage renal disease; I69.351 Hemiplegia and hemiparesis following cerebral infarction affecting right dominant side; J96.11 Chronic respiratory failure with hypoxia; I50.32 Chronic diastolic (congestive) heart failure; N25.81 Secondary hyperparathyroidism of renal origin; E87.5 Hyperkalemia; I25.10 Atherosclerotic heart disease of native coronary artery without angina pectoris; I25.2 Old myocardial infarction; E11.22 Type 2 diabetes mellitus with diabetic chronic kidney disease; F32.A Depression, unspecified; H54.8 Legal blindness, as defined in USA; D63.1 Anemia in chronic kidney disease; E66.9 Obesity, unspecified; E11.319 Type 2 diabetes mellitus with unspecified diabetic retinopathy without macular edema; Z68.38 Body mass index [BMI] 38.0-38.9, adult; Z98.41 Cataract extraction status, right eye; Z98.42 Cataract extraction status, left eye; Z85.828 Personal history of other malignant neoplasm of skin; Z95.1 Presence of aortocoronary bypass graft; Z79.02 Long term (current) use of antithrombotics/antiplatelets; Z79.4 Long term (current) use of insulin; Z79.899 Other long term (current) drug therapy; Z88.8 Allergy status to other drugs, medicaments and biological substances; Z99.2 Dependence on renal dialysis; Z99.81 Dependence on supplemental oxygen

== ENCOUNTER → 2022-05-20 | Outpatient (CLI) | payer MEDICARE, BC ==
[~2022-05-20] MED LIST changes: +BREO1INH INH; +PRIM50TA6 PO
== END ==
LOC: M WHC 12:56
PROVIDERS: ATTEND Nurse Practitioner Family
DX: Z12.31 Encounter for screening mammogram for malignant neoplasm of breast (principal)

== ENCOUNTER → 2022-07-03 | Outpatient (CLI) | payer MEDICARE, BC ==
[~2022-07-03] MED LIST changes: +LEVO1TAB38 PO; -LEVO250T3 PO
== END ==
LOC: M SLEEP HO 11:16
PROVIDERS: ATTEND Nurse Practitioner Family
DX: R06.83 Snoring (principal); R40.0 Somnolence

== ENCOUNTER 2022-10-19 15:48 | Emergency (ER) | payer MEDICARE, BC ==
[~2022-10-19] VITALS: Ht 165.1 cm; Wt 96.0 kg
[2022-10-19 16:39] LABS: BASO % 0.8 % (0.0-1.0); EOS # 0.1 10^3/uL (0.0-0.5); EOS % 2.5 % (0.0-3.0); HEMATOCRIT 26.5 % (36.0-47.0); HEMOGLOBIN 8.4 g/dl (12.0-15.5); LYMPH # 0.8 10^3/uL (1.5-5.0); LYMPH % 14.8 % (24.0-44.0); MEAN CORPUSCULAR HEMOGLOBIN 31.3 pg (27.0-33.0); MEAN CORPUSCULAR HGB CONC 31.7 g/dl (32.0-36.5); MEAN CORPUSCULAR VOLUME 98.9 fl (80.0-96.0); MONO # 0.5 10^3/uL (0.0-0.8); NEUTROPHILS # 3.7 10^3/uL (1.5-8.5); NEUTROPHILS % 71.7 % (36.0-66.0); PLATELET COUNT, AUTOMATED 193 10^3/uL (150-450); RED BLOOD COUNT 2.68 10^6/uL (4.00-5.40); WHITE BLOOD COUNT 5.2 10^3/uL (4.0-10.0)
[2022-10-19 17:19] LABS: CALCIUM LEVEL 8.7 MG/DL (8.3-10.6); CK-MB VALUE MASS 1.7 NG/ML (<3.6); CREATININE FOR GFR 2.94 MG/DL (0.55-1.30); GLOMERULAR FILTRATION RATE 16.8 (>39); MB/CK RELATIVE INDEX 1.51 (< OR =4); POTASSIUM SERUM 3.3 MMOL/L (3.5-5.1); THYROID STIMULATING HORMONE 2.483 uIU/ML (0.55-4.78)
[2022-10-19 19:15] VITALS: BP 124/56
== END 2022-10-19 19:55 | disposition home or self-care (01) ==
LOC: EDBD 15:48 → M ED 15:48
DX: R53.1 Weakness (principal); Y84.1 Kidney dialysis as the cause of abnormal reaction of the patient, or of later complication, without mention of misadventure at the time of the procedure; N18.6 End stage renal disease; E11.9 Type 2 diabetes mellitus without complications; I50.9 Heart failure, unspecified; I10 Essential (primary) hypertension; J44.9 Chronic obstructive pulmonary disease, unspecified; Z86.73 Personal history of transient ischemic attack (TIA), and cerebral infarction without residual deficits; Z95.5 Presence of coronary angioplasty implant and graft; Z79.890 Hormone replacement therapy; Z79.4 Long term (current) use of insulin; Z79.899 Other long term (current) drug therapy; Z88.8 Allergy status to other drugs, medicaments and biological substances

== ENCOUNTER 2022-11-07 21:35 | Inpatient (IN) | payer MEDICARE, BC ==
[~2022-11-07] VITALS: Ht 165.1 cm; Wt 92.2 kg
[~2022-11-07 21:35] MED LIST changes: -FLON1SPR NARES
[2022-11-07 22:57] LABS: BASO # 0.1 10^3/uL (0.0-0.2); BASO % 0.7 % (0.0-1.0); EOS # 0.2 10^3/uL (0.0-0.5); EOS % 2.4 % (0.0-3.0); HEMATOCRIT 24.8 % (36.0-47.0); HEMOGLOBIN 7.4 g/dl (12.0-15.5); LYMPH # 0.6 10^3/uL (1.5-5.0); LYMPH % 8.5 % (24.0-44.0); MEAN CORPUSCULAR HEMOGLOBIN 30.8 pg (27.0-33.0); MEAN CORPUSCULAR HGB CONC 29.8 g/dl (32.0-36.5); MEAN CORPUSCULAR VOLUME 103.3 fl (80.0-96.0); MONO # 0.6 10^3/uL (0.0-0.8); MONO % 8.5 % (2.0-8.0); NEUTROPHILS % 79.6 % (36.0-66.0); PLATELET COUNT, AUTOMATED 203 10^3/uL (150-450); WHITE BLOOD COUNT 7.5 10^3/uL (4.0-10.0)
[2022-11-07 23:37] LABS: BILIRUBIN,DIRECT < 0.1 MG/DL (<0.4)
[2022-11-07 23:42] LABS: ALBUMIN 3.3 G/DL (3.2-5.2); ALKALINE PHOSPHATASE 561 U/L (46-116); ALT/SGPT 23 U/L (7.0-40); AST/SGOT 51 U/L (<34); BILIRUBIN,TOTAL 0.2 MG/DL (0.3-1.2); BLOOD UREA NITROGEN 27 MG/DL (9-23); CALCIUM LEVEL 8.1 MG/DL (8.3-10.6); CARBON DIOXIDE LEVEL 33 MMOL/L (20-31); CHLORIDE LEVEL 96 MMOL/L (98-107); CK-MB VALUE MASS < 1.0 NG/ML (<3.6); CPK CREATINE PHOSPHOKINASE 160 U/L (34-145); CREATININE FOR GFR 2.86 MG/DL (0.55-1.30); GLOMERULAR FILTRATION RATE 17.4 (>39); GLUCOSE, FASTING 152 MG/DL (74-106); MB/CK RELATIVE INDEX 0.62 (< OR =4); POTASSIUM SERUM 5.5 MMOL/L (3.5-5.1); SODIUM LEVEL 137 MMOL/L (136-145); THYROID STIMULATING HORMONE 3.144 uIU/ML (0.55-4.78)
[2022-11-08] MEDS ORDERED: IPRATROPIUM 0.5MG/ALBUTEROL 2.5MG INH SOL UD 3ML (DUONEB) NEB ONE (00:10)
[2022-11-08 00:56] LABS: CK-MB VALUE MASS < 1.0 NG/ML (<3.6)
[2022-11-08 01:03] LABS: CPK CREATINE PHOSPHOKINASE 143 U/L (34-145); MB/CK RELATIVE INDEX 0.69 (< OR =4)
[2022-11-08] MEDS ORDERED: hydrALAZINE 20MG/ML 1ML VIAL IV ONE ×2 (02:15→03:40)
[2022-11-08] MEDS ORDERED: MELA1TAB9 PO (06:17)
[2022-11-08] MEDS ORDERED: CLON0.2T PO (06:17)
[2022-11-08] MEDS ORDERED: PRIM50TA6 PO (06:17)
[2022-11-08] MEDS ORDERED: COLA100C5 PO (06:23)
[2022-11-08] MEDS ORDERED: MIRA1POW3 PO (06:23)
[2022-11-08] MEDS ORDERED: ACET-897 PO (06:23)
[2022-11-08] MEDS ORDERED: HOME MED LIST COMPLETE! XX SCH (06:25)
[2022-11-08] MEDS ORDERED: MIRALAX *UNIT DOSE* 17GM PACKET PO PRN (08:20)
[2022-11-08] MEDS ORDERED: LABETALOL 100MG/20ML VIAL IV PRN (08:45)
[2022-11-08] MEDS ORDERED: DEXTROSE 50% 50ML SYRINGE IV PRN (08:45)
[2022-11-08] MEDS ORDERED: GLUCAGON INJ 1MG VIAL SC PRN (08:45)
[2022-11-08] MEDS ORDERED: GLUCOSE 4GM CHEW TABLET PO PRN (08:45)
[2022-11-08] MEDS ORDERED: **hydrALAZINE** 50 MG TAB PO SCH (09:00)
[2022-11-08] MEDS ORDERED: **hydrALAZINE HCL** 25 MG TAB PO SCH (09:00)
[2022-11-08] MEDS: PRIMIDONE 50MG TAB PO SCH ×2 (09:00→23:47)
[2022-11-08] MEDS: CLOPIDOGREL 75 MG TAB PO SCH (09:03)
[2022-11-08] MEDS: cloNIDine 0.2 MG TAB PO SCH ×3 (09:06→21:36)
[2022-11-08] MEDS: LOSARTAN 50MG TABLET PO SCH (09:06)
[2022-11-08] MEDS: PANTOPRAZOLE 40MG TAB (PROTONIX) PO SCH (09:06)
[2022-11-08] MEDS: DOCUSATE SODIUM 100MG CAPSULE PO SCH ×2 (09:07→21:36)
[2022-11-08] MEDS: LEVOTHYROXINE 150MCG TABLET (0.15MG) PO SCH (10:12)
[2022-11-08] MEDS: SUCROFERRIC OXYHYDROXIDE 500MG CHEW TAB (VELPHORO) PO SCH ×2 (12:30→18:00)
[2022-11-08] MEDS: INSULIN LISPRO (NovoLOG) PER UNIT SC SCH ×3 (12:52→21:00)
[2022-11-08 14:39] LABS: CK-MB VALUE MASS < 1.0 NG/ML (<3.6)
[2022-11-08 14:41] LABS: CPK CREATINE PHOSPHOKINASE 160 U/L (34-145); MB/CK RELATIVE INDEX 0.62 (< OR =4)
[2022-11-08] MEDS: **hydrALAZINE** 50 MG TAB PO SCH ×2 (15:48→21:37)
[2022-11-08] MEDS: CARVedilol 12.5 MG TAB PO SCH ×2 (15:48→21:37)
[2022-11-08] MEDS: ACETAMINOPHEN TAB 650MG DOSE (2X325MG) PO PRN (15:49)
[2022-11-08] MEDS: FLUTICASONE PROP 0.05% NASAL SPRAY 16 GM (FLONASE) SCH (21:00)
[2022-11-08] MEDS: ATORVASTATIN 20 MG TAB PO SCH (21:37)
[2022-11-08] MEDS: CitaloPRAM (CeleXA) 20 MG TAB PO SCH (21:37)
[2022-11-08] MEDS: LEVEMIR (INSULIN DETEMIR) 1 UNITS/0.01ML SC SCH (21:50)
[2022-11-08 23:54] LABS: CK-MB VALUE MASS 1.4 NG/ML (<3.6)
[2022-11-08 23:56] LABS: MB/CK RELATIVE INDEX 0.82 (< OR =4)
[2022-11-09] MEDS ORDERED: ASPIRIN 81MG CHEW TABLET PO ONE (02:00)
[2022-11-09] MEDS: LEVOTHYROXINE 25MCG TABLET (0.025MG) PO SCH (06:23)
[2022-11-09] MEDS: LEVOTHYROXINE 150MCG TABLET (0.15MG) PO SCH (06:23)
[2022-11-09] MEDS ORDERED: HEPARIN 1,000UNITS/ML 10ML VIAL (FOR RADIOLOGY & DIALYSIS ONLY) IV PRN (07:10)
[2022-11-09] MEDS ORDERED: HEPARIN 1,000UNITS/ML 10ML VIAL (FOR RADIOLOGY & DIALYSIS ONLY) XX SCH (07:10)
[2022-11-09] MEDS ORDERED: SODIUM CHLORIDE 0.9% 1000ML IV PRN (07:10)
[2022-11-09] MEDS ORDERED: LIDOCAINE 1% SDV 5ML VIAL SC PRN (07:10)
[2022-11-09 07:27] LABS: HEMATOCRIT 24.6 % (36.0-47.0); HEMOGLOBIN 7.5 g/dl (12.0-15.5); MEAN CORPUSCULAR HEMOGLOBIN 31.4 pg (27.0-33.0); MEAN CORPUSCULAR HGB CONC 30.5 g/dl (32.0-36.5); MEAN CORPUSCULAR VOLUME 102.9 fl (80.0-96.0); PLATELET COUNT, AUTOMATED 202 10^3/uL (150-450); RED BLOOD COUNT 2.39 10^6/uL (4.00-5.40); WHITE BLOOD COUNT 6.3 10^3/uL (4.0-10.0)
[2022-11-09 07:45] LABS: CPK CREATINE PHOSPHOKINASE 170 U/L (34-145)
[2022-11-09 07:57] LABS: ALBUMIN 3.4 G/DL (3.2-5.2); BLOOD UREA NITROGEN 46 MG/DL (9-23); CALCIUM LEVEL 9.1 MG/DL (8.3-10.6); CARBON DIOXIDE LEVEL 31 MMOL/L (20-31); CHLORIDE LEVEL 94 MMOL/L (98-107); CK-MB VALUE MASS < 1.0 NG/ML (<3.6); CREATININE FOR GFR 5.43 MG/DL (0.55-1.30); GLOMERULAR FILTRATION RATE 8.3 (>39); GLUCOSE, FASTING 123 MG/DL (74-106); MB/CK RELATIVE INDEX 0.58 (< OR =4); PHOSPHORUS LEVEL 3.8 MG/DL (2.4-5.1); POTASSIUM SERUM 4.3 MMOL/L (3.5-5.1); SODIUM LEVEL 137 MMOL/L (136-145)
[2022-11-09] MEDS: SUCROFERRIC OXYHYDROXIDE 500MG CHEW TAB (VELPHORO) PO SCH ×3 (08:00→18:00)
[2022-11-09] MEDS: INSULIN LISPRO (NovoLOG) PER UNIT SC SCH ×4 (08:40→19:44)
[2022-11-09] MEDS: DOCUSATE SODIUM 100MG CAPSULE PO SCH ×2 (08:40→20:02)
[2022-11-09] MEDS: cloNIDine 0.2 MG TAB PO SCH ×3 (08:41→20:03)
[2022-11-09] MEDS: PRIMIDONE 50MG TAB PO SCH ×2 (08:42→20:03)
[2022-11-09] MEDS: **hydrALAZINE** 50 MG TAB PO SCH ×3 (08:42→20:02)
[2022-11-09] MEDS: PANTOPRAZOLE 40MG TAB (PROTONIX) PO SCH (08:43)
[2022-11-09] MEDS: CARVedilol 12.5 MG TAB PO SCH ×2 (08:43→20:02)
[2022-11-09] MEDS: CLOPIDOGREL 75 MG TAB PO SCH (08:44)
[2022-11-09] MEDS: LOSARTAN 50MG TABLET PO SCH (08:50)
[2022-11-09 17:40] VITALS: BP 192/72
[2022-11-09 18:29] VITALS: BP 172/72
[2022-11-09 19:42] VITALS: BP 145/64
[2022-11-09] MEDS: FLUTICASONE PROP 0.05% NASAL SPRAY 16 GM (FLONASE) SCH (20:02)
[2022-11-09] MEDS: ATORVASTATIN 20 MG TAB PO SCH (20:02)
[2022-11-09] MEDS: LEVEMIR (INSULIN DETEMIR) 1 UNITS/0.01ML SC SCH (20:02)
[2022-11-09] MEDS: CitaloPRAM (CeleXA) 20 MG TAB PO SCH (20:03)
[2022-11-09] MEDS: ACETAMINOPHEN TAB 650MG DOSE (2X325MG) PO PRN (20:05)
[2022-11-10] VITALS (8 sets, daily range): BP systolic 148–194; BP diastolic 52–81
[2022-11-10] MEDS: LEVOTHYROXINE 25MCG TABLET (0.025MG) PO SCH (05:14)
[2022-11-10] MEDS: LEVOTHYROXINE 150MCG TABLET (0.15MG) PO SCH (05:14)
[2022-11-10 06:36] LABS: HEMATOCRIT 25.9 % (36.0-47.0); MEAN CORPUSCULAR HEMOGLOBIN 31.7 pg (27.0-33.0); MEAN CORPUSCULAR HGB CONC 30.9 g/dl (32.0-36.5); MEAN CORPUSCULAR VOLUME 102.8 fl (80.0-96.0); PLATELET COUNT, AUTOMATED 209 10^3/uL (150-450); RED BLOOD COUNT 2.52 10^6/uL (4.00-5.40); WHITE BLOOD COUNT 5.8 10^3/uL (4.0-10.0)
[2022-11-10 07:01] LABS: ALBUMIN 3.5 G/DL (3.2-5.2); CALCIUM LEVEL 8.8 MG/DL (8.3-10.6); CREATININE FOR GFR 3.89 MG/DL (0.55-1.30); GLOMERULAR FILTRATION RATE 12.2 (>39); PHOSPHORUS LEVEL 3.4 MG/DL (2.4-5.1); POTASSIUM SERUM 4.1 MMOL/L (3.5-5.1)
[2022-11-10] MEDS: INSULIN LISPRO (NovoLOG) PER UNIT SC SCH ×4 (07:21→20:37)
[2022-11-10] MEDS: PANTOPRAZOLE 40MG TAB (PROTONIX) PO SCH (08:06)
[2022-11-10] MEDS: PRIMIDONE 50MG TAB PO SCH ×2 (08:06→20:29)
[2022-11-10] MEDS: SUCROFERRIC OXYHYDROXIDE 500MG CHEW TAB (VELPHORO) PO SCH ×3 (08:06→17:24)
[2022-11-10] MEDS: DOCUSATE SODIUM 100MG CAPSULE PO SCH ×2 (08:06→20:29)
[2022-11-10] MEDS: cloNIDine 0.2 MG TAB PO SCH ×3 (08:06→20:29)
[2022-11-10] MEDS: LOSARTAN 50MG TABLET PO SCH (08:06)
[2022-11-10] MEDS: CARVedilol 12.5 MG TAB PO SCH ×2 (08:07→21:00)
[2022-11-10] MEDS: CLOPIDOGREL 75 MG TAB PO SCH (08:07)
[2022-11-10] MEDS: **hydrALAZINE** 50 MG TAB PO SCH ×3 (08:07→20:30)
[2022-11-10] MEDS: CitaloPRAM (CeleXA) 20 MG TAB PO SCH (20:30)
[2022-11-10] MEDS: FLUTICASONE PROP 0.05% NASAL SPRAY 16 GM (FLONASE) SCH (20:36)
[2022-11-10] MEDS: LEVEMIR (INSULIN DETEMIR) 1 UNITS/0.01ML SC SCH (20:37)
[2022-11-10] MEDS: ATORVASTATIN 20 MG TAB PO SCH (20:38)
[2022-11-10] MEDS: ACETAMINOPHEN TAB 650MG DOSE (2X325MG) PO PRN (20:44)
[2022-11-10] MEDS ORDERED: ALBUTEROL 90 MCG/ACT 8GM HFA INHALER INH PRN (21:05)
[2022-11-11 00:46] VITALS: BP_SYST 125; BP_SYST 126; BP_DIAS 70
[2022-11-11 04:52] VITALS: BP 144/54
[2022-11-11] MEDS: LEVOTHYROXINE 150MCG TABLET (0.15MG) PO SCH (05:40)
[2022-11-11] MEDS: LEVOTHYROXINE 25MCG TABLET (0.025MG) PO SCH (05:40)
[2022-11-11 06:00] LABS: HEMATOCRIT 24.1 % (36.0-47.0); HEMOGLOBIN 7.5 g/dl (12.0-15.5); MEAN CORPUSCULAR VOLUME 102.1 fl (80.0-96.0); RED BLOOD COUNT 2.36 10^6/uL (4.00-5.40); WHITE BLOOD COUNT 6.1 10^3/uL (4.0-10.0)
[2022-11-11 06:01] LABS: MEAN CORPUSCULAR HEMOGLOBIN 31.8 pg (27.0-33.0); MEAN CORPUSCULAR HGB CONC 31.1 g/dl (32.0-36.5); PLATELET COUNT, AUTOMATED 202 10^3/uL (150-450)
[2022-11-11 06:32] LABS: PERCENT SATURATION 33.5 % (13.2-45.0)
[2022-11-11 06:35] LABS: ALBUMIN 3.2 G/DL (3.2-5.2); CALCIUM LEVEL 8.5 MG/DL (8.3-10.6); CREATININE FOR GFR 5.56 MG/DL (0.55-1.30); GLOMERULAR FILTRATION RATE 8.1 (>39); PHOSPHORUS LEVEL 4.5 MG/DL (2.4-5.1); POTASSIUM SERUM 4.7 MMOL/L (3.5-5.1)
[2022-11-11 07:57] VITALS: BP 138/66
[2022-11-11] MEDS: PANTOPRAZOLE 40MG TAB (PROTONIX) PO SCH (08:33)
[2022-11-11] MEDS: DOCUSATE SODIUM 100MG CAPSULE PO SCH ×2 (08:33→21:32)
[2022-11-11] MEDS: cloNIDine 0.2 MG TAB PO SCH ×3 (08:34→21:33)
[2022-11-11] MEDS: CARVedilol 12.5 MG TAB PO SCH ×2 (08:34→21:00)
[2022-11-11] MEDS: CLOPIDOGREL 75 MG TAB PO SCH (08:34)
[2022-11-11] MEDS: PRIMIDONE 50MG TAB PO SCH ×2 (08:34→21:32)
[2022-11-11] MEDS: LOSARTAN 50MG TABLET PO SCH (08:34)
[2022-11-11] MEDS: INSULIN LISPRO (NovoLOG) PER UNIT SC SCH ×4 (08:35→21:00)
[2022-11-11] MEDS: **hydrALAZINE** 50 MG TAB PO SCH ×3 (08:35→21:34)
[2022-11-11] MEDS: SUCROFERRIC OXYHYDROXIDE 500MG CHEW TAB (VELPHORO) PO SCH ×3 (08:35→16:52)
[2022-11-11 12:00] VITALS: BP 155/70
[2022-11-11 16:00] VITALS: BP 160/68
[2022-11-11 20:00] VITALS: BP 180/70
[2022-11-11] MEDS: ACETAMINOPHEN TAB 650MG DOSE (2X325MG) PO PRN (21:31)
[2022-11-11] MEDS: ATORVASTATIN 20 MG TAB PO SCH (21:32)
[2022-11-11] MEDS: CitaloPRAM (CeleXA) 20 MG TAB PO SCH (21:32)
[2022-11-11] MEDS: FLUTICASONE PROP 0.05% NASAL SPRAY 16 GM (FLONASE) SCH (21:38)
[2022-11-11] MEDS: LEVEMIR (INSULIN DETEMIR) 1 UNITS/0.01ML SC SCH (21:40)
[2022-11-12] VITALS (13 sets, daily range): BP systolic 142–185; BP diastolic 50–80
[2022-11-12 05:21] LABS: HEMATOCRIT 23.5 % (36.0-47.0); HEMOGLOBIN 7.3 g/dl (12.0-15.5); MEAN CORPUSCULAR HEMOGLOBIN 31.5 pg (27.0-33.0); MEAN CORPUSCULAR HGB CONC 31.1 g/dl (32.0-36.5); MEAN CORPUSCULAR VOLUME 101.3 fl (80.0-96.0); PLATELET COUNT, AUTOMATED 206 10^3/uL (150-450); RED BLOOD COUNT 2.32 10^6/uL (4.00-5.40)
[2022-11-12 05:54] LABS: ALBUMIN 3.1 G/DL (3.2-5.2); CALCIUM LEVEL 8.4 MG/DL (8.3-10.6); CREATININE FOR GFR 7.19 MG/DL (0.55-1.30); PHOSPHORUS LEVEL 4.4 MG/DL (2.4-5.1); POTASSIUM SERUM 4.9 MMOL/L (3.5-5.1)
[2022-11-12] MEDS: LEVOTHYROXINE 150MCG TABLET (0.15MG) PO SCH (06:06)
[2022-11-12] MEDS: LEVOTHYROXINE 25MCG TABLET (0.025MG) PO SCH (06:06)
[2022-11-12] MEDS: **hydrALAZINE** 50 MG TAB PO SCH ×3 (06:07→20:45)
[2022-11-12] MEDS: DOCUSATE SODIUM 100MG CAPSULE PO SCH ×2 (06:07→20:44)
[2022-11-12] MEDS: cloNIDine 0.2 MG TAB PO SCH ×3 (06:07→20:45)
[2022-11-12] MEDS: CARVedilol 12.5 MG TAB PO SCH (06:07)
[2022-11-12] MEDS: PRIMIDONE 50MG TAB PO SCH ×2 (06:08→20:43)
[2022-11-12] MEDS: LOSARTAN 50MG TABLET PO SCH (06:09)
[2022-11-12] MEDS: CLOPIDOGREL 75 MG TAB PO SCH (06:11)
[2022-11-12] MEDS: PANTOPRAZOLE 40MG TAB (PROTONIX) PO SCH (06:12)
[2022-11-12] MEDS ORDERED: HEPARIN 1,000UNITS/ML 10ML VIAL (FOR RADIOLOGY & DIALYSIS ONLY) XX SCH (06:50)
[2022-11-12] MEDS ORDERED: LIDOCAINE 1% SDV 5ML VIAL SC PRN (06:50)
[2022-11-12] MEDS ORDERED: HEPARIN 1,000UNITS/ML 10ML VIAL (FOR RADIOLOGY & DIALYSIS ONLY) IV PRN (06:50)
[2022-11-12] MEDS ORDERED: SODIUM CHLORIDE 0.9% 1000ML IV PRN (06:50)
[2022-11-12] MEDS: SUCROFERRIC OXYHYDROXIDE 500MG CHEW TAB (VELPHORO) PO SCH ×3 (07:08→16:58)
[2022-11-12] MEDS: INSULIN LISPRO (NovoLOG) PER UNIT SC SCH ×4 (07:09→20:46)
[2022-11-12] MEDS ORDERED: LEVE1INJ5 SC (09:00)
[2022-11-12] MEDS ORDERED: CARV12.5 PO (09:00)
[2022-11-12] MEDS ORDERED: HYDR100T PO (09:00)
[2022-11-12 13:23] LABS: HEMOGLOBIN 11.1 g/dl (12.0-15.5)
[2022-11-12] MEDS: ISOSORBIDE DIN (ISORDIL) 10MG TAB PO SCH ×2 (13:50→16:58)
[2022-11-12] MEDS: ATORVASTATIN 20 MG TAB PO SCH (20:43)
[2022-11-12] MEDS: FLUTICASONE PROP 0.05% NASAL SPRAY 16 GM (FLONASE) SCH (20:45)
[2022-11-12] MEDS: CitaloPRAM (CeleXA) 20 MG TAB PO SCH (20:45)
[2022-11-12] MEDS: LEVEMIR (INSULIN DETEMIR) 1 UNITS/0.01ML SC SCH (20:49)
[2022-11-13 05:54] LABS: HEMATOCRIT 32.2 % (36.0-47.0); HEMOGLOBIN 10.4 g/dl (12.0-15.5); MEAN CORPUSCULAR HGB CONC 32.3 g/dl (32.0-36.5); MEAN CORPUSCULAR VOLUME 95.8 fl (80.0-96.0); PLATELET COUNT, AUTOMATED 221 10^3/uL (150-450); RED BLOOD COUNT 3.36 10^6/uL (4.00-5.40); WHITE BLOOD COUNT 7.3 10^3/uL (4.0-10.0)
[2022-11-13 06:11] VITALS: BP 162/78
[2022-11-13] MEDS: LEVOTHYROXINE 25MCG TABLET (0.025MG) PO SCH (06:12)
[2022-11-13] MEDS: LEVOTHYROXINE 150MCG TABLET (0.15MG) PO SCH (06:12)
[2022-11-13] MEDS: ISOSORBIDE DIN (ISORDIL) 10MG TAB PO SCH ×2 (06:12→11:29)
[2022-11-13 06:19] LABS: ALBUMIN 3.5 G/DL (3.2-5.2); CREATININE FOR GFR 4.77 MG/DL (0.55-1.30); GLOMERULAR FILTRATION RATE 9.6 (>39); PHOSPHORUS LEVEL 3.4 MG/DL (2.4-5.1); POTASSIUM SERUM 4.4 MMOL/L (3.5-5.1)
[2022-11-13 08:00] VITALS: BP 128/64
[2022-11-13] MEDS: INSULIN LISPRO (NovoLOG) PER UNIT SC SCH (08:16)
[2022-11-13] MEDS: SUCROFERRIC OXYHYDROXIDE 500MG CHEW TAB (VELPHORO) PO SCH (08:16)
[2022-11-13 08:17] VITALS: BP 184/72
[2022-11-13] MEDS: **hydrALAZINE** 50 MG TAB PO SCH (08:17)
[2022-11-13] MEDS: cloNIDine 0.2 MG TAB PO SCH (08:17)
[2022-11-13] MEDS: PRIMIDONE 50MG TAB PO SCH (08:18)
[2022-11-13] MEDS: LOSARTAN 50MG TABLET PO SCH (08:18)
[2022-11-13] MEDS: CLOPIDOGREL 75 MG TAB PO SCH (08:19)
[2022-11-13] MEDS: DOCUSATE SODIUM 100MG CAPSULE PO SCH (08:19)
[2022-11-13] MEDS: PANTOPRAZOLE 40MG TAB (PROTONIX) PO SCH (08:19)
[2022-11-13] MEDS ORDERED: ISOS10TA3 PO (11:05)
[2022-11-13 11:08] VITALS: BP 159/69
[2022-11-13] MEDS ORDERED: cloNIDine 0.2 MG TAB PO ONE (11:45)
== END 2022-11-13 11:56 | disposition home health service (06) | DRG 304 ==
LOC: M ED 21:35 → EDBD 21:35 → M ED INP 11-08 08:12 → ENRESERV 11-09 14:33 → M PCU 11-09 17:40
PROVIDERS: ADMIT Family Medicine; ATTEND General Practice
PROC: 5A1D70Z Performance of Urinary Filtration, Intermittent, Less than 6 Hours Per Day (ICD-10-PCS; principal; 2022-11-09)
PROC: 30233N1 Transfusion of Nonautologous Red Blood Cells into Peripheral Vein, Percutaneous Approach (ICD-10-PCS; 2022-11-12)
DX: I16.1 Hypertensive emergency (principal); N18.6 End stage renal disease; I24.8 Other forms of acute ischemic heart disease; I50.32 Chronic diastolic (congestive) heart failure; J96.11 Chronic respiratory failure with hypoxia; I25.10 Atherosclerotic heart disease of native coronary artery without angina pectoris; I25.2 Old myocardial infarction; G47.33 Obstructive sleep apnea (adult) (pediatric); I27.20 Pulmonary hypertension, unspecified; H40.9 Unspecified glaucoma; I13.2 Hypertensive heart and chronic kidney disease with heart failure and with stage 5 chronic kidney disease, or end stage renal disease; E11.22 Type 2 diabetes mellitus with diabetic chronic kidney disease; F32.A Depression, unspecified; E87.70 Fluid overload, unspecified; E87.5 Hyperkalemia; H54.7 Unspecified visual loss; D63.1 Anemia in chronic kidney disease; Z99.2 Dependence on renal dialysis; Z99.81 Dependence on supplemental oxygen; Z86.16 Personal history of COVID-19; Z79.4 Long term (current) use of insulin; Z86.73 Personal history of transient ischemic attack (TIA), and cerebral infarction without residual deficits; Z95.1 Presence of aortocoronary bypass graft; Z98.41 Cataract extraction status, right eye; Z98.42 Cataract extraction status, left eye; Z85.828 Personal history of other malignant neoplasm of skin; Z79.02 Long term (current) use of antithrombotics/antiplatelets; Z79.899 Other long term (current) drug therapy; Z79.890 Hormone replacement therapy

== ENCOUNTER 2022-11-20 02:19 | Emergency (ER) | payer MEDICARE, BC ==
[~2022-11-20 02:19] MED LIST changes: +ACET-897 PO; +FLON1SPR NARES; +HYDR100T PO; +ISOS10TA3 PO; +MELA1TAB9 PO; +MIRA1POW3 PO
[2022-11-20 03:13] LABS: BASO # 0.1 10^3/uL (0.0-0.2); BASO % 0.8 % (0.0-1.0); EOS # 0.2 10^3/uL (0.0-0.5); EOS % 2.3 % (0.0-3.0); HEMATOCRIT 30.9 % (36.0-47.0); HEMOGLOBIN 9.7 g/dl (12.0-15.5); LYMPH # 0.8 10^3/uL (1.5-5.0); LYMPH % 12.3 % (24.0-44.0); MEAN CORPUSCULAR HEMOGLOBIN 31.2 pg (27.0-33.0); MEAN CORPUSCULAR HGB CONC 31.4 g/dl (32.0-36.5); MEAN CORPUSCULAR VOLUME 99.4 fl (80.0-96.0); MONO # 0.7 10^3/uL (0.0-0.8); MONO % 10.4 % (2.0-8.0); NEUTROPHILS # 4.8 10^3/uL (1.5-8.5); NEUTROPHILS % 73.7 % (36.0-66.0); PLATELET COUNT, AUTOMATED 217 10^3/uL (150-450); RED BLOOD COUNT 3.11 10^6/uL (4.00-5.40); WHITE BLOOD COUNT 6.5 10^3/uL (4.0-10.0)
[2022-11-20 03:37] LABS: CALCIUM LEVEL 8.2 MG/DL (8.3-10.6); CREATININE FOR GFR 4.58 MG/DL (0.55-1.30); GLOMERULAR FILTRATION RATE 10.1 (>39); POTASSIUM SERUM 4.5 MMOL/L (3.5-5.1)
[2022-11-20] MEDS ORDERED: LOSARTAN 50MG TABLET PO ONE (07:30)
[2022-11-20] MEDS ORDERED: **hydrALAZINE** 50 MG TAB PO ONE (07:30)
[2022-11-20] MEDS ORDERED: CLOPIDOGREL 75 MG TAB PO ONE (07:30)
[2022-11-20] MEDS ORDERED: cloNIDine 0.2 MG TAB PO ONE (07:30)
[2022-11-20] MEDS ORDERED: ONDANSETRON 4MG 2ML VIAL IV ONE (07:30)
[2022-11-20 08:01] VITALS: BP 178/89
[2022-11-20 08:41] LABS: LIPASE 31 U/L (12-53)
[2022-11-20 08:43] LABS: ALBUMIN 3.3 G/DL (3.2-5.2); ALKALINE PHOSPHATASE 512 U/L (46-116); ALT/SGPT 15 U/L (7.0-40); AST/SGOT 20 U/L (<34); BILIRUBIN,DIRECT < 0.1 MG/DL (<0.4); BILIRUBIN,TOTAL 0.2 MG/DL (0.3-1.2); TOTAL PROTEIN 6.8 G/DL (5.7-8.2)
[2022-11-20 09:57] VITALS: BP 173/78
== END 2022-11-20 10:33 | disposition home or self-care (01) ==
LOC: M ED 02:19
DX: R53.1 Weakness (principal); N18.6 End stage renal disease; Z99.2 Dependence on renal dialysis; I25.10 Atherosclerotic heart disease of native coronary artery without angina pectoris; I11.0 Hypertensive heart disease with heart failure; I25.2 Old myocardial infarction; E11.9 Type 2 diabetes mellitus without complications; I10 Essential (primary) hypertension; E78.5 Hyperlipidemia, unspecified; Z86.73 Personal history of transient ischemic attack (TIA), and cerebral infarction without residual deficits; I27.20 Pulmonary hypertension, unspecified; H40.9 Unspecified glaucoma; Z95.1 Presence of aortocoronary bypass graft; Z79.890 Hormone replacement therapy; Z79.84 Long term (current) use of oral hypoglycemic drugs; Z79.899 Other long term (current) drug therapy; Z88.8 Allergy status to other drugs, medicaments and biological substances
CPT/HCPCS: 71045; 80048; 80076; 83690; 85025; 86850; 86900; 86901; 87040; 87077; 87486; 87581; 87633; 87798; 93005; 93041; 94760; 96374; 99284; J2405

== ENCOUNTER 2022-11-26 07:51 | Inpatient (IN) | payer MEDICARE, BC ==
[~2022-11-26] VITALS: Ht 165.1 cm; Wt 86.3 kg
[2022-11-26 08:35] LABS: BASO # 0.1 10^3/uL (0.0-0.2); BASO % 0.3 % (0.0-1.0); EOS # 0.1 10^3/uL (0.0-0.5); EOS % 0.3 % (0.0-3.0); HEMATOCRIT 31.4 % (36.0-47.0); HEMOGLOBIN 9.8 g/dl (12.0-15.5); LYMPH # 0.4 10^3/uL (1.5-5.0); MEAN CORPUSCULAR HEMOGLOBIN 31.4 pg (27.0-33.0); MEAN CORPUSCULAR HGB CONC 31.2 g/dl (32.0-36.5); MEAN CORPUSCULAR VOLUME 100.6 fl (80.0-96.0); MONO # 0.5 10^3/uL (0.0-0.8); MONO % 2.7 % (2.0-8.0); NEUTROPHILS # 17.9 10^3/uL (1.5-8.5); PLATELET COUNT, AUTOMATED 172 10^3/uL (150-450); RED BLOOD COUNT 3.12 10^6/uL (4.00-5.40)
[2022-11-26] MEDS: LEVEMIR (INSULIN DETEMIR) 1 UNITS/0.01ML SC SCH (09:00)
[2022-11-26 09:02] LABS: THYROID STIMULATING HORMONE 1.437 uIU/ML (0.55-4.78)
[2022-11-26 09:07] LABS: CK-MB VALUE MASS 1.7 NG/ML (<3.6)
[2022-11-26 09:10] LABS: BILIRUBIN,DIRECT < 0.1 MG/DL (<0.4)
[2022-11-26 09:11] LABS: ALBUMIN 3.5 G/DL (3.2-5.2); ALKALINE PHOSPHATASE 548 U/L (46-116); ALT/SGPT 17 U/L (7.0-40); AST/SGOT 19 U/L (<34); BILIRUBIN,TOTAL 0.2 MG/DL (0.3-1.2); BLOOD UREA NITROGEN 61 MG/DL (9-23); CALCIUM LEVEL 8.9 MG/DL (8.3-10.6); CARBON DIOXIDE LEVEL 24 MMOL/L (20-31); CHLORIDE LEVEL 98 MMOL/L (98-107); CPK CREATINE PHOSPHOKINASE 73 U/L (34-145); CREATININE FOR GFR 7.24 MG/DL (0.55-1.30); GLOMERULAR FILTRATION RATE 5.9 (>39); GLUCOSE, FASTING 204 MG/DL (74-106); MB/CK RELATIVE INDEX 2.32 (< OR =4); POTASSIUM SERUM 4.2 MMOL/L (3.5-5.1); SODIUM LEVEL 139 MMOL/L (136-145); TOTAL PROTEIN 6.8 G/DL (5.7-8.2)
[2022-11-26 09:12] LABS: RSV AMPLIFICATION NEGATIVE (NEGATIVE)
[2022-11-26] MEDS ORDERED: HEPARIN 1,000UNITS/ML 10ML VIAL (FOR RADIOLOGY & DIALYSIS ONLY) IV PRN (09:45)
[2022-11-26] MEDS ORDERED: LIDOCAINE 1% SDV 5ML VIAL SC PRN (09:45)
[2022-11-26] MEDS ORDERED: HEPARIN 1,000UNITS/ML 10ML VIAL (FOR RADIOLOGY & DIALYSIS ONLY) XX SCH (09:45)
[2022-11-26] MEDS ORDERED: cefTRIAXone SOD 2 GM in D5W MINI-BAG PLUS 50 ML IV ONE (10:15)
[2022-11-26 10:24] LABS: CK-MB VALUE MASS 1.2 NG/ML (<3.6)
[2022-11-26 10:26] LABS: MB/CK RELATIVE INDEX 1.44 (< OR =4)
[2022-11-26] MEDS ORDERED: ISOS10TA9 PO (10:40)
[2022-11-26] MEDS ORDERED: HYDR100T PO (10:40)
[2022-11-26] MEDS ORDERED: LANTINJ4 SC (10:40)
[2022-11-26] MEDS ORDERED: CARV12.5 PO (10:41)
[2022-11-26] MEDS ORDERED: HOME MED LIST COMPLETE! XX SCH (10:45)
[2022-11-26] MEDS ORDERED: ALBUTEROL 90 MCG/ACT 8GM HFA INHALER INH PRN (12:55)
[2022-11-26] MEDS ORDERED: IPRATROPIUM 0.5MG/ALBUTEROL 2.5MG INH SOL UD 3ML (DUONEB) NEB PRN (13:00)
[2022-11-26] MEDS: ISOSORBIDE DIN (ISORDIL) 10MG TAB PO SCH ×2 (16:00→20:33)
[2022-11-26 18:28] VITALS: BP 180/60
[2022-11-26] MEDS: SUCROFERRIC OXYHYDROXIDE 500MG CHEW TAB (VELPHORO) PO SCH (18:28)
[2022-11-26] MEDS: cloNIDine 0.2 MG TAB PO SCH ×2 (18:29→20:29)
[2022-11-26] MEDS: GLIMEPIRIDE 2 MG TAB PO SCH (18:29)
[2022-11-26] MEDS: CLOPIDOGREL 75 MG TAB PO SCH (18:29)
[2022-11-26] MEDS: LACTOBACILLUS ACIDOPHILUS CAP (BACID) PO SCH (18:29)
[2022-11-26] MEDS: PANTOPRAZOLE 40MG TAB (PROTONIX) PO SCH (18:29)
[2022-11-26] MEDS: **hydrALAZINE** 50 MG TAB PO SCH ×2 (18:30→20:32)
[2022-11-26] MEDS: LOSARTAN 50MG TABLET PO SCH (18:30)
[2022-11-26] MEDS: IPRATROPIUM 0.5MG/ALBUTEROL 2.5MG INH SOL UD 3ML (DUONEB) NEB SCH (19:38)
[2022-11-26 20:00] VITALS: BP 198/72
[2022-11-26] MEDS ORDERED: DEXTROSE 50% 50ML SYRINGE IV PRN (20:20)
[2022-11-26] MEDS ORDERED: GLUCOSE 4GM CHEW TABLET PO PRN (20:20)
[2022-11-26] MEDS ORDERED: GLUCAGON INJ 1MG VIAL SC PRN (20:20)
[2022-11-26] MEDS: PRIMIDONE 50MG TAB PO SCH (20:28)
[2022-11-26] MEDS: ACETAMINOPHEN 500 MG TAB PO SCH (20:29)
[2022-11-26] MEDS: DOCUSATE SODIUM 100MG CAPSULE PO SCH (20:29)
[2022-11-26] MEDS: ATORVASTATIN 20 MG TAB PO SCH (20:29)
[2022-11-26] MEDS: CitaloPRAM (CeleXA) 20 MG TAB PO SCH (20:29)
[2022-11-26] MEDS: FLUTICASONE PROP 0.05% NASAL SPRAY 16 GM (FLONASE) NARES SCH (20:33)
[2022-11-26] MEDS: HEPARIN SOD (PORCINE) 5000UNITS/ML 1ML VIAL/SYRINGE SQ SCH (20:33)
[2022-11-26] MEDS: cefTRIAXone SOD 2 GM in D5W MINI-BAG PLUS 50 ML IV SCH (20:33)
[2022-11-26] MEDS: INSULIN LISPRO (NovoLOG) PER UNIT SC SCH (20:58)
[2022-11-26] MEDS ORDERED: CARVedilol 12.5 MG TAB PO SCH (21:00)
[2022-11-26] MEDS: DOXYCYCLINE HYCLATE 100 MG in D5W MINI-BAG PLUS 100 ML IV SCH (21:46)
[2022-11-26 23:08] VITALS: BP 180/58
[2022-11-27] VITALS (8 sets, daily range): BP systolic 168–190; BP diastolic 54–78; O2SAT 98
[2022-11-27 06:21] LABS: BASO # 0.1 10^3/uL (0.0-0.2); BASO % 0.5 % (0.0-1.0); EOS # 0.2 10^3/uL (0.0-0.5); HEMATOCRIT 29.5 % (36.0-47.0); HEMOGLOBIN 9.2 g/dl (12.0-15.5); LYMPH # 1.1 10^3/uL (1.5-5.0); LYMPH % 11.5 % (24.0-44.0); MEAN CORPUSCULAR HEMOGLOBIN 31.2 pg (27.0-33.0); MEAN CORPUSCULAR HGB CONC 31.2 g/dl (32.0-36.5); MONO # 0.5 10^3/uL (0.0-0.8); MONO % 5.4 % (2.0-8.0); NEUTROPHILS # 7.3 10^3/uL (1.5-8.5); NEUTROPHILS % 80.3 % (36.0-66.0); PLATELET COUNT, AUTOMATED 166 10^3/uL (150-450); RED BLOOD COUNT 2.95 10^6/uL (4.00-5.40); WHITE BLOOD COUNT 9.1 10^3/uL (4.0-10.0)
[2022-11-27 06:42] LABS: CALCIUM LEVEL 8.7 MG/DL (8.3-10.6); CREATININE FOR GFR 4.78 MG/DL (0.55-1.30); GLOMERULAR FILTRATION RATE 9.6 (>39); POTASSIUM SERUM 4.2 MMOL/L (3.5-5.1)
[2022-11-27] MEDS ORDERED: **hydrALAZINE** 50 MG TAB PO ONE (07:30)
[2022-11-27] MEDS: INSULIN LISPRO (NovoLOG) PER UNIT SC SCH ×4 (07:30→20:48)
[2022-11-27] MEDS: ISOSORBIDE DIN. (ISORDIL) 30 MG TAB PO SCH ×2 (07:49→11:51)
[2022-11-27] MEDS ORDERED: HEPARIN 1,000UNITS/ML 10ML VIAL (FOR RADIOLOGY & DIALYSIS ONLY) IV PRN (08:00)
[2022-11-27] MEDS ORDERED: LIDOCAINE 1% SDV 5ML VIAL SC PRN (08:00)
[2022-11-27] MEDS ORDERED: HEPARIN 1,000UNITS/ML 10ML VIAL (FOR RADIOLOGY & DIALYSIS ONLY) XX SCH (08:00)
[2022-11-27] MEDS: IPRATROPIUM 0.5MG/ALBUTEROL 2.5MG INH SOL UD 3ML (DUONEB) NEB SCH ×4 (08:05→19:47)
[2022-11-27] MEDS: HEPARIN SOD (PORCINE) 5000UNITS/ML 1ML VIAL/SYRINGE SQ SCH ×2 (08:58→20:40)
[2022-11-27] MEDS: GLIMEPIRIDE 2 MG TAB PO SCH (08:58)
[2022-11-27] MEDS: LEVEMIR (INSULIN DETEMIR) 1 UNITS/0.01ML SC SCH (08:58)
[2022-11-27] MEDS: ACETAMINOPHEN 500 MG TAB PO SCH ×2 (08:59→20:16)
[2022-11-27] MEDS: LOSARTAN 50MG TABLET PO SCH (08:59)
[2022-11-27] MEDS: DOCUSATE SODIUM 100MG CAPSULE PO SCH ×2 (08:59→20:16)
[2022-11-27] MEDS: PRIMIDONE 50MG TAB PO SCH ×2 (08:59→20:16)
[2022-11-27] MEDS: LACTOBACILLUS ACIDOPHILUS CAP (BACID) PO SCH ×2 (09:00→18:23)
[2022-11-27] MEDS: PANTOPRAZOLE 40MG TAB (PROTONIX) PO SCH (09:00)
[2022-11-27] MEDS: DOXYCYCLINE HYCLATE 100 MG in D5W MINI-BAG PLUS 100 ML IV SCH (09:00)
[2022-11-27] MEDS: CLOPIDOGREL 75 MG TAB PO SCH (09:00)
[2022-11-27] MEDS: SUCROFERRIC OXYHYDROXIDE 500MG CHEW TAB (VELPHORO) PO SCH ×3 (10:01→18:23)
[2022-11-27] MEDS: **hydrALAZINE** 50 MG TAB PO SCH ×3 (11:52→20:39)
[2022-11-27] MEDS ORDERED: PATIROMER SORBITEX CALCIUM 8.4 GM POWDER PACKET (VELTASSA) PO SCH (13:00)
[2022-11-27] MEDS: cefTRIAXone SOD 2 GM in D5W MINI-BAG PLUS 50 ML IV SCH (20:14)
[2022-11-27] MEDS: ATORVASTATIN 20 MG TAB PO SCH (20:16)
[2022-11-27] MEDS: CitaloPRAM (CeleXA) 20 MG TAB PO SCH (20:16)
[2022-11-27] MEDS: DOXYCYCLINE HYCLATE 100MG TABLET PO SCH (20:16)
[2022-11-27] MEDS: FLUTICASONE PROP 0.05% NASAL SPRAY 16 GM (FLONASE) NARES SCH (20:40)
[2022-11-27] MEDS: ISOSORBIDE DIN. (ISORDIL) 20 MG TAB PO SCH (22:23)
[2022-11-28 00:40] VITALS: BP 172/60
[2022-11-28 05:48] LABS: BASO # 0.1 10^3/uL (0.0-0.2); BASO % 0.9 % (0.0-1.0); EOS # 0.2 10^3/uL (0.0-0.5); EOS % 3.2 % (0.0-3.0); HEMATOCRIT 31.1 % (36.0-47.0); HEMOGLOBIN 9.7 g/dl (12.0-15.5); LYMPH # 1.2 10^3/uL (1.5-5.0); LYMPH % 16.3 % (24.0-44.0); MEAN CORPUSCULAR HEMOGLOBIN 31.5 pg (27.0-33.0); MEAN CORPUSCULAR HGB CONC 31.2 g/dl (32.0-36.5); MONO # 0.8 10^3/uL (0.0-0.8); MONO % 10.3 % (2.0-8.0); NEUTROPHILS # 5.2 10^3/uL (1.5-8.5); NEUTROPHILS % 68.9 % (36.0-66.0); PLATELET COUNT, AUTOMATED 205 10^3/uL (150-450); RED BLOOD COUNT 3.08 10^6/uL (4.00-5.40); WHITE BLOOD COUNT 7.5 10^3/uL (4.0-10.0)
[2022-11-28] MEDS: HEPARIN SOD (PORCINE) 5000UNITS/ML 1ML VIAL/SYRINGE SQ SCH ×2 (06:15→20:28)
[2022-11-28] MEDS: ACETAMINOPHEN 500 MG TAB PO SCH ×2 (06:16→20:26)
[2022-11-28] MEDS: PANTOPRAZOLE 40MG TAB (PROTONIX) PO SCH (06:17)
[2022-11-28] MEDS: DOXYCYCLINE HYCLATE 100MG TABLET PO SCH ×2 (06:17→20:25)
[2022-11-28] MEDS: DOCUSATE SODIUM 100MG CAPSULE PO SCH ×2 (06:17→20:25)
[2022-11-28 06:18] LABS: CALCIUM LEVEL 9.1 MG/DL (8.3-10.6); CREATININE FOR GFR 6.73 MG/DL (0.55-1.30); GLOMERULAR FILTRATION RATE 6.5 (>39); POTASSIUM SERUM 4.2 MMOL/L (3.5-5.1)
[2022-11-28] MEDS: **hydrALAZINE** 50 MG TAB PO SCH (06:18)
[2022-11-28] MEDS: LACTOBACILLUS ACIDOPHILUS CAP (BACID) PO SCH ×2 (06:19→18:05)
[2022-11-28] MEDS: LOSARTAN 50MG TABLET PO SCH (06:19)
[2022-11-28] MEDS: PRIMIDONE 50MG TAB PO SCH ×2 (06:20→20:25)
[2022-11-28] MEDS: CLOPIDOGREL 75 MG TAB PO SCH (06:20)
[2022-11-28] MEDS: GLIMEPIRIDE 2 MG TAB PO SCH (06:21)
[2022-11-28] MEDS: ISOSORBIDE DIN. (ISORDIL) 20 MG TAB PO SCH (06:26)
[2022-11-28] MEDS: SUCROFERRIC OXYHYDROXIDE 500MG CHEW TAB (VELPHORO) PO SCH ×3 (06:32→18:05)
[2022-11-28 06:42] VITALS: BP 178/60
[2022-11-28] MEDS ORDERED: SODIUM CHLORIDE 0.9% 1000ML IV PRN (06:55)
[2022-11-28] MEDS ORDERED: HEPARIN 1,000UNITS/ML 10ML VIAL (FOR RADIOLOGY & DIALYSIS ONLY) XX SCH (06:55)
[2022-11-28] MEDS ORDERED: LIDOCAINE 1% SDV 5ML VIAL SC PRN (06:55)
[2022-11-28] MEDS ORDERED: HEPARIN 1,000UNITS/ML 10ML VIAL (FOR RADIOLOGY & DIALYSIS ONLY) IV PRN (06:55)
[2022-11-28] MEDS: LEVEMIR (INSULIN DETEMIR) 1 UNITS/0.01ML SC SCH (07:52)
[2022-11-28] MEDS: INSULIN LISPRO (NovoLOG) PER UNIT SC SCH ×4 (07:53→20:31)
[2022-11-28] MEDS ORDERED: ISOSORBIDE MON. (IMDUR) 60MG XR TAB PO ONE (08:00)
[2022-11-28] MEDS: IPRATROPIUM 0.5MG/ALBUTEROL 2.5MG INH SOL UD 3ML (DUONEB) NEB SCH ×4 (08:00→19:57)
[2022-11-28 12:30] VITALS: BP 180/62
[2022-11-28] MEDS ORDERED: **hydrALAZINE** 50 MG TAB PO ONE (13:10)
[2022-11-28 14:00] VITALS: BP 148/48
[2022-11-28 20:00] VITALS: BP 176/60
[2022-11-28] MEDS: ATORVASTATIN 20 MG TAB PO SCH (20:25)
[2022-11-28] MEDS: CitaloPRAM (CeleXA) 20 MG TAB PO SCH (20:25)
[2022-11-28] MEDS: cefTRIAXone SOD 2 GM in D5W MINI-BAG PLUS 50 ML IV SCH (20:26)
[2022-11-28] MEDS: ISOSORBIDE MON. (IMDUR) 60MG XR TAB PO SCH (20:27)
[2022-11-28] MEDS: FLUTICASONE PROP 0.05% NASAL SPRAY 16 GM (FLONASE) NARES SCH (20:29)
[2022-11-29 05:43] VITALS: BP_SYST 156; BP_SYST 178; BP_DIAS 58; BP_DIAS 64
[2022-11-29 06:12] LABS: BASO # 0.1 10^3/uL (0.0-0.2); BASO % 0.9 % (0.0-1.0); EOS # 0.2 10^3/uL (0.0-0.5); EOS % 2.7 % (0.0-3.0); HEMATOCRIT 34.5 % (36.0-47.0); HEMOGLOBIN 10.9 g/dl (12.0-15.5); LYMPH # 1.1 10^3/uL (1.5-5.0); MEAN CORPUSCULAR HEMOGLOBIN 31.8 pg (27.0-33.0); MEAN CORPUSCULAR HGB CONC 31.6 g/dl (32.0-36.5); MEAN CORPUSCULAR VOLUME 100.6 fl (80.0-96.0); MONO % 12.8 % (2.0-8.0); NEUTROPHILS # 5.1 10^3/uL (1.5-8.5); NEUTROPHILS % 67.8 % (36.0-66.0); PLATELET COUNT, AUTOMATED 252 10^3/uL (150-450); RED BLOOD COUNT 3.43 10^6/uL (4.00-5.40); WHITE BLOOD COUNT 7.5 10^3/uL (4.0-10.0)
[2022-11-29 06:43] LABS: CREATININE FOR GFR 4.67 MG/DL (0.55-1.30); GLOMERULAR FILTRATION RATE 9.9 (>39); POTASSIUM SERUM 4.5 MMOL/L (3.5-5.1)
[2022-11-29] MEDS: IPRATROPIUM 0.5MG/ALBUTEROL 2.5MG INH SOL UD 3ML (DUONEB) NEB SCH ×4 (07:12→20:15)
[2022-11-29] MEDS: LACTOBACILLUS ACIDOPHILUS CAP (BACID) PO SCH ×2 (08:26→18:00)
[2022-11-29] MEDS: DOCUSATE SODIUM 100MG CAPSULE PO SCH (08:26)
[2022-11-29] MEDS: CLOPIDOGREL 75 MG TAB PO SCH (08:26)
[2022-11-29] MEDS: PRIMIDONE 50MG TAB PO SCH ×2 (08:26→22:12)
[2022-11-29] MEDS: GLIMEPIRIDE 2 MG TAB PO SCH (08:26)
[2022-11-29] MEDS: PANTOPRAZOLE 40MG TAB (PROTONIX) PO SCH (08:26)
[2022-11-29] MEDS: DOXYCYCLINE HYCLATE 100MG TABLET PO SCH (08:26)
[2022-11-29] MEDS: LOSARTAN 50MG TABLET PO SCH (08:27)
[2022-11-29] MEDS: **hydrALAZINE** 50 MG TAB PO SCH ×4 (08:27→22:09)
[2022-11-29] MEDS: ACETAMINOPHEN 500 MG TAB PO SCH ×2 (08:28→22:08)
[2022-11-29] MEDS: INSULIN LISPRO (NovoLOG) PER UNIT SC SCH ×4 (08:29→20:50)
[2022-11-29] MEDS: HEPARIN SOD (PORCINE) 5000UNITS/ML 1ML VIAL/SYRINGE SQ SCH ×2 (08:29→22:11)
[2022-11-29] MEDS: LEVEMIR (INSULIN DETEMIR) 1 UNITS/0.01ML SC SCH (08:29)
[2022-11-29] MEDS: SUCROFERRIC OXYHYDROXIDE 500MG CHEW TAB (VELPHORO) PO SCH ×3 (08:36→18:00)
[2022-11-29] MEDS ORDERED: ISOSORBIDE MON. (IMDUR) 60MG XR TAB PO SCH (09:00)
[2022-11-29] MEDS ORDERED: BISACODYL 5MG TAB PO ONE (10:10)
[2022-11-29] MEDS ORDERED: BISACODYL 5MG TAB PO PRN (10:10)
[2022-11-29] MEDS ORDERED: FLEET ENEMA PR PRN (10:10)
[2022-11-29] MEDS: MIRALAX *UNIT DOSE* 17GM PACKET PO SCH ×2 (12:27→22:11)
[2022-11-29] MEDS: SENOKOT S TAB PO SCH ×2 (12:28→22:13)
[2022-11-29] MEDS ORDERED: METOPROLOL TART 50 MG TAB PO ONE (16:05)
[2022-11-29] MEDS: MOXIFLOXACIN 400 MG TAB PO SCH (18:00)
[2022-11-29] MEDS: ISOSORBIDE MON. (IMDUR) 60MG XR TAB PO SCH (22:10)
[2022-11-29] MEDS: ONDANSETRON 4MG TAB PO PRN (22:11)
[2022-11-29] MEDS: ATORVASTATIN 20 MG TAB PO SCH (22:11)
[2022-11-29] MEDS: CitaloPRAM (CeleXA) 20 MG TAB PO SCH (22:12)
[2022-11-29] MEDS: FLUTICASONE PROP 0.05% NASAL SPRAY 16 GM (FLONASE) NARES SCH (22:14)
[2022-11-29] MEDS: RAMELTEON 8 MG TAB (ROZEREM) PO PRN (22:28)
[2022-11-30] MEDS: SENOKOT S TAB PO SCH ×2 (05:58→22:24)
[2022-11-30] MEDS: LACTOBACILLUS ACIDOPHILUS CAP (BACID) PO SCH ×2 (05:58→17:47)
[2022-11-30 06:00] VITALS: BP 127/60
[2022-11-30 06:07] LABS: BASO # 0.1 10^3/uL (0.0-0.2); EOS # 0.2 10^3/uL (0.0-0.5); HEMATOCRIT 33.8 % (36.0-47.0); HEMOGLOBIN 10.1 g/dl (12.0-15.5); LYMPH # 1.4 10^3/uL (1.5-5.0); LYMPH % 19.8 % (24.0-44.0); MEAN CORPUSCULAR HEMOGLOBIN 30.8 pg (27.0-33.0); MEAN CORPUSCULAR HGB CONC 29.9 g/dl (32.0-36.5); MONO # 1.1 10^3/uL (0.0-0.8); MONO % 15.1 % (2.0-8.0); NEUTROPHILS # 4.3 10^3/uL (1.5-8.5); NEUTROPHILS % 60.1 % (36.0-66.0); PLATELET COUNT, AUTOMATED 256 10^3/uL (150-450); RED BLOOD COUNT 3.28 10^6/uL (4.00-5.40); WHITE BLOOD COUNT 7.1 10^3/uL (4.0-10.0)
[2022-11-30] MEDS: MIRALAX *UNIT DOSE* 17GM PACKET PO SCH ×2 (06:07→22:24)
[2022-11-30] MEDS: PANTOPRAZOLE 40MG TAB (PROTONIX) PO SCH (06:07)
[2022-11-30] MEDS: **hydrALAZINE** 50 MG TAB PO SCH (06:08)
[2022-11-30] MEDS: CLOPIDOGREL 75 MG TAB PO SCH (06:08)
[2022-11-30] MEDS: PRIMIDONE 50MG TAB PO SCH ×2 (06:11→22:25)
[2022-11-30] MEDS: ACETAMINOPHEN 500 MG TAB PO SCH ×2 (06:11→22:26)
[2022-11-30] MEDS: HEPARIN SOD (PORCINE) 5000UNITS/ML 1ML VIAL/SYRINGE SQ SCH ×2 (06:12→22:26)
[2022-11-30] MEDS: LOSARTAN 50MG TABLET PO SCH (06:40)
[2022-11-30 06:48] LABS: CALCIUM LEVEL 9.3 MG/DL (8.3-10.6); CREATININE FOR GFR 6.26 MG/DL (0.55-1.30); POTASSIUM SERUM 4.7 MMOL/L (3.5-5.1)
[2022-11-30] MEDS: IPRATROPIUM 0.5MG/ALBUTEROL 2.5MG INH SOL UD 3ML (DUONEB) NEB SCH ×4 (07:08→20:00)
[2022-11-30] MEDS: SUCROFERRIC OXYHYDROXIDE 500MG CHEW TAB (VELPHORO) PO SCH ×3 (07:16→17:47)
[2022-11-30] MEDS: LEVEMIR (INSULIN DETEMIR) 1 UNITS/0.01ML SC SCH (07:17)
[2022-11-30] MEDS: INSULIN LISPRO (NovoLOG) PER UNIT SC SCH ×4 (07:18→21:00)
[2022-11-30] MEDS: GLIMEPIRIDE 2 MG TAB PO SCH (07:19)
[2022-11-30] MEDS ORDERED: HEPARIN 1,000UNITS/ML 10ML VIAL (FOR RADIOLOGY & DIALYSIS ONLY) XX SCH (08:20)
[2022-11-30] MEDS ORDERED: LIDOCAINE 1% SDV 5ML VIAL SC PRN (08:20)
[2022-11-30] MEDS ORDERED: HEPARIN 1,000UNITS/ML 10ML VIAL (FOR RADIOLOGY & DIALYSIS ONLY) IV PRN (08:20)
[2022-11-30] MEDS ORDERED: SODIUM CHLORIDE 0.9% 1000ML IV PRN (08:20)
[2022-11-30] MEDS ORDERED: PERCOCET 5MG/325MG TAB PO ONE (10:00)
[2022-11-30] MEDS: LIDOCAINE 5% (LIDODERM) PATCH TD SCH (13:57)
[2022-11-30] MEDS: PERCOCET 5MG/325MG TAB PO PRN (16:45)
[2022-11-30] MEDS: MOXIFLOXACIN 400 MG TAB PO SCH (17:47)
[2022-11-30] MEDS: ISOSORBIDE MON. (IMDUR) 60MG XR TAB PO SCH (21:00)
[2022-11-30] MEDS: RAMELTEON 8 MG TAB (ROZEREM) PO PRN (22:22)
[2022-11-30] MEDS: ATORVASTATIN 20 MG TAB PO SCH (22:23)
[2022-11-30] MEDS: FLUTICASONE PROP 0.05% NASAL SPRAY 16 GM (FLONASE) NARES SCH (22:26)
[2022-11-30] MEDS: CitaloPRAM (CeleXA) 20 MG TAB PO SCH (22:27)
[2022-12-01 05:40] LABS: BASO # 0.1 10^3/uL (0.0-0.2); BASO % 0.8 % (0.0-1.0); EOS # 0.2 10^3/uL (0.0-0.5); EOS % 3.2 % (0.0-3.0); HEMATOCRIT 34.6 % (36.0-47.0); HEMOGLOBIN 10.8 g/dl (12.0-15.5); LYMPH # 1.2 10^3/uL (1.5-5.0); LYMPH % 16.2 % (24.0-44.0); MEAN CORPUSCULAR HEMOGLOBIN 31.1 pg (27.0-33.0); MEAN CORPUSCULAR HGB CONC 31.2 g/dl (32.0-36.5); MEAN CORPUSCULAR VOLUME 99.7 fl (80.0-96.0); MONO # 1.1 10^3/uL (0.0-0.8); MONO % 14.6 % (2.0-8.0); NEUTROPHILS # 4.7 10^3/uL (1.5-8.5); NEUTROPHILS % 64.6 % (36.0-66.0); PLATELET COUNT, AUTOMATED 267 10^3/uL (150-450); RED BLOOD COUNT 3.47 10^6/uL (4.00-5.40); WHITE BLOOD COUNT 7.2 10^3/uL (4.0-10.0)
[2022-12-01 06:05] VITALS: BP 147/57
[2022-12-01 06:10] LABS: CALCIUM LEVEL 9.1 MG/DL (8.3-10.6); CREATININE FOR GFR 4.04 MG/DL (0.55-1.30); GLOMERULAR FILTRATION RATE 11.6 (>39); POTASSIUM SERUM 3.9 MMOL/L (3.5-5.1)
[2022-12-01] MEDS: IPRATROPIUM 0.5MG/ALBUTEROL 2.5MG INH SOL UD 3ML (DUONEB) NEB SCH ×4 (07:08→20:29)
[2022-12-01] MEDS: LOSARTAN 50MG TABLET PO SCH (09:00)
[2022-12-01] MEDS: SUCROFERRIC OXYHYDROXIDE 500MG CHEW TAB (VELPHORO) PO SCH ×3 (09:33→18:15)
[2022-12-01] MEDS: MIRALAX *UNIT DOSE* 17GM PACKET PO SCH ×2 (09:33→21:34)
[2022-12-01] MEDS: INSULIN LISPRO (NovoLOG) PER UNIT SC SCH ×4 (09:34→21:00)
[2022-12-01] MEDS: LEVEMIR (INSULIN DETEMIR) 1 UNITS/0.01ML SC SCH (09:34)
[2022-12-01] MEDS: LIDOCAINE 5% (LIDODERM) PATCH TD SCH (09:34)
[2022-12-01] MEDS: HEPARIN SOD (PORCINE) 5000UNITS/ML 1ML VIAL/SYRINGE SQ SCH ×2 (09:35→21:33)
[2022-12-01] MEDS: SENOKOT S TAB PO SCH ×2 (09:35→21:32)
[2022-12-01] MEDS: GLIMEPIRIDE 2 MG TAB PO SCH (09:35)
[2022-12-01] MEDS: ACETAMINOPHEN 500 MG TAB PO SCH ×2 (09:35→21:34)
[2022-12-01] MEDS: CLOPIDOGREL 75 MG TAB PO SCH (09:35)
[2022-12-01] MEDS: LACTOBACILLUS ACIDOPHILUS CAP (BACID) PO SCH ×2 (09:36→18:15)
[2022-12-01] MEDS: PANTOPRAZOLE 40MG TAB (PROTONIX) PO SCH (09:48)
[2022-12-01] MEDS: PRIMIDONE 50MG TAB PO SCH ×2 (09:48→21:32)
[2022-12-01 13:23] VITALS: BP 140/52
[2022-12-01] MEDS: MOXIFLOXACIN 400 MG TAB PO SCH (18:15)
[2022-12-01] MEDS: CitaloPRAM (CeleXA) 20 MG TAB PO SCH (21:32)
[2022-12-01] MEDS: ATORVASTATIN 20 MG TAB PO SCH (21:32)
[2022-12-01] MEDS: FLUTICASONE PROP 0.05% NASAL SPRAY 16 GM (FLONASE) NARES SCH (21:33)
[2022-12-01] MEDS: RAMELTEON 8 MG TAB (ROZEREM) PO PRN (21:36)
[2022-12-01] MEDS: ISOSORBIDE MON. (IMDUR) 60MG XR TAB PO SCH (21:42)
[2022-12-02 06:00] VITALS: BP 124/55
[2022-12-02 06:02] LABS: BASO # 0.1 10^3/uL (0.0-0.2); BASO % 0.7 % (0.0-1.0); EOS # 0.2 10^3/uL (0.0-0.5); EOS % 3.4 % (0.0-3.0); HEMATOCRIT 33.7 % (36.0-47.0); HEMOGLOBIN 10.7 g/dl (12.0-15.5); LYMPH # 1.3 10^3/uL (1.5-5.0); LYMPH % 19.9 % (24.0-44.0); MEAN CORPUSCULAR HEMOGLOBIN 32.2 pg (27.0-33.0); MEAN CORPUSCULAR HGB CONC 31.8 g/dl (32.0-36.5); MEAN CORPUSCULAR VOLUME 101.5 fl (80.0-96.0); MONO % 15.3 % (2.0-8.0); NEUTROPHILS % 60.1 % (36.0-66.0); PLATELET COUNT, AUTOMATED 261 10^3/uL (150-450); RED BLOOD COUNT 3.32 10^6/uL (4.00-5.40); WHITE BLOOD COUNT 6.7 10^3/uL (4.0-10.0)
[2022-12-02 06:29] LABS: CALCIUM LEVEL 9.2 MG/DL (8.3-10.6); CREATININE FOR GFR 6.03 MG/DL (0.55-1.30); GLOMERULAR FILTRATION RATE 7.3 (>39); POTASSIUM SERUM 4.3 MMOL/L (3.5-5.1)
[2022-12-02] MEDS: IPRATROPIUM 0.5MG/ALBUTEROL 2.5MG INH SOL UD 3ML (DUONEB) NEB SCH ×4 (07:15→18:05)
[2022-12-02] MEDS: LOSARTAN 50MG TABLET PO SCH (09:00)
[2022-12-02] MEDS: SENOKOT S TAB PO SCH ×2 (09:27→22:18)
[2022-12-02] MEDS: LACTOBACILLUS ACIDOPHILUS CAP (BACID) PO SCH ×2 (09:27→17:38)
[2022-12-02] MEDS: CLOPIDOGREL 75 MG TAB PO SCH (09:27)
[2022-12-02] MEDS: GLIMEPIRIDE 2 MG TAB PO SCH (09:27)
[2022-12-02] MEDS: PRIMIDONE 50MG TAB PO SCH ×2 (09:27→22:17)
[2022-12-02] MEDS: ACETAMINOPHEN 500 MG TAB PO SCH ×2 (09:28→22:15)
[2022-12-02] MEDS: PANTOPRAZOLE 40MG TAB (PROTONIX) PO SCH (09:28)
[2022-12-02] MEDS: HEPARIN SOD (PORCINE) 5000UNITS/ML 1ML VIAL/SYRINGE SQ SCH ×2 (09:28→22:17)
[2022-12-02] MEDS: LEVEMIR (INSULIN DETEMIR) 1 UNITS/0.01ML SC SCH (09:28)
[2022-12-02] MEDS: INSULIN LISPRO (NovoLOG) PER UNIT SC SCH ×4 (09:29→21:00)
[2022-12-02] MEDS: SUCROFERRIC OXYHYDROXIDE 500MG CHEW TAB (VELPHORO) PO SCH ×3 (09:29→17:38)
[2022-12-02] MEDS: MIRALAX *UNIT DOSE* 17GM PACKET PO SCH ×2 (09:29→22:16)
[2022-12-02] MEDS: LIDOCAINE 5% (LIDODERM) PATCH TD SCH (09:30)
[2022-12-02] MEDS: ONDANSETRON 4MG TAB PO PRN (10:52)
[2022-12-02] MEDS: MOXIFLOXACIN 400 MG TAB PO SCH (17:38)
[2022-12-02] MEDS: CitaloPRAM (CeleXA) 20 MG TAB PO SCH (22:18)
[2022-12-02] MEDS: ATORVASTATIN 20 MG TAB PO SCH (22:18)
[2022-12-02] MEDS: ISOSORBIDE MON. (IMDUR) 60MG XR TAB PO SCH (22:26)
[2022-12-02] MEDS: FLUTICASONE PROP 0.05% NASAL SPRAY 16 GM (FLONASE) NARES SCH (22:31)
[2022-12-03 05:30] LABS: BASO # 0.1 10^3/uL (0.0-0.2); EOS # 0.3 10^3/uL (0.0-0.5); EOS % 4.1 % (0.0-3.0); HEMATOCRIT 31.4 % (36.0-47.0); HEMOGLOBIN 9.8 g/dl (12.0-15.5); LYMPH # 1.5 10^3/uL (1.5-5.0); LYMPH % 23.6 % (24.0-44.0); MEAN CORPUSCULAR HEMOGLOBIN 31.8 pg (27.0-33.0); MEAN CORPUSCULAR HGB CONC 31.2 g/dl (32.0-36.5); MEAN CORPUSCULAR VOLUME 101.9 fl (80.0-96.0); MONO % 16.3 % (2.0-8.0); NEUTROPHILS # 3.3 10^3/uL (1.5-8.5); NEUTROPHILS % 54.3 % (36.0-66.0); PLATELET COUNT, AUTOMATED 248 10^3/uL (150-450); RED BLOOD COUNT 3.08 10^6/uL (4.00-5.40); WHITE BLOOD COUNT 6.1 10^3/uL (4.0-10.0)
[2022-12-03 05:57] LABS: CALCIUM LEVEL 9.2 MG/DL (8.3-10.6); CREATININE FOR GFR 7.61 MG/DL (0.55-1.30); GLOMERULAR FILTRATION RATE 5.6 (>39); POTASSIUM SERUM 5.2 MMOL/L (3.5-5.1)
[2022-12-03 06:00] VITALS: BP 140/58
[2022-12-03] MEDS ORDERED: HEPARIN 1,000UNITS/ML 10ML VIAL (FOR RADIOLOGY & DIALYSIS ONLY) XX SCH (06:00)
[2022-12-03] MEDS ORDERED: LIDOCAINE 1% SDV 5ML VIAL SC PRN (06:00)
[2022-12-03] MEDS ORDERED: SODIUM CHLORIDE 0.9% 1000ML IV PRN (06:00)
[2022-12-03] MEDS ORDERED: HEPARIN 1,000UNITS/ML 10ML VIAL (FOR RADIOLOGY & DIALYSIS ONLY) IV PRN (06:00)
[2022-12-03] MEDS: INSULIN LISPRO (NovoLOG) PER UNIT SC SCH ×5 (06:52→21:00)
[2022-12-03] MEDS: LACTOBACILLUS ACIDOPHILUS CAP (BACID) PO SCH ×2 (06:55→18:07)
[2022-12-03] MEDS: ACETAMINOPHEN 500 MG TAB PO SCH ×2 (06:55→21:57)
[2022-12-03] MEDS: PRIMIDONE 50MG TAB PO SCH ×2 (06:56→21:58)
[2022-12-03] MEDS: SENOKOT S TAB PO SCH ×2 (06:56→21:58)
[2022-12-03] MEDS: GLIMEPIRIDE 2 MG TAB PO SCH (06:56)
[2022-12-03] MEDS: CLOPIDOGREL 75 MG TAB PO SCH (06:57)
[2022-12-03] MEDS: PANTOPRAZOLE 40MG TAB (PROTONIX) PO SCH (06:57)
[2022-12-03] MEDS: SUCROFERRIC OXYHYDROXIDE 500MG CHEW TAB (VELPHORO) PO SCH ×4 (06:57→18:07)
[2022-12-03] MEDS: LIDOCAINE 5% (LIDODERM) PATCH TD SCH (06:58)
[2022-12-03] MEDS: HEPARIN SOD (PORCINE) 5000UNITS/ML 1ML VIAL/SYRINGE SQ SCH ×2 (06:58→21:57)
[2022-12-03] MEDS: MIRALAX *UNIT DOSE* 17GM PACKET PO SCH ×2 (06:58→22:05)
[2022-12-03] MEDS: LOSARTAN 50MG TABLET PO SCH (07:02)
[2022-12-03] MEDS: LEVEMIR (INSULIN DETEMIR) 1 UNITS/0.01ML SC SCH (07:46)
[2022-12-03] MEDS: IPRATROPIUM 0.5MG/ALBUTEROL 2.5MG INH SOL UD 3ML (DUONEB) NEB SCH (07:47)
[2022-12-03 07:49] VITALS: BP 158/54
[2022-12-03] MEDS: ONDANSETRON 4MG TAB PO PRN (14:04)
[2022-12-03] MEDS: PERCOCET 5MG/325MG TAB PO PRN (18:07)
[2022-12-03] MEDS: CitaloPRAM (CeleXA) 20 MG TAB PO SCH (21:57)
[2022-12-03] MEDS: ATORVASTATIN 20 MG TAB PO SCH (21:58)
[2022-12-03] MEDS: FLUTICASONE PROP 0.05% NASAL SPRAY 16 GM (FLONASE) NARES SCH (21:59)
[2022-12-03] MEDS: ISOSORBIDE MON. (IMDUR) 60MG XR TAB PO SCH (22:01)
[2022-12-03 23:50] VITALS: BP 158/60
[2022-12-04 06:00] VITALS: BP 142/58
[2022-12-04] MEDS ORDERED: HEPARIN 1,000UNITS/ML 10ML VIAL (FOR RADIOLOGY & DIALYSIS ONLY) IV PRN (06:00)
[2022-12-04] MEDS ORDERED: LIDOCAINE 1% SDV 5ML VIAL SC PRN (06:00)
[2022-12-04] MEDS ORDERED: HEPARIN 1,000UNITS/ML 10ML VIAL (FOR RADIOLOGY & DIALYSIS ONLY) XX SCH (06:00)
[2022-12-04] MEDS ORDERED: SODIUM CHLORIDE 0.9% 1000ML IV PRN (06:00)
[2022-12-04] MEDS: SENOKOT S TAB PO SCH ×2 (06:32→21:11)
[2022-12-04] MEDS: CLOPIDOGREL 75 MG TAB PO SCH (06:33)
[2022-12-04] MEDS: PRIMIDONE 50MG TAB PO SCH ×2 (06:33→21:12)
[2022-12-04] MEDS: ACETAMINOPHEN 500 MG TAB PO SCH ×2 (06:33→21:11)
[2022-12-04] MEDS: LACTOBACILLUS ACIDOPHILUS CAP (BACID) PO SCH ×2 (06:33→17:01)
[2022-12-04] MEDS: GLIMEPIRIDE 2 MG TAB PO SCH (06:34)
[2022-12-04] MEDS: MIRALAX *UNIT DOSE* 17GM PACKET PO SCH ×2 (06:35→21:11)
[2022-12-04] MEDS: PANTOPRAZOLE 40MG TAB (PROTONIX) PO SCH (06:36)
[2022-12-04] MEDS: HEPARIN SOD (PORCINE) 5000UNITS/ML 1ML VIAL/SYRINGE SQ SCH ×2 (06:36→21:12)
[2022-12-04] MEDS: LIDOCAINE 5% (LIDODERM) PATCH TD SCH (06:37)
[2022-12-04] MEDS: SUCROFERRIC OXYHYDROXIDE 500MG CHEW TAB (VELPHORO) PO SCH ×3 (07:12→17:01)
[2022-12-04] MEDS: INSULIN LISPRO (NovoLOG) PER UNIT SC SCH ×4 (07:30→21:00)
[2022-12-04] MEDS: LEVEMIR (INSULIN DETEMIR) 1 UNITS/0.01ML SC SCH (07:53)
[2022-12-04] MEDS: ONDANSETRON 4MG TAB PO PRN (13:12)
[2022-12-04] MEDS: FLUTICASONE PROP 0.05% NASAL SPRAY 16 GM (FLONASE) NARES SCH (21:12)
[2022-12-04] MEDS: CitaloPRAM (CeleXA) 20 MG TAB PO SCH (21:12)
[2022-12-04] MEDS: ATORVASTATIN 20 MG TAB PO SCH (21:12)
[2022-12-04] MEDS: ISOSORBIDE MON. (IMDUR) 60MG XR TAB PO SCH (21:14)
[2022-12-05 06:00] VITALS: BP 142/64
[2022-12-05] MEDS ORDERED: SODIUM CHLORIDE 0.9% 1000ML IV PRN (06:00)
[2022-12-05] MEDS ORDERED: LIDOCAINE 1% SDV 5ML VIAL SC PRN (06:00)
[2022-12-05] MEDS ORDERED: HEPARIN 1,000UNITS/ML 10ML VIAL (FOR RADIOLOGY & DIALYSIS ONLY) IV PRN (06:00)
[2022-12-05] MEDS ORDERED: HEPARIN 1,000UNITS/ML 10ML VIAL (FOR RADIOLOGY & DIALYSIS ONLY) XX SCH (06:00)
[2022-12-05] MEDS: HEPARIN SOD (PORCINE) 5000UNITS/ML 1ML VIAL/SYRINGE SQ SCH ×2 (06:35→20:25)
[2022-12-05] MEDS: SENOKOT S TAB PO SCH ×2 (06:35→20:26)
[2022-12-05] MEDS: PRIMIDONE 50MG TAB PO SCH ×2 (06:36→20:26)
[2022-12-05] MEDS: PANTOPRAZOLE 40MG TAB (PROTONIX) PO SCH (06:36)
[2022-12-05] MEDS: GLIMEPIRIDE 2 MG TAB PO SCH (06:36)
[2022-12-05] MEDS: ACETAMINOPHEN 500 MG TAB PO SCH ×2 (06:36→20:25)
[2022-12-05] MEDS: MIRALAX *UNIT DOSE* 17GM PACKET PO SCH ×2 (06:37→20:24)
[2022-12-05] MEDS: CLOPIDOGREL 75 MG TAB PO SCH (06:37)
[2022-12-05] MEDS: LIDOCAINE 5% (LIDODERM) PATCH TD SCH (06:39)
[2022-12-05] MEDS: INSULIN LISPRO (NovoLOG) PER UNIT SC SCH ×4 (07:30→20:24)
[2022-12-05] MEDS: LACTOBACILLUS ACIDOPHILUS CAP (BACID) PO SCH ×2 (07:50→17:46)
[2022-12-05] MEDS: ONDANSETRON 4MG TAB PO PRN (07:50)
[2022-12-05] MEDS: LEVEMIR (INSULIN DETEMIR) 1 UNITS/0.01ML SC SCH (07:51)
[2022-12-05] MEDS: SUCROFERRIC OXYHYDROXIDE 500MG CHEW TAB (VELPHORO) PO SCH ×3 (07:55→17:46)
[2022-12-05 14:00] VITALS: BP 146/65
[2022-12-05] MEDS: FLUTICASONE PROP 0.05% NASAL SPRAY 16 GM (FLONASE) NARES SCH (20:24)
[2022-12-05] MEDS: ATORVASTATIN 20 MG TAB PO SCH (20:25)
[2022-12-05] MEDS: CitaloPRAM (CeleXA) 20 MG TAB PO SCH (20:25)
[2022-12-05] MEDS: ISOSORBIDE MON. (IMDUR) 60MG XR TAB PO SCH (20:29)
[2022-12-06 06:00] VITALS: BP 174/71
[2022-12-06] MEDS: INSULIN LISPRO (NovoLOG) PER UNIT SC SCH ×4 (07:30→22:00)
[2022-12-06] MEDS: LACTOBACILLUS ACIDOPHILUS CAP (BACID) PO SCH ×2 (08:43→17:36)
[2022-12-06] MEDS: CLOPIDOGREL 75 MG TAB PO SCH (08:43)
[2022-12-06] MEDS: ONDANSETRON 4MG TAB PO PRN (08:43)
[2022-12-06] MEDS: PANTOPRAZOLE 40MG TAB (PROTONIX) PO SCH (08:43)
[2022-12-06] MEDS: SENOKOT S TAB PO SCH ×2 (08:43→21:58)
[2022-12-06] MEDS: SUCROFERRIC OXYHYDROXIDE 500MG CHEW TAB (VELPHORO) PO SCH ×3 (08:43→17:36)
[2022-12-06] MEDS: LEVEMIR (INSULIN DETEMIR) 1 UNITS/0.01ML SC SCH (08:44)
[2022-12-06] MEDS: HEPARIN SOD (PORCINE) 5000UNITS/ML 1ML VIAL/SYRINGE SQ SCH ×2 (08:44→22:00)
[2022-12-06] MEDS: GLIMEPIRIDE 2 MG TAB PO SCH (08:44)
[2022-12-06] MEDS: ACETAMINOPHEN 500 MG TAB PO SCH ×2 (08:44→21:59)
[2022-12-06] MEDS: LIDOCAINE 5% (LIDODERM) PATCH TD SCH (08:45)
[2022-12-06] MEDS: MIRALAX *UNIT DOSE* 17GM PACKET PO SCH ×2 (08:45→22:01)
[2022-12-06] MEDS: PRIMIDONE 50MG TAB PO SCH ×2 (08:46→21:59)
[2022-12-06 08:57] VITALS: BP 154/58
[2022-12-06] MEDS: ATORVASTATIN 20 MG TAB PO SCH (21:58)
[2022-12-06] MEDS: CitaloPRAM (CeleXA) 20 MG TAB PO SCH (21:59)
[2022-12-06] MEDS: FLUTICASONE PROP 0.05% NASAL SPRAY 16 GM (FLONASE) NARES SCH (22:00)
[2022-12-06] MEDS: ISOSORBIDE MON. (IMDUR) 60MG XR TAB PO SCH (22:04)
[2022-12-07 01:55] VITALS: BP 162/54
[2022-12-07 06:00] VITALS: BP 158/65
[2022-12-07] MEDS: INSULIN LISPRO (NovoLOG) PER UNIT SC SCH ×3 (06:34→18:20)
[2022-12-07] MEDS: ACETAMINOPHEN 500 MG TAB PO SCH ×2 (06:50→20:16)
[2022-12-07] MEDS: PANTOPRAZOLE 40MG TAB (PROTONIX) PO SCH (06:50)
[2022-12-07] MEDS: PRIMIDONE 50MG TAB PO SCH ×2 (06:51→20:15)
[2022-12-07] MEDS: SENOKOT S TAB PO SCH ×2 (06:51→20:16)
[2022-12-07] MEDS: LACTOBACILLUS ACIDOPHILUS CAP (BACID) PO SCH ×2 (06:52→18:20)
[2022-12-07] MEDS: SUCROFERRIC OXYHYDROXIDE 500MG CHEW TAB (VELPHORO) PO SCH ×3 (06:52→18:20)
[2022-12-07] MEDS: MIRALAX *UNIT DOSE* 17GM PACKET PO SCH ×2 (06:53→20:17)
[2022-12-07] MEDS: CLOPIDOGREL 75 MG TAB PO SCH (06:53)
[2022-12-07] MEDS: HEPARIN SOD (PORCINE) 5000UNITS/ML 1ML VIAL/SYRINGE SQ SCH ×2 (06:58→20:17)
[2022-12-07] MEDS: LIDOCAINE 5% (LIDODERM) PATCH TD SCH (06:58)
[2022-12-07] MEDS ORDERED: HEPARIN 1,000UNITS/ML 10ML VIAL (FOR RADIOLOGY & DIALYSIS ONLY) IV PRN (07:10)
[2022-12-07] MEDS ORDERED: LIDOCAINE 1% SDV 5ML VIAL SC PRN (07:10)
[2022-12-07] MEDS ORDERED: HEPARIN 1,000UNITS/ML 10ML VIAL (FOR RADIOLOGY & DIALYSIS ONLY) XX SCH (07:10)
[2022-12-07] MEDS ORDERED: SODIUM CHLORIDE 0.9% 1000ML IV PRN (07:10)
[2022-12-07] MEDS: ONDANSETRON 4MG TAB PO PRN (07:18)
[2022-12-07 08:00] VITALS: BP 166/62
[2022-12-07] MEDS: LEVEMIR (INSULIN DETEMIR) 1 UNITS/0.01ML SC SCH (08:01)
[2022-12-07] MEDS: GLIMEPIRIDE 2 MG TAB PO SCH (08:02)
[2022-12-07] MEDS: SYMBICORT 160/4.5MCG INHALER 6GM INH SCH ×2 (08:57→20:09)
[2022-12-07] MEDS: LEVOTHYROXINE 25MCG TABLET (0.025MG) PO SCH (09:14)
[2022-12-07] MEDS: LEVOTHYROXINE 150MCG TABLET (0.15MG) PO SCH (09:14)
[2022-12-07 13:28] VITALS: BP 150/62
[2022-12-07 19:57] VITALS: BP 142/52
[2022-12-07] MEDS: ATORVASTATIN 20 MG TAB PO SCH (20:15)
[2022-12-07] MEDS: ISOSORBIDE MON. (IMDUR) 60MG XR TAB PO SCH (20:17)
[2022-12-07] MEDS: CitaloPRAM (CeleXA) 20 MG TAB PO SCH (20:17)
[2022-12-07] MEDS: FLUTICASONE PROP 0.05% NASAL SPRAY 16 GM (FLONASE) NARES SCH (20:18)
[2022-12-08 05:36] VITALS: BP 168/52
[2022-12-08 06:00] VITALS: BP 172/60
[2022-12-08] MEDS: LEVOTHYROXINE 25MCG TABLET (0.025MG) PO SCH (06:07)
[2022-12-08] MEDS: LEVOTHYROXINE 150MCG TABLET (0.15MG) PO SCH (06:07)
[2022-12-08] MEDS ORDERED: **hydrALAZINE** 10 MG TAB PO ONE (07:00)
[2022-12-08] MEDS: INSULIN LISPRO (NovoLOG) PER UNIT SC SCH ×3 (07:30→17:30)
[2022-12-08] MEDS: SYMBICORT 160/4.5MCG INHALER 6GM INH SCH ×2 (08:27→20:26)
[2022-12-08] MEDS: HEPARIN SOD (PORCINE) 5000UNITS/ML 1ML VIAL/SYRINGE SQ SCH ×2 (08:45→20:56)
[2022-12-08] MEDS: SUCROFERRIC OXYHYDROXIDE 500MG CHEW TAB (VELPHORO) PO SCH ×3 (08:45→18:04)
[2022-12-08] MEDS: LEVEMIR (INSULIN DETEMIR) 1 UNITS/0.01ML SC SCH (08:45)
[2022-12-08] MEDS: LIDOCAINE 5% (LIDODERM) PATCH TD SCH (08:46)
[2022-12-08] MEDS: ACETAMINOPHEN 500 MG TAB PO SCH ×2 (08:46→20:56)
[2022-12-08] MEDS: PANTOPRAZOLE 40MG TAB (PROTONIX) PO SCH (08:46)
[2022-12-08] MEDS: CLOPIDOGREL 75 MG TAB PO SCH (08:46)
[2022-12-08] MEDS: PRIMIDONE 50MG TAB PO SCH ×2 (08:46→20:56)
[2022-12-08] MEDS: SENOKOT S TAB PO SCH ×2 (08:46→20:55)
[2022-12-08] MEDS: LACTOBACILLUS ACIDOPHILUS CAP (BACID) PO SCH ×2 (08:46→18:04)
[2022-12-08] MEDS: MIRALAX *UNIT DOSE* 17GM PACKET PO SCH ×2 (08:47→20:07)
[2022-12-08] MEDS: GLIMEPIRIDE 2 MG TAB PO SCH (08:47)
[2022-12-08] MEDS: PERCOCET 5MG/325MG TAB PO PRN (14:39)
[2022-12-08 16:25] VITALS: BP 134/83
[2022-12-08] MEDS: CitaloPRAM (CeleXA) 20 MG TAB PO SCH (20:55)
[2022-12-08] MEDS: ATORVASTATIN 20 MG TAB PO SCH (20:55)
[2022-12-08] MEDS: FLUTICASONE PROP 0.05% NASAL SPRAY 16 GM (FLONASE) NARES SCH (20:56)
[2022-12-08] MEDS: ISOSORBIDE MON. (IMDUR) 60MG XR TAB PO SCH (21:02)
[2022-12-08 22:55] VITALS: BP 180/62
[2022-12-09 00:23] VITALS: BP 154/58
[2022-12-09 05:38] VITALS: BP 180/68
[2022-12-09] MEDS: LEVOTHYROXINE 150MCG TABLET (0.15MG) PO SCH (05:59)
[2022-12-09] MEDS: LEVOTHYROXINE 25MCG TABLET (0.025MG) PO SCH (05:59)
[2022-12-09] MEDS ORDERED: **hydrALAZINE** 10 MG TAB PO ONE (06:00)
[2022-12-09 06:47] VITALS: BP 158/60
[2022-12-09] MEDS: SYMBICORT 160/4.5MCG INHALER 6GM INH SCH (07:51)
[2022-12-09] MEDS ORDERED: HYDR-3911 PO (08:21)
[2022-12-09] MEDS: ACETAMINOPHEN 500 MG TAB PO SCH (08:47)
[2022-12-09] MEDS: PRIMIDONE 50MG TAB PO SCH (08:47)
[2022-12-09] MEDS: LACTOBACILLUS ACIDOPHILUS CAP (BACID) PO SCH (08:47)
[2022-12-09] MEDS: CLOPIDOGREL 75 MG TAB PO SCH (08:48)
[2022-12-09] MEDS: PANTOPRAZOLE 40MG TAB (PROTONIX) PO SCH (08:48)
[2022-12-09] MEDS: SENOKOT S TAB PO SCH (08:48)
[2022-12-09] MEDS: GLIMEPIRIDE 2 MG TAB PO SCH (08:49)
[2022-12-09] MEDS: SUCROFERRIC OXYHYDROXIDE 500MG CHEW TAB (VELPHORO) PO SCH (08:49)
[2022-12-09] MEDS: LIDOCAINE 5% (LIDODERM) PATCH TD SCH (08:49)
[2022-12-09] MEDS: INSULIN LISPRO (NovoLOG) PER UNIT SC SCH (08:50)
[2022-12-09] MEDS: LEVEMIR (INSULIN DETEMIR) 1 UNITS/0.01ML SC SCH (08:50)
[2022-12-09 08:56] VITALS: BP 154/66
[2022-12-09] MEDS: MIRALAX *UNIT DOSE* 17GM PACKET PO SCH (08:57)
[2022-12-09] MEDS: HEPARIN SOD (PORCINE) 5000UNITS/ML 1ML VIAL/SYRINGE SQ SCH (08:57)
[2022-12-09] MEDS ORDERED: CARVedilol 12.5 MG TAB PO SCH (09:00)
[2022-12-09] MEDS ORDERED: HYDR-3910 PO (10:19)
[2022-12-09] MEDS ORDERED: **hydrALAZINE HCL** 25 MG TAB PO SCH (16:00)
== END 2022-12-09 12:25 | disposition home health service (06) | DRG 291 ==
LOC: EDBD 07:51 → M ED 07:51 → M ED INP 10:27 → ENRESERV 12:49 → M MSPAV 18:00
PROVIDERS: ADMIT General Practice; ATTEND Internal Medicine Nephrology
PROC: 5A1D70Z Performance of Urinary Filtration, Intermittent, Less than 6 Hours Per Day (ICD-10-PCS; principal; 2022-11-26)
DX: I13.2 Hypertensive heart and chronic kidney disease with heart failure and with stage 5 chronic kidney disease, or end stage renal disease (principal); I50.33 Acute on chronic diastolic (congestive) heart failure; N18.6 End stage renal disease; J18.9 Pneumonia, unspecified organism; J96.21 Acute and chronic respiratory failure with hypoxia; I69.351 Hemiplegia and hemiparesis following cerebral infarction affecting right dominant side; I16.1 Hypertensive emergency; I16.0 Hypertensive urgency; E11.22 Type 2 diabetes mellitus with diabetic chronic kidney disease; F32.A Depression, unspecified; D63.1 Anemia in chronic kidney disease; E21.2 Other hyperparathyroidism; E66.9 Obesity, unspecified; I25.10 Atherosclerotic heart disease of native coronary artery without angina pectoris; R53.1 Weakness; R00.1 Bradycardia, unspecified; R26.2 Difficulty in walking, not elsewhere classified; E89.2 Postprocedural hypoparathyroidism; I44.0 Atrioventricular block, first degree; H54.62 Unqualified visual loss, left eye, normal vision right eye; I25.2 Old myocardial infarction; Z95.1 Presence of aortocoronary bypass graft; Z85.828 Personal history of other malignant neoplasm of skin; Z99.81 Dependence on supplemental oxygen; Z99.2 Dependence on renal dialysis; Z68.33 Body mass index [BMI] 33.0-33.9, adult; Z98.42 Cataract extraction status, left eye; Z79.02 Long term (current) use of antithrombotics/antiplatelets; Z79.4 Long term (current) use of insulin; Z79.890 Hormone replacement therapy; Z98.41 Cataract extraction status, right eye; Z79.899 Other long term (current) drug therapy; Z88.8 Allergy status to other drugs, medicaments and biological substances

== ENCOUNTER → 2023-01-01 | Outpatient (CLI) | payer MEDICARE, BC ==
[~2023-01-01] MED LIST changes: +ISOS10TA9 PO
== END ==
LOC: M RAD 13:06
PROVIDERS: ATTEND Pediatrics
DX: R93.7 Abnormal findings on diagnostic imaging of other parts of musculoskeletal system (principal)

== ENCOUNTER 2023-02-25 12:41 | Inpatient (IN) | payer MEDICARE, BC ==
[~2023-02-25] VITALS: Ht 172.7 cm; Wt 88.2 kg
[~2023-02-25 12:41] MED LIST changes: +INSU100I6 SC; -LEVE1INJ5 SC
[2023-02-25] MEDS ORDERED: SODIUM CHLORIDE 0.9% 1000ML IV PRN (13:40)
[2023-02-25] MEDS ORDERED: LIDOCAINE 1% SDV 5ML VIAL SC PRN (13:40)
[2023-02-25 14:12] LABS: BASO % 0.2 % (0.0-1.0); EOS % 0.2 % (0.0-3.0); HEMATOCRIT 30.7 % (36.0-47.0); HEMOGLOBIN 9.4 g/dl (12.0-15.5); LYMPH # 0.5 10^3/uL (1.5-5.0); LYMPH % 4.1 % (24.0-44.0); MEAN CORPUSCULAR HEMOGLOBIN 31.4 pg (27.0-33.0); MEAN CORPUSCULAR HGB CONC 30.6 g/dl (32.0-36.5); MEAN CORPUSCULAR VOLUME 102.7 fl (80.0-96.0); MONO # 0.6 10^3/uL (0.0-0.8); MONO % 4.2 % (2.0-8.0); NEUTROPHILS # 11.9 10^3/uL (1.5-8.5); NEUTROPHILS % 90.5 % (36.0-66.0); PLATELET COUNT, AUTOMATED 249 10^3/uL (150-450); RED BLOOD COUNT 2.99 10^6/uL (4.00-5.40); WHITE BLOOD COUNT 13.2 10^3/uL (4.0-10.0)
[2023-02-25 15:21] LABS: CALCIUM LEVEL 8.1 MG/DL (8.3-10.6); CREATININE FOR GFR 7.45 MG/DL (0.55-1.30); GLOMERULAR FILTRATION RATE 5.7 (>39); POTASSIUM SERUM 7.1 MMOL/L (3.5-5.1)
[2023-02-25] MEDS ORDERED: PATIROMER SORBITEX CALCIUM 8.4 GM POWDER PACKET (VELTASSA) PO ONE (15:35)
[2023-02-25] MEDS ORDERED: hydrALAZINE 20MG/ML 1ML VIAL IV ONE (15:55)
[2023-02-25] MEDS ORDERED: ONDANSETRON 4MG 2ML VIAL IV PRN (15:55)
[2023-02-25] MEDS ORDERED: MAALOX 30 ML SUSP *UDC PO PRN (15:55)
[2023-02-25] MEDS ORDERED: MOM 30ML SUSPENSION UDC PO PRN (15:55)
[2023-02-25] MEDS ORDERED: ACETAMINOPHEN TAB 650MG DOSE (2X325MG) PO PRN (15:55)
[2023-02-25] MEDS ORDERED: ONDANSETRON 4MG 2ML VIAL IV ONE (15:55)
[2023-02-25] MEDS ORDERED: DEXTROSE 50% 50ML SYRINGE IV PRN (16:20)
[2023-02-25] MEDS ORDERED: GLUCAGON INJ 1MG VIAL SC PRN (16:20)
[2023-02-25] MEDS ORDERED: GLUCOSE 4GM CHEW TABLET PO PRN (16:20)
[2023-02-25 16:31] LABS: RSV AMPLIFICATION NEGATIVE (NEGATIVE)
[2023-02-25] MEDS ORDERED: ISOS10TA3 PO (16:32)
[2023-02-25] MEDS ORDERED: ECOT81TA5 PO (16:32)
[2023-02-25] MEDS ORDERED: HYDR-3910 PO (16:32)
[2023-02-25] MEDS ORDERED: HOME MED LIST COMPLETE! XX SCH (16:35)
[2023-02-25] MEDS ORDERED: RAMELTEON 8 MG TAB (ROZEREM) PO PRN (16:45)
[2023-02-25] MEDS ORDERED: NITROGLYCERIN 0.4MG SUBL TABLET SL PRN (16:45)
[2023-02-25] MEDS ORDERED: ALBUTEROL 90 MCG/ACT 8GM HFA INHALER INH PRN (16:45)
[2023-02-25] MEDS ORDERED: MIRALAX *UNIT DOSE* 17GM PACKET PO PRN (16:45)
[2023-02-25] MEDS: INSULIN LISPRO (NovoLOG) PER UNIT SC SCH ×2 (17:30→21:00)
[2023-02-25] MEDS: ADVAIR HFA 115/21MCG INHALER INH SCH (20:00)
[2023-02-25 20:48] VITALS: BP 190/68
[2023-02-25] MEDS: DOCUSATE SODIUM 100MG CAPSULE PO SCH (21:00)
[2023-02-25] MEDS: HEPARIN SOD (PORCINE) 5000UNITS/ML 1ML VIAL/SYRINGE SC SCH (21:11)
[2023-02-25] MEDS: CitaloPRAM (CeleXA) 20 MG TAB PO SCH (21:12)
[2023-02-25] MEDS: ATORVASTATIN 20 MG TAB PO SCH (21:12)
[2023-02-25] MEDS: CARVedilol 12.5 MG TAB PO SCH (21:12)
[2023-02-25] MEDS: **hydrALAZINE HCL** 25 MG TAB PO SCH (21:13)
[2023-02-25] MEDS: ISOSORBIDE DIN (ISORDIL) 10MG TAB PO SCH (21:13)
[2023-02-25] MEDS: SUCROFERRIC OXYHYDROXIDE 500MG CHEW TAB (VELPHORO) PO SCH (21:14)
[2023-02-25] MEDS: FLUTICASONE PROP 0.05% NASAL SPRAY 16 GM (FLONASE) NARES SCH (21:32)
[2023-02-25 22:01] VITALS: BP 162/60
[2023-02-26] VITALS (14 sets, daily range): BP systolic 121–199; BP diastolic 58–77
[2023-02-26] MEDS: **hydrALAZINE HCL** 25 MG TAB PO SCH ×3 (04:46→21:12)
[2023-02-26] MEDS: LEVOTHYROXINE 75MCG TABLET (0.075MG) PO SCH (05:29)
[2023-02-26] MEDS: HEPARIN SOD (PORCINE) 5000UNITS/ML 1ML VIAL/SYRINGE SC SCH ×3 (05:29→21:11)
[2023-02-26] MEDS: LEVOTHYROXINE 100MCG TABLET (0.1MG) PO SCH (05:29)
[2023-02-26 05:39] LABS: BASO # 0.1 10^3/uL (0.0-0.2); BASO % 0.6 % (0.0-1.0); EOS # 0.2 10^3/uL (0.0-0.5); EOS % 2.4 % (0.0-3.0); HEMATOCRIT 28.3 % (36.0-47.0); HEMOGLOBIN 8.7 g/dl (12.0-15.5); LYMPH # 0.9 10^3/uL (1.5-5.0); LYMPH % 11.2 % (24.0-44.0); MEAN CORPUSCULAR HEMOGLOBIN 31.2 pg (27.0-33.0); MEAN CORPUSCULAR HGB CONC 30.7 g/dl (32.0-36.5); MEAN CORPUSCULAR VOLUME 101.4 fl (80.0-96.0); MONO # 0.7 10^3/uL (0.0-0.8); MONO % 8.2 % (2.0-8.0); NEUTROPHILS # 6.2 10^3/uL (1.5-8.5); PLATELET COUNT, AUTOMATED 232 10^3/uL (150-450); RED BLOOD COUNT 2.79 10^6/uL (4.00-5.40)
[2023-02-26 05:58] LABS: CALCIUM LEVEL 8.1 MG/DL (8.3-10.6); CREATININE FOR GFR 5.13 MG/DL (0.55-1.30); GLOMERULAR FILTRATION RATE 8.8 (>39); MAGNESIUM LEVEL 1.7 MG/DL (1.8-2.4); POTASSIUM SERUM 4.2 MMOL/L (3.5-5.1)
[2023-02-26] MEDS: SUCROFERRIC OXYHYDROXIDE 500MG CHEW TAB (VELPHORO) PO SCH ×3 (07:17→17:23)
[2023-02-26] MEDS: INSULIN LISPRO (NovoLOG) PER UNIT SC SCH ×4 (07:17→21:12)
[2023-02-26] MEDS: ADVAIR HFA 115/21MCG INHALER INH SCH ×2 (08:10→20:55)
[2023-02-26] MEDS: LEVEMIR (INSULIN DETEMIR) 1 UNITS/0.01ML SC SCH (08:58)
[2023-02-26] MEDS: DOCUSATE SODIUM 100MG CAPSULE PO SCH ×2 (09:03→21:12)
[2023-02-26] MEDS: ISOSORBIDE DIN (ISORDIL) 10MG TAB PO SCH ×3 (09:04→21:13)
[2023-02-26] MEDS: PANTOPRAZOLE 40MG TAB (PROTONIX) PO SCH (09:04)
[2023-02-26] MEDS: CARVedilol 12.5 MG TAB PO SCH ×2 (09:05→21:13)
[2023-02-26] MEDS: ASPIRIN 81MG ENTERIC TABLET PO SCH (09:05)
[2023-02-26] MEDS: CLOPIDOGREL 75 MG TAB PO SCH (09:29)
[2023-02-26] MEDS ORDERED: SODIUM CHLORIDE 0.9% 1000ML IV PRN (09:35)
[2023-02-26] MEDS ORDERED: HEPARIN 1,000UNITS/ML 10ML VIAL (FOR RADIOLOGY & DIALYSIS ONLY) XX SCH (09:35)
[2023-02-26] MEDS ORDERED: HEPARIN 1,000UNITS/ML 10ML VIAL (FOR RADIOLOGY & DIALYSIS ONLY) IV PRN (09:35)
[2023-02-26] MEDS ORDERED: LIDOCAINE 1% SDV 5ML VIAL SC PRN (09:35)
[2023-02-26] MEDS ORDERED: hydrALAZINE 20MG/ML 1ML VIAL IV ONE (17:30)
[2023-02-26] MEDS ORDERED: **hydrALAZINE** 50 MG TAB PO SCH (21:00)
[2023-02-26] MEDS: ATORVASTATIN 20 MG TAB PO SCH (21:12)
[2023-02-26] MEDS: CitaloPRAM (CeleXA) 20 MG TAB PO SCH (21:13)
[2023-02-26] MEDS: FLUTICASONE PROP 0.05% NASAL SPRAY 16 GM (FLONASE) NARES SCH (21:13)
[2023-02-27 00:18] VITALS: BP 139/62
[2023-02-27 04:30] VITALS: BP 102/54
[2023-02-27] MEDS ORDERED: LIDOCAINE 1% SDV 5ML VIAL SC PRN (06:00)
[2023-02-27] MEDS ORDERED: SODIUM CHLORIDE 0.9% 1000ML IV PRN (06:00)
[2023-02-27] MEDS ORDERED: HEPARIN 1,000UNITS/ML 10ML VIAL (FOR RADIOLOGY & DIALYSIS ONLY) XX SCH (06:00)
[2023-02-27 06:06] VITALS: BP 190/80
[2023-02-27 06:06] LABS: BASO # 0.1 10^3/uL (0.0-0.2); BASO % 0.9 % (0.0-1.0); EOS # 0.2 10^3/uL (0.0-0.5); EOS % 3.2 % (0.0-3.0); HEMATOCRIT 29.7 % (36.0-47.0); HEMOGLOBIN 9.2 g/dl (12.0-15.5); LYMPH # 1.1 10^3/uL (1.5-5.0); LYMPH % 15.9 % (24.0-44.0); MEAN CORPUSCULAR HEMOGLOBIN 31.6 pg (27.0-33.0); MEAN CORPUSCULAR VOLUME 102.1 fl (80.0-96.0); MONO # 0.9 10^3/uL (0.0-0.8); MONO % 12.5 % (2.0-8.0); NEUTROPHILS # 4.5 10^3/uL (1.5-8.5); NEUTROPHILS % 66.6 % (36.0-66.0); PLATELET COUNT, AUTOMATED 273 10^3/uL (150-450); RED BLOOD COUNT 2.91 10^6/uL (4.00-5.40); WHITE BLOOD COUNT 6.8 10^3/uL (4.0-10.0)
[2023-02-27] MEDS: **hydrALAZINE HCL** 25 MG TAB PO SCH ×2 (06:06→16:00)
[2023-02-27] MEDS: PANTOPRAZOLE 40MG TAB (PROTONIX) PO SCH (06:06)
[2023-02-27] MEDS: LEVOTHYROXINE 75MCG TABLET (0.075MG) PO SCH (06:06)
[2023-02-27] MEDS: LEVOTHYROXINE 100MCG TABLET (0.1MG) PO SCH (06:06)
[2023-02-27] MEDS: CARVedilol 12.5 MG TAB PO SCH (06:06)
[2023-02-27] MEDS: CLOPIDOGREL 75 MG TAB PO SCH (06:07)
[2023-02-27] MEDS: ISOSORBIDE DIN (ISORDIL) 10MG TAB PO SCH (06:07)
[2023-02-27] MEDS: HEPARIN SOD (PORCINE) 5000UNITS/ML 1ML VIAL/SYRINGE SC SCH ×2 (06:07→14:21)
[2023-02-27] MEDS: DOCUSATE SODIUM 100MG CAPSULE PO SCH (06:07)
[2023-02-27] MEDS: LEVEMIR (INSULIN DETEMIR) 1 UNITS/0.01ML SC SCH (06:08)
[2023-02-27 06:29] LABS: CALCIUM LEVEL 8.1 MG/DL (8.3-10.6); CREATININE FOR GFR 7.06 MG/DL (0.55-1.30); GLOMERULAR FILTRATION RATE 6.1 (>39); MAGNESIUM LEVEL 1.7 MG/DL (1.8-2.4); POTASSIUM SERUM 4.9 MMOL/L (3.5-5.1)
[2023-02-27 07:30] VITALS: BP 119/58
[2023-02-27] MEDS: SUCROFERRIC OXYHYDROXIDE 500MG CHEW TAB (VELPHORO) PO SCH ×2 (07:54→13:10)
[2023-02-27] MEDS: INSULIN LISPRO (NovoLOG) PER UNIT SC SCH ×2 (07:59→13:11)
[2023-02-27] MEDS: ADVAIR HFA 115/21MCG INHALER INH SCH (08:00)
[2023-02-27] MEDS ORDERED: MAG SULF 1GM/100ML (MAG RUN) 1 GM in IV 1 EA IV ONE (08:00)
[2023-02-27 12:32] VITALS: BP 144/70
[2023-02-27] MEDS: ASPIRIN 81MG ENTERIC TABLET PO SCH (13:11)
== END 2023-02-27 16:58 | disposition home health service (06) | DRG 291 ==
LOC: M ED 12:41 → EDBD 12:41 → M ED INP 15:52 → M PCU 20:44
PROVIDERS: ADMIT Internal Medicine; ATTEND Internal Medicine
PROC: 5A1D70Z Performance of Urinary Filtration, Intermittent, Less than 6 Hours Per Day (ICD-10-PCS; principal; 2023-02-25)
DX: I13.2 Hypertensive heart and chronic kidney disease with heart failure and with stage 5 chronic kidney disease, or end stage renal disease (principal); N18.6 End stage renal disease; I50.33 Acute on chronic diastolic (congestive) heart failure; I69.351 Hemiplegia and hemiparesis following cerebral infarction affecting right dominant side; J81.1 Chronic pulmonary edema; I25.10 Atherosclerotic heart disease of native coronary artery without angina pectoris; R09.02 Hypoxemia; F32.A Depression, unspecified; E66.9 Obesity, unspecified; I25.2 Old myocardial infarction; H54.8 Legal blindness, as defined in USA; E21.2 Other hyperparathyroidism; I16.0 Hypertensive urgency; R11.2 Nausea with vomiting, unspecified; D63.1 Anemia in chronic kidney disease; E11.319 Type 2 diabetes mellitus with unspecified diabetic retinopathy without macular edema; E11.22 Type 2 diabetes mellitus with diabetic chronic kidney disease; I27.20 Pulmonary hypertension, unspecified; K21.9 Gastro-esophageal reflux disease without esophagitis; H40.9 Unspecified glaucoma; E87.5 Hyperkalemia; Z99.2 Dependence on renal dialysis; Z99.81 Dependence on supplemental oxygen; Z95.1 Presence of aortocoronary bypass graft; Z79.4 Long term (current) use of insulin; Z98.41 Cataract extraction status, right eye; Z98.42 Cataract extraction status, left eye; Z86.16 Personal history of COVID-19; Z85.828 Personal history of other malignant neoplasm of skin; Z79.890 Hormone replacement therapy; Z79.899 Other long term (current) drug therapy; Z79.02 Long term (current) use of antithrombotics/antiplatelets; Z88.8 Allergy status to other drugs, medicaments and biological substances; Z68.29 Body mass index [BMI] 29.0-29.9, adult

== ENCOUNTER → 2023-04-09 | Outpatient (CLI) | payer MEDICARE, BC ==
[~2023-04-09] MED LIST changes: +CETI10CH PO; -COZA50TA PO; +ECOT81TA5 PO; +HEPARIN 1,000UNITS/ML 10ML VIAL (FOR RADIOLOGY & DIALYSIS ONLY) As Ordered ONE; +ISOVUE-300 61% 100ML VIAL As Ordered ONE; +LIDOCAINE 1% MDV 20ML VIAL As Ordered ONE; +LOSA-528 PO; -LOSA100T45 PO; +LOSA100T46 PO; +MIDAZOLAM INJ 2MG/2ML VIAL As Ordered ONE; +ceFAZolin 2 GM/D5W 50 ML IV BAG As Ordered ONE; +ceFAZolin SOD 2 GM in IV 1 EA IV ONE; +fentaNYL 100 MCG/2 ML INJECTION As Ordered ONE; +hydrALAZINE 20MG/ML 1ML VIAL As Ordered ONE
[2023-04-09 08:36] LABS: CALCIUM LEVEL 7.8 MG/DL (8.3-10.6); CREATININE FOR GFR 4.91 MG/DL (0.55-1.30); GLOMERULAR FILTRATION RATE 9.3 (>39); MAGNESIUM LEVEL 1.9 MG/DL (1.8-2.4); POTASSIUM SERUM 3.7 MMOL/L (3.5-5.1)
[2023-04-09 08:39] LABS: PROTHROMBIN TIME 13.4 SECONDS (12.5-14.5)
[2023-04-09 08:40] LABS: PARTIAL THROMBOPLASTIN TIME 31.1 SECONDS (24.8-34.2)
[2023-04-09 08:45] LABS: HEMATOCRIT 34.5 % (36.0-47.0); HEMOGLOBIN 10.7 g/dl (12.0-15.5); MEAN CORPUSCULAR HEMOGLOBIN 31.5 pg (27.0-33.0); MEAN CORPUSCULAR VOLUME 101.5 fl (80.0-96.0); PLATELET COUNT, AUTOMATED 285 10^3/uL (150-450); WHITE BLOOD COUNT 8.9 10^3/uL (4.0-10.0)
[2023-04-09 13:08] VITALS: BP 158/67
== END ==
LOC: M IRPRO 06:51
PROVIDERS: ATTEND Surgery Vascular Surgery
DX: N18.6 End stage renal disease (principal); Z99.2 Dependence on renal dialysis
CPT/HCPCS: 36415; 36902; 80048; 83735; 85027; 85610; 85730; 86850; 86900; 86901; 99152; 99153; C1725; C1769; C1894; J0360; J0690; J2250; J3010; Q9967

== ENCOUNTER 2023-04-23 09:19 | Inpatient (IN) | payer MEDICARE, BC ==
[~2023-04-23] VITALS: Ht 165.1 cm; Wt 87.3 kg
[~2023-04-23 09:19] MED LIST changes: -HEPARIN 1,000UNITS/ML 10ML VIAL (FOR RADIOLOGY & DIALYSIS ONLY) As Ordered ONE; -ISOVUE-300 61% 100ML VIAL As Ordered ONE; -LIDOCAINE 1% MDV 20ML VIAL As Ordered ONE; -MIDAZOLAM INJ 2MG/2ML VIAL As Ordered ONE; -ceFAZolin 2 GM/D5W 50 ML IV BAG As Ordered ONE; -ceFAZolin SOD 2 GM in IV 1 EA IV ONE; -fentaNYL 100 MCG/2 ML INJECTION As Ordered ONE; -hydrALAZINE 20MG/ML 1ML VIAL As Ordered ONE
[2023-04-23 10:22] LABS: BASO # 0.1 10^3/uL (0.0-0.2); BASO % 0.7 % (0.0-1.0); EOS # 0.1 10^3/uL (0.0-0.5); EOS % 1.7 % (0.0-3.0); HEMATOCRIT 31.4 % (36.0-47.0); HEMOGLOBIN 9.5 g/dl (12.0-15.5); LYMPH # 0.9 10^3/uL (1.5-5.0); MEAN CORPUSCULAR HEMOGLOBIN 31.5 pg (27.0-33.0); MEAN CORPUSCULAR HGB CONC 30.3 g/dl (32.0-36.5); MONO # 0.9 10^3/uL (0.0-0.8); MONO % 11.2 % (2.0-8.0); NEUTROPHILS # 6.1 10^3/uL (1.5-8.5); PLATELET COUNT, AUTOMATED 182 10^3/uL (150-450); RED BLOOD COUNT 3.02 10^6/uL (4.00-5.40); WHITE BLOOD COUNT 8.1 10^3/uL (4.0-10.0)
[2023-04-23 10:41] LABS: INR 1.12; LIPASE 44 U/L (12-53); PROTHROMBIN TIME 14.6 SECONDS (12.5-14.5)
[2023-04-23 10:42] LABS: PARTIAL THROMBOPLASTIN TIME 29.9 SECONDS (24.8-34.2)
[2023-04-23 10:44] LABS: ALBUMIN 3.2 G/DL (3.2-5.2); ALKALINE PHOSPHATASE 350 U/L (46-116); ALT/SGPT 12 U/L (7.0-40); AST/SGOT 25 U/L (<34); BILIRUBIN,DIRECT < 0.1 MG/DL (<0.4); BILIRUBIN,TOTAL < 0.2 MG/DL (0.3-1.2); BLOOD UREA NITROGEN 49 MG/DL (9-23); CALCIUM LEVEL 7.8 MG/DL (8.3-10.6); CARBON DIOXIDE LEVEL 26 MMOL/L (20-31); CHLORIDE LEVEL 101 MMOL/L (98-107); CREATININE FOR GFR 4.99 MG/DL (0.55-1.30); GLOMERULAR FILTRATION RATE 9.1 (>39); GLUCOSE, FASTING 162 MG/DL (74-106); POTASSIUM SERUM 5.3 MMOL/L (3.5-5.1); SODIUM LEVEL 138 MMOL/L (136-145); TOTAL PROTEIN 6.5 G/DL (5.7-8.2)
[2023-04-23 11:19] LABS: RSV AMPLIFICATION NEGATIVE (NEGATIVE)
[2023-04-23] MEDS ORDERED: HOME MED LIST COMPLETE! XX SCH (15:00)
[2023-04-23] MEDS: ISOSORBIDE DIN (ISORDIL) 10MG TAB PO SCH (17:00)
[2023-04-23] MEDS: CARVedilol 12.5 MG TAB PO SCH ×2 (17:55→21:00)
[2023-04-23] MEDS: **hydrALAZINE HCL** 25 MG TAB PO SCH ×2 (17:55→21:20)
[2023-04-23 18:05] LABS: HEMATOCRIT 34.1 % (36.0-47.0); HEMOGLOBIN 10.1 g/dl (12.0-15.5)
[2023-04-23] MEDS ORDERED: GLUCOSE 4GM CHEW TABLET PO PRN (18:45)
[2023-04-23] MEDS ORDERED: DEXTROSE 50% 50ML SYRINGE IV PRN (18:45)
[2023-04-23] MEDS ORDERED: GLUCAGON INJ 1MG VIAL SC PRN (18:45)
[2023-04-23] MEDS ORDERED: GASTROGRAFIN SOLUTION 30ML PO SCH (19:15)
[2023-04-23 20:27] VITALS: BP 132/58
[2023-04-23 20:30] VITALS: BP 134/58; TEMP 97.8; O2SAT 98
[2023-04-23] MEDS: INSULIN LISPRO (NovoLOG) PER UNIT SC SCH (21:00)
[2023-04-23] MEDS: SYMBICORT 160/4.5MCG INHALER 6GM INH SCH (21:00)
[2023-04-23] MEDS: CitaloPRAM (CeleXA) 20 MG TAB PO SCH (21:20)
[2023-04-23] MEDS: LACTULOSE 20GM/30ML SYRUP UDC PO SCH (21:20)
[2023-04-23] MEDS: ACETAMINOPHEN TAB 650MG DOSE (2X325MG) PO PRN (21:20)
[2023-04-23] MEDS: ATORVASTATIN 20 MG TAB PO SCH (21:22)
[2023-04-23 23:33] LABS: HEMATOCRIT 28.6 % (36.0-47.0); HEMOGLOBIN 8.9 g/dl (12.0-15.5)
[2023-04-24] MEDS: LEVOTHYROXINE 25MCG TABLET (0.025MG) PO SCH (05:58)
[2023-04-24] MEDS: ISOSORBIDE DIN (ISORDIL) 10MG TAB PO SCH ×2 (06:00→17:32)
[2023-04-24] MEDS: LEVOTHYROXINE 150MCG TABLET (0.15MG) PO SCH (06:00)
[2023-04-24 06:01] VITALS: BP 158/58; TEMP 97.9; O2SAT 98
[2023-04-24 06:37] LABS: BASO # 0.1 10^3/uL (0.0-0.2); EOS # 0.2 10^3/uL (0.0-0.5); EOS % 2.8 % (0.0-3.0); HEMATOCRIT 28.9 % (36.0-47.0); HEMOGLOBIN 8.8 g/dl (12.0-15.5); LYMPH # 1.6 10^3/uL (1.5-5.0); LYMPH % 23.2 % (24.0-44.0); MEAN CORPUSCULAR HEMOGLOBIN 31.7 pg (27.0-33.0); MEAN CORPUSCULAR HGB CONC 30.4 g/dl (32.0-36.5); MONO # 0.9 10^3/uL (0.0-0.8); MONO % 13.3 % (2.0-8.0); NEUTROPHILS % 59.3 % (36.0-66.0); PLATELET COUNT, AUTOMATED 164 10^3/uL (150-450); RED BLOOD COUNT 2.78 10^6/uL (4.00-5.40); WHITE BLOOD COUNT 6.8 10^3/uL (4.0-10.0)
[2023-04-24] MEDS: SYMBICORT 160/4.5MCG INHALER 6GM INH SCH ×2 (07:06→20:42)
[2023-04-24 07:07] LABS: CALCIUM LEVEL 7.5 MG/DL (8.3-10.6); CREATININE FOR GFR 6.49 MG/DL (0.55-1.30); GLOMERULAR FILTRATION RATE 6.7 (>39); POTASSIUM SERUM 4.9 MMOL/L (3.5-5.1)
[2023-04-24] MEDS: INSULIN LISPRO (NovoLOG) PER UNIT SC SCH ×4 (07:30→20:09)
[2023-04-24] MEDS: ASPIRIN 81MG ENTERIC TABLET PO SCH (08:28)
[2023-04-24] MEDS: CARVedilol 12.5 MG TAB PO SCH ×2 (08:29→20:08)
[2023-04-24] MEDS: PANTOPRAZOLE 40MG VIAL IV SCH (08:29)
[2023-04-24] MEDS: LACTULOSE 20GM/30ML SYRUP UDC PO SCH ×4 (08:29→20:56)
[2023-04-24] MEDS: **hydrALAZINE HCL** 25 MG TAB PO SCH ×3 (08:29→20:56)
[2023-04-24] MEDS ORDERED: HEPARIN 1,000UNITS/ML 10ML VIAL (FOR RADIOLOGY & DIALYSIS ONLY) XX SCH (08:35)
[2023-04-24] MEDS ORDERED: SODIUM CHLORIDE 0.9% 1000ML IV PRN (08:35)
[2023-04-24] MEDS ORDERED: HEPARIN 1,000UNITS/ML 10ML VIAL (FOR RADIOLOGY & DIALYSIS ONLY) IV PRN (08:35)
[2023-04-24] MEDS ORDERED: LIDOCAINE 1% SDV 5ML VIAL SC PRN (08:35)
[2023-04-24] MEDS ORDERED: POLYETHYLENE GLYCOL (MIRALAX) 238GM BOTTLE PO ONE ×2 (12:00→18:00)
[2023-04-24 14:30] VITALS: BP 150/59; O2SAT 97
[2023-04-24] MEDS: ONDANSETRON 4MG 2ML VIAL IV PRN (18:42)
[2023-04-24] MEDS: CitaloPRAM (CeleXA) 20 MG TAB PO SCH (20:56)
[2023-04-24] MEDS: ATORVASTATIN 20 MG TAB PO SCH (20:57)
[2023-04-24 21:32] VITALS: BP 145/69; TEMP 98; O2SAT 100
[2023-04-24 22:00] VITALS: BP 123/52; TEMP 98.6; O2SAT 98
[2023-04-25] MEDS: LEVOTHYROXINE 150MCG TABLET (0.15MG) PO SCH (05:46)
[2023-04-25] MEDS: LEVOTHYROXINE 25MCG TABLET (0.025MG) PO SCH (05:46)
[2023-04-25 06:34] LABS: BASO # 0.1 10^3/uL (0.0-0.2); BASO % 0.7 % (0.0-1.0); EOS # 0.2 10^3/uL (0.0-0.5); EOS % 1.9 % (0.0-3.0); HEMATOCRIT 31.8 % (36.0-47.0); HEMOGLOBIN 9.9 g/dl (12.0-15.5); LYMPH # 1.7 10^3/uL (1.5-5.0); LYMPH % 21.3 % (24.0-44.0); MEAN CORPUSCULAR HEMOGLOBIN 32.5 pg (27.0-33.0); MEAN CORPUSCULAR HGB CONC 31.1 g/dl (32.0-36.5); MEAN CORPUSCULAR VOLUME 104.3 fl (80.0-96.0); MONO # 1.1 10^3/uL (0.0-0.8); MONO % 13.7 % (2.0-8.0); NEUTROPHILS % 62.3 % (36.0-66.0); PLATELET COUNT, AUTOMATED 178 10^3/uL (150-450); RED BLOOD COUNT 3.05 10^6/uL (4.00-5.40)
[2023-04-25 06:39] VITALS: BP 148/68; TEMP 97.4; O2SAT 98
[2023-04-25] MEDS ORDERED: POLYETHYLENE GLYCOL (MIRALAX) 238GM BOTTLE PO ONE (07:00)
[2023-04-25 07:03] LABS: CREATININE FOR GFR 4.2 MG/DL (0.55-1.30); GLOMERULAR FILTRATION RATE 11.1 (>39); POTASSIUM SERUM 3.8 MMOL/L (3.5-5.1)
[2023-04-25] MEDS: INSULIN LISPRO (NovoLOG) PER UNIT SC SCH ×4 (07:30→21:00)
[2023-04-25] MEDS: SYMBICORT 160/4.5MCG INHALER 6GM INH SCH ×2 (07:38→19:52)
[2023-04-25] MEDS: ASPIRIN 81MG ENTERIC TABLET PO SCH (08:31)
[2023-04-25] MEDS: **hydrALAZINE HCL** 25 MG TAB PO SCH ×3 (08:31→20:35)
[2023-04-25] MEDS: LACTULOSE 20GM/30ML SYRUP UDC PO SCH ×4 (08:31→20:33)
[2023-04-25] MEDS: ISOSORBIDE DIN (ISORDIL) 10MG TAB PO SCH ×3 (08:32→16:50)
[2023-04-25] MEDS: CARVedilol 12.5 MG TAB PO SCH ×2 (08:32→20:35)
[2023-04-25] MEDS: PANTOPRAZOLE 40MG VIAL IV SCH (08:32)
[2023-04-25 13:20] VITALS: BP 101/58; TEMP 97.9; O2SAT 95
[2023-04-25] MEDS ORDERED: propofoL 200 MG/20 ML VIAL As Ordered ONE ×3 (13:22→14:25)
[2023-04-25] MEDS ORDERED: LIDOCAINE 2% MDV 20ML VIAL As Ordered ONE (14:25)
[2023-04-25] MEDS ORDERED: LIDOCAINE 2% 100MG/5ML SDV (FOR ANES.) As Ordered ONE (14:28)
[2023-04-25] MEDS ORDERED: GLYCOPYRROLATE INJ 0.2 MG/ML 2 ML VIAL As Ordered ONE (15:03)
[2023-04-25] MEDS ORDERED: ePHEDrine SULFATE 25 MG/5 ML(5MG/ML) SYRINGE As Ordered ONE (15:17)
[2023-04-25] MEDS: ATORVASTATIN 20 MG TAB PO SCH (20:33)
[2023-04-25] MEDS: CitaloPRAM (CeleXA) 20 MG TAB PO SCH (20:35)
[2023-04-25 22:00] VITALS: BP 148/56; TEMP 98; O2SAT 96
[2023-04-26] MEDS: LEVOTHYROXINE 25MCG TABLET (0.025MG) PO SCH (05:33)
[2023-04-26] MEDS: ISOSORBIDE DIN (ISORDIL) 10MG TAB PO SCH ×2 (05:33→17:10)
[2023-04-26] MEDS: LEVOTHYROXINE 150MCG TABLET (0.15MG) PO SCH (05:33)
[2023-04-26 06:31] LABS: BASO # 0.1 10^3/uL (0.0-0.2); BASO % 0.9 % (0.0-1.0); EOS # 0.2 10^3/uL (0.0-0.5); EOS % 2.9 % (0.0-3.0); HEMOGLOBIN 8.8 g/dl (12.0-15.5); LYMPH # 1.3 10^3/uL (1.5-5.0); LYMPH % 20.6 % (24.0-44.0); MEAN CORPUSCULAR HEMOGLOBIN 31.9 pg (27.0-33.0); MEAN CORPUSCULAR HGB CONC 30.3 g/dl (32.0-36.5); MEAN CORPUSCULAR VOLUME 105.1 fl (80.0-96.0); MONO # 0.9 10^3/uL (0.0-0.8); MONO % 13.4 % (2.0-8.0); NEUTROPHILS % 61.9 % (36.0-66.0); PLATELET COUNT, AUTOMATED 159 10^3/uL (150-450); RED BLOOD COUNT 2.76 10^6/uL (4.00-5.40); WHITE BLOOD COUNT 6.5 10^3/uL (4.0-10.0)
[2023-04-26 06:33] VITALS: BP 130/48; TEMP 97.9; O2SAT 96
[2023-04-26 06:59] LABS: CALCIUM LEVEL 7.9 MG/DL (8.3-10.6); CREATININE FOR GFR 6.41 MG/DL (0.55-1.30); GLOMERULAR FILTRATION RATE 6.8 (>39)
[2023-04-26] MEDS ORDERED: HEPARIN 1,000UNITS/ML 10ML VIAL (FOR RADIOLOGY & DIALYSIS ONLY) IV PRN (07:05)
[2023-04-26] MEDS ORDERED: SODIUM CHLORIDE 0.9% 1000ML IV PRN (07:05)
[2023-04-26] MEDS ORDERED: HEPARIN 1,000UNITS/ML 10ML VIAL (FOR RADIOLOGY & DIALYSIS ONLY) XX SCH (07:05)
[2023-04-26] MEDS ORDERED: LIDOCAINE 1% SDV 5ML VIAL SC PRN (07:05)
[2023-04-26] MEDS: **hydrALAZINE HCL** 25 MG TAB PO SCH ×3 (07:35→21:23)
[2023-04-26] MEDS: ASPIRIN 81MG ENTERIC TABLET PO SCH (07:35)
[2023-04-26] MEDS: CARVedilol 12.5 MG TAB PO SCH ×2 (07:35→21:23)
[2023-04-26] MEDS: INSULIN LISPRO (NovoLOG) PER UNIT SC SCH ×4 (07:35→21:00)
[2023-04-26] MEDS: PANTOPRAZOLE 40MG VIAL IV SCH (07:36)
[2023-04-26] MEDS: LACTULOSE 20GM/30ML SYRUP UDC PO SCH ×4 (07:36→21:22)
[2023-04-26] MEDS: SYMBICORT 160/4.5MCG INHALER 6GM INH SCH ×2 (07:54→20:11)
[2023-04-26 14:00] VITALS: BP 129/51; TEMP 97.3; O2SAT 100
[2023-04-26] MEDS: ONDANSETRON 4MG 2ML VIAL IV PRN ×2 (16:48→21:28)
[2023-04-26 16:53] VITALS: BP 169/65
[2023-04-26 16:54] VITALS: BP 167/64
[2023-04-26 19:29] VITALS: BP 146/56; TEMP 97.9; O2SAT 98
[2023-04-26] MEDS: CitaloPRAM (CeleXA) 20 MG TAB PO SCH (21:23)
[2023-04-26] MEDS: ATORVASTATIN 20 MG TAB PO SCH (21:23)
[2023-04-27] MEDS: LEVOTHYROXINE 150MCG TABLET (0.15MG) PO SCH (06:12)
[2023-04-27] MEDS: LEVOTHYROXINE 25MCG TABLET (0.025MG) PO SCH (06:12)
[2023-04-27] MEDS: ISOSORBIDE DIN (ISORDIL) 10MG TAB PO SCH ×3 (06:13→17:40)
[2023-04-27 06:29] VITALS: BP 120/51; TEMP 98.4; O2SAT 97
[2023-04-27 06:55] LABS: BASO # 0.1 10^3/uL (0.0-0.2); BASO % 0.4 % (0.0-1.0); EOS # 0.1 10^3/uL (0.0-0.5); EOS % 1.1 % (0.0-3.0); HEMATOCRIT 32.1 % (36.0-47.0); HEMOGLOBIN 9.6 g/dl (12.0-15.5); LYMPH # 0.5 10^3/uL (1.5-5.0); LYMPH % 4.4 % (24.0-44.0); MEAN CORPUSCULAR HEMOGLOBIN 31.7 pg (27.0-33.0); MEAN CORPUSCULAR HGB CONC 29.9 g/dl (32.0-36.5); MEAN CORPUSCULAR VOLUME 105.9 fl (80.0-96.0); MONO % 7.8 % (2.0-8.0); NEUTROPHILS # 10.4 10^3/uL (1.5-8.5); NEUTROPHILS % 85.8 % (36.0-66.0); RED BLOOD COUNT 3.03 10^6/uL (4.00-5.40); WHITE BLOOD COUNT 12.1 10^3/uL (4.0-10.0)
[2023-04-27 07:19] LABS: CALCIUM LEVEL 8.3 MG/DL (8.3-10.6); CREATININE FOR GFR 4.82 MG/DL (0.55-1.30); GLOMERULAR FILTRATION RATE 9.5 (>39); POTASSIUM SERUM 4.1 MMOL/L (3.5-5.1)
[2023-04-27] MEDS: SYMBICORT 160/4.5MCG INHALER 6GM INH SCH ×2 (07:29→19:42)
[2023-04-27 08:01] LABS: PLATELET COUNT, AUTOMATED 138 10^3/uL (150-450)
[2023-04-27] MEDS: LACTULOSE 20GM/30ML SYRUP UDC PO SCH ×4 (08:42→21:00)
[2023-04-27] MEDS: PANTOPRAZOLE 40MG VIAL IV SCH (08:42)
[2023-04-27] MEDS: INSULIN LISPRO (NovoLOG) PER UNIT SC SCH ×4 (08:42→21:00)
[2023-04-27] MEDS: ASPIRIN 81MG ENTERIC TABLET PO SCH (08:42)
[2023-04-27] MEDS: **hydrALAZINE HCL** 25 MG TAB PO SCH ×3 (08:43→21:25)
[2023-04-27] MEDS: CARVedilol 12.5 MG TAB PO SCH ×2 (08:43→21:26)
[2023-04-27] MEDS: CLOPIDOGREL 75 MG TAB PO SCH (15:13)
[2023-04-27] MEDS: HEPARIN SOD (PORCINE) 5000UNITS/ML 1ML VIAL/SYRINGE SQ SCH ×2 (15:13→21:24)
[2023-04-27 15:23] VITALS: BP 127/52; TEMP 98.1; O2SAT 100
[2023-04-27] MEDS: CitaloPRAM (CeleXA) 20 MG TAB PO SCH (21:24)
[2023-04-27] MEDS: ATORVASTATIN 20 MG TAB PO SCH (21:24)
[2023-04-27 21:27] VITALS: BP 131/52; TEMP 98.1; O2SAT 100
[2023-04-28 05:39] VITALS: BP 125/46; TEMP 97.9; O2SAT 99
[2023-04-28] MEDS: HEPARIN SOD (PORCINE) 5000UNITS/ML 1ML VIAL/SYRINGE SQ SCH ×3 (05:48→21:52)
[2023-04-28] MEDS: ISOSORBIDE DIN (ISORDIL) 10MG TAB PO SCH ×3 (05:48→17:38)
[2023-04-28] MEDS: LEVOTHYROXINE 150MCG TABLET (0.15MG) PO SCH (05:48)
[2023-04-28] MEDS: LEVOTHYROXINE 25MCG TABLET (0.025MG) PO SCH (05:48)
[2023-04-28] MEDS: SYMBICORT 160/4.5MCG INHALER 6GM INH SCH ×2 (06:09→19:46)
[2023-04-28 06:48] LABS: BASO # 0.1 10^3/uL (0.0-0.2); BASO % 0.5 % (0.0-1.0); EOS # 0.1 10^3/uL (0.0-0.5); EOS % 1.3 % (0.0-3.0); HEMATOCRIT 27.1 % (36.0-47.0); HEMOGLOBIN 8.4 g/dl (12.0-15.5); LYMPH # 0.8 10^3/uL (1.5-5.0); LYMPH % 7.9 % (24.0-44.0); MEAN CORPUSCULAR HEMOGLOBIN 31.7 pg (27.0-33.0); MEAN CORPUSCULAR VOLUME 102.3 fl (80.0-96.0); MONO # 1.1 10^3/uL (0.0-0.8); MONO % 10.8 % (2.0-8.0); NEUTROPHILS # 8.4 10^3/uL (1.5-8.5); NEUTROPHILS % 79.1 % (36.0-66.0); PLATELET COUNT, AUTOMATED 149 10^3/uL (150-450); RED BLOOD COUNT 2.65 10^6/uL (4.00-5.40); WHITE BLOOD COUNT 10.6 10^3/uL (4.0-10.0)
[2023-04-28 07:16] LABS: C REACTIVE PROTEIN QUANTITATIV 15.1 MG/DL (<1.0)
[2023-04-28 07:21] LABS: ALBUMIN 2.8 G/DL (3.2-5.2); BILIRUBIN,TOTAL 0.2 MG/DL (0.3-1.2); CALCIUM LEVEL 7.6 MG/DL (8.3-10.6); CREATININE FOR GFR 6.71 MG/DL (0.55-1.30); GLOMERULAR FILTRATION RATE 6.5 (>39); POTASSIUM SERUM 3.8 MMOL/L (3.5-5.1); TOTAL PROTEIN 6.1 G/DL (5.7-8.2)
[2023-04-28] MEDS: INSULIN LISPRO (NovoLOG) PER UNIT SC SCH ×4 (08:34→22:06)
[2023-04-28] MEDS: PANTOPRAZOLE 40MG VIAL IV SCH (08:34)
[2023-04-28] MEDS: CLOPIDOGREL 75 MG TAB PO SCH (08:36)
[2023-04-28] MEDS: ASPIRIN 81MG ENTERIC TABLET PO SCH (08:36)
[2023-04-28] MEDS: LACTULOSE 20GM/30ML SYRUP UDC PO SCH ×5 (08:37→21:56)
[2023-04-28] MEDS: **hydrALAZINE HCL** 25 MG TAB PO SCH ×3 (08:37→21:56)
[2023-04-28] MEDS: CARVedilol 12.5 MG TAB PO SCH ×2 (08:37→21:55)
[2023-04-28 08:43] VITALS: BP_SYST 128; BP_SYST 130; BP_DIAS 47; BP_DIAS 48; BP_DIAS 70
[2023-04-28 10:52] LABS: PERCENT SATURATION 7.2 % (13.2-45.0)
[2023-04-28 11:12] LABS: FERRITIN 1715.7 NG/ML (7.3-270.7); FOLATE 6.6 NG/ML (>5.4)
[2023-04-28 14:00] VITALS: BP 126/82; TEMP 98.2; O2SAT 98
[2023-04-28] MEDS: ACETAMINOPHEN TAB 650MG DOSE (2X325MG) PO PRN (17:37)
[2023-04-28] MEDS: ATORVASTATIN 20 MG TAB PO SCH (21:52)
[2023-04-28] MEDS: CitaloPRAM (CeleXA) 20 MG TAB PO SCH (21:55)
[2023-04-28 21:56] VITALS: BP 137/51; TEMP 97.9; O2SAT 99
[2023-04-29] VITALS (8 sets, daily range): BP systolic 96–158; BP diastolic 42–58; TEMP 97–97.7; O2SAT 98–99
[2023-04-29] MEDS: ACETAMINOPHEN TAB 650MG DOSE (2X325MG) PO PRN ×2 (00:23→07:28)
[2023-04-29 04:39] LABS: BASO % 0.4 % (0.0-1.0); EOS # 0.3 10^3/uL (0.0-0.5); EOS % 2.7 % (0.0-3.0); HEMATOCRIT 25.6 % (36.0-47.0); HEMOGLOBIN 7.9 g/dl (12.0-15.5); LYMPH # 1.1 10^3/uL (1.5-5.0); LYMPH % 11.3 % (24.0-44.0); MEAN CORPUSCULAR HEMOGLOBIN 31.3 pg (27.0-33.0); MEAN CORPUSCULAR HGB CONC 30.9 g/dl (32.0-36.5); MEAN CORPUSCULAR VOLUME 101.6 fl (80.0-96.0); MONO # 1.3 10^3/uL (0.0-0.8); MONO % 13.5 % (2.0-8.0); NEUTROPHILS # 6.7 10^3/uL (1.5-8.5); NEUTROPHILS % 71.9 % (36.0-66.0); PLATELET COUNT, AUTOMATED 159 10^3/uL (150-450); RED BLOOD COUNT 2.52 10^6/uL (4.00-5.40); WHITE BLOOD COUNT 9.3 10^3/uL (4.0-10.0)
[2023-04-29 05:16] LABS: ALBUMIN 2.8 G/DL (3.2-5.2); ALKALINE PHOSPHATASE 293 U/L (46-116); ALT/SGPT 33 U/L (7.0-40); AST/SGOT 27 U/L (<34); BILIRUBIN,TOTAL < 0.2 MG/DL (0.3-1.2); BLOOD UREA NITROGEN 54 MG/DL (9-23); CARBON DIOXIDE LEVEL 22 MMOL/L (20-31); CHLORIDE LEVEL 99 MMOL/L (98-107); CREATININE FOR GFR 7.97 MG/DL (0.55-1.30); GLOMERULAR FILTRATION RATE 5.3 (>39); GLUCOSE, FASTING 160 MG/DL (74-106); POTASSIUM SERUM 4.3 MMOL/L (3.5-5.1); SODIUM LEVEL 134 MMOL/L (136-145); TOTAL PROTEIN 5.9 G/DL (5.7-8.2)
[2023-04-29] MEDS: LACTULOSE 20GM/30ML SYRUP UDC PO SCH (05:31)
[2023-04-29] MEDS: LEVOTHYROXINE 25MCG TABLET (0.025MG) PO SCH (06:10)
[2023-04-29] MEDS: LEVOTHYROXINE 150MCG TABLET (0.15MG) PO SCH (06:10)
[2023-04-29] MEDS: PANTOPRAZOLE 40MG VIAL IV SCH (06:12)
[2023-04-29] MEDS: **hydrALAZINE HCL** 25 MG TAB PO SCH (06:22)
[2023-04-29] MEDS: CARVedilol 12.5 MG TAB PO SCH (06:22)
[2023-04-29] MEDS: ISOSORBIDE DIN (ISORDIL) 10MG TAB PO SCH (06:30)
[2023-04-29] MEDS ORDERED: LIDOCAINE 1% SDV 5ML VIAL SC PRN (07:05)
[2023-04-29] MEDS ORDERED: SODIUM CHLORIDE 0.9% 1000ML IV PRN (07:05)
[2023-04-29] MEDS ORDERED: HEPARIN 1,000UNITS/ML 10ML VIAL (FOR RADIOLOGY & DIALYSIS ONLY) XX SCH (07:05)
[2023-04-29] MEDS ORDERED: HEPARIN 1,000UNITS/ML 10ML VIAL (FOR RADIOLOGY & DIALYSIS ONLY) IV PRN (07:05)
[2023-04-29] MEDS: SYMBICORT 160/4.5MCG INHALER 6GM INH SCH (07:26)
[2023-04-29] MEDS: INSULIN LISPRO (NovoLOG) PER UNIT SC SCH ×2 (07:28→13:12)
[2023-04-29 12:58] LABS: HEMATOCRIT 29.5 % (36.0-47.0); HEMOGLOBIN 9.5 g/dl (12.0-15.5)
[2023-04-29] MEDS ORDERED: CARV3.12 PO (14:34)
[2023-04-29] MEDS ORDERED: CARVedilol 6.25 MG TAB PO SCH (21:00)
== END 2023-04-29 15:05 | DRG 377 ==
LOC: M ED 09:19 → EDBD 09:19 → M ED INP 15:35 → M MS5PR 15:35
PROVIDERS: ADMIT Internal Medicine Nephrology; ATTEND Internal Medicine
PROC: 0DBM8ZX Excision of Descending Colon, Via Natural or Artificial Opening Endoscopic, Diagnostic (ICD-10-PCS; 2023-04-25)
PROC: 0DBP8ZX Excision of Rectum, Via Natural or Artificial Opening Endoscopic, Diagnostic (ICD-10-PCS; 2023-04-25)
PROC: 0DBC8ZX Excision of Ileocecal Valve, Via Natural or Artificial Opening Endoscopic, Diagnostic (ICD-10-PCS; 2023-04-25)
PROC: 5A1D70Z Performance of Urinary Filtration, Intermittent, Less than 6 Hours Per Day (ICD-10-PCS; principal; 2023-04-26)
PROC: 30233N1 Transfusion of Nonautologous Red Blood Cells into Peripheral Vein, Percutaneous Approach (ICD-10-PCS; 2023-04-29)
DX: K57.33 Diverticulitis of large intestine without perforation or abscess with bleeding (principal); N18.6 End stage renal disease; I13.2 Hypertensive heart and chronic kidney disease with heart failure and with stage 5 chronic kidney disease, or end stage renal disease; I69.351 Hemiplegia and hemiparesis following cerebral infarction affecting right dominant side; J96.11 Chronic respiratory failure with hypoxia; D62 Acute posthemorrhagic anemia; I50.32 Chronic diastolic (congestive) heart failure; E78.5 Hyperlipidemia, unspecified; E11.22 Type 2 diabetes mellitus with diabetic chronic kidney disease; G47.33 Obstructive sleep apnea (adult) (pediatric); J44.9 Chronic obstructive pulmonary disease, unspecified; J45.909 Unspecified asthma, uncomplicated; H54.8 Legal blindness, as defined in USA; K64.8 Other hemorrhoids; I25.2 Old myocardial infarction; E11.319 Type 2 diabetes mellitus with unspecified diabetic retinopathy without macular edema; E11.42 Type 2 diabetes mellitus with diabetic polyneuropathy; Z99.81 Dependence on supplemental oxygen; I27.20 Pulmonary hypertension, unspecified; E66.9 Obesity, unspecified; K76.0 Fatty (change of) liver, not elsewhere classified; F32.A Depression, unspecified; D63.1 Anemia in chronic kidney disease; E21.2 Other hyperparathyroidism; H40.9 Unspecified glaucoma; G25.0 Essential tremor; Z99.2 Dependence on renal dialysis; M48.061 Spinal stenosis, lumbar region without neurogenic claudication; K59.00 Constipation, unspecified; K63.89 Other specified diseases of intestine; D12.0 Benign neoplasm of cecum; D12.4 Benign neoplasm of descending colon; D12.8 Benign neoplasm of rectum; R19.7 Diarrhea, unspecified; M89.8X9 Other specified disorders of bone, unspecified site; R53.1 Weakness; I25.10 Atherosclerotic heart disease of native coronary artery without angina pectoris; R11.2 Nausea with vomiting, unspecified; K08.89 Other specified disorders of teeth and supporting structures; Z68.32 Body mass index [BMI] 32.0-32.9, adult; Z98.41 Cataract extraction status, right eye; Z79.82 Long term (current) use of aspirin; Z79.02 Long term (current) use of antithrombotics/antiplatelets; Z98.42 Cataract extraction status, left eye; Z79.890 Hormone replacement therapy; Z85.828 Personal history of other malignant neoplasm of skin; Z95.828 Presence of other vascular implants and grafts; Z95.1 Presence of aortocoronary bypass graft; Z79.4 Long term (current) use of insulin; Z88.8 Allergy status to other drugs, medicaments and biological substances; Z79.899 Other long term (current) drug therapy

== ENCOUNTER 2023-04-29 12:26 | Inpatient (IN) | payer MEDICARE, BC ==
[~2023-04-29] VITALS: Ht 165.1 cm; Wt 88.1 kg
[2023-04-29] MEDS ORDERED: CARV3.12 PO (14:34)
[2023-04-29 15:20] VITALS: BP 106/55; TEMP 98; O2SAT 91
[2023-04-29 15:56] VITALS: BP 161/70; TEMP 98.2; O2SAT 100
[2023-04-29] MEDS ORDERED: GLUCOSE 4GM CHEW TABLET PO PRN (16:05)
[2023-04-29] MEDS ORDERED: DEXTROSE 50% 50ML SYRINGE IV PRN (16:05)
[2023-04-29] MEDS ORDERED: GLUCAGON INJ 1MG VIAL SC PRN (16:05)
[2023-04-29] MEDS ORDERED: BISACODYL 10MG SUPP PR PRN (16:05)
[2023-04-29] MEDS ORDERED: RAMELTEON 8 MG TAB (ROZEREM) PO PRN (16:05)
[2023-04-29] MEDS ORDERED: ONDANSETRON 4MG TAB PO PRN (16:05)
[2023-04-29] MEDS: INSULIN LISPRO (NovoLOG) PER UNIT SC SCH ×2 (17:51→21:37)
[2023-04-29] MEDS: REMEDY PHYTOPLEX Z-GUARD PASTE 113GM TUBE (FROM STOREROOM PRODUCT) TOP SCH ×2 (17:51→21:00)
[2023-04-29] MEDS: LACTULOSE 20GM/30ML SYRUP UDC PO SCH ×2 (18:42→21:00)
[2023-04-29] MEDS: ISOSORBIDE DIN (ISORDIL) 10MG TAB PO SCH (18:46)
[2023-04-29] MEDS: SYMBICORT 160/4.5MCG INHALER 6GM INH SCH (19:21)
[2023-04-29 20:00] VITALS: BP 149/66; TEMP 98; O2SAT 94
[2023-04-29] MEDS: HEPARIN SOD (PORCINE) 5000UNITS/ML 1ML VIAL/SYRINGE SC SCH (21:37)
[2023-04-29] MEDS: SUCRALFATE 1 GM TAB PO SCH (21:38)
[2023-04-29] MEDS: ATORVASTATIN 20 MG TAB PO SCH (21:38)
[2023-04-29] MEDS: DOCUSATE SODIUM 100MG CAPSULE PO SCH (21:38)
[2023-04-29] MEDS: CitaloPRAM (CeleXA) 20 MG TAB PO SCH (21:38)
[2023-04-29] MEDS: CARVedilol 3.125 MG TAB PO SCH (21:38)
[2023-04-29] MEDS: SENNA 8.6 MG TAB (SENOKOT) PO SCH (21:38)
[2023-04-29] MEDS: PANTOPRAZOLE 40MG TAB (PROTONIX) PO SCH (21:38)
[2023-04-29] MEDS: ACETAMINOPHEN TAB 650MG DOSE (2X325MG) PO PRN (21:39)
[2023-04-30] MEDS: LEVOTHYROXINE 25MCG TABLET (0.025MG) PO SCH (05:10)
[2023-04-30] MEDS: LEVOTHYROXINE 150MCG TABLET (0.15MG) PO SCH (05:10)
[2023-04-30 05:32] LABS: BASO # 0.1 10^3/uL (0.0-0.2); BASO % 0.8 % (0.0-1.0); EOS # 0.2 10^3/uL (0.0-0.5); EOS % 2.8 % (0.0-3.0); HEMATOCRIT 30.3 % (36.0-47.0); HEMOGLOBIN 9.5 g/dl (12.0-15.5); LYMPH # 1.2 10^3/uL (1.5-5.0); LYMPH % 14.9 % (24.0-44.0); MEAN CORPUSCULAR HEMOGLOBIN 31.1 pg (27.0-33.0); MEAN CORPUSCULAR HGB CONC 31.4 g/dl (32.0-36.5); MEAN CORPUSCULAR VOLUME 99.3 fl (80.0-96.0); MONO # 1.3 10^3/uL (0.0-0.8); MONO % 16.1 % (2.0-8.0); NEUTROPHILS # 5.4 10^3/uL (1.5-8.5); PLATELET COUNT, AUTOMATED 215 10^3/uL (150-450); RED BLOOD COUNT 3.05 10^6/uL (4.00-5.40); WHITE BLOOD COUNT 8.3 10^3/uL (4.0-10.0)
[2023-04-30 06:00] VITALS: BP 169/75; TEMP 97.1; O2SAT 99
[2023-04-30] MEDS: **hydrALAZINE HCL** 25 MG TAB PO SCH ×3 (06:00→21:00)
[2023-04-30 06:04] LABS: BILIRUBIN,TOTAL 0.2 MG/DL (0.3-1.2); CALCIUM LEVEL 8.6 MG/DL (8.3-10.6); CREATININE FOR GFR 4.61 MG/DL (0.55-1.30); POTASSIUM SERUM 3.8 MMOL/L (3.5-5.1); TOTAL PROTEIN 6.6 G/DL (5.7-8.2)
[2023-04-30] MEDS: ISOSORBIDE DIN (ISORDIL) 10MG TAB PO SCH ×3 (06:32→17:03)
[2023-04-30] MEDS: SUCROFERRIC OXYHYDROXIDE 500MG CHEW TAB (VELPHORO) PO SCH ×3 (08:00→17:03)
[2023-04-30] MEDS: SYMBICORT 160/4.5MCG INHALER 6GM INH SCH ×2 (08:15→20:22)
[2023-04-30] MEDS: LACTULOSE 20GM/30ML SYRUP UDC PO SCH ×2 (08:18→12:02)
[2023-04-30] MEDS: HEPARIN SOD (PORCINE) 5000UNITS/ML 1ML VIAL/SYRINGE SC SCH ×2 (08:19→20:57)
[2023-04-30] MEDS: CARVedilol 3.125 MG TAB PO SCH ×2 (08:19→20:55)
[2023-04-30] MEDS: PANTOPRAZOLE 40MG TAB (PROTONIX) PO SCH ×2 (08:19→20:56)
[2023-04-30] MEDS: INSULIN LISPRO (NovoLOG) PER UNIT SC SCH ×4 (08:19→20:57)
[2023-04-30] MEDS: ASPIRIN 81MG ENTERIC TABLET PO SCH (08:20)
[2023-04-30] MEDS: DOCUSATE SODIUM 100MG CAPSULE PO SCH ×2 (08:20→20:56)
[2023-04-30] MEDS: SUCRALFATE 1 GM TAB PO SCH ×2 (08:20→20:57)
[2023-04-30] MEDS: ACETAMINOPHEN TAB 650MG DOSE (2X325MG) PO PRN ×2 (08:24→20:59)
[2023-04-30] MEDS: REMEDY PHYTOPLEX Z-GUARD PASTE 113GM TUBE (FROM STOREROOM PRODUCT) TOP SCH ×3 (09:00→20:57)
[2023-04-30 09:56] LABS: PHOSPHORUS LEVEL 3.7 MG/DL (2.4-5.1)
[2023-04-30 11:46] VITALS: BP 133/63
[2023-04-30 14:00] VITALS: BP 135/65; TEMP 98.3; O2SAT 100
[2023-04-30 16:59] VITALS: BP 150/70
[2023-04-30 20:00] VITALS: BP 158/68; TEMP 98.5; O2SAT 100
[2023-04-30] MEDS: SENNA 8.6 MG TAB (SENOKOT) PO SCH (20:55)
[2023-04-30] MEDS: CitaloPRAM (CeleXA) 20 MG TAB PO SCH (20:55)
[2023-04-30] MEDS: ATORVASTATIN 20 MG TAB PO SCH (20:56)
[2023-05-01 06:00] VITALS: BP 146/64; TEMP 97.9; O2SAT 96
[2023-05-01] MEDS: LEVOTHYROXINE 25MCG TABLET (0.025MG) PO SCH (06:01)
[2023-05-01] MEDS: LEVOTHYROXINE 150MCG TABLET (0.15MG) PO SCH (06:01)
[2023-05-01] MEDS: **hydrALAZINE HCL** 25 MG TAB PO SCH ×3 (06:02→21:43)
[2023-05-01] MEDS: ISOSORBIDE DIN (ISORDIL) 10MG TAB PO SCH ×2 (06:02→17:05)
[2023-05-01] MEDS: SYMBICORT 160/4.5MCG INHALER 6GM INH SCH ×2 (07:09→20:26)
[2023-05-01] MEDS ORDERED: SODIUM CHLORIDE 0.9% 1000ML IV PRN (07:20)
[2023-05-01] MEDS ORDERED: HEPARIN 1,000UNITS/ML 10ML VIAL (FOR RADIOLOGY & DIALYSIS ONLY) XX SCH (07:20)
[2023-05-01] MEDS ORDERED: LIDOCAINE 1% SDV 5ML VIAL SC PRN (07:20)
[2023-05-01] MEDS ORDERED: HEPARIN 1,000UNITS/ML 10ML VIAL (FOR RADIOLOGY & DIALYSIS ONLY) IV PRN (07:20)
[2023-05-01] MEDS ORDERED: DARBEPOETIN 100MCG/0.5ML *DIALYSIS* SYRINGE IV SCH (07:25)
[2023-05-01] MEDS: SUCROFERRIC OXYHYDROXIDE 500MG CHEW TAB (VELPHORO) PO SCH ×3 (07:26→17:05)
[2023-05-01] MEDS: SUCRALFATE 1 GM TAB PO SCH ×2 (07:26→21:43)
[2023-05-01] MEDS: DOCUSATE SODIUM 100MG CAPSULE PO SCH ×2 (07:26→21:44)
[2023-05-01] MEDS: INSULIN LISPRO (NovoLOG) PER UNIT SC SCH ×4 (07:26→21:00)
[2023-05-01] MEDS: HEPARIN SOD (PORCINE) 5000UNITS/ML 1ML VIAL/SYRINGE SC SCH ×2 (07:26→21:42)
[2023-05-01] MEDS: REMEDY PHYTOPLEX Z-GUARD PASTE 113GM TUBE (FROM STOREROOM PRODUCT) TOP SCH ×3 (07:27→21:47)
[2023-05-01] MEDS: PANTOPRAZOLE 40MG TAB (PROTONIX) PO SCH ×2 (07:27→21:43)
[2023-05-01] MEDS: CARVedilol 3.125 MG TAB PO SCH ×2 (07:27→21:44)
[2023-05-01] MEDS: ASPIRIN 81MG ENTERIC TABLET PO SCH (07:27)
[2023-05-01 12:10] VITALS: BP 138/84
[2023-05-01 16:50] VITALS: BP 155/62; TEMP 97.9; O2SAT 97
[2023-05-01 20:00] VITALS: BP 175/65; TEMP 98.3; O2SAT 100
[2023-05-01] MEDS: IPRATROPIUM HFA INHALER 12.9 GRAMS (ATROVENT HFA) INH SCH (20:26)
[2023-05-01] MEDS: ATORVASTATIN 20 MG TAB PO SCH (21:43)
[2023-05-01] MEDS: CitaloPRAM (CeleXA) 20 MG TAB PO SCH (21:44)
[2023-05-01] MEDS: SENNA 8.6 MG TAB (SENOKOT) PO SCH (21:44)
[2023-05-01] MEDS: ACETAMINOPHEN TAB 650MG DOSE (2X325MG) PO PRN (22:06)
[2023-05-02 06:40] VITALS: BP 180/60; TEMP 97.3; O2SAT 99
[2023-05-02] MEDS: SYMBICORT 160/4.5MCG INHALER 6GM INH SCH ×2 (06:51→19:42)
[2023-05-02] MEDS: IPRATROPIUM HFA INHALER 12.9 GRAMS (ATROVENT HFA) INH SCH ×3 (06:51→19:42)
[2023-05-02] MEDS: **hydrALAZINE HCL** 25 MG TAB PO SCH ×3 (07:02→21:38)
[2023-05-02] MEDS: LEVOTHYROXINE 25MCG TABLET (0.025MG) PO SCH (07:02)
[2023-05-02] MEDS: LEVOTHYROXINE 150MCG TABLET (0.15MG) PO SCH (07:03)
[2023-05-02] MEDS: ISOSORBIDE DIN (ISORDIL) 10MG TAB PO SCH ×3 (07:03→17:19)
[2023-05-02 07:19] LABS: BASO # 0.1 10^3/uL (0.0-0.2); EOS # 0.2 10^3/uL (0.0-0.5); EOS % 2.8 % (0.0-3.0); HEMATOCRIT 34.2 % (36.0-47.0); HEMOGLOBIN 10.7 g/dl (12.0-15.5); LYMPH # 1.5 10^3/uL (1.5-5.0); MEAN CORPUSCULAR HEMOGLOBIN 31.1 pg (27.0-33.0); MEAN CORPUSCULAR HGB CONC 31.3 g/dl (32.0-36.5); MEAN CORPUSCULAR VOLUME 99.4 fl (80.0-96.0); MONO % 14.7 % (2.0-8.0); NEUTROPHILS % 58.3 % (36.0-66.0); PLATELET COUNT, AUTOMATED 255 10^3/uL (150-450); RED BLOOD COUNT 3.44 10^6/uL (4.00-5.40); WHITE BLOOD COUNT 6.8 10^3/uL (4.0-10.0)
[2023-05-02 07:41] VITALS: BP 152/68
[2023-05-02] MEDS: SUCRALFATE 1 GM TAB PO SCH ×2 (07:42→21:38)
[2023-05-02] MEDS: DOCUSATE SODIUM 100MG CAPSULE PO SCH ×2 (07:42→21:39)
[2023-05-02] MEDS: SUCROFERRIC OXYHYDROXIDE 500MG CHEW TAB (VELPHORO) PO SCH ×3 (07:42→17:16)
[2023-05-02] MEDS: ASPIRIN 81MG ENTERIC TABLET PO SCH (07:43)
[2023-05-02] MEDS: CARVedilol 3.125 MG TAB PO SCH ×2 (07:43→21:41)
[2023-05-02] MEDS: PANTOPRAZOLE 40MG TAB (PROTONIX) PO SCH ×2 (07:43→21:39)
[2023-05-02 07:44] LABS: CALCIUM LEVEL 9.3 MG/DL (8.3-10.6); CREATININE FOR GFR 4.37 MG/DL (0.55-1.30); GLOMERULAR FILTRATION RATE 10.6 (>39); POTASSIUM SERUM 3.8 MMOL/L (3.5-5.1)
[2023-05-02] MEDS: HEPARIN SOD (PORCINE) 5000UNITS/ML 1ML VIAL/SYRINGE SC SCH ×2 (07:44→21:38)
[2023-05-02] MEDS: REMEDY PHYTOPLEX Z-GUARD PASTE 113GM TUBE (FROM STOREROOM PRODUCT) TOP SCH ×3 (07:44→21:00)
[2023-05-02] MEDS: INSULIN LISPRO (NovoLOG) PER UNIT SC SCH ×4 (07:46→19:53)
[2023-05-02] MEDS: ACETAMINOPHEN TAB 650MG DOSE (2X325MG) PO PRN (09:24)
[2023-05-02 13:26] VITALS: BP 147/65; TEMP 98.6; O2SAT 100
[2023-05-02 19:15] VITALS: BP 127/62; TEMP 97.8; O2SAT 97
[2023-05-02 21:25] VITALS: BP 162/72
[2023-05-02] MEDS: ATORVASTATIN 20 MG TAB PO SCH (21:38)
[2023-05-02] MEDS: SENNA 8.6 MG TAB (SENOKOT) PO SCH (21:39)
[2023-05-02] MEDS: CitaloPRAM (CeleXA) 20 MG TAB PO SCH (21:39)
[2023-05-03 02:00] VITALS: BP 152/67; TEMP 97.7; O2SAT 99
[2023-05-03 05:49] VITALS: BP 168/80; TEMP 97.1; O2SAT 98
[2023-05-03] MEDS: LEVOTHYROXINE 150MCG TABLET (0.15MG) PO SCH (06:03)
[2023-05-03] MEDS: ISOSORBIDE DIN (ISORDIL) 10MG TAB PO SCH ×2 (06:04→17:46)
[2023-05-03] MEDS: LEVOTHYROXINE 25MCG TABLET (0.025MG) PO SCH (06:04)
[2023-05-03] MEDS: **hydrALAZINE HCL** 25 MG TAB PO SCH ×3 (06:05→21:02)
[2023-05-03] MEDS: IPRATROPIUM HFA INHALER 12.9 GRAMS (ATROVENT HFA) INH SCH ×3 (07:11→20:04)
[2023-05-03] MEDS: SYMBICORT 160/4.5MCG INHALER 6GM INH SCH ×2 (07:11→20:06)
[2023-05-03] MEDS: HEPARIN SOD (PORCINE) 5000UNITS/ML 1ML VIAL/SYRINGE SC SCH ×2 (07:31→21:03)
[2023-05-03] MEDS: SUCROFERRIC OXYHYDROXIDE 500MG CHEW TAB (VELPHORO) PO SCH ×3 (07:31→17:45)
[2023-05-03] MEDS: INSULIN LISPRO (NovoLOG) PER UNIT SC SCH ×4 (07:31→21:00)
[2023-05-03] MEDS: CARVedilol 3.125 MG TAB PO SCH ×2 (07:32→21:02)
[2023-05-03] MEDS: ACETAMINOPHEN TAB 650MG DOSE (2X325MG) PO PRN ×2 (07:32→21:03)
[2023-05-03] MEDS: PANTOPRAZOLE 40MG TAB (PROTONIX) PO SCH ×2 (07:32→21:02)
[2023-05-03] MEDS: SUCRALFATE 1 GM TAB PO SCH ×2 (07:32→21:02)
[2023-05-03] MEDS: ASPIRIN 81MG ENTERIC TABLET PO SCH (07:32)
[2023-05-03] MEDS: DOCUSATE SODIUM 100MG CAPSULE PO SCH ×2 (07:32→21:02)
[2023-05-03] MEDS: REMEDY PHYTOPLEX Z-GUARD PASTE 113GM TUBE (FROM STOREROOM PRODUCT) TOP SCH ×3 (07:33→21:00)
[2023-05-03] MEDS ORDERED: HEPARIN 1,000UNITS/ML 10ML VIAL (FOR RADIOLOGY & DIALYSIS ONLY) IV PRN (08:20)
[2023-05-03] MEDS ORDERED: SODIUM CHLORIDE 0.9% 1000ML IV PRN (08:20)
[2023-05-03] MEDS ORDERED: HEPARIN 1,000UNITS/ML 10ML VIAL (FOR RADIOLOGY & DIALYSIS ONLY) XX SCH (08:20)
[2023-05-03] MEDS ORDERED: LIDOCAINE 1% SDV 5ML VIAL SC PRN (08:20)
[2023-05-03 14:08] VITALS: BP 152/67; TEMP 97.7; O2SAT 99
[2023-05-03 20:00] VITALS: BP 130/54; TEMP 98.5; O2SAT 95
[2023-05-03] MEDS: SENNA 8.6 MG TAB (SENOKOT) PO SCH (21:02)
[2023-05-03] MEDS: CitaloPRAM (CeleXA) 20 MG TAB PO SCH (21:02)
[2023-05-03] MEDS: ATORVASTATIN 20 MG TAB PO SCH (21:03)
[2023-05-04] MEDS: LEVOTHYROXINE 25MCG TABLET (0.025MG) PO SCH (05:05)
[2023-05-04] MEDS: LEVOTHYROXINE 150MCG TABLET (0.15MG) PO SCH (05:05)
[2023-05-04] MEDS: **hydrALAZINE HCL** 25 MG TAB PO SCH ×3 (05:05→21:18)
[2023-05-04 06:00] VITALS: BP 140/62; TEMP 97.8; O2SAT 100
[2023-05-04] MEDS: ISOSORBIDE DIN (ISORDIL) 10MG TAB PO SCH ×3 (06:49→17:17)
[2023-05-04] MEDS: SYMBICORT 160/4.5MCG INHALER 6GM INH SCH ×2 (06:57→20:47)
[2023-05-04] MEDS: IPRATROPIUM HFA INHALER 12.9 GRAMS (ATROVENT HFA) INH SCH ×3 (06:57→20:47)
[2023-05-04] MEDS: REMEDY PHYTOPLEX Z-GUARD PASTE 113GM TUBE (FROM STOREROOM PRODUCT) TOP SCH ×3 (09:00→21:00)
[2023-05-04] MEDS: DOCUSATE SODIUM 100MG CAPSULE PO SCH ×2 (09:07→21:18)
[2023-05-04] MEDS: ASPIRIN 81MG ENTERIC TABLET PO SCH (09:08)
[2023-05-04] MEDS: SUCRALFATE 1 GM TAB PO SCH ×2 (09:08→21:19)
[2023-05-04] MEDS: PANTOPRAZOLE 40MG TAB (PROTONIX) PO SCH ×2 (09:08→21:19)
[2023-05-04] MEDS: CARVedilol 3.125 MG TAB PO SCH ×2 (09:08→21:19)
[2023-05-04] MEDS: HEPARIN SOD (PORCINE) 5000UNITS/ML 1ML VIAL/SYRINGE SC SCH ×2 (09:08→21:19)
[2023-05-04] MEDS: SUCROFERRIC OXYHYDROXIDE 500MG CHEW TAB (VELPHORO) PO SCH ×3 (09:08→17:15)
[2023-05-04] MEDS: INSULIN LISPRO (NovoLOG) PER UNIT SC SCH ×4 (09:09→21:00)
[2023-05-04 14:00] VITALS: BP 122/58; TEMP 97; O2SAT 99
[2023-05-04 20:00] VITALS: BP 160/70; TEMP 98; O2SAT 99
[2023-05-04] MEDS: SENNA 8.6 MG TAB (SENOKOT) PO SCH (21:18)
[2023-05-04] MEDS: CitaloPRAM (CeleXA) 20 MG TAB PO SCH (21:18)
[2023-05-04] MEDS: ATORVASTATIN 20 MG TAB PO SCH (21:18)
[2023-05-04] MEDS: ACETAMINOPHEN TAB 650MG DOSE (2X325MG) PO PRN (21:20)
[2023-05-05] MEDS: LEVOTHYROXINE 25MCG TABLET (0.025MG) PO SCH (05:21)
[2023-05-05] MEDS: LEVOTHYROXINE 150MCG TABLET (0.15MG) PO SCH (05:21)
[2023-05-05] MEDS: **hydrALAZINE HCL** 25 MG TAB PO SCH ×3 (05:22→20:58)
[2023-05-05 06:00] VITALS: BP 178/73; TEMP 97; O2SAT 100
[2023-05-05] MEDS: ISOSORBIDE DIN (ISORDIL) 10MG TAB PO SCH ×3 (06:13→17:01)
[2023-05-05 06:17] VITALS: BP 154/62
[2023-05-05] MEDS: SYMBICORT 160/4.5MCG INHALER 6GM INH SCH ×2 (07:05→20:09)
[2023-05-05] MEDS: IPRATROPIUM HFA INHALER 12.9 GRAMS (ATROVENT HFA) INH SCH ×3 (07:06→20:10)
[2023-05-05] MEDS: SUCROFERRIC OXYHYDROXIDE 500MG CHEW TAB (VELPHORO) PO SCH ×3 (07:30→17:01)
[2023-05-05] MEDS: CARVedilol 3.125 MG TAB PO SCH ×2 (07:30→20:58)
[2023-05-05] MEDS: PANTOPRAZOLE 40MG TAB (PROTONIX) PO SCH ×2 (07:31→20:57)
[2023-05-05] MEDS: INSULIN LISPRO (NovoLOG) PER UNIT SC SCH ×4 (07:31→21:00)
[2023-05-05] MEDS: ASPIRIN 81MG ENTERIC TABLET PO SCH (07:31)
[2023-05-05] MEDS: SUCRALFATE 1 GM TAB PO SCH ×2 (07:31→20:57)
[2023-05-05] MEDS: HEPARIN SOD (PORCINE) 5000UNITS/ML 1ML VIAL/SYRINGE SC SCH ×2 (07:31→20:57)
[2023-05-05] MEDS: DOCUSATE SODIUM 100MG CAPSULE PO SCH ×2 (07:32→20:57)
[2023-05-05] MEDS: REMEDY PHYTOPLEX Z-GUARD PASTE 113GM TUBE (FROM STOREROOM PRODUCT) TOP SCH ×3 (07:32→21:00)
[2023-05-05 12:14] VITALS: BP 152/68
[2023-05-05 13:50] VITALS: BP 153/67; TEMP 98.1; O2SAT 100
[2023-05-05 16:59] VITALS: BP 169/79
[2023-05-05 19:30] VITALS: BP 166/71; TEMP 97.5; O2SAT 100
[2023-05-05] MEDS: SENNA 8.6 MG TAB (SENOKOT) PO SCH (20:56)
[2023-05-05] MEDS: ACETAMINOPHEN TAB 650MG DOSE (2X325MG) PO PRN (20:57)
[2023-05-05] MEDS: CitaloPRAM (CeleXA) 20 MG TAB PO SCH (20:57)
[2023-05-05] MEDS: ATORVASTATIN 20 MG TAB PO SCH (20:58)
[2023-05-06] MEDS: LEVOTHYROXINE 25MCG TABLET (0.025MG) PO SCH (05:36)
[2023-05-06] MEDS: LEVOTHYROXINE 150MCG TABLET (0.15MG) PO SCH (05:36)
[2023-05-06] MEDS: **hydrALAZINE HCL** 25 MG TAB PO SCH ×3 (05:38→21:37)
[2023-05-06 06:00] VITALS: BP 160/55; TEMP 97.3; O2SAT 98
[2023-05-06] MEDS ORDERED: SODIUM CHLORIDE 0.9% 1000ML IV PRN (06:00)
[2023-05-06] MEDS ORDERED: HEPARIN 1,000UNITS/ML 10ML VIAL (FOR RADIOLOGY & DIALYSIS ONLY) XX SCH (06:00)
[2023-05-06] MEDS ORDERED: LIDOCAINE 1% SDV 5ML VIAL SC PRN (06:00)
[2023-05-06] MEDS ORDERED: HEPARIN 1,000UNITS/ML 10ML VIAL (FOR RADIOLOGY & DIALYSIS ONLY) IV PRN (06:00)
[2023-05-06] MEDS: ISOSORBIDE DIN (ISORDIL) 10MG TAB PO SCH ×2 (06:28→17:05)
[2023-05-06 07:05] VITALS: BP 161/55
[2023-05-06] MEDS: SUCRALFATE 1 GM TAB PO SCH ×2 (07:07→21:37)
[2023-05-06] MEDS: DOCUSATE SODIUM 100MG CAPSULE PO SCH ×2 (07:07→21:38)
[2023-05-06] MEDS: ACETAMINOPHEN TAB 650MG DOSE (2X325MG) PO PRN ×2 (07:07→21:37)
[2023-05-06] MEDS: PANTOPRAZOLE 40MG TAB (PROTONIX) PO SCH ×2 (07:07→21:37)
[2023-05-06] MEDS: CARVedilol 3.125 MG TAB PO SCH ×2 (07:07→21:38)
[2023-05-06] MEDS: INSULIN LISPRO (NovoLOG) PER UNIT SC SCH ×4 (07:08→21:00)
[2023-05-06] MEDS: SUCROFERRIC OXYHYDROXIDE 500MG CHEW TAB (VELPHORO) PO SCH ×3 (07:08→17:04)
[2023-05-06] MEDS: ASPIRIN 81MG ENTERIC TABLET PO SCH (07:08)
[2023-05-06] MEDS: HEPARIN SOD (PORCINE) 5000UNITS/ML 1ML VIAL/SYRINGE SC SCH ×2 (07:08→21:38)
[2023-05-06] MEDS: REMEDY PHYTOPLEX Z-GUARD PASTE 113GM TUBE (FROM STOREROOM PRODUCT) TOP SCH ×3 (07:09→21:00)
[2023-05-06] MEDS: SYMBICORT 160/4.5MCG INHALER 6GM INH SCH ×2 (07:38→19:09)
[2023-05-06] MEDS: IPRATROPIUM HFA INHALER 12.9 GRAMS (ATROVENT HFA) INH SCH ×3 (07:38→19:09)
[2023-05-06 12:21] LABS: BASO # 0.1 10^3/uL (0.0-0.2); BASO % 0.6 % (0.0-1.0); EOS # 0.1 10^3/uL (0.0-0.5); EOS % 1.8 % (0.0-3.0); HEMATOCRIT 30.5 % (36.0-47.0); HEMOGLOBIN 9.6 g/dl (12.0-15.5); LYMPH # 1.3 10^3/uL (1.5-5.0); LYMPH % 16.5 % (24.0-44.0); MEAN CORPUSCULAR HEMOGLOBIN 31.5 pg (27.0-33.0); MEAN CORPUSCULAR HGB CONC 31.5 g/dl (32.0-36.5); MONO # 0.7 10^3/uL (0.0-0.8); MONO % 9.2 % (2.0-8.0); NEUTROPHILS # 5.4 10^3/uL (1.5-8.5); PLATELET COUNT, AUTOMATED 317 10^3/uL (150-450); RED BLOOD COUNT 3.05 10^6/uL (4.00-5.40); WHITE BLOOD COUNT 7.7 10^3/uL (4.0-10.0)
[2023-05-06 12:48] LABS: CALCIUM LEVEL 9.1 MG/DL (8.3-10.6); CREATININE FOR GFR 8.12 MG/DL (0.55-1.30); GLOMERULAR FILTRATION RATE 5.2 (>39); POTASSIUM SERUM 3.6 MMOL/L (3.5-5.1)
[2023-05-06 16:48] VITALS: BP 158/58; TEMP 98.1; O2SAT 98
[2023-05-06 20:00] VITALS: BP 140/62; TEMP 98.3; O2SAT 100
[2023-05-06] MEDS: SENNA 8.6 MG TAB (SENOKOT) PO SCH (21:37)
[2023-05-06] MEDS: ATORVASTATIN 20 MG TAB PO SCH (21:38)
[2023-05-06] MEDS: CitaloPRAM (CeleXA) 20 MG TAB PO SCH (21:38)
[2023-05-07] MEDS: LEVOTHYROXINE 150MCG TABLET (0.15MG) PO SCH (05:50)
[2023-05-07] MEDS: LEVOTHYROXINE 25MCG TABLET (0.025MG) PO SCH (05:50)
[2023-05-07] MEDS: **hydrALAZINE HCL** 25 MG TAB PO SCH (05:55)
[2023-05-07 06:00] VITALS: BP 148/62; TEMP 98.5; O2SAT 100
[2023-05-07] MEDS: ISOSORBIDE DIN (ISORDIL) 10MG TAB PO SCH (06:48)
[2023-05-07] MEDS: IPRATROPIUM HFA INHALER 12.9 GRAMS (ATROVENT HFA) INH SCH (07:38)
[2023-05-07] MEDS: SYMBICORT 160/4.5MCG INHALER 6GM INH SCH (07:38)
[2023-05-07] MEDS: INSULIN LISPRO (NovoLOG) PER UNIT SC SCH (08:27)
[2023-05-07] MEDS: SUCROFERRIC OXYHYDROXIDE 500MG CHEW TAB (VELPHORO) PO SCH (08:27)
[2023-05-07 08:28] VITALS: BP 151/61
[2023-05-07] MEDS: SUCRALFATE 1 GM TAB PO SCH (08:28)
[2023-05-07] MEDS: CARVedilol 3.125 MG TAB PO SCH (08:28)
[2023-05-07] MEDS: ASPIRIN 81MG ENTERIC TABLET PO SCH (08:28)
[2023-05-07] MEDS: DOCUSATE SODIUM 100MG CAPSULE PO SCH (08:28)
[2023-05-07] MEDS: HEPARIN SOD (PORCINE) 5000UNITS/ML 1ML VIAL/SYRINGE SC SCH (08:29)
[2023-05-07] MEDS: PANTOPRAZOLE 40MG TAB (PROTONIX) PO SCH (08:29)
[2023-05-07] MEDS: REMEDY PHYTOPLEX Z-GUARD PASTE 113GM TUBE (FROM STOREROOM PRODUCT) TOP SCH (08:29)
[2023-05-07] MEDS ORDERED: NITR4TASL SL (09:51)
[2023-05-07] MEDS ORDERED: CARV3.12 PO (09:51)
[2023-05-07] MEDS ORDERED: LEVO175T19 PO (09:51)
[2023-05-07] MEDS ORDERED: IPRAINH INH (09:51)
[2023-05-07] MEDS ORDERED: PROT1TAB2 PO (09:51)
[2023-05-07] MEDS ORDERED: ECOT81TA5 PO (09:51)
[2023-05-07] MEDS ORDERED: ISOS10TA3 PO ×2 (09:51)
[2023-05-07] MEDS ORDERED: BREO1INH INH (09:51)
[2023-05-07] MEDS ORDERED: VELP5CHW PO (09:51)
[2023-05-07] MEDS ORDERED: AMLO1TAB25 PO (09:51)
[2023-05-07] MEDS ORDERED: CITA20TA6 PO (09:51)
[2023-05-07] MEDS ORDERED: ATOR80TA59 PO (09:51)
[2023-05-07] MEDS ORDERED: SYMB16INH INH (09:51)
[2023-05-07] MEDS ORDERED: VENTAER INH (09:51)
== END 2023-05-07 11:25 | disposition home or self-care (01) | DRG 73 ==
LOC: M PM&R 15:10
PROVIDERS: ADMIT Physical Medicine & Rehabilitation; ATTEND Physical Medicine & Rehabilitation
PROC: 5A1D70Z Performance of Urinary Filtration, Intermittent, Less than 6 Hours Per Day (ICD-10-PCS; principal; 2023-05-01)
DX: E11.42 Type 2 diabetes mellitus with diabetic polyneuropathy (principal); K57.33 Diverticulitis of large intestine without perforation or abscess with bleeding; N18.6 End stage renal disease; I50.32 Chronic diastolic (congestive) heart failure; I69.351 Hemiplegia and hemiparesis following cerebral infarction affecting right dominant side; I13.2 Hypertensive heart and chronic kidney disease with heart failure and with stage 5 chronic kidney disease, or end stage renal disease; E83.39 Other disorders of phosphorus metabolism; R53.1 Weakness; I25.10 Atherosclerotic heart disease of native coronary artery without angina pectoris; E78.5 Hyperlipidemia, unspecified; E11.22 Type 2 diabetes mellitus with diabetic chronic kidney disease; E11.319 Type 2 diabetes mellitus with unspecified diabetic retinopathy without macular edema; G47.33 Obstructive sleep apnea (adult) (pediatric); K64.8 Other hemorrhoids; H54.7 Unspecified visual loss; J44.9 Chronic obstructive pulmonary disease, unspecified; K21.9 Gastro-esophageal reflux disease without esophagitis; F32.A Depression, unspecified; Z99.81 Dependence on supplemental oxygen; I27.20 Pulmonary hypertension, unspecified; D63.1 Anemia in chronic kidney disease; G25.0 Essential tremor; E05.90 Thyrotoxicosis, unspecified without thyrotoxic crisis or storm; Z74.09 Other reduced mobility; Z74.1 Need for assistance with personal care; Z98.49 Cataract extraction status, unspecified eye; Z85.828 Personal history of other malignant neoplasm of skin; Z95.828 Presence of other vascular implants and grafts; Z99.2 Dependence on renal dialysis; Z79.890 Hormone replacement therapy; Z79.82 Long term (current) use of aspirin; Z79.4 Long term (current) use of insulin; Z79.899 Other long term (current) drug therapy; Z88.8 Allergy status to other drugs, medicaments and biological substances; Z95.5 Presence of coronary angioplasty implant and graft

== ENCOUNTER → 2023-10-01 | Outpatient (CLI) | payer MEDICARE, OTHER ==
[~2023-10-01] MED LIST changes: +CARV3.12 PO; +IPRAINH INH
[2023-10-01 13:04] LABS: BASO # 0.1 10^3/uL (0.0-0.2); BASO % 0.8 % (0.0-1.0); EOS # 0.1 10^3/uL (0.0-0.5); EOS % 1.9 % (0.0-3.0); HEMATOCRIT 31.2 % (36.0-47.0); HEMOGLOBIN 9.8 g/dl (12.0-15.5); LYMPH % 13.6 % (24.0-44.0); MEAN CORPUSCULAR HEMOGLOBIN 32.2 pg (27.0-33.0); MEAN CORPUSCULAR HGB CONC 31.4 g/dl (32.0-36.5); MEAN CORPUSCULAR VOLUME 102.6 fl (80.0-96.0); MONO # 0.6 10^3/uL (0.0-0.8); MONO % 8.7 % (2.0-8.0); NEUTROPHILS # 5.5 10^3/uL (1.5-8.5); NEUTROPHILS % 74.5 % (36.0-66.0); PLATELET COUNT, AUTOMATED 290 10^3/uL (150-450); RED BLOOD COUNT 3.04 10^6/uL (4.00-5.40); WHITE BLOOD COUNT 7.4 10^3/uL (4.0-10.0)
== END ==
LOC: M WUC 11:36
PROVIDERS: ATTEND Pediatrics
DX: R09.81 Nasal congestion (principal); R06.00 Dyspnea, unspecified; R05.9 Cough, unspecified; I51.7 Cardiomegaly; J81.1 Chronic pulmonary edema

== ENCOUNTER 2023-10-18 08:36 | Inpatient (IN) | payer MEDICARE, MEDICAID ==
[~2023-10-18] VITALS: Ht 165.1 cm; Wt 87.6 kg
[2023-10-18 09:15] LABS: VENOUS BASE EXCESS -0.5 (-2.0-2.0); VENOUS HCO3 26.5 MMOL/L (23.0-27.0); VENOUS O2 SATURATION 62.7 % (60.0-80.0); VENOUS PARTIAL PRESSURE CO2 54.3 mmHg (38.0-50.0); VENOUS PARTIAL PRESSURE O2 33.1 mmHg (30.0-50.0); VENOUS PH 7.307 UNITS (7.330-7.430); VENOUS STANDARD HCO3 23.4 MMOL/L; VENOUS TOTAL CO2 28.2 MMOL/L (24.0-28.0)
[2023-10-18 09:19] LABS: BASO # 0.1 10^3/uL (0.0-0.2); BASO % 0.9 % (0.0-1.0); EOS # 0.4 10^3/uL (0.0-0.5); EOS % 3.4 % (0.0-3.0); HEMATOCRIT 31.5 % (36.0-47.0); HEMOGLOBIN 9.9 g/dl (12.0-15.5); LYMPH # 1.2 10^3/uL (1.5-5.0); LYMPH % 11.7 % (24.0-44.0); MEAN CORPUSCULAR HEMOGLOBIN 32.7 pg (27.0-33.0); MEAN CORPUSCULAR HGB CONC 31.4 g/dl (32.0-36.5); MONO # 0.8 10^3/uL (0.0-0.8); MONO % 7.9 % (2.0-8.0); NEUTROPHILS # 7.7 10^3/uL (1.5-8.5); NEUTROPHILS % 75.6 % (36.0-66.0); PLATELET COUNT, AUTOMATED 244 10^3/uL (150-450); RED BLOOD COUNT 3.03 10^6/uL (4.00-5.40); WHITE BLOOD COUNT 10.2 10^3/uL (4.0-10.0)
[2023-10-18 09:48] LABS: INR 1.1; PROTHROMBIN TIME 13.9 SECONDS (12.5-14.5)
[2023-10-18 09:53] LABS: LIPASE 36 U/L (12-53)
[2023-10-18 09:56] LABS: CPK CREATINE PHOSPHOKINASE 239 U/L (34-145)
[2023-10-18 10:00] LABS: ALBUMIN 4.1 G/DL (3.2-5.2); ALKALINE PHOSPHATASE 210 U/L (46-116); ALT/SGPT 28 U/L (7.0-40); AST/SGOT 36 U/L (<34); BILIRUBIN,DIRECT < 0.1 MG/DL (<0.4); BILIRUBIN,TOTAL 0.2 MG/DL (0.3-1.2); BLOOD UREA NITROGEN 63 MG/DL (9-23); CALCIUM LEVEL 9.5 MG/DL (8.3-10.6); CARBON DIOXIDE LEVEL 25 MMOL/L (20-31); CHLORIDE LEVEL 94 MMOL/L (98-107); CREATININE FOR GFR 8.12 MG/DL (0.55-1.30); FREE T4 1.25 NG/DL (0.89-1.76); GLOMERULAR FILTRATION RATE 5.2 (>39); GLUCOSE, FASTING 148 MG/DL (74-106); MB/CK RELATIVE INDEX 0.83 (< OR =4); SODIUM LEVEL 136 MMOL/L (136-145); THYROID STIMULATING HORMONE 1.985 uIU/ML (0.55-4.78); TOTAL PROTEIN 8.4 G/DL (5.7-8.2)
[2023-10-18] MEDS ORDERED: ISOVUE-370 76% 100ML VIAL As Ordered ONE (10:27)
[2023-10-18 10:40] LABS: CK-MB VALUE MASS < 1.0 NG/ML (<3.6)
[2023-10-18 10:41] LABS: CPK CREATINE PHOSPHOKINASE 199 U/L (34-145)
[2023-10-18] MEDS ORDERED: AZITHROMYCIN 250MG TABLET PO ONE (13:05)
[2023-10-18] MEDS ORDERED: cefTRIAXone SOD 1 GM in D5W MINI-BAG PLUS 50 ML IV ONE (13:05)
[2023-10-18] MEDS ORDERED: MED REC IN PROGRESS XX SCH (13:35)
[2023-10-18] MEDS ORDERED: LIDOCAINE 1% SDV 5ML VIAL SC PRN (13:50)
[2023-10-18] MEDS ORDERED: SODIUM CHLORIDE 0.9% 1000ML IV PRN (13:50)
[2023-10-18] MEDS ORDERED: HEPARIN 1,000UNITS/ML 10ML VIAL (FOR RADIOLOGY & DIALYSIS ONLY) XX SCH (13:50)
[2023-10-18] MEDS ORDERED: CARV3.12 PO (14:11)
[2023-10-18] MEDS ORDERED: HYDR-3910 PO (14:11)
[2023-10-18] MEDS ORDERED: IPRA0.00 INH (14:11)
[2023-10-18] MEDS ORDERED: LANTINJ4 SC (14:11)
[2023-10-18] MEDS ORDERED: LEVO175T2 PO (14:11)
[2023-10-18] MEDS ORDERED: ECOT81TA5 PO (14:11)
[2023-10-18] MEDS ORDERED: VELP5CHW PO (14:11)
[2023-10-18] MEDS ORDERED: BREO1INH INH (14:11)
[2023-10-18] MEDS ORDERED: PANT20TA6 PO (14:11)
[2023-10-18] MEDS ORDERED: NITR4TASL SL (14:11)
[2023-10-18] MEDS ORDERED: AMLO1TAB25 PO (14:11)
[2023-10-18] MEDS ORDERED: ATOR80TA59 PO (14:13)
[2023-10-18] MEDS ORDERED: HOME MED LIST COMPLETE! XX SCH (14:25)
[2023-10-18] MEDS ORDERED: NITROGLYCERIN 0.4MG SUBL TABLET SL PRN (14:30)
[2023-10-18] MEDS ORDERED: DEXTROSE 50% 50ML SYRINGE IV PRN (14:30)
[2023-10-18] MEDS ORDERED: GLUCOSE 4GM CHEW TABLET PO PRN (14:30)
[2023-10-18] MEDS ORDERED: FLUTICASONE PROP 0.05% NASAL SPRAY 16 GM (FLONASE) NARES PRN (14:30)
[2023-10-18] MEDS ORDERED: GLUCAGON INJ 1MG VIAL SC PRN (14:30)
[2023-10-18] MEDS ORDERED: CETIRIZINE (ZyrTEC) 10 MG TAB PO PRN (14:30)
[2023-10-18] MEDS: INSULIN LISPRO (NovoLOG) PER UNIT SC SCH ×2 (19:50→21:00)
[2023-10-18] MEDS: SUCROFERRIC OXYHYDROXIDE 500MG CHEW TAB (VELPHORO) PO SCH (19:52)
[2023-10-18] MEDS: IPRATROPIUM 0.5MG/ALBUTEROL 2.5MG INH SOL UD 3ML (DUONEB) INH SCH (19:58)
[2023-10-18] MEDS: SYMBICORT 160/4.5MCG INHALER 6GM INH SCH (19:58)
[2023-10-18 20:00] VITALS: O2SAT 100
[2023-10-18 20:20] VITALS: BP 162/62; TEMP 98.1; O2SAT 92
[2023-10-18] MEDS: CINACALCET 30 MG TAB (SENSIPAR) PO SCH (20:53)
[2023-10-18] MEDS: CARVedilol 3.125 MG TAB PO SCH (20:54)
[2023-10-18] MEDS: CitaloPRAM (CeleXA) 20 MG TAB PO SCH (20:55)
[2023-10-18] MEDS: ACETAMINOPHEN 500 MG TAB PO SCH (20:55)
[2023-10-18] MEDS: ATORVASTATIN 20 MG TAB PO SCH (20:56)
[2023-10-18] MEDS: **hydrALAZINE HCL** 25 MG TAB PO SCH (20:56)
[2023-10-18] MEDS: ISOSORBIDE DIN (ISORDIL) 10MG TAB PO SCH (20:56)
[2023-10-18] MEDS: LEVEMIR (INSULIN DETEMIR) 1 UNITS/0.01ML SC SCH (20:57)
[2023-10-18 21:00] VITALS: O2SAT 95
[2023-10-18 22:00] VITALS: O2SAT 95
[2023-10-18] MEDS: HEPARIN SOD (PORCINE) 5000UNITS/ML 1ML VIAL/SYRINGE SQ SCH (22:47)
[2023-10-18 23:00] VITALS: O2SAT 97
[2023-10-19] VITALS (26 sets, daily range): BP systolic 141–186; BP diastolic 63–90; TEMP 96.9–98; O2SAT 91–99
[2023-10-19] MEDS ORDERED: ONDANSETRON 4MG 2ML VIAL IV ONE (03:50)
[2023-10-19 06:00] LABS: BASO # 0.1 10^3/uL (0.0-0.2); EOS # 0.3 10^3/uL (0.0-0.5); EOS % 3.6 % (0.0-3.0); HEMATOCRIT 32.8 % (36.0-47.0); HEMOGLOBIN 10.3 g/dl (12.0-15.5); LYMPH # 1.1 10^3/uL (1.5-5.0); LYMPH % 12.5 % (24.0-44.0); MEAN CORPUSCULAR HEMOGLOBIN 32.6 pg (27.0-33.0); MEAN CORPUSCULAR HGB CONC 31.4 g/dl (32.0-36.5); MEAN CORPUSCULAR VOLUME 103.8 fl (80.0-96.0); MONO # 0.9 10^3/uL (0.0-0.8); MONO % 10.6 % (2.0-8.0); NEUTROPHILS # 6.2 10^3/uL (1.5-8.5); NEUTROPHILS % 71.7 % (36.0-66.0); PLATELET COUNT, AUTOMATED 249 10^3/uL (150-450); RED BLOOD COUNT 3.16 10^6/uL (4.00-5.40); WHITE BLOOD COUNT 8.7 10^3/uL (4.0-10.0)
[2023-10-19] MEDS: LEVOTHYROXINE 150MCG TABLET (0.15MG) PO SCH (06:21)
[2023-10-19] MEDS: LEVOTHYROXINE 25MCG TABLET (0.025MG) PO SCH (06:21)
[2023-10-19] MEDS: HEPARIN SOD (PORCINE) 5000UNITS/ML 1ML VIAL/SYRINGE SQ SCH ×3 (06:22→22:15)
[2023-10-19 06:24] LABS: CALCIUM LEVEL 9.2 MG/DL (8.3-10.6); CREATININE FOR GFR 5.06 MG/DL (0.55-1.30); MAGNESIUM LEVEL 1.9 MG/DL (1.8-2.4)
[2023-10-19] MEDS: ISOSORBIDE DIN (ISORDIL) 10MG TAB PO SCH ×3 (06:54→17:48)
[2023-10-19] MEDS: **hydrALAZINE HCL** 25 MG TAB PO SCH ×3 (06:54→17:48)
[2023-10-19] MEDS: SYMBICORT 160/4.5MCG INHALER 6GM INH SCH ×2 (07:14→20:56)
[2023-10-19] MEDS: IPRATROPIUM 0.5MG/ALBUTEROL 2.5MG INH SOL UD 3ML (DUONEB) INH SCH ×4 (07:14→20:56)
[2023-10-19] MEDS ORDERED: TIOTROPIUM INHALER/CAPSULE (SPIRIVA) INH SCH (08:00)
[2023-10-19] MEDS: SUCROFERRIC OXYHYDROXIDE 500MG CHEW TAB (VELPHORO) PO SCH ×3 (08:40→17:51)
[2023-10-19] MEDS: MIRALAX *UNIT DOSE* 17GM PACKET PO PRN (08:41)
[2023-10-19] MEDS: INSULIN LISPRO (NovoLOG) PER UNIT SC SCH ×4 (08:41→21:52)
[2023-10-19] MEDS: ACETAMINOPHEN 500 MG TAB PO SCH ×2 (08:48→22:16)
[2023-10-19] MEDS: CARVedilol 3.125 MG TAB PO SCH ×2 (08:48→22:15)
[2023-10-19] MEDS: ASPIRIN 81MG ENTERIC TABLET PO SCH (08:49)
[2023-10-19] MEDS: PANTOPRAZOLE 20 MG TAB PO SCH (08:49)
[2023-10-19] MEDS: LEVEMIR (INSULIN DETEMIR) 1 UNITS/0.01ML SC SCH (22:14)
[2023-10-19] MEDS: CitaloPRAM (CeleXA) 20 MG TAB PO SCH (22:15)
[2023-10-19] MEDS: ATORVASTATIN 20 MG TAB PO SCH (22:15)
[2023-10-20] VITALS (7 sets, daily range): BP systolic 140–184; BP diastolic 64–88; TEMP 97.3–98.1; O2SAT 96–99
[2023-10-20] MEDS: CARVedilol 3.125 MG TAB PO SCH ×2 (04:36→21:16)
[2023-10-20 05:05] LABS: BASO # 0.1 10^3/uL (0.0-0.2); BASO % 0.8 % (0.0-1.0); EOS # 0.3 10^3/uL (0.0-0.5); EOS % 4.4 % (0.0-3.0); HEMATOCRIT 31.8 % (36.0-47.0); HEMOGLOBIN 9.6 g/dl (12.0-15.5); LYMPH # 1.4 10^3/uL (1.5-5.0); LYMPH % 19.2 % (24.0-44.0); MEAN CORPUSCULAR HEMOGLOBIN 31.8 pg (27.0-33.0); MEAN CORPUSCULAR HGB CONC 30.2 g/dl (32.0-36.5); MEAN CORPUSCULAR VOLUME 105.3 fl (80.0-96.0); MONO # 0.9 10^3/uL (0.0-0.8); MONO % 12.5 % (2.0-8.0); NEUTROPHILS # 4.5 10^3/uL (1.5-8.5); NEUTROPHILS % 62.5 % (36.0-66.0); PLATELET COUNT, AUTOMATED 221 10^3/uL (150-450); RED BLOOD COUNT 3.02 10^6/uL (4.00-5.40); WHITE BLOOD COUNT 7.1 10^3/uL (4.0-10.0)
[2023-10-20 05:36] LABS: CALCIUM LEVEL 8.8 MG/DL (8.3-10.6); CREATININE FOR GFR 7.03 MG/DL (0.55-1.30); GLOMERULAR FILTRATION RATE 6.1 (>39); POTASSIUM SERUM 4.4 MMOL/L (3.5-5.1)
[2023-10-20] MEDS ORDERED: LIDOCAINE 1% SDV 5ML VIAL SC PRN (06:00)
[2023-10-20] MEDS ORDERED: HEPARIN 1,000UNITS/ML 10ML VIAL (FOR RADIOLOGY & DIALYSIS ONLY) XX SCH (06:00)
[2023-10-20] MEDS ORDERED: SODIUM CHLORIDE 0.9% 1000ML IV PRN (06:00)
[2023-10-20] MEDS: HEPARIN SOD (PORCINE) 5000UNITS/ML 1ML VIAL/SYRINGE SQ SCH ×3 (06:21→21:12)
[2023-10-20] MEDS: LEVOTHYROXINE 150MCG TABLET (0.15MG) PO SCH (06:21)
[2023-10-20] MEDS: LEVOTHYROXINE 25MCG TABLET (0.025MG) PO SCH (06:21)
[2023-10-20] MEDS: ASPIRIN 81MG ENTERIC TABLET PO SCH (06:22)
[2023-10-20] MEDS: **hydrALAZINE HCL** 25 MG TAB PO SCH ×3 (07:00→17:29)
[2023-10-20] MEDS: IPRATROPIUM 0.5MG/ALBUTEROL 2.5MG INH SOL UD 3ML (DUONEB) INH SCH ×4 (07:43→20:37)
[2023-10-20] MEDS: SYMBICORT 160/4.5MCG INHALER 6GM INH SCH ×2 (07:43→20:37)
[2023-10-20] MEDS: ISOSORBIDE DIN (ISORDIL) 10MG TAB PO SCH ×3 (07:56→17:29)
[2023-10-20] MEDS: SUCROFERRIC OXYHYDROXIDE 500MG CHEW TAB (VELPHORO) PO SCH ×3 (07:58→17:30)
[2023-10-20] MEDS: INSULIN LISPRO (NovoLOG) PER UNIT SC SCH ×4 (07:58→21:00)
[2023-10-20] MEDS ORDERED: DOXYCYCLINE HYCLATE 100 MG in D5W MINI-BAG PLUS 100 ML IV SCH (11:00)
[2023-10-20] MEDS: PATIROMER SORBITEX CALCIUM 8.4 GM POWDER PACKET (VELTASSA) PO SCH ×2 (12:00→13:16)
[2023-10-20] MEDS: ACETAMINOPHEN 500 MG TAB PO SCH ×2 (13:20→21:11)
[2023-10-20] MEDS: PANTOPRAZOLE 20 MG TAB PO SCH (13:20)
[2023-10-20] MEDS: cefTRIAXone SOD 2 GM in D5W MINI-BAG PLUS 50 ML IV SCH (17:29)
[2023-10-20] MEDS: DOXYCYCLINE HYCLATE 100 MG in D5W MINI-BAG PLUS 100 ML IV SCH (17:29)
[2023-10-20] MEDS: CitaloPRAM (CeleXA) 20 MG TAB PO SCH (21:11)
[2023-10-20] MEDS: LEVEMIR (INSULIN DETEMIR) 1 UNITS/0.01ML SC SCH (21:12)
[2023-10-20] MEDS: ATORVASTATIN 20 MG TAB PO SCH (21:12)
[2023-10-21 04:04] VITALS: BP 156/80; TEMP 97.5; O2SAT 98
[2023-10-21 05:41] LABS: BASO # 0.1 10^3/uL (0.0-0.2); BASO % 1.2 % (0.0-1.0); EOS # 0.5 10^3/uL (0.0-0.5); EOS % 5.3 % (0.0-3.0); HEMATOCRIT 33.9 % (36.0-47.0); HEMOGLOBIN 10.5 g/dl (12.0-15.5); LYMPH # 1.5 10^3/uL (1.5-5.0); LYMPH % 17.2 % (24.0-44.0); MEAN CORPUSCULAR HEMOGLOBIN 32.4 pg (27.0-33.0); MEAN CORPUSCULAR VOLUME 104.6 fl (80.0-96.0); MONO # 1.1 10^3/uL (0.0-0.8); MONO % 12.5 % (2.0-8.0); NEUTROPHILS # 5.7 10^3/uL (1.5-8.5); NEUTROPHILS % 63.5 % (36.0-66.0); PLATELET COUNT, AUTOMATED 241 10^3/uL (150-450); RED BLOOD COUNT 3.24 10^6/uL (4.00-5.40); WHITE BLOOD COUNT 8.9 10^3/uL (4.0-10.0)
[2023-10-21] MEDS ORDERED: HEPARIN 1,000UNITS/ML 10ML VIAL (FOR RADIOLOGY & DIALYSIS ONLY) XX SCH (06:00)
[2023-10-21] MEDS: LEVOTHYROXINE 25MCG TABLET (0.025MG) PO SCH (06:00)
[2023-10-21] MEDS ORDERED: LIDOCAINE 1% SDV 5ML VIAL SC PRN (06:00)
[2023-10-21] MEDS ORDERED: SODIUM CHLORIDE 0.9% 1000ML IV PRN (06:00)
[2023-10-21] MEDS ORDERED: HEPARIN 1,000UNITS/ML 10ML VIAL (FOR RADIOLOGY & DIALYSIS ONLY) IV PRN (06:00)
[2023-10-21 06:17] LABS: CALCIUM LEVEL 9.1 MG/DL (8.3-10.6); CREATININE FOR GFR 8.76 MG/DL (0.55-1.30); GLOMERULAR FILTRATION RATE 4.8 (>39); MAGNESIUM LEVEL 1.9 MG/DL (1.8-2.4); POTASSIUM SERUM 5.3 MMOL/L (3.5-5.1)
[2023-10-21] MEDS: LEVOTHYROXINE 150MCG TABLET (0.15MG) PO SCH (07:20)
[2023-10-21] MEDS: DOXYCYCLINE HYCLATE 100 MG in D5W MINI-BAG PLUS 100 ML IV SCH (07:26)
[2023-10-21] MEDS: HEPARIN SOD (PORCINE) 5000UNITS/ML 1ML VIAL/SYRINGE SQ SCH ×3 (07:26→21:55)
[2023-10-21] MEDS: INSULIN LISPRO (NovoLOG) PER UNIT SC SCH ×4 (07:30→21:50)
[2023-10-21] MEDS: **hydrALAZINE HCL** 25 MG TAB PO SCH ×3 (07:30→16:51)
[2023-10-21] MEDS: ISOSORBIDE DIN (ISORDIL) 10MG TAB PO SCH ×2 (07:41→16:51)
[2023-10-21] MEDS: SUCROFERRIC OXYHYDROXIDE 500MG CHEW TAB (VELPHORO) PO SCH ×3 (07:52→16:51)
[2023-10-21 08:00] VITALS: BP 118/62; TEMP 97; O2SAT 97
[2023-10-21] MEDS: IPRATROPIUM 0.5MG/ALBUTEROL 2.5MG INH SOL UD 3ML (DUONEB) INH SCH ×4 (08:00→19:20)
[2023-10-21] MEDS: SYMBICORT 160/4.5MCG INHALER 6GM INH SCH ×2 (08:00→19:20)
[2023-10-21] MEDS ORDERED: PATIROMER SORBITEX CALCIUM 8.4 GM POWDER PACKET (VELTASSA) PO ONE (10:00)
[2023-10-21 12:54] VITALS: BP 102/60; TEMP 97.3; O2SAT 90
[2023-10-21] MEDS: ASPIRIN 81MG ENTERIC TABLET PO SCH (14:10)
[2023-10-21] MEDS: CINACALCET 30 MG TAB (SENSIPAR) PO SCH (14:10)
[2023-10-21] MEDS: CARVedilol 3.125 MG TAB PO SCH ×2 (14:11→21:48)
[2023-10-21] MEDS: PANTOPRAZOLE 20 MG TAB PO SCH (14:12)
[2023-10-21] MEDS: ACETAMINOPHEN 500 MG TAB PO SCH ×2 (14:12→21:41)
[2023-10-21] MEDS: MIRALAX *UNIT DOSE* 17GM PACKET PO PRN (14:13)
[2023-10-21] MEDS: cefTRIAXone SOD 2 GM in D5W MINI-BAG PLUS 50 ML IV SCH (16:51)
[2023-10-21 20:00] VITALS: BP 116/64; TEMP 98.3; O2SAT 96
[2023-10-21] MEDS: DOCUSATE SODIUM 100MG CAPSULE PO SCH (21:40)
[2023-10-21] MEDS: ATORVASTATIN 20 MG TAB PO SCH (21:41)
[2023-10-21] MEDS: CitaloPRAM (CeleXA) 20 MG TAB PO SCH (21:41)
[2023-10-21] MEDS: DOXYCYCLINE HYCLATE 100MG TABLET PO SCH (21:41)
[2023-10-21] MEDS: LEVEMIR (INSULIN DETEMIR) 1 UNITS/0.01ML SC SCH (21:50)
[2023-10-22] VITALS (8 sets, daily range): BP systolic 118–187; BP diastolic 66–79; TEMP 96.6–97.8; O2SAT 97–100
[2023-10-22] MEDS: HEPARIN SOD (PORCINE) 5000UNITS/ML 1ML VIAL/SYRINGE SQ SCH ×2 (06:25→15:23)
[2023-10-22] MEDS: LEVOTHYROXINE 25MCG TABLET (0.025MG) PO SCH (06:25)
[2023-10-22] MEDS: LEVOTHYROXINE 150MCG TABLET (0.15MG) PO SCH (06:26)
[2023-10-22] MEDS: ISOSORBIDE DIN (ISORDIL) 10MG TAB PO SCH ×3 (06:29→16:47)
[2023-10-22] MEDS: **hydrALAZINE HCL** 25 MG TAB PO SCH ×3 (06:29→16:47)
[2023-10-22] MEDS: INSULIN LISPRO (NovoLOG) PER UNIT SC SCH ×3 (06:33→16:47)
[2023-10-22 06:42] LABS: BASO # 0.1 10^3/uL (0.0-0.2); BASO % 0.5 % (0.0-1.0); EOS # 0.4 10^3/uL (0.0-0.5); EOS % 3.7 % (0.0-3.0); HEMATOCRIT 34.8 % (36.0-47.0); HEMOGLOBIN 10.9 g/dl (12.0-15.5); LYMPH % 9.8 % (24.0-44.0); MEAN CORPUSCULAR HEMOGLOBIN 32.9 pg (27.0-33.0); MEAN CORPUSCULAR HGB CONC 31.3 g/dl (32.0-36.5); MEAN CORPUSCULAR VOLUME 105.1 fl (80.0-96.0); MONO # 1.3 10^3/uL (0.0-0.8); MONO % 11.8 % (2.0-8.0); NEUTROPHILS # 7.8 10^3/uL (1.5-8.5); NEUTROPHILS % 73.7 % (36.0-66.0); PLATELET COUNT, AUTOMATED 223 10^3/uL (150-450); RED BLOOD COUNT 3.31 10^6/uL (4.00-5.40); WHITE BLOOD COUNT 10.6 10^3/uL (4.0-10.0)
[2023-10-22] MEDS: IPRATROPIUM 0.5MG/ALBUTEROL 2.5MG INH SOL UD 3ML (DUONEB) INH SCH ×3 (07:03→15:29)
[2023-10-22] MEDS: SYMBICORT 160/4.5MCG INHALER 6GM INH SCH (07:03)
[2023-10-22 07:15] LABS: CALCIUM LEVEL 8.7 MG/DL (8.3-10.6); CREATININE FOR GFR 5.69 MG/DL (0.55-1.30); GLOMERULAR FILTRATION RATE 7.8 (>39); MAGNESIUM LEVEL 1.9 MG/DL (1.8-2.4); POTASSIUM SERUM 4.1 MMOL/L (3.5-5.1)
[2023-10-22] MEDS: DOXYCYCLINE HYCLATE 100MG TABLET PO SCH (08:46)
[2023-10-22] MEDS: ASPIRIN 81MG ENTERIC TABLET PO SCH (08:46)
[2023-10-22] MEDS: SUCROFERRIC OXYHYDROXIDE 500MG CHEW TAB (VELPHORO) PO SCH ×3 (08:46→16:46)
[2023-10-22] MEDS: CARVedilol 3.125 MG TAB PO SCH (08:47)
[2023-10-22] MEDS: DOCUSATE SODIUM 100MG CAPSULE PO SCH (08:47)
[2023-10-22] MEDS: PANTOPRAZOLE 20 MG TAB PO SCH (08:47)
[2023-10-22] MEDS: ACETAMINOPHEN 500 MG TAB PO SCH (08:47)
[2023-10-22] MEDS ORDERED: PATIROMER SORBITEX CALCIUM 8.4 GM POWDER PACKET (VELTASSA) PO SCH (09:00)
[2023-10-22] MEDS: cefTRIAXone SOD 2 GM in D5W MINI-BAG PLUS 50 ML IV SCH (15:23)
[2023-10-22] MEDS ORDERED: ISOS10TA3 PO ×2 (16:00)
[2023-10-22] MEDS ORDERED: CEFTINJ2 IV (16:00)
== END 2023-10-22 18:37 | DRG 640 ==
LOC: EDBD 08:36 → M ED 08:36 → M ED INP 14:11 → M PCU 16:11
PROVIDERS: ADMIT Family Medicine; ATTEND Family Medicine
PROC: 5A1D70Z Performance of Urinary Filtration, Intermittent, Less than 6 Hours Per Day (ICD-10-PCS; principal; 2023-10-20)
DX: E87.70 Fluid overload, unspecified (principal); N18.6 End stage renal disease; J18.1 Lobar pneumonia, unspecified organism; J96.11 Chronic respiratory failure with hypoxia; I69.351 Hemiplegia and hemiparesis following cerebral infarction affecting right dominant side; I12.0 Hypertensive chronic kidney disease with stage 5 chronic kidney disease or end stage renal disease; J98.11 Atelectasis; J44.0 Chronic obstructive pulmonary disease with (acute) lower respiratory infection; I50.32 Chronic diastolic (congestive) heart failure; I13.2 Hypertensive heart and chronic kidney disease with heart failure and with stage 5 chronic kidney disease, or end stage renal disease; I25.10 Atherosclerotic heart disease of native coronary artery without angina pectoris; E11.319 Type 2 diabetes mellitus with unspecified diabetic retinopathy without macular edema; E11.22 Type 2 diabetes mellitus with diabetic chronic kidney disease; E11.40 Type 2 diabetes mellitus with diabetic neuropathy, unspecified; M21.371 Foot drop, right foot; G47.33 Obstructive sleep apnea (adult) (pediatric); I27.20 Pulmonary hypertension, unspecified; K76.0 Fatty (change of) liver, not elsewhere classified; F32.A Depression, unspecified; K59.00 Constipation, unspecified; D63.1 Anemia in chronic kidney disease; R91.8 Other nonspecific abnormal finding of lung field; I44.0 Atrioventricular block, first degree; H40.9 Unspecified glaucoma; G89.29 Other chronic pain; M48.061 Spinal stenosis, lumbar region without neurogenic claudication; M54.9 Dorsalgia, unspecified; E87.5 Hyperkalemia; N25.0 Renal osteodystrophy; K57.90 Diverticulosis of intestine, part unspecified, without perforation or abscess without bleeding; Q12.0 Congenital cataract; Z86.010 Personal history of colon polyps; Z99.2 Dependence on renal dialysis; Z99.81 Dependence on supplemental oxygen; Z90.49 Acquired absence of other specified parts of digestive tract; Z98.41 Cataract extraction status, right eye; Z98.42 Cataract extraction status, left eye; Z95.1 Presence of aortocoronary bypass graft; Z85.828 Personal history of other malignant neoplasm of skin; Z95.820 Peripheral vascular angioplasty status with implants and grafts; Z79.82 Long term (current) use of aspirin; Z79.4 Long term (current) use of insulin; Z79.899 Other long term (current) drug therapy; Z88.8 Allergy status to other drugs, medicaments and biological substances

== ENCOUNTER 2023-10-22 16:31 | Inpatient (IN) | payer MEDICARE, MEDICAID ==
[~2023-10-22] VITALS: Ht 165.1 cm; Wt 88.5 kg
[~2023-10-22 16:31] MED LIST changes: +CEFTINJ2 IV; +IPRA0.00 INH; +LEVO175T2 PO; +PANT20TA6 PO
[2023-10-22] MEDS ORDERED: DEXTROSE 50% 50ML SYRINGE IV PRN (16:55)
[2023-10-22] MEDS ORDERED: GLUCAGON INJ 1MG VIAL SC PRN (16:55)
[2023-10-22] MEDS ORDERED: GLUCOSE 4GM CHEW TABLET PO PRN (16:55)
[2023-10-22] MEDS ORDERED: NITROGLYCERIN 0.4MG SUBL TABLET SL PRN (17:05)
[2023-10-22] MEDS ORDERED: MIRALAX *UNIT DOSE* 17GM PACKET PO PRN (17:05)
[2023-10-22] MEDS ORDERED: FLUTICASONE PROP 0.05% NASAL SPRAY 16 GM (FLONASE) NARES PRN (17:05)
[2023-10-22] MEDS ORDERED: CETIRIZINE (ZyrTEC) 10 MG TAB PO PRN (17:15)
[2023-10-22] MEDS: INSULIN LISPRO (NovoLOG) PER UNIT SC SCH ×2 (17:30→21:00)
[2023-10-22 20:00] VITALS: BP 174/78; TEMP 96.7; O2SAT 98
[2023-10-22] MEDS: DOCUSATE SODIUM 100MG CAPSULE PO SCH (20:20)
[2023-10-22] MEDS: ATORVASTATIN 20 MG TAB PO SCH (20:22)
[2023-10-22] MEDS: CARVedilol 3.125 MG TAB PO SCH (20:22)
[2023-10-22] MEDS: CitaloPRAM (CeleXA) 20 MG TAB PO SCH (20:23)
[2023-10-22] MEDS: DOXYCYCLINE HYCLATE 100MG TABLET PO SCH (20:23)
[2023-10-22] MEDS: ACETAMINOPHEN 500 MG TAB PO SCH (20:24)
[2023-10-22] MEDS: SYMBICORT 160/4.5MCG INHALER 6GM INH SCH (20:31)
[2023-10-22] MEDS: IPRATROPIUM 0.5MG/ALBUTEROL 2.5MG INH SOL UD 3ML (DUONEB) NEB SCH (20:31)
[2023-10-22] MEDS ORDERED: IPRATROPIUM 0.5MG/ALBUTEROL 2.5MG INH SOL UD 3ML (DUONEB) INH SCH (21:00)
[2023-10-22] MEDS: LEVEMIR (INSULIN DETEMIR) 1 UNITS/0.01ML SC SCH (21:00)
[2023-10-22 21:39] VITALS: BP 159/71
[2023-10-22] MEDS: HEPARIN SOD (PORCINE) 5000UNITS/ML 1ML VIAL/SYRINGE SC SCH (22:00)
[2023-10-23] MEDS: LEVOTHYROXINE 25MCG TABLET (0.025MG) PO SCH (05:54)
[2023-10-23] MEDS: LEVOTHYROXINE 150MCG TABLET (0.15MG) PO SCH (05:54)
[2023-10-23] MEDS: HEPARIN SOD (PORCINE) 5000UNITS/ML 1ML VIAL/SYRINGE SC SCH ×3 (05:55→22:05)
[2023-10-23 06:00] VITALS: BP 170/71; TEMP 97.7; O2SAT 100
[2023-10-23] MEDS: ISOSORBIDE DIN (ISORDIL) 10MG TAB PO SCH ×2 (06:08→18:49)
[2023-10-23] MEDS: **hydrALAZINE HCL** 25 MG TAB PO SCH ×3 (06:08→18:49)
[2023-10-23 06:49] LABS: CALCIUM LEVEL 8.9 MG/DL (8.3-10.6); CREATININE FOR GFR 7.29 MG/DL (0.55-1.30); GLOMERULAR FILTRATION RATE 5.9 (>39); POTASSIUM SERUM 5.4 MMOL/L (3.5-5.1)
[2023-10-23] MEDS: SUCROFERRIC OXYHYDROXIDE 500MG CHEW TAB (VELPHORO) PO SCH ×3 (07:33→18:49)
[2023-10-23] MEDS: CINACALCET 30 MG TAB (SENSIPAR) PO SCH (07:33)
[2023-10-23] MEDS: INSULIN LISPRO (NovoLOG) PER UNIT SC SCH ×4 (07:33→21:00)
[2023-10-23] MEDS: PANTOPRAZOLE 20 MG TAB PO SCH (07:34)
[2023-10-23] MEDS: ACETAMINOPHEN 500 MG TAB PO SCH ×2 (07:34→22:06)
[2023-10-23] MEDS: DOCUSATE SODIUM 100MG CAPSULE PO SCH ×2 (07:34→22:07)
[2023-10-23] MEDS: DOXYCYCLINE HYCLATE 100MG TABLET PO SCH ×2 (07:34→22:06)
[2023-10-23] MEDS: ASPIRIN 81MG ENTERIC TABLET PO SCH (07:34)
[2023-10-23] MEDS: CARVedilol 3.125 MG TAB PO SCH ×2 (07:35→22:06)
[2023-10-23] MEDS: SYMBICORT 160/4.5MCG INHALER 6GM INH SCH ×2 (08:00→23:25)
[2023-10-23] MEDS: IPRATROPIUM 0.5MG/ALBUTEROL 2.5MG INH SOL UD 3ML (DUONEB) NEB SCH ×4 (08:00→23:25)
[2023-10-23] MEDS ORDERED: LIDOCAINE 1% SDV 5ML VIAL SC PRN (08:15)
[2023-10-23] MEDS ORDERED: HEPARIN 1,000UNITS/ML 10ML VIAL (FOR RADIOLOGY & DIALYSIS ONLY) IV PRN (08:15)
[2023-10-23] MEDS ORDERED: HEPARIN 1,000UNITS/ML 10ML VIAL (FOR RADIOLOGY & DIALYSIS ONLY) XX SCH (08:15)
[2023-10-23] MEDS ORDERED: SODIUM CHLORIDE 0.9% 1000ML IV PRN (08:15)
[2023-10-23] MEDS ORDERED: cefTRIAXone SOD 2GM VIAL IM SCH (15:00)
[2023-10-23 17:00] VITALS: TEMP 97.8; O2SAT 100
[2023-10-23] MEDS: cefTRIAXone SOD 2 GM in D5W MINI-BAG PLUS 50 ML IV SCH (17:17)
[2023-10-23 20:00] VITALS: BP 150/65; TEMP 96.6; O2SAT 98
[2023-10-23] MEDS: LEVEMIR (INSULIN DETEMIR) 1 UNITS/0.01ML SC SCH (21:00)
[2023-10-23] MEDS: CitaloPRAM (CeleXA) 20 MG TAB PO SCH (22:07)
[2023-10-23] MEDS: ATORVASTATIN 20 MG TAB PO SCH (22:11)
[2023-10-24 06:00] VITALS: BP 172/72; TEMP 98.3; O2SAT 100
[2023-10-24] MEDS: ISOSORBIDE DIN (ISORDIL) 10MG TAB PO SCH ×3 (06:14→16:56)
[2023-10-24] MEDS: LEVOTHYROXINE 25MCG TABLET (0.025MG) PO SCH (06:14)
[2023-10-24] MEDS: HEPARIN SOD (PORCINE) 5000UNITS/ML 1ML VIAL/SYRINGE SC SCH ×3 (06:14→20:53)
[2023-10-24] MEDS: LEVOTHYROXINE 150MCG TABLET (0.15MG) PO SCH (06:14)
[2023-10-24] MEDS: **hydrALAZINE HCL** 25 MG TAB PO SCH ×3 (06:15→16:56)
[2023-10-24] MEDS: INSULIN LISPRO (NovoLOG) PER UNIT SC SCH ×4 (07:57→20:40)
[2023-10-24] MEDS: DOXYCYCLINE HYCLATE 100MG TABLET PO SCH ×2 (07:57→20:47)
[2023-10-24] MEDS: DOCUSATE SODIUM 100MG CAPSULE PO SCH ×2 (07:57→20:47)
[2023-10-24] MEDS: ASPIRIN 81MG ENTERIC TABLET PO SCH (07:57)
[2023-10-24] MEDS: ACETAMINOPHEN 500 MG TAB PO SCH ×2 (07:58→20:48)
[2023-10-24] MEDS: SUCROFERRIC OXYHYDROXIDE 500MG CHEW TAB (VELPHORO) PO SCH ×3 (07:58→16:55)
[2023-10-24] MEDS: CARVedilol 3.125 MG TAB PO SCH ×2 (07:58→20:48)
[2023-10-24] MEDS: PANTOPRAZOLE 20 MG TAB PO SCH (08:52)
[2023-10-24] MEDS: IPRATROPIUM 0.5MG/ALBUTEROL 2.5MG INH SOL UD 3ML (DUONEB) NEB SCH ×4 (09:15→20:20)
[2023-10-24] MEDS: SYMBICORT 160/4.5MCG INHALER 6GM INH SCH ×2 (09:15→20:20)
[2023-10-24] MEDS: PATIROMER SORBITEX CALCIUM 8.4 GM POWDER PACKET (VELTASSA) PO SCH (12:24)
[2023-10-24 14:00] VITALS: BP 149/65; TEMP 97.5; O2SAT 100
[2023-10-24 16:38] VITALS: BP 157/74; TEMP 97.9; O2SAT 100
[2023-10-24] MEDS: cefTRIAXone SOD 2 GM in D5W MINI-BAG PLUS 50 ML IV SCH (16:55)
[2023-10-24 20:00] VITALS: BP 141/53; TEMP 97.3; O2SAT 92
[2023-10-24] MEDS: CitaloPRAM (CeleXA) 20 MG TAB PO SCH (20:47)
[2023-10-24] MEDS: ATORVASTATIN 20 MG TAB PO SCH (20:48)
[2023-10-25] MEDS: LEVOTHYROXINE 25MCG TABLET (0.025MG) PO SCH (05:21)
[2023-10-25] MEDS: LEVOTHYROXINE 150MCG TABLET (0.15MG) PO SCH (05:21)
[2023-10-25] MEDS: HEPARIN SOD (PORCINE) 5000UNITS/ML 1ML VIAL/SYRINGE SC SCH ×3 (05:22→20:43)
[2023-10-25 06:00] VITALS: BP 160/60; TEMP 97.6; O2SAT 100
[2023-10-25] MEDS ORDERED: HEPARIN 1,000UNITS/ML 10ML VIAL (FOR RADIOLOGY & DIALYSIS ONLY) XX SCH (06:00)
[2023-10-25] MEDS ORDERED: SODIUM CHLORIDE 0.9% 1000ML IV PRN (06:00)
[2023-10-25] MEDS: **hydrALAZINE HCL** 25 MG TAB PO SCH ×3 (06:18→17:08)
[2023-10-25] MEDS: ISOSORBIDE DIN (ISORDIL) 10MG TAB PO SCH ×2 (06:18→17:08)
[2023-10-25] MEDS: PANTOPRAZOLE 20 MG TAB PO SCH (07:30)
[2023-10-25] MEDS: CINACALCET 30 MG TAB (SENSIPAR) PO SCH (07:30)
[2023-10-25] MEDS: DOXYCYCLINE HYCLATE 100MG TABLET PO SCH ×2 (07:30→20:43)
[2023-10-25] MEDS: ASPIRIN 81MG ENTERIC TABLET PO SCH (07:30)
[2023-10-25] MEDS: ACETAMINOPHEN 500 MG TAB PO SCH ×2 (07:31→20:42)
[2023-10-25] MEDS: SUCROFERRIC OXYHYDROXIDE 500MG CHEW TAB (VELPHORO) PO SCH ×3 (07:31→17:08)
[2023-10-25] MEDS: DOCUSATE SODIUM 100MG CAPSULE PO SCH ×2 (07:31→20:43)
[2023-10-25] MEDS: INSULIN LISPRO (NovoLOG) PER UNIT SC SCH ×4 (07:31→20:44)
[2023-10-25] MEDS: CARVedilol 3.125 MG TAB PO SCH ×2 (07:32→20:43)
[2023-10-25] MEDS: IPRATROPIUM 0.5MG/ALBUTEROL 2.5MG INH SOL UD 3ML (DUONEB) NEB SCH ×4 (09:09→20:10)
[2023-10-25] MEDS: SYMBICORT 160/4.5MCG INHALER 6GM INH SCH ×2 (13:02→20:10)
[2023-10-25 13:05] VITALS: BP 130/67
[2023-10-25 14:08] VITALS: BP 123/61; TEMP 97.8; O2SAT 98
[2023-10-25] MEDS: cefTRIAXone SOD 2 GM in D5W MINI-BAG PLUS 50 ML IV SCH (15:02)
[2023-10-25 20:00] VITALS: BP 139/66; TEMP 97.4; O2SAT 94
[2023-10-25] MEDS: CitaloPRAM (CeleXA) 20 MG TAB PO SCH (20:43)
[2023-10-25] MEDS: ATORVASTATIN 20 MG TAB PO SCH (20:43)
[2023-10-25] MEDS: RAMELTEON 8 MG TAB (ROZEREM) PO PRN (20:47)
[2023-10-26 05:30] VITALS: BP 140/64; TEMP 98.1; O2SAT 97
[2023-10-26] MEDS: LEVOTHYROXINE 25MCG TABLET (0.025MG) PO SCH (06:26)
[2023-10-26] MEDS: LEVOTHYROXINE 150MCG TABLET (0.15MG) PO SCH (06:26)
[2023-10-26] MEDS: ISOSORBIDE DIN (ISORDIL) 10MG TAB PO SCH ×3 (06:27→17:15)
[2023-10-26] MEDS: **hydrALAZINE HCL** 25 MG TAB PO SCH ×3 (06:27→17:15)
[2023-10-26] MEDS: HEPARIN SOD (PORCINE) 5000UNITS/ML 1ML VIAL/SYRINGE SC SCH ×3 (06:27→21:05)
[2023-10-26] MEDS: ASPIRIN 81MG ENTERIC TABLET PO SCH (08:10)
[2023-10-26] MEDS: DOCUSATE SODIUM 100MG CAPSULE PO SCH ×2 (08:10→21:04)
[2023-10-26] MEDS: CARVedilol 3.125 MG TAB PO SCH ×2 (08:10→21:04)
[2023-10-26] MEDS: INSULIN LISPRO (NovoLOG) PER UNIT SC SCH ×4 (08:10→20:57)
[2023-10-26] MEDS: SUCROFERRIC OXYHYDROXIDE 500MG CHEW TAB (VELPHORO) PO SCH ×3 (08:10→17:15)
[2023-10-26] MEDS: ACETAMINOPHEN 500 MG TAB PO SCH ×2 (08:11→21:05)
[2023-10-26] MEDS: PANTOPRAZOLE 20 MG TAB PO SCH (08:11)
[2023-10-26] MEDS: DOXYCYCLINE HYCLATE 100MG TABLET PO SCH ×2 (08:11→21:04)
[2023-10-26] MEDS: SYMBICORT 160/4.5MCG INHALER 6GM INH SCH ×2 (08:21→19:12)
[2023-10-26] MEDS: IPRATROPIUM 0.5MG/ALBUTEROL 2.5MG INH SOL UD 3ML (DUONEB) NEB SCH ×4 (08:21→19:12)
[2023-10-26 11:49] VITALS: BP 164/67
[2023-10-26 14:00] VITALS: BP 135/63; TEMP 97.7; O2SAT 98
[2023-10-26] MEDS: cefTRIAXone SOD 2 GM in D5W MINI-BAG PLUS 50 ML IV SCH (16:05)
[2023-10-26 17:07] VITALS: BP 147/67
[2023-10-26 20:00] VITALS: BP 127/58; TEMP 98.3; O2SAT 90
[2023-10-26] MEDS: ATORVASTATIN 20 MG TAB PO SCH (21:04)
[2023-10-26] MEDS: CitaloPRAM (CeleXA) 20 MG TAB PO SCH (21:04)
[2023-10-26] MEDS: RAMELTEON 8 MG TAB (ROZEREM) PO PRN (21:05)
[2023-10-27] MEDS: IPRATROPIUM 0.5MG/ALBUTEROL 2.5MG INH SOL UD 3ML (DUONEB) NEB SCH ×4 (05:57→19:11)
[2023-10-27] MEDS: SYMBICORT 160/4.5MCG INHALER 6GM INH SCH ×2 (05:57→19:11)
[2023-10-27 06:00] VITALS: BP 164/67; TEMP 96.9; O2SAT 99
[2023-10-27] MEDS: **hydrALAZINE HCL** 25 MG TAB PO SCH ×3 (06:13→17:16)
[2023-10-27] MEDS: LEVOTHYROXINE 150MCG TABLET (0.15MG) PO SCH (06:13)
[2023-10-27] MEDS: LEVOTHYROXINE 25MCG TABLET (0.025MG) PO SCH (06:13)
[2023-10-27] MEDS: HEPARIN SOD (PORCINE) 5000UNITS/ML 1ML VIAL/SYRINGE SC SCH ×3 (06:14→22:19)
[2023-10-27] MEDS: ASPIRIN 81MG ENTERIC TABLET PO SCH (08:16)
[2023-10-27] MEDS: PANTOPRAZOLE 20 MG TAB PO SCH (08:16)
[2023-10-27] MEDS: DOXYCYCLINE HYCLATE 100MG TABLET PO SCH ×2 (08:16→22:17)
[2023-10-27] MEDS: SUCROFERRIC OXYHYDROXIDE 500MG CHEW TAB (VELPHORO) PO SCH ×3 (08:16→17:15)
[2023-10-27] MEDS: DOCUSATE SODIUM 100MG CAPSULE PO SCH ×2 (08:16→22:17)
[2023-10-27] MEDS: ACETAMINOPHEN 500 MG TAB PO SCH ×2 (08:17→22:18)
[2023-10-27] MEDS: CARVedilol 3.125 MG TAB PO SCH ×2 (08:17→22:18)
[2023-10-27] MEDS: INSULIN LISPRO (NovoLOG) PER UNIT SC SCH ×4 (08:18→21:00)
[2023-10-27] MEDS: ISOSORBIDE DIN (ISORDIL) 10MG TAB PO SCH ×3 (08:35→17:16)
[2023-10-27 11:44] LABS: HEMATOCRIT 33.7 % (36.0-47.0); HEMOGLOBIN 10.3 g/dl (12.0-15.5); MEAN CORPUSCULAR HEMOGLOBIN 32.4 pg (27.0-33.0); MEAN CORPUSCULAR HGB CONC 30.6 g/dl (32.0-36.5); PLATELET COUNT, AUTOMATED 234 10^3/uL (150-450); RED BLOOD COUNT 3.18 10^6/uL (4.00-5.40); WHITE BLOOD COUNT 6.8 10^3/uL (4.0-10.0)
[2023-10-27 12:06] LABS: CALCIUM LEVEL 8.9 MG/DL (8.3-10.6); CREATININE FOR GFR 6.98 MG/DL (0.55-1.30); GLOMERULAR FILTRATION RATE 6.2 (>39); POTASSIUM SERUM 3.6 MMOL/L (3.5-5.1)
[2023-10-27] MEDS: PATIROMER SORBITEX CALCIUM 8.4 GM POWDER PACKET (VELTASSA) PO SCH (12:33)
[2023-10-27 14:00] VITALS: BP 134/62; TEMP 97.8; O2SAT 100
[2023-10-27] MEDS: cefTRIAXone SOD 2 GM in D5W MINI-BAG PLUS 50 ML IV SCH (17:16)
[2023-10-27 20:00] VITALS: BP 145/65; TEMP 97.7; O2SAT 97
[2023-10-27 22:08] VITALS: BP 150/52
[2023-10-27] MEDS: CETIRIZINE (ZyrTEC) 10 MG TAB PO SCH (22:16)
[2023-10-27] MEDS: CitaloPRAM (CeleXA) 20 MG TAB PO SCH (22:16)
[2023-10-27] MEDS: ATORVASTATIN 20 MG TAB PO SCH (22:17)
[2023-10-27] MEDS: FLUTICASONE PROP 0.05% NASAL SPRAY 16 GM (FLONASE) NARES SCH (22:19)
[2023-10-28] MEDS: LEVOTHYROXINE 150MCG TABLET (0.15MG) PO SCH (05:58)
[2023-10-28] MEDS: LEVOTHYROXINE 25MCG TABLET (0.025MG) PO SCH (05:58)
[2023-10-28] MEDS: HEPARIN SOD (PORCINE) 5000UNITS/ML 1ML VIAL/SYRINGE SC SCH ×3 (05:58→20:46)
[2023-10-28] MEDS ORDERED: LIDOCAINE 1% SDV 5ML VIAL SC PRN (06:00)
[2023-10-28] MEDS ORDERED: SODIUM CHLORIDE 0.9% 1000ML IV PRN (06:00)
[2023-10-28] MEDS ORDERED: HEPARIN 1,000UNITS/ML 10ML VIAL (FOR RADIOLOGY & DIALYSIS ONLY) XX SCH (06:00)
[2023-10-28 06:12] VITALS: BP 165/77; TEMP 97.5; O2SAT 100
[2023-10-28] MEDS: SYMBICORT 160/4.5MCG INHALER 6GM INH SCH ×2 (06:32→19:50)
[2023-10-28] MEDS: IPRATROPIUM 0.5MG/ALBUTEROL 2.5MG INH SOL UD 3ML (DUONEB) NEB SCH ×4 (06:32→19:50)
[2023-10-28] MEDS: ISOSORBIDE DIN (ISORDIL) 10MG TAB PO SCH ×2 (06:51→17:23)
[2023-10-28] MEDS: **hydrALAZINE HCL** 25 MG TAB PO SCH ×3 (06:52→17:23)
[2023-10-28] MEDS: SUCROFERRIC OXYHYDROXIDE 500MG CHEW TAB (VELPHORO) PO SCH ×3 (07:00→17:23)
[2023-10-28] MEDS: INSULIN LISPRO (NovoLOG) PER UNIT SC SCH ×4 (08:36→20:46)
[2023-10-28] MEDS: PANTOPRAZOLE 20 MG TAB PO SCH (08:37)
[2023-10-28] MEDS: CINACALCET 30 MG TAB (SENSIPAR) PO SCH (08:37)
[2023-10-28] MEDS: DOXYCYCLINE HYCLATE 100MG TABLET PO SCH (08:37)
[2023-10-28] MEDS: DOCUSATE SODIUM 100MG CAPSULE PO SCH ×2 (08:37→20:45)
[2023-10-28] MEDS: CARVedilol 3.125 MG TAB PO SCH ×2 (08:37→20:46)
[2023-10-28] MEDS: ACETAMINOPHEN 500 MG TAB PO SCH ×2 (08:38→20:45)
[2023-10-28] MEDS: ASPIRIN 81MG ENTERIC TABLET PO SCH (08:38)
[2023-10-28 16:35] VITALS: BP 155/69; TEMP 98; O2SAT 100
[2023-10-28 20:00] VITALS: BP 125/61; TEMP 97.7; O2SAT 100
[2023-10-28] MEDS: CETIRIZINE (ZyrTEC) 10 MG TAB PO SCH (20:45)
[2023-10-28] MEDS: ATORVASTATIN 20 MG TAB PO SCH (20:45)
[2023-10-28] MEDS: CitaloPRAM (CeleXA) 20 MG TAB PO SCH (20:46)
[2023-10-28] MEDS: FLUTICASONE PROP 0.05% NASAL SPRAY 16 GM (FLONASE) NARES SCH (20:46)
[2023-10-29] MEDS: LEVOTHYROXINE 25MCG TABLET (0.025MG) PO SCH (05:33)
[2023-10-29] MEDS: HEPARIN SOD (PORCINE) 5000UNITS/ML 1ML VIAL/SYRINGE SC SCH (05:33)
[2023-10-29] MEDS: LEVOTHYROXINE 150MCG TABLET (0.15MG) PO SCH (05:34)
[2023-10-29 06:00] VITALS: BP 134/56; TEMP 97.1; O2SAT 100
[2023-10-29] MEDS: **hydrALAZINE HCL** 25 MG TAB PO SCH ×2 (06:35→12:38)
[2023-10-29] MEDS: INSULIN LISPRO (NovoLOG) PER UNIT SC SCH ×2 (07:30→12:00)
[2023-10-29] MEDS: SUCROFERRIC OXYHYDROXIDE 500MG CHEW TAB (VELPHORO) PO SCH ×2 (08:00→12:30)
[2023-10-29] MEDS: IPRATROPIUM 0.5MG/ALBUTEROL 2.5MG INH SOL UD 3ML (DUONEB) NEB SCH ×2 (08:00→12:04)
[2023-10-29] MEDS: SYMBICORT 160/4.5MCG INHALER 6GM INH SCH (08:00)
[2023-10-29 10:00] VITALS: BP 134/56; TEMP 97.1; O2SAT 100
[2023-10-29] MEDS: DOCUSATE SODIUM 100MG CAPSULE PO SCH (10:22)
[2023-10-29] MEDS: ASPIRIN 81MG ENTERIC TABLET PO SCH (10:22)
[2023-10-29] MEDS: CARVedilol 3.125 MG TAB PO SCH (10:22)
[2023-10-29] MEDS: PANTOPRAZOLE 20 MG TAB PO SCH (10:23)
[2023-10-29] MEDS: ACETAMINOPHEN 500 MG TAB PO SCH (10:23)
[2023-10-29] MEDS ORDERED: CINA30TA5 PO (10:59)
[2023-10-29] MEDS: ISOSORBIDE DIN (ISORDIL) 10MG TAB PO SCH (12:00)
[2023-10-29] MEDS: PATIROMER SORBITEX CALCIUM 8.4 GM POWDER PACKET (VELTASSA) PO SCH (12:00)
[2023-10-29 12:38] VITALS: BP 188/78
== END 2023-10-29 12:50 | disposition home or self-care (01) | DRG 682 ==
LOC: M PM&R 16:54
PROVIDERS: ADMIT Student in an Organized Health Care Education/Training Program; ATTEND Student in an Organized Health Care Education/Training Program
PROC: 5A1D70Z Performance of Urinary Filtration, Intermittent, Less than 6 Hours Per Day (ICD-10-PCS; principal; 2023-10-23)
DX: N18.6 End stage renal disease (principal); J18.9 Pneumonia, unspecified organism; I69.351 Hemiplegia and hemiparesis following cerebral infarction affecting right dominant side; J96.11 Chronic respiratory failure with hypoxia; E11.319 Type 2 diabetes mellitus with unspecified diabetic retinopathy without macular edema; E11.40 Type 2 diabetes mellitus with diabetic neuropathy, unspecified; E11.22 Type 2 diabetes mellitus with diabetic chronic kidney disease; I25.10 Atherosclerotic heart disease of native coronary artery without angina pectoris; N25.0 Renal osteodystrophy; M21.371 Foot drop, right foot; G47.33 Obstructive sleep apnea (adult) (pediatric); K76.0 Fatty (change of) liver, not elsewhere classified; I27.20 Pulmonary hypertension, unspecified; F32.A Depression, unspecified; D63.1 Anemia in chronic kidney disease; H40.9 Unspecified glaucoma; E87.5 Hyperkalemia; G25.0 Essential tremor; N28.1 Cyst of kidney, acquired; M48.061 Spinal stenosis, lumbar region without neurogenic claudication; R91.8 Other nonspecific abnormal finding of lung field; H54.7 Unspecified visual loss; G89.29 Other chronic pain; M54.9 Dorsalgia, unspecified; Z74.09 Other reduced mobility; Z74.1 Need for assistance with personal care; K57.90 Diverticulosis of intestine, part unspecified, without perforation or abscess without bleeding; Z99.81 Dependence on supplemental oxygen; Z95.1 Presence of aortocoronary bypass graft; Z98.41 Cataract extraction status, right eye; Z98.42 Cataract extraction status, left eye; Z85.828 Personal history of other malignant neoplasm of skin; Z95.828 Presence of other vascular implants and grafts; Z99.2 Dependence on renal dialysis; K21.9 Gastro-esophageal reflux disease without esophagitis; Z79.82 Long term (current) use of aspirin; Z79.4 Long term (current) use of insulin; Z79.899 Other long term (current) drug therapy; Z88.8 Allergy status to other drugs, medicaments and biological substances; Z20.822 Contact with and (suspected) exposure to COVID-19

== ENCOUNTER 2023-11-25 09:08 | Observation (INO) | payer MEDICARE, MEDICAID ==
[~2023-11-25] VITALS: Ht 165.1 cm; Wt 92.0 kg
[~2023-11-25 09:08] MED LIST changes: +CINA30TA5 PO; -HYDR-3911 PO; -HYDR50TA PO; +HYDR50TA46 PO; +HYDR50TA47 PO
[2023-11-25] MEDS ORDERED: COLA100C5 PO (09:33)
[2023-11-25] MEDS ORDERED: CARV12.5 (09:33)
[2023-11-25 10:11] LABS: BASO # 0.1 10^3/uL (0.0-0.2); BASO % 0.7 % (0.0-1.0); EOS # 0.1 10^3/uL (0.0-0.5); EOS % 1.5 % (0.0-3.0); HEMATOCRIT 36.7 % (36.0-47.0); HEMOGLOBIN 11.4 g/dl (12.0-15.5); LYMPH # 0.8 10^3/uL (1.5-5.0); LYMPH % 8.2 % (24.0-44.0); MEAN CORPUSCULAR HEMOGLOBIN 32.9 pg (27.0-33.0); MEAN CORPUSCULAR HGB CONC 31.1 g/dl (32.0-36.5); MEAN CORPUSCULAR VOLUME 106.1 fl (80.0-96.0); MONO # 0.6 10^3/uL (0.0-0.8); MONO % 6.9 % (2.0-8.0); NEUTROPHILS # 7.6 10^3/uL (1.5-8.5); NEUTROPHILS % 82.2 % (36.0-66.0); PLATELET COUNT, AUTOMATED 245 10^3/uL (150-450); RED BLOOD COUNT 3.46 10^6/uL (4.00-5.40); WHITE BLOOD COUNT 9.2 10^3/uL (4.0-10.0)
[2023-11-25 10:37] LABS: ALBUMIN 3.6 G/DL (3.2-5.2); ALKALINE PHOSPHATASE 146 U/L (46-116); ALT/SGPT 23 U/L (7.0-40); AST/SGOT 41 U/L (<34); BILIRUBIN,DIRECT < 0.1 MG/DL (<0.4); BILIRUBIN,TOTAL 0.2 MG/DL (0.3-1.2); BLOOD UREA NITROGEN 81 MG/DL (9-23); CALCIUM LEVEL 9.5 MG/DL (8.3-10.6); CARBON DIOXIDE LEVEL 24 MMOL/L (20-31); CHLORIDE LEVEL 100 MMOL/L (98-107); CREATININE FOR GFR 7.35 MG/DL (0.55-1.30); GLOMERULAR FILTRATION RATE 5.8 (>39); GLUCOSE, FASTING 148 MG/DL (74-106); POTASSIUM SERUM 5.5 MMOL/L (3.5-5.1); SODIUM LEVEL 138 MMOL/L (136-145); TOTAL PROTEIN 7.4 G/DL (5.7-8.2)
[2023-11-25 10:39] LABS: THYROID STIMULATING HORMONE 2.669 uIU/ML (0.55-4.78)
[2023-11-25 11:23] LABS: RSV AMPLIFICATION NEGATIVE (NEGATIVE)
[2023-11-25] MEDS ORDERED: HEPARIN 1,000UNITS/ML 10ML VIAL (FOR RADIOLOGY & DIALYSIS ONLY) IV PRN (12:50)
[2023-11-25] MEDS ORDERED: HEPARIN 1,000UNITS/ML 10ML VIAL (FOR RADIOLOGY & DIALYSIS ONLY) XX SCH (12:50)
[2023-11-25] MEDS ORDERED: AZITHROMYCIN INJ 500 MG, VIAL MATE ADAPTER 1 EACH in NS 250 ML IV ONE (12:50)
[2023-11-25] MEDS ORDERED: LIDOCAINE 1% SDV 5ML VIAL SC PRN (12:50)
[2023-11-25] MEDS ORDERED: SODIUM CHLORIDE 0.9% 1000ML IV PRN (12:50)
[2023-11-25] MEDS ORDERED: cefTRIAXone SOD 1 GM in D5W MINI-BAG PLUS 50 ML IV ONE (12:50)
[2023-11-25] MEDS ORDERED: ONDANSETRON 4MG 2ML VIAL IV PRN (13:30)
[2023-11-25 13:53] LABS: PROCALCITONIN 0.58 ng/ml
[2023-11-25] MEDS ORDERED: CARV3.12 PO (18:02)
[2023-11-25] MEDS ORDERED: CITA20TA7 PO (18:02)
[2023-11-25] MEDS ORDERED: ISOS10TA3 PO ×2 (18:17)
[2023-11-25] MEDS ORDERED: LANTINJ4 SC (18:25)
[2023-11-25] MEDS ORDERED: HOME MED LIST COMPLETE! XX SCH (18:30)
[2023-11-25 18:45] VITALS: BP 176/62; TEMP 97.3; O2SAT 89
[2023-11-25 19:41] VITALS: O2SAT 93
[2023-11-25] MEDS: DOXYCYCLINE HYCLATE 100MG TABLET PO SCH (20:13)
[2023-11-25] MEDS: CARVedilol 3.125 MG TAB PO SCH (20:13)
[2023-11-25] MEDS: DOCUSATE SODIUM 100MG CAPSULE PO SCH (20:13)
[2023-11-25 20:14] VITALS: BP 172/73; TEMP 97.3; O2SAT 94
[2023-11-25] MEDS: **hydrALAZINE HCL** 25 MG TAB PO SCH (20:14)
[2023-11-25] MEDS ORDERED: CitaloPRAM (CeleXA) 20 MG TAB PO SCH (21:00)
[2023-11-25] MEDS ORDERED: ATORVASTATIN 20 MG TAB PO SCH (21:00)
[2023-11-25 21:05] VITALS: BP 173/68; TEMP 97; O2SAT 94
[2023-11-25 22:00] VITALS: BP 170/65
[2023-11-25 22:01] VITALS: BP 168/65
[2023-11-26 05:20] VITALS: BP 171/92; TEMP 97.9; O2SAT 100
[2023-11-26] MEDS: DOCUSATE SODIUM 100MG CAPSULE PO SCH (05:50)
[2023-11-26] MEDS: CARVedilol 3.125 MG TAB PO SCH (05:51)
[2023-11-26] MEDS: **hydrALAZINE HCL** 25 MG TAB PO SCH (05:51)
[2023-11-26] MEDS: DOXYCYCLINE HYCLATE 100MG TABLET PO SCH (05:52)
[2023-11-26 05:57] LABS: HEMOGLOBIN 11.5 g/dl (12.0-15.5); MEAN CORPUSCULAR HGB CONC 31.1 g/dl (32.0-36.5); MEAN CORPUSCULAR VOLUME 106.3 fl (80.0-96.0); PLATELET COUNT, AUTOMATED 229 10^3/uL (150-450); RED BLOOD COUNT 3.48 10^6/uL (4.00-5.40); WHITE BLOOD COUNT 8.1 10^3/uL (4.0-10.0)
[2023-11-26] MEDS ORDERED: HEPARIN SOD (PORCINE) 5000UNITS/ML 1ML VIAL/SYRINGE SC SCH (06:00)
[2023-11-26] MEDS ORDERED: LEVOTHYROXINE 25MCG TABLET (0.025MG) PO SCH (06:00)
[2023-11-26] MEDS ORDERED: LEVOTHYROXINE 150MCG TABLET (0.15MG) PO SCH (06:00)
[2023-11-26] MEDS: PANTOPRAZOLE 40MG VIAL IV SCH ×2 (06:06→07:25)
[2023-11-26] MEDS: SUCROFERRIC OXYHYDROXIDE 500MG CHEW TAB (VELPHORO) PO SCH ×2 (06:07→12:03)
[2023-11-26 06:26] LABS: CALCIUM LEVEL 9.4 MG/DL (8.3-10.6); CREATININE FOR GFR 4.65 MG/DL (0.55-1.30); GLOMERULAR FILTRATION RATE 9.9 (>39); POTASSIUM SERUM 4.5 MMOL/L (3.5-5.1)
[2023-11-26] MEDS ORDERED: ISOSORBIDE DIN (ISORDIL) 10MG TAB PO SCH ×2 (07:00→12:00)
[2023-11-26] MEDS: INSULIN LISPRO (NovoLOG) PER UNIT SC SCH ×2 (07:30→12:03)
[2023-11-26] MEDS ORDERED: GLUCAGON INJ 1MG VIAL SC PRN (07:45)
[2023-11-26] MEDS ORDERED: GLUCOSE 4GM CHEW TABLET PO PRN (07:45)
[2023-11-26] MEDS ORDERED: DEXTROSE 50% 50ML SYRINGE IV PRN (07:45)
[2023-11-26] MEDS: IPRATROPIUM 0.5MG/ALBUTEROL 2.5MG INH SOL UD 3ML (DUONEB) NEB SCH ×2 (08:00→13:14)
[2023-11-26] MEDS ORDERED: ASPIRIN 81MG ENTERIC TABLET PO SCH (09:00)
[2023-11-26] MEDS ORDERED: ACETAMINOPHEN 500 MG TAB PO SCH (09:00)
[2023-11-26] MEDS ORDERED: **hydrALAZINE** 50 MG TAB PO ONE (09:35)
[2023-11-26 09:44] VITALS: BP 186/60
[2023-11-26 10:45] VITALS: BP 168/64
[2023-11-26] MEDS ORDERED: HYDR50TA46 PO (11:18)
[2023-11-26] MEDS ORDERED: DOXY100T PO (11:18)
[2023-11-26] MEDS ORDERED: AUGM500T34 PO (11:20)
[2023-11-26] MEDS ORDERED: cefTRIAXone SOD 1 GM in D5W MINI-BAG PLUS 50 ML IV SCH (13:00)
[2023-11-26] MEDS ORDERED: **hydrALAZINE HCL** 25 MG TAB PO SCH (16:00)
[2023-11-26] MEDS ORDERED: INSULIN LISPRO (NovoLOG) PER UNIT SC SCH (21:00)
[2023-11-27] MEDS ORDERED: CINACALCET 30 MG TAB (SENSIPAR) PO SCH (09:00)
== END 2023-11-26 13:41 | disposition home or self-care (01) ==
LOC: M ED 09:08 → M ED INP 13:24 → ENRESERV 13:49 → M MSPAV 18:50
PROVIDERS: ADMIT Internal Medicine; ATTEND Internal Medicine
DX: N18.4 Chronic kidney disease, stage 4 (severe) (principal); Z99.2 Dependence on renal dialysis; R53.1 Weakness; R91.8 Other nonspecific abnormal finding of lung field; E87.70 Fluid overload, unspecified; E87.5 Hyperkalemia; I25.10 Atherosclerotic heart disease of native coronary artery without angina pectoris; Z95.1 Presence of aortocoronary bypass graft; I12.9 Hypertensive chronic kidney disease with stage 1 through stage 4 chronic kidney disease, or unspecified chronic kidney disease; E11.42 Type 2 diabetes mellitus with diabetic polyneuropathy; E11.21 Type 2 diabetes mellitus with diabetic nephropathy; E03.9 Hypothyroidism, unspecified; K21.9 Gastro-esophageal reflux disease without esophagitis; J96.11 Chronic respiratory failure with hypoxia; M54.9 Dorsalgia, unspecified; M25.559 Pain in unspecified hip; G89.29 Other chronic pain; F32.A Depression, unspecified; I69.351 Hemiplegia and hemiparesis following cerebral infarction affecting right dominant side; E11.319 Type 2 diabetes mellitus with unspecified diabetic retinopathy without macular edema; H40.9 Unspecified glaucoma; H54.8 Legal blindness, as defined in USA; D63.1 Anemia in chronic kidney disease; I73.9 Peripheral vascular disease, unspecified; I50.30 Unspecified diastolic (congestive) heart failure; G47.33 Obstructive sleep apnea (adult) (pediatric); E78.5 Hyperlipidemia, unspecified; I27.20 Pulmonary hypertension, unspecified; N25.81 Secondary hyperparathyroidism of renal origin; K57.90 Diverticulosis of intestine, part unspecified, without perforation or abscess without bleeding; Z99.81 Dependence on supplemental oxygen; Z99.89 Dependence on other enabling machines and devices; Z88.8 Allergy status to other drugs, medicaments and biological substances; Z79.899 Other long term (current) drug therapy; Z79.82 Long term (current) use of aspirin; Z79.51 Long term (current) use of inhaled steroids; Z79.890 Hormone replacement therapy; Z79.4 Long term (current) use of insulin; Z82.49 Family history of ischemic heart disease and other diseases of the circulatory system; Z80.9 Family history of malignant neoplasm, unspecified
CPT/HCPCS: 36415; 71046; 80048; 80076; 84145; 84443; 85025; 85027; 87205; 87631; 87641; 90935; 93005; 94640; 96365; 96366; 96372; 96375; 96376; 97116; 97161; 99285; C9113; G0378; J0456; J0696; J1815; J2405

== ENCOUNTER 2024-01-11 09:32 | Emergency (ER) | payer MEDICARE, MEDICAID ==
[~2024-01-11] VITALS: Ht 165.1 cm; Wt 89.4 kg
[~2024-01-11 09:32] MED LIST changes: +AUGM500T34 PO; +CARV12.5; +CITA20TA7 PO; +DOXY100T PO; -HYDR-3910 PO; -HYDR25TA PO; +HYDR25TA87 PO; +HYDR25TA88 PO; -MIRA1POW3 PO; +MIRA33506 PO
[2024-01-11 09:49] VITALS: TEMP 98.3
[2024-01-11] MEDS ORDERED: VELP5CHW PO (10:03)
[2024-01-11 10:04] LABS: BASO % 0.6 % (0.0-1.0); EOS # 0.2 10^3/uL (0.0-0.5); EOS % 2.3 % (0.0-3.0); HEMATOCRIT 38.3 % (36.0-47.0); HEMOGLOBIN 12.2 g/dl (12.0-15.5); LYMPH % 14.8 % (24.0-44.0); MEAN CORPUSCULAR HEMOGLOBIN 32.4 pg (27.0-33.0); MEAN CORPUSCULAR HGB CONC 31.9 g/dl (32.0-36.5); MEAN CORPUSCULAR VOLUME 101.6 fl (80.0-96.0); MONO # 0.9 10^3/uL (0.0-0.8); MONO % 12.9 % (2.0-8.0); NEUTROPHILS # 4.8 10^3/uL (1.5-8.5); NEUTROPHILS % 69.3 % (36.0-66.0); PLATELET COUNT, AUTOMATED 194 10^3/uL (150-450); RED BLOOD COUNT 3.77 10^6/uL (4.00-5.40); WHITE BLOOD COUNT 6.9 10^3/uL (4.0-10.0)
[2024-01-11] MEDS: ASPIRIN 81MG CHEW TABLET PO ONE (10:12)
[2024-01-11 10:13] VITALS: BP 227/89
[2024-01-11] MEDS: **hydrALAZINE** 50 MG TAB PO ONE (10:13)
[2024-01-11] MEDS: ISOSORBIDE DIN (ISORDIL) 10MG TAB PO ONE (10:13)
[2024-01-11] MEDS: CARVedilol 12.5 MG TAB PO ONE (10:13)
[2024-01-11 10:35] LABS: ALBUMIN 3.7 G/DL (3.2-5.2); ALKALINE PHOSPHATASE 88 U/L (46-116); ALT/SGPT 18 U/L (7.0-40); AST/SGOT 43 U/L (<34); BILIRUBIN,DIRECT < 0.1 MG/DL (<0.4); BILIRUBIN,TOTAL 0.3 MG/DL (0.3-1.2); BLOOD UREA NITROGEN 31 MG/DL (9-23); CALCIUM LEVEL 8.8 MG/DL (8.3-10.6); CARBON DIOXIDE LEVEL 30 MMOL/L (20-31); CHLORIDE LEVEL 97 MMOL/L (98-107); CREATININE FOR GFR 4.13 MG/DL (0.55-1.30); GLOMERULAR FILTRATION RATE 11.3 (>39); GLUCOSE, FASTING 94 MG/DL (74-106); POTASSIUM SERUM 5.4 MMOL/L (3.5-5.1); SODIUM LEVEL 135 MMOL/L (136-145); TOTAL PROTEIN 8.1 G/DL (5.7-8.2)
[2024-01-11 10:41] LABS: PROCALCITONIN 0.16 ng/ml
[2024-01-11] MEDS: IPRATROPIUM 0.5MG/ALBUTEROL 2.5MG INH SOL UD 3ML (DUONEB) NEB ONE (11:35)
[2024-01-11 12:30] VITALS: O2SAT 100
[2024-01-11 12:58] VITALS: O2SAT 98
[2024-01-11 13:06] VITALS: BP 158/62
== END 2024-01-11 13:07 | disposition home or self-care (01) ==
LOC: M ED 09:32 → EDBD 09:32 → M ED 13:07
DX: B34.9 Viral infection, unspecified (principal); I25.2 Old myocardial infarction; I45.10 Unspecified right bundle-branch block; I50.22 Chronic systolic (congestive) heart failure; I11.0 Hypertensive heart disease with heart failure; E11.9 Type 2 diabetes mellitus without complications; F41.9 Anxiety disorder, unspecified; F32.A Depression, unspecified; K21.9 Gastro-esophageal reflux disease without esophagitis; Z88.8 Allergy status to other drugs, medicaments and biological substances; Z79.1 Long term (current) use of non-steroidal anti-inflammatories (NSAID); Z79.899 Other long term (current) drug therapy; Z79.4 Long term (current) use of insulin

== ENCOUNTER → 2024-02-09 | Outpatient (CLI) | payer MEDICARE, MEDICAID ==
[~2024-02-09] MED LIST changes: -MELA1TAB9 PO; +MELA5TAB58 PO
== END ==
LOC: M EKG 10:48
PROVIDERS: ATTEND Physician Assistant
DX: I45.3 Trifascicular block (principal)

== ENCOUNTER → 2024-03-12 | Outpatient (REF) | payer MEDICARE, MEDICAID ==
[2024-03-12 19:07] LABS: CHOLESTEROL RISK RATIO 2.84 (<5); HDL CHOLESTEROL 54.8 MG/DL (>40); LDL CHOLESTEROL 77.6 MG/DL (<100); NON-HDL-C 101.2 MG/DL
== END ==
LOC: M LAB REF 17:17
PROVIDERS: ATTEND Pediatrics
DX: I50.9 Heart failure, unspecified (principal)

== ENCOUNTER → 2024-03-31 | Outpatient (CLI) | payer MEDICARE, MEDICAID | LOC: M WHC 12:56 | PROVIDERS: ATTEND Pediatrics | DX: M81.0 Age-related osteoporosis without current pathological fracture (principal) ==

== ENCOUNTER → 2024-04-05 | Outpatient (CLI) | payer MEDICARE, MEDICAID | LOC: M RAD 11:08 | PROVIDERS: ATTEND Pediatrics | DX: I70.202 Unspecified atherosclerosis of native arteries of extremities, left leg (principal); J90 Pleural effusion, not elsewhere classified; R91.1 Solitary pulmonary nodule; J84.10 Pulmonary fibrosis, unspecified ==

== ENCOUNTER → 2024-07-09 | Outpatient (CLI) | payer MEDICAID, MEDICARE | LOC: M WHC 12:06 | PROVIDERS: ATTEND Pediatrics | DX: Z12.31 Encounter for screening mammogram for malignant neoplasm of breast (principal); R92.323 Mammographic fibroglandular density, bilateral breasts ==

== ENCOUNTER 2024-08-20 13:10 | Emergency (ER) | payer MEDICARE ==
[~2024-08-20] VITALS: Ht 165.1 cm; Wt 97.3 kg
[2024-08-20 14:07] VITALS: TEMP 98.7
[2024-08-20 14:53] LABS: BASO % 0.6 % (0.0-1.0); EOS # 0.3 10^3/uL (0.0-0.5); EOS % 3.5 % (0.0-3.0); HEMATOCRIT 32.4 % (36.0-47.0); HEMOGLOBIN 10.4 g/dl (12.0-15.5); LYMPH # 1.2 10^3/uL (1.5-5.0); LYMPH % 16.7 % (24.0-44.0); MEAN CORPUSCULAR HEMOGLOBIN 32.4 pg (27.0-33.0); MEAN CORPUSCULAR HGB CONC 32.1 g/dl (32.0-36.5); MEAN CORPUSCULAR VOLUME 100.9 fl (80.0-96.0); MONO % 13.8 % (2.0-8.0); NEUTROPHILS # 4.6 10^3/uL (1.5-8.5); PLATELET COUNT, AUTOMATED 203 10^3/uL (150-450); RED BLOOD COUNT 3.21 10^6/uL (4.00-5.40); WHITE BLOOD COUNT 7.1 10^3/uL (4.0-10.0)
[2024-08-20 15:04] LABS: INR 1.04; PARTIAL THROMBOPLASTIN TIME 26.4 SECONDS (24.8-34.2); PROTHROMBIN TIME 13.3 SECONDS (12.5-14.5)
[2024-08-20 15:21] LABS: ALBUMIN 3.4 G/DL (3.2-5.2); ALKALINE PHOSPHATASE 300 U/L (46-116); ALT/SGPT 18 U/L (7.0-40); AST/SGOT 17 U/L (<34); BILIRUBIN,DIRECT < 0.1 MG/DL (<0.4); BILIRUBIN,TOTAL 0.2 MG/DL (0.3-1.2); BLOOD UREA NITROGEN 38 MG/DL (9-23); CARBON DIOXIDE LEVEL 32 MMOL/L (20-31); CHLORIDE LEVEL 98 MMOL/L (98-107); CREATININE FOR GFR 4.74 MG/DL (0.55-1.30); GLOMERULAR FILTRATION RATE 9.7 (>39); GLUCOSE, FASTING 130 MG/DL (74-106); POTASSIUM SERUM 4.7 MMOL/L (3.5-5.1); SODIUM LEVEL 135 MMOL/L (136-145); TOTAL PROTEIN 6.8 G/DL (5.7-8.2)
[2024-08-20 15:44] VITALS: BP 148/58
[2024-08-20 18:30] VITALS: O2SAT 95
== END 2024-08-20 18:48 | disposition home or self-care (01) ==
LOC: EDBD 13:10 → EDUNIT# 13:10 → M ED 13:10
DX: R53.83 Other fatigue (principal); I45.10 Unspecified right bundle-branch block; I25.2 Old myocardial infarction; I25.119 Atherosclerotic heart disease of native coronary artery with unspecified angina pectoris; E11.9 Type 2 diabetes mellitus without complications; E03.9 Hypothyroidism, unspecified; K21.9 Gastro-esophageal reflux disease without esophagitis; I12.0 Hypertensive chronic kidney disease with stage 5 chronic kidney disease or end stage renal disease; E78.5 Hyperlipidemia, unspecified; Z88.8 Allergy status to other drugs, medicaments and biological substances; Z79.1 Long term (current) use of non-steroidal anti-inflammatories (NSAID); Z79.4 Long term (current) use of insulin; Z79.899 Other long term (current) drug therapy

== ENCOUNTER → 2024-09-22 | Outpatient (CLI) | payer MEDICARE ==
[~2024-09-22] MED LIST changes: +HEPARIN 1,000UNITS/ML 10ML VIAL (FOR RADIOLOGY & DIALYSIS ONLY) As Ordered ONE; +ISOVUE-300 61% 100ML VIAL As Ordered ONE; +LIDOCAINE 1% MDV 20ML VIAL As Ordered ONE; +MIDAZOLAM INJ 2MG/2ML VIAL As Ordered ONE; +NS 250 ML IV SCH; +fentaNYL 100 MCG/2 ML INJECTION As Ordered ONE; +hydrALAZINE 20MG/ML 1ML VIAL As Ordered ONE
[2024-09-22 09:07] VITALS: TEMP 97.2
[2024-09-22 11:28] VITALS: BP 174/65; O2SAT 100
== END ==
LOC: M IRPRO 09:03
PROVIDERS: ATTEND Internal Medicine Nephrology
DX: N18.6 End stage renal disease (principal)
CPT/HCPCS: 36902; 99152; 99153; J0360; J2250; J3010; Q9967

== ENCOUNTER → 2024-09-27 | Outpatient (REF) | payer MEDICARE, MEDICAID ==
[~2024-09-27] MED LIST changes: -HEPARIN 1,000UNITS/ML 10ML VIAL (FOR RADIOLOGY & DIALYSIS ONLY) As Ordered ONE; -ISOVUE-300 61% 100ML VIAL As Ordered ONE; -LIDOCAINE 1% MDV 20ML VIAL As Ordered ONE; -MIDAZOLAM INJ 2MG/2ML VIAL As Ordered ONE; -NS 250 ML IV SCH; -fentaNYL 100 MCG/2 ML INJECTION As Ordered ONE; -hydrALAZINE 20MG/ML 1ML VIAL As Ordered ONE
== END ==
LOC: M LAB REF 17:24
PROVIDERS: ATTEND Pediatrics
DX: E03.9 Hypothyroidism, unspecified (principal)

== ENCOUNTER → 2025-01-28 | Outpatient (CLI) | payer MEDICARE, MEDICAID | LOC: M EKG 10:50 | PROVIDERS: ATTEND Physician Assistant | DX: I45.3 Trifascicular block (principal) ==

== ENCOUNTER → 2025-05-25 | Outpatient (REF) | payer MEDICARE, MEDICAID ==
[~2025-05-25] MED LIST changes: +ALEN35TA56 PO; +BREO1INH3 INH; +CELE10TA PO; +METO1TAB87 PO
[2025-05-25 15:19] LABS: ESTIMATED AVERAGE GLUCOSE 120.0 MG/DL (60-110)
[2025-05-25 15:20] LABS: CHOLESTEROL LEVEL 175.0 MG/DL (<200); CHOLESTEROL RISK RATIO 3.51 (<5); LDL CHOLESTEROL 89.6 MG/DL (<100); NON-HDL-C 125.2 MG/DL; TRIGLYCERIDES LEVEL 178.0 MG/DL (<150)
== END ==
LOC: M LAB REF 14:19
PROVIDERS: ATTEND Pediatrics
DX: E11.22 Type 2 diabetes mellitus with diabetic chronic kidney disease (principal); Z79.4 Long term (current) use of insulin; E03.9 Hypothyroidism, unspecified

== ENCOUNTER 2025-06-07 16:02 | Inpatient (IN) | payer MEDICARE, MEDICAID ==
[~2025-06-07] VITALS: Ht 165.1 cm; Wt 91.0 kg
[~2025-06-07 16:02] MED LIST changes: +ACET-1515 PO; -ACET650T15 PO; -ALEN35TA56 PO; -BREO1INH3 INH; -CELE10TA PO; -METO1TAB87 PO; +UNRESOLVED CLARIFICATION ENTRY XX SCH
[2025-06-07 16:42] LABS: PLATELET COUNT, AUTOMATED 175 10^3/uL (150-450)
[2025-06-07 17:08] LABS: ALT/SGPT 20 U/L (7.0-40); AST/SGOT 24 U/L (<34); CALCIUM LEVEL 8.7 MG/DL (8.3-10.6); CARBON DIOXIDE LEVEL 28 MMOL/L (20-31); CHLORIDE LEVEL 91 MMOL/L (98-107); CREATININE FOR GFR 7.45 MG/DL (0.55-1.30); GLOMERULAR FILTRATION RATE 5.4 (>39); POTASSIUM SERUM 5.1 MMOL/L (3.5-5.1); SODIUM LEVEL 137 MMOL/L (136-145)
[2025-06-07] MEDS: ONDANSETRON 4MG 2ML VIAL IV ONE (17:31)
[2025-06-07] MEDS: NS (Normal Saline) 0.9% 1,000 ML IV SCH (17:32)
[2025-06-07] MEDS: ACETAMINOPHEN *IV* 1,000 MG in IV 1 EA IV ONE (17:32)
[2025-06-07 17:38] LABS: ATYPICAL LYMPH 1 % (0-5); LYMPHOCYTES 12 % (16-44); MONOCYTES 2 % (0-5); NEUTROPHILS 84 % (28-66)
[2025-06-07 17:39] LABS: PLATELET ESTIMATE NORMAL (NORMAL)
[2025-06-07] MEDS ORDERED: CELE10TA PO (20:06)
[2025-06-07] MEDS ORDERED: BREO1INH3 INH (20:06)
[2025-06-07] MEDS ORDERED: ISOS10TA3 PO (20:06)
[2025-06-07] MEDS ORDERED: ALEN35TA56 PO (20:06)
[2025-06-07] MEDS ORDERED: METO1TAB87 PO (20:06)
[2025-06-07] MEDS ORDERED: HOME MED LIST COMPLETE! XX SCH (20:10)
[2025-06-07] MEDS ORDERED: GLUCOSE 4 GM CHEW PO PRN (20:55)
[2025-06-07] MEDS ORDERED: NITROGLYCERIN 0.4 MG SUBL TABLET SL PRN (20:55)
[2025-06-07] MEDS ORDERED: DEXTROSE 50% 50 ML SYRINGE IV PRN (20:55)
[2025-06-07] MEDS ORDERED: FLUTICASONE PROPIONATE 0.05% NASAL SPRAY 16 GM NARES PRN (20:55)
[2025-06-07] MEDS ORDERED: GLUCAGON INJ 1 MG VIAL SC PRN (20:55)
[2025-06-07] MEDS ORDERED: VANCOMYCIN HCL 1,000 MG, VIAL MATE ADAPTER 1 EACH in NS 250 ML IV SCH (21:25)
[2025-06-07 21:27] LABS: C REACTIVE PROTEIN QUANTITATIV 3.60 MG/DL (<1.0); MAGNESIUM LEVEL 1.5 MG/DL (1.8-2.4); PHOSPHORUS LEVEL 4.7 MG/DL (2.4-5.1)
[2025-06-07 21:43] LABS: ERYTHROCYTE SEDIMENTATION RATE 95 mm/hr (0-30)
[2025-06-07] MEDS: INSULIN LISPRO (NovoLOG) PER UNIT SC SCH (22:10)
[2025-06-07] MEDS: ATORVASTATIN 20 MG TAB PO SCH (22:24)
[2025-06-07] MEDS: DOCUSATE SODIUM 100 MG CAPSULE PO SCH (22:24)
[2025-06-07] MEDS: ACETAMINOPHEN 500 MG TAB PO SCH (22:24)
[2025-06-07] MEDS: amLODIPine 10 MG TAB PO SCH (22:24)
[2025-06-07] MEDS: **hydrALAZINE** 50 MG TAB PO SCH (22:25)
[2025-06-07] MEDS: BISACODYL 10 MG SUPP PR SCH (22:27)
[2025-06-07] MEDS: METOPROLOL TART 12.5 MG PER 1/2 TAB PO SCH (22:27)
[2025-06-07 22:30] LABS: VENOUS BASE EXCESS 0.6 (-2.0-2.0); VENOUS HCO3 26.4 MMOL/L (23.0-27.0); VENOUS O2 SATURATION 89.8 % (60.0-80.0); VENOUS PARTIAL PRESSURE CO2 47.8 mmHg (38.0-50.0); VENOUS PARTIAL PRESSURE O2 59.0 mmHg (30.0-50.0); VENOUS PH 7.360 UNITS (7.330-7.430); VENOUS STANDARD HCO3 24.9 MMOL/L; VENOUS TOTAL CO2 27.9 MMOL/L (24.0-28.0)
[2025-06-07 22:36] LABS: PLATELET COUNT, AUTOMATED 151 10^3/uL (150-450)
[2025-06-07] MEDS: ISOSORBIDE DINITRATE 10 MG TAB PO SCH (22:53)
[2025-06-07] MEDS: VANCOMYCIN HCL 1,500 MG, VIAL MATE ADAPTER 1 EACH in NS 500 ML IV ONE (23:00)
[2025-06-07 23:01] LABS: ALT/SGPT 16.0 U/L (7.0-40); AST/SGOT 21.0 U/L (<34); CALCIUM LEVEL 8.2 MG/DL (8.3-10.6); CARBON DIOXIDE LEVEL 28.0 MMOL/L (20-31); CHLORIDE LEVEL 93.0 MMOL/L (98-107); CREATININE FOR GFR 7.6 MG/DL (0.55-1.30); GLOMERULAR FILTRATION RATE 5.3 (>39); POTASSIUM SERUM 5.0 MMOL/L (3.5-5.1); SODIUM LEVEL 137.0 MMOL/L (136-145)
[2025-06-07 23:05] LABS: INR 1.08
[2025-06-08] MEDS: MAGNESIUM OXIDE 400 MG TAB PO ONE (01:56)
[2025-06-08] MEDS: PIPERACILLIN/TAZOBACTAM SOD 4.5 GM in DEXTROSE 5% (D5W) ADV/MINI-BAG 50 ML IV SCH (02:45)
[2025-06-08] MEDS ORDERED: HEPARIN 1,000 UNITS/ML 10 ML VIAL (FOR RADIOLOGY & DIALYSIS ONLY) IV PRN (06:00)
[2025-06-08] MEDS ORDERED: LIDOCAINE 1% SDV 5 ML VIAL SC PRN (06:00)
[2025-06-08] MEDS ORDERED: SODIUM CHLORIDE 0.9% 1000 ML IV PRN (06:00)
[2025-06-08] MEDS: LEVOTHYROXINE 150 MCG TABLET (0.15 MG) PO SCH (06:40)
[2025-06-08 07:25] LABS: PLATELET COUNT, AUTOMATED 133 10^3/uL (150-450)
[2025-06-08] MEDS: INSULIN LISPRO (NovoLOG) PER UNIT SC SCH (07:30)
[2025-06-08 07:50] LABS: VANCOMYCIN RANDOM 18.7 UG/ML
[2025-06-08] MEDS: SYMBICORT 160/4.5MCG INHALER 6GM INH SCH (07:55)
[2025-06-08 07:59] LABS: ALT/SGPT 15.0 U/L (7.0-40); AST/SGOT 24.0 U/L (<34); CALCIUM LEVEL 8.1 MG/DL (8.3-10.6); CARBON DIOXIDE LEVEL 26.0 MMOL/L (20-31); CHLORIDE LEVEL 93.0 MMOL/L (98-107); CREATININE FOR GFR 7.91 MG/DL (0.55-1.30); GLOMERULAR FILTRATION RATE 5.0 (>39); MAGNESIUM LEVEL 1.5 MG/DL (1.8-2.4); POTASSIUM SERUM 5.1 MMOL/L (3.5-5.1); SODIUM LEVEL 137.0 MMOL/L (136-145)
[2025-06-08] MEDS: ASPIRIN 81 MG ENTERIC TABLET PO SCH (08:16)
[2025-06-08] MEDS: LanTUS (INSULIN GLARGINE INJ) 1 UNITS/0.01 ML SC SCH (08:17)
[2025-06-08] MEDS: HEPARIN SOD 5000 UNITS/ML 1 ML VIAL/SYRINGE SC SCH (08:18)
[2025-06-08] MEDS: MIRALAX *UNIT DOSE* 17 GM PACKET PO SCH (08:19)
[2025-06-08] MEDS: PANTOPRAZOLE 20 MG TAB PO SCH (08:25)
[2025-06-08] MEDS: LEVOTHYROXINE 25 MCG TABLET (0.025MG) PO SCH (08:29)
[2025-06-08] MEDS: PATIROMER SORBITEX CALCIUM 8.4GM POWDER PACKET PO SCH (11:54)
[2025-06-08] MEDS: HEPARIN 1,000 UNITS/ML 10 ML VIAL (FOR RADIOLOGY & DIALYSIS ONLY) XX SCH (15:13)
[2025-06-08] MEDS ORDERED: VANCOMYCIN HCL 1,000 MG, VIAL MATE ADAPTER 1 EACH in NS 250 ML IV SCH (16:00)
[2025-06-08 17:00] VITALS: BP 110/68; TEMP 97.6; O2SAT 100
[2025-06-08 18:00] VITALS: O2SAT 97
[2025-06-08 20:41] VITALS: BP 152/58; TEMP 97.3; O2SAT 97
[2025-06-09] VITALS (8 sets, daily range): BP systolic 140–175; BP diastolic 52–63; TEMP 96.9–100.2; O2SAT 94–98
[2025-06-09] MEDS ORDERED: LIDOCAINE 1% SDV 5 ML VIAL SC PRN (06:55)
[2025-06-09] MEDS ORDERED: HEPARIN 1,000 UNITS/ML 10 ML VIAL (FOR RADIOLOGY & DIALYSIS ONLY) IV PRN (06:55)
[2025-06-09] MEDS ORDERED: SODIUM CHLORIDE 0.9% 1000 ML IV PRN (06:55)
[2025-06-09 08:20] LABS: BASO # 0.0 10^3/uL (0.0-0.2); BASO % 0.3 % (0.0-1.0); EOS # 0.1 10^3/uL (0.0-0.5); EOS % 0.8 % (0.0-3.0); LYMPH # 0.9 10^3/uL (1.5-5.0); LYMPH % 8.5 % (24.0-44.0); MONO # 0.8 10^3/uL (0.0-0.8); MONO % 7.6 % (2.0-8.0); NEUTROPHILS # 9.0 10^3/uL (1.5-8.5); NEUTROPHILS % 82.1 % (36.0-66.0); PLATELET COUNT, AUTOMATED 133 10^3/uL (150-450)
[2025-06-09 08:32] LABS: CALCIUM LEVEL 8.4 MG/DL (8.3-10.6); CARBON DIOXIDE LEVEL 26.0 MMOL/L (20-31); CHLORIDE LEVEL 96.0 MMOL/L (98-107); CREATININE FOR GFR 5.03 MG/DL (0.55-1.30); GLOMERULAR FILTRATION RATE 8.6 (>39); MAGNESIUM LEVEL 1.7 MG/DL (1.8-2.4); POTASSIUM SERUM 3.9 MMOL/L (3.5-5.1); SODIUM LEVEL 138.0 MMOL/L (136-145)
[2025-06-09] MEDS: CINACALCET 30 MG TAB PO SCH (09:24)
[2025-06-09] MEDS: HEPARIN 1,000 UNITS/ML 10 ML VIAL (FOR RADIOLOGY & DIALYSIS ONLY) XX SCH (15:02)
[2025-06-09] MEDS: DARBEPOETIN 100 MCG/0.5 ML *DIALYSIS* SYRINGE IV SCH (15:09)
[2025-06-09] MEDS: ONDANSETRON 4MG 2ML VIAL IV PRN (18:24)
[2025-06-10] VITALS: BP 134/58; TEMP 97.9; O2SAT 96
[2025-06-10 04:00] VITALS: BP 162/54; TEMP 97; O2SAT 98
[2025-06-10 06:07] LABS: BASO # 0.1 10^3/uL (0.0-0.2); BASO % 0.5 % (0.0-1.0); EOS # 0.1 10^3/uL (0.0-0.5); EOS % 1.1 % (0.0-3.0); LYMPH # 1.1 10^3/uL (1.5-5.0); LYMPH % 10.6 % (24.0-44.0); MONO # 1.1 10^3/uL (0.0-0.8); MONO % 10.4 % (2.0-8.0); NEUTROPHILS # 8.2 10^3/uL (1.5-8.5); NEUTROPHILS % 76.8 % (36.0-66.0); PLATELET COUNT, AUTOMATED 141 10^3/uL (150-450)
[2025-06-10 06:25] LABS: CALCIUM LEVEL 7.9 MG/DL (8.3-10.6); CARBON DIOXIDE LEVEL 25.0 MMOL/L (20-31); CHLORIDE LEVEL 102.0 MMOL/L (98-107); CREATININE FOR GFR 3.63 MG/DL (0.55-1.30); GLOMERULAR FILTRATION RATE 12.7 (>39); MAGNESIUM LEVEL 1.8 MG/DL (1.8-2.4); POTASSIUM SERUM 4.4 MMOL/L (3.5-5.1); SODIUM LEVEL 140.0 MMOL/L (136-145)
[2025-06-10 19:45] VITALS: BP 165/59; TEMP 97.5; O2SAT 100
[2025-06-10 20:00] VITALS: BP 165/59; TEMP 97.5; O2SAT 100
[2025-06-10] MEDS: DIBUCAINE 1% OINTMENT 30 GM TOP PRN (23:14)
[2025-06-11] VITALS (8 sets, daily range): BP systolic 142–168; BP diastolic 54–63; TEMP 96.8–99.7; O2SAT 94–98
[2025-06-11 05:50] LABS: CALCIUM LEVEL 7.7 MG/DL (8.3-10.6); CARBON DIOXIDE LEVEL 21.0 MMOL/L (20-31); CHLORIDE LEVEL 101.0 MMOL/L (98-107); CREATININE FOR GFR 5.56 MG/DL (0.55-1.30); GLOMERULAR FILTRATION RATE 7.6 (>39); MAGNESIUM LEVEL 1.7 MG/DL (1.8-2.4); POTASSIUM SERUM 4.0 MMOL/L (3.5-5.1); SODIUM LEVEL 139.0 MMOL/L (136-145)
[2025-06-11] MEDS ORDERED: LIDOCAINE 1% SDV 5 ML VIAL SC PRN (06:00)
[2025-06-11] MEDS ORDERED: HEPARIN 1,000 UNITS/ML 10 ML VIAL (FOR RADIOLOGY & DIALYSIS ONLY) IV PRN (06:00)
[2025-06-11] MEDS ORDERED: SODIUM CHLORIDE 0.9% 1000 ML IV PRN (06:00)
[2025-06-11] MEDS: **hydrALAZINE HCL** 25 MG TAB PO SCH (09:00)
[2025-06-11] MEDS: HEPARIN 1,000 UNITS/ML 10 ML VIAL (FOR RADIOLOGY & DIALYSIS ONLY) XX SCH (09:15)
[2025-06-11 10:39] LABS: BASO # 0.0 10^3/uL (0.0-0.2); BASO % 0.3 % (0.0-1.0); EOS # 0.2 10^3/uL (0.0-0.5); EOS % 1.8 % (0.0-3.0); LYMPH # 1.2 10^3/uL (1.5-5.0); LYMPH % 10.0 % (24.0-44.0); MONO # 1.1 10^3/uL (0.0-0.8); MONO % 9.2 % (2.0-8.0); NEUTROPHILS # 9.6 10^3/uL (1.5-8.5); NEUTROPHILS % 78.0 % (36.0-66.0); PLATELET COUNT, AUTOMATED 165 10^3/uL (150-450)
[2025-06-11] MEDS ORDERED: CLINDAMYCIN 600 MG in IV 1 EA IV SCH (12:00)
[2025-06-11] MEDS: DOXYCYCLINE HYCLATE 100 MG TABLET PO SCH (13:15)
[2025-06-11] MEDS: cefTRIAXone SOD 2 GM in DEXTROSE 5% (D5W) ADV/MINI-BAG 50 ML IV SCH (13:16)
[2025-06-11] MEDS: ACETAMINOPHEN 325 MG TAB PO PRN (13:17)
[2025-06-12 00:06] VITALS: BP 155/55; TEMP 96.8; O2SAT 96
[2025-06-12 03:37] VITALS: BP 157/56; TEMP 96.8; O2SAT 96
[2025-06-12 06:24] LABS: BASO # 0.1 10^3/uL (0.0-0.2); BASO % 0.5 % (0.0-1.0); EOS # 0.3 10^3/uL (0.0-0.5); EOS % 2.4 % (0.0-3.0); LYMPH # 1.3 10^3/uL (1.5-5.0); LYMPH % 12.3 % (24.0-44.0); MONO # 1.3 10^3/uL (0.0-0.8); MONO % 12.1 % (2.0-8.0); NEUTROPHILS # 7.5 10^3/uL (1.5-8.5); NEUTROPHILS % 71.8 % (36.0-66.0); PLATELET COUNT, AUTOMATED 181 10^3/uL (150-450)
[2025-06-12 06:42] LABS: C REACTIVE PROTEIN QUANTITATIV 8.65 MG/DL (<1.0); CALCIUM LEVEL 7.4 MG/DL (8.3-10.6); CARBON DIOXIDE LEVEL 28.0 MMOL/L (20-31); CHLORIDE LEVEL 97.0 MMOL/L (98-107); CREATININE FOR GFR 3.99 MG/DL (0.55-1.30); GLOMERULAR FILTRATION RATE 11.4 (>39); MAGNESIUM LEVEL 1.6 MG/DL (1.8-2.4); POTASSIUM SERUM 3.6 MMOL/L (3.5-5.1); SODIUM LEVEL 140.0 MMOL/L (136-145)
[2025-06-12 08:00] VITALS: BP 158/56; TEMP 97; O2SAT 94
[2025-06-12 12:00] VITALS: BP 143/67; TEMP 97; O2SAT 99
[2025-06-12 16:00] VITALS: BP 148/62; TEMP 97.9; O2SAT 98
[2025-06-12 20:06] VITALS: BP 154/56; TEMP 96.6; O2SAT 99
[2025-06-12 21:37] LABS: CALCIUM LEVEL 7.9 MG/DL (8.3-10.6); CARBON DIOXIDE LEVEL 28.0 MMOL/L (20-31); CHLORIDE LEVEL 96.0 MMOL/L (98-107); CREATININE FOR GFR 5.37 MG/DL (0.55-1.30); GLOMERULAR FILTRATION RATE 8.0 (>39); MAGNESIUM LEVEL 1.6 MG/DL (1.8-2.4); POTASSIUM SERUM 3.7 MMOL/L (3.5-5.1); SODIUM LEVEL 138.0 MMOL/L (136-145)
[2025-06-12] MEDS: MAGNESIUM OXIDE 400 MG TAB PO ONE (23:04)
[2025-06-13 00:29] VITALS: BP 142/58; TEMP 96.8; O2SAT 97
[2025-06-13 03:42] VITALS: BP 158/60; TEMP 97.7; O2SAT 98
[2025-06-13 05:54] LABS: BASO # 0.0 10^3/uL (0.0-0.2); BASO % 0.3 % (0.0-1.0); EOS # 0.2 10^3/uL (0.0-0.5); EOS % 2.2 % (0.0-3.0); LYMPH # 1.5 10^3/uL (1.5-5.0); LYMPH % 15.0 % (24.0-44.0); MONO # 1.0 10^3/uL (0.0-0.8); MONO % 9.5 % (2.0-8.0); NEUTROPHILS # 7.4 10^3/uL (1.5-8.5); NEUTROPHILS % 71.8 % (36.0-66.0); PLATELET COUNT, AUTOMATED 242 10^3/uL (150-450)
[2025-06-13 06:26] LABS: CALCIUM LEVEL 8.1 MG/DL (8.3-10.6); CARBON DIOXIDE LEVEL 26.0 MMOL/L (20-31); CHLORIDE LEVEL 95.0 MMOL/L (98-107); CREATININE FOR GFR 5.98 MG/DL (0.55-1.30); GLOMERULAR FILTRATION RATE 7.0 (>39); MAGNESIUM LEVEL 1.6 MG/DL (1.8-2.4); POTASSIUM SERUM 3.6 MMOL/L (3.5-5.1); SODIUM LEVEL 139.0 MMOL/L (136-145)
[2025-06-13 07:48] VITALS: O2SAT 94
[2025-06-13 12:00] VITALS: BP 130/60; TEMP 97; O2SAT 98
[2025-06-13] MEDS: MAGNESIUM OXIDE 400 MG TAB PO ONE ×2 (12:30→20:43)
[2025-06-13 14:17] VITALS: O2SAT 100
[2025-06-13 20:19] VITALS: BP 142/52; TEMP 98.5; O2SAT 99
[2025-06-14] VITALS (8 sets, daily range): BP systolic 98–160; BP diastolic 48–69; TEMP 96.4–97.2; O2SAT 94–97
[2025-06-14] MEDS: RAMELTEON 8 MG TAB PO PRN (00:34)
[2025-06-14] MEDS ORDERED: SODIUM CHLORIDE 0.9% 1000 ML IV PRN (06:00)
[2025-06-14] MEDS ORDERED: LIDOCAINE 1% SDV 5 ML VIAL SC PRN (06:00)
[2025-06-14] MEDS ORDERED: HEPARIN 1,000 UNITS/ML 10 ML VIAL (FOR RADIOLOGY & DIALYSIS ONLY) IV PRN (06:00)
[2025-06-14 06:32] LABS: BASO # 0.0 10^3/uL (0.0-0.2); BASO % 0.5 % (0.0-1.0); EOS # 0.2 10^3/uL (0.0-0.5); EOS % 2.5 % (0.0-3.0); LYMPH # 1.7 10^3/uL (1.5-5.0); LYMPH % 20.5 % (24.0-44.0); MONO # 0.9 10^3/uL (0.0-0.8); MONO % 10.7 % (2.0-8.0); NEUTROPHILS # 5.4 10^3/uL (1.5-8.5); NEUTROPHILS % 64.6 % (36.0-66.0); PLATELET COUNT, AUTOMATED 265 10^3/uL (150-450)
[2025-06-14 07:05] LABS: CALCIUM LEVEL 8.0 MG/DL (8.3-10.6); CARBON DIOXIDE LEVEL 26.0 MMOL/L (20-31); CHLORIDE LEVEL 96.0 MMOL/L (98-107); CREATININE FOR GFR 7.43 MG/DL (0.55-1.30); GLOMERULAR FILTRATION RATE 5.4 (>39); MAGNESIUM LEVEL 1.7 MG/DL (1.8-2.4); POTASSIUM SERUM 4.1 MMOL/L (3.5-5.1); SODIUM LEVEL 138.0 MMOL/L (136-145)
[2025-06-14] MEDS: HEPARIN 1,000 UNITS/ML 10 ML VIAL (FOR RADIOLOGY & DIALYSIS ONLY) XX SCH (09:29)
[2025-06-15 05:03] VITALS: BP 172/62; TEMP 96.8; O2SAT 96
[2025-06-15 05:10] VITALS: BP 142/52
[2025-06-15 06:33] LABS: BASO # 0.0 10^3/uL (0.0-0.2); BASO % 0.5 % (0.0-1.0); EOS # 0.2 10^3/uL (0.0-0.5); EOS % 2.1 % (0.0-3.0); LYMPH # 1.7 10^3/uL (1.5-5.0); LYMPH % 20.0 % (24.0-44.0); MONO # 0.9 10^3/uL (0.0-0.8); MONO % 10.1 % (2.0-8.0); NEUTROPHILS # 5.5 10^3/uL (1.5-8.5); NEUTROPHILS % 66.1 % (36.0-66.0); PLATELET COUNT, AUTOMATED 300 10^3/uL (150-450)
[2025-06-15 07:04] LABS: CALCIUM LEVEL 7.5 MG/DL (8.3-10.6); CARBON DIOXIDE LEVEL 29.0 MMOL/L (20-31); CHLORIDE LEVEL 96.0 MMOL/L (98-107); CREATININE FOR GFR 4.68 MG/DL (0.55-1.30); GLOMERULAR FILTRATION RATE 9.4 (>39); MAGNESIUM LEVEL 1.7 MG/DL (1.8-2.4); POTASSIUM SERUM 3.4 MMOL/L (3.5-5.1); SODIUM LEVEL 140.0 MMOL/L (136-145)
[2025-06-15 07:14] LABS: ALT/SGPT 26 U/L (7.0-40); AST/SGOT 39 U/L (<34); C REACTIVE PROTEIN QUANTITATIV 4.30 MG/DL (<1.0); CALCIUM LEVEL 7.6 MG/DL (8.3-10.6); CARBON DIOXIDE LEVEL 29 MMOL/L (20-31); CHLORIDE LEVEL 96 MMOL/L (98-107); CREATININE FOR GFR 4.64 MG/DL (0.55-1.30); GLOMERULAR FILTRATION RATE 9.5 (>39); POTASSIUM SERUM 3.4 MMOL/L (3.5-5.1); SODIUM LEVEL 140 MMOL/L (136-145)
[2025-06-15 12:00] VITALS: BP 136/64; TEMP 97.5; O2SAT 98
[2025-06-15 20:31] VITALS: BP 158/50; TEMP 96.8; O2SAT 98
[2025-06-15] MEDS ORDERED: ALBUTEROL SULFATE 2.5 MG/0.5 ML INH CONCENTRATE NEB SOLN NEB PRN (22:10)
[2025-06-15 22:32] VITALS: O2SAT 96
[2025-06-16] VITALS (9 sets, daily range): BP systolic 138–184; BP diastolic 51–66; TEMP 96.8–98.3; O2SAT 95–98
[2025-06-16] MEDS ORDERED: HEPARIN 1,000 UNITS/ML 10 ML VIAL (FOR RADIOLOGY & DIALYSIS ONLY) IV PRN (06:00)
[2025-06-16] MEDS ORDERED: SODIUM CHLORIDE 0.9% 1000 ML IV PRN (06:00)
[2025-06-16] MEDS ORDERED: LIDOCAINE 1% SDV 5 ML VIAL SC PRN (06:00)
[2025-06-16 06:41] LABS: BASO # 0.0 10^3/uL (0.0-0.2); BASO % 0.5 % (0.0-1.0); EOS # 0.2 10^3/uL (0.0-0.5); EOS % 1.9 % (0.0-3.0); LYMPH # 1.6 10^3/uL (1.5-5.0); LYMPH % 19.5 % (24.0-44.0); MONO # 0.8 10^3/uL (0.0-0.8); MONO % 9.4 % (2.0-8.0); NEUTROPHILS # 5.6 10^3/uL (1.5-8.5); NEUTROPHILS % 67.6 % (36.0-66.0); PLATELET COUNT, AUTOMATED 315 10^3/uL (150-450)
[2025-06-16 07:36] LABS: CALCIUM LEVEL 8.0 MG/DL (8.3-10.6); CARBON DIOXIDE LEVEL 27.0 MMOL/L (20-31); CHLORIDE LEVEL 96.0 MMOL/L (98-107); CREATININE FOR GFR 6.25 MG/DL (0.55-1.30); GLOMERULAR FILTRATION RATE 6.6 (>39); MAGNESIUM LEVEL 1.6 MG/DL (1.8-2.4); POTASSIUM SERUM 3.5 MMOL/L (3.5-5.1); SODIUM LEVEL 138.0 MMOL/L (136-145)
[2025-06-16] MEDS: HEPARIN 1,000 UNITS/ML 10 ML VIAL (FOR RADIOLOGY & DIALYSIS ONLY) XX SCH (09:49)
[2025-06-16] MEDS: MAGNESIUM OXIDE 400 MG TAB PO ONE (13:39)
[2025-06-17] VITALS (10 sets, daily range): BP systolic 132–168; BP diastolic 52–62; TEMP 96.6–97.2; O2SAT 95–100
[2025-06-17 06:00] LABS: BASO # 0.1 10^3/uL (0.0-0.2); BASO % 0.5 % (0.0-1.0); EOS # 0.1 10^3/uL (0.0-0.5); EOS % 1.0 % (0.0-3.0); LYMPH # 1.6 10^3/uL (1.5-5.0); LYMPH % 16.1 % (24.0-44.0); MONO # 1.2 10^3/uL (0.0-0.8); MONO % 12.3 % (2.0-8.0); NEUTROPHILS # 6.6 10^3/uL (1.5-8.5); NEUTROPHILS % 68.4 % (36.0-66.0); PLATELET COUNT, AUTOMATED 312 10^3/uL (150-450)
[2025-06-17 06:35] LABS: ALT/SGPT 46 U/L (7.0-40); AST/SGOT 62 U/L (<34); CALCIUM LEVEL 7.7 MG/DL (8.3-10.6); CARBON DIOXIDE LEVEL 27 MMOL/L (20-31); CHLORIDE LEVEL 96 MMOL/L (98-107); CREATININE FOR GFR 4.26 MG/DL (0.55-1.30); GLOMERULAR FILTRATION RATE 10.5 (>39); MAGNESIUM LEVEL 1.7 MG/DL (1.8-2.4); POTASSIUM SERUM 3.5 MMOL/L (3.5-5.1); SODIUM LEVEL 140 MMOL/L (136-145)
[2025-06-18 05:31] VITALS: TEMP 96.3; O2SAT 100
[2025-06-18 05:42] VITALS: BP 142/58
[2025-06-18] MEDS ORDERED: LIDOCAINE 1% SDV 5 ML VIAL SC PRN (06:00)
[2025-06-18] MEDS ORDERED: SODIUM CHLORIDE 0.9% 1000 ML IV PRN (06:00)
[2025-06-18] MEDS ORDERED: HEPARIN 1,000 UNITS/ML 10 ML VIAL (FOR RADIOLOGY & DIALYSIS ONLY) XX SCH (06:00)
[2025-06-18 06:10] LABS: BASO # 0.0 10^3/uL (0.0-0.2); BASO % 0.4 % (0.0-1.0); EOS # 0.1 10^3/uL (0.0-0.5); EOS % 1.2 % (0.0-3.0); LYMPH # 1.8 10^3/uL (1.5-5.0); LYMPH % 19.4 % (24.0-44.0); MONO # 1.1 10^3/uL (0.0-0.8); MONO % 12.2 % (2.0-8.0); NEUTROPHILS # 5.9 10^3/uL (1.5-8.5); NEUTROPHILS % 65.0 % (36.0-66.0); PLATELET COUNT, AUTOMATED 263 10^3/uL (150-450)
[2025-06-18 08:00] VITALS: O2SAT 18
[2025-06-18] MEDS: HEPARIN 1,000 UNITS/ML 10 ML VIAL (FOR RADIOLOGY & DIALYSIS ONLY) IV PRN (10:08)
[2025-06-18 12:30] VITALS: O2SAT 98
[2025-06-18 12:45] VITALS: BP 170/55; TEMP 97.2; O2SAT 96
[2025-06-18] MEDS ORDERED: DOXY100T PO (15:10)
[2025-06-18 16:20] VITALS: BP 165/65
== END 2025-06-18 16:32 | disposition home health service (06) | DRG 871 ==
LOC: EDBD 16:02 → M ED 16:02 → M ED INP 20:52 → M MSPAV 06-08 13:06
PROVIDERS: ADMIT Family Medicine; ATTEND Student in an Organized Health Care Education/Training Program
PROC: 5A1D70Z Performance of Urinary Filtration, Intermittent, Less than 6 Hours Per Day (ICD-10-PCS; principal; 2025-06-08)
PROC: B246ZZZ Ultrasonography of Right and Left Heart (ICD-10-PCS; 2025-06-08)
DX: A41.9 Sepsis, unspecified organism (principal); N18.6 End stage renal disease; I50.32 Chronic diastolic (congestive) heart failure; I13.2 Hypertensive heart and chronic kidney disease with heart failure and with stage 5 chronic kidney disease, or end stage renal disease; J96.11 Chronic respiratory failure with hypoxia; I69.351 Hemiplegia and hemiparesis following cerebral infarction affecting right dominant side; L03.113 Cellulitis of right upper limb; I47.20 Ventricular tachycardia, unspecified; I25.10 Atherosclerotic heart disease of native coronary artery without angina pectoris; E11.40 Type 2 diabetes mellitus with diabetic neuropathy, unspecified; E11.22 Type 2 diabetes mellitus with diabetic chronic kidney disease; E11.319 Type 2 diabetes mellitus with unspecified diabetic retinopathy without macular edema; G47.33 Obstructive sleep apnea (adult) (pediatric); Z99.2 Dependence on renal dialysis; I27.20 Pulmonary hypertension, unspecified; K76.0 Fatty (change of) liver, not elsewhere classified; F32.A Depression, unspecified; D63.1 Anemia in chronic kidney disease; H40.9 Unspecified glaucoma; G25.0 Essential tremor; M48.061 Spinal stenosis, lumbar region without neurogenic claudication; K57.90 Diverticulosis of intestine, part unspecified, without perforation or abscess without bleeding; K59.00 Constipation, unspecified; A46 Erysipelas; E78.5 Hyperlipidemia, unspecified; R53.1 Weakness; E87.70 Fluid overload, unspecified; R11.10 Vomiting, unspecified; Z95.1 Presence of aortocoronary bypass graft; E03.9 Hypothyroidism, unspecified; E83.42 Hypomagnesemia; B97.29 Other coronavirus as the cause of diseases classified elsewhere; Z86.0101 Personal history of adenomatous and serrated colon polyps; Z90.49 Acquired absence of other specified parts of digestive tract; Z85.828 Personal history of other malignant neoplasm of skin; Z95.5 Presence of coronary angioplasty implant and graft; Z79.4 Long term (current) use of insulin; Z79.890 Hormone replacement therapy; Z79.899 Other long term (current) drug therapy; Z88.8 Allergy status to other drugs, medicaments and biological substances

== ENCOUNTER → 2025-09-12 | Outpatient (CLI) | payer MEDICARE, MEDICAID ==
[~2025-09-12] MED LIST changes: +ALEN35TA56 PO; +BREO1INH3 INH; +CELE10TA PO; +METO1TAB87 PO; -UNRESOLVED CLARIFICATION ENTRY XX SCH
[2025-09-12] MEDS: NS 250 ML IV SCH (09:20)
[2025-09-12 09:30] VITALS: TEMP 97.1
[2025-09-12 09:47] LABS: PLATELET COUNT, AUTOMATED 195 10^3/uL (150-450)
[2025-09-12 09:58] LABS: INR 0.91
[2025-09-12 10:17] LABS: CALCIUM LEVEL 8.5 MG/DL (8.3-10.6); CARBON DIOXIDE LEVEL 33.0 MMOL/L (20-31); CHLORIDE LEVEL 90.0 MMOL/L (98-107); CREATININE FOR GFR 6.51 MG/DL (0.55-1.30); GLOMERULAR FILTRATION RATE 6.3 (>39); POTASSIUM SERUM 3.9 MMOL/L (3.5-5.1); SODIUM LEVEL 137.0 MMOL/L (136-145)
[2025-09-12] MEDS: MIDAZOLAM INJ 2 MG/2 ML VIAL IV PRN (11:07)
[2025-09-12] MEDS: HEPARIN 1,000 UNITS/ML 10 ML VIAL (FOR RADIOLOGY & DIALYSIS ONLY) IV PRN (11:15)
[2025-09-12] MEDS: ISOVUE-300 61% 100 ML VIAL IV SCH (11:38)
[2025-09-12] MEDS: LIDOCAINE 1% MDV 20 ML VIAL SC SCH (11:38)
[2025-09-12 13:30] VITALS: BP 184/78; O2SAT 100
== END ==
LOC: M IRPRO 08:53
PROVIDERS: ATTEND Internal Medicine Nephrology
DX: N18.6 End stage renal disease (principal)
CPT/HCPCS: 36901; 80048; 85027; 85610; 99152; 99153; C1725; C1769; J2250; J3010; Q9967